=== PATIENT | male | born 1955 | race Caucasian/White ===

== ENCOUNTER 2016-05-19 10:52 | Inpatient (IN) | payer OTHER, MEDICARE ==
[~2016-05-19] VITALS: Ht 160 cm; Wt 104.1 kg
[~2016-05-19 10:52] MED LIST: ASPIRIN EC81 M1 PO; CITALOPRAM HBR20 MG PO; CLONAZEPAM0.5 MG PO; CLONAZEPAM1 M2 PO; CLONIDINE0.1 MG PO; GABAPENTIN300 M2 PO; GABAPENTIN600 M1 PO; IBUPROFEN600 M1 PO; LISINOPRIL10 MG PO; METHADONE10 MG PO; METHADOSE10 MG/1 ML PO; NEURONTIN600 M1 PO; NEXIUM 40MG40 MG PO; NICORELIEF2 MG PO; NICOTINE PATCH1 EAC2 TOP; OMEPRAZOLE20 M2 PO; OMEPRAZOLE40 M1 PO; PERCOCET 5-3251 EACH PO; PRAZOSIN HCL2 M1 PO; PRAZOSIN HCL5 M1 PO; RISPERDAL1 M1 PO; RISPERDAL2 M1 PO; RISPERIDONE1 M1 PO; RISPERIDONE2 MG PO
--- NOTE | 2016-05-19 10:58 | NUR ---
PT STATES THAT HE WAS DISCHARGED FROM [facility] 3 WEEKS AGO AND FOR THE PAST 3 DAYS HAS BEEN HAVING INCREASED DEPRESSION AND POSITIVE SI THOUGHTS WITH PLAN TO WALK IN FRONT OF A TRAIN. TAKES ALL MEDS PRESCRIBED
--- NOTE | 2016-05-19 11:37 | NUR ---
URINE SPEC. OBTAINED AND SENT
--- NOTE | 2016-05-19 11:39 | NUR ---
PT TO RM 14, WANDEND BY SECURITY AND CHANGED INTO PAPER SCRUBS. PT COMMITS TO SAFETY WHILE IN THE ED. SITTER AT DOORWAY
[2016-05-19 12:05] LABS: ABSOLUTE BASOPHIL COUNT 0 /CUMM (0.0-0.2); ABSOLUTE EOSINOPHIL COUNT 0.2 /CUMM (0.0-0.7); ABSOLUTE GRANULOCYTE CT 2.9 /CUMM (1.4-6.5); ABSOLUTE LYMPH COUNT 1.9 /CUMM (1.2-3.4); ABSOLUTE MONOCYTE COUNT 0.5 /CUMM (0.10-0.60); BASOPHIL % 0.4 % (0.0-2.0); EOSINOPHIL % 3.3 % (0-5); GRANULOCYTE % 52.8 % (42.2-75.2); HEMATOCRIT 42.2 % (42-52); MEAN CORPUSCULAR HGB 32.1 PG (27.0-31.0); MEAN CORPUSCULAR HGB CONC 35.3 G/DL (33.0-37.0); MEAN CORPUSCULAR VOLUME 90.8 FL (80.0-94.0); MEAN PLATELET VOLUME 8.7 FL (7.4-10.4); PLATELET COUNT 205 /CUMM (130-400); RED BLOOD CELL CT 4.65 /CUMM (4.70-6.10); WHITE BLOOD CELL COUNT 5.5 /CUMM (4.8-10.8)
--- NOTE | 2016-05-19 13:08 | ED PSYCHIATRIC COMPLAINT ---
See Addendum History of Present Illness General Chief Complaint: Psychiatric Related Complaint Stated Complaint: SI+ Source: patient Exam Limitations: no limitations Vital Signs & Intake/Output Vital Signs & Intake/Output Vital Signs Date Time Temp Pulse Resp B/P Pulse O2 O2 Flow FiO2 Ox Delivery Rate 05/19 2300 96.5 54 20 127/76 96 Room Air 05/19 1930 96.5 55 16 109/63 96 Room Air 05/19 1548 98.0 76 20 138/88 94 Room Air 05/19 1428 97 05/19 1300 98.0 90 20 130/78 96 Room Air 05/19 1057 97.2 82 16 123/81 95 Room Air ED Intake and Output 05/20 0000 05/19 1200 Intake Total Output Total Balance Patient 250 lb Weight Allergies Coded Allergies: NO KNOWN ALLERGIES (03/14/16) Reconcile Medications Aspirin (Ecotrin*) 81 MG TABLET.DR 1 TAB PO DAILY HEART/BLOOD (Reported) Gabapentin (Neurontin) 600 MG TABLET 600 MG PO Q6PRN PRN ANXIETY, PAIN Ibuprofen 600 MG TABLET 1 TAB PO TID PAIN (Reported) with food Methadone HCl (Methadose) 10 MG/ML ORAL.CONC 90 MG PO DAILY CHRONIC PAIN ( Reported) Nicotine (Nicotine Patch) 14 MG/24 HOUR PATCH.TD24 1 PAT TOP DAILY SMOKING CESSATON Nicotine (Nicorelief) 2 MG GUM 2 MG PO Q2 HRS NEEDED PRN tobacco craving Omeprazole 40 MG CAPSULE.DR 40 MG PO 1/2 HR AC ACID REFLUX Prazosin HCl 5 MG CAPSULE 5 MG PO AT BEDTIME NIGHTMARES Risperidone (Risperdal) 2 MG TABLET 2 MG PO BID CLEAR THOUGHTS TAKE ONE TABLET IN THE MORNING AND TWO TABLETS IN THE EVENING. Triage Note: PT STATES THAT HE WAS DISCHARGED FROM [facility] 3 WEEKS AGO AND FOR THE PAST 3 DAYS HAS BEEN HAVING INCREASED DEPRESSION AND POSITIVE SI THOUGHTS WITH PLAN TO WALK IN FRONT OF A TRAIN. TAKES ALL MEDS PRESCRIBED Triage Nurses Notes Reviewed? yes HPI: Patient presents for evaluation of suicidal ideation. Patient is somewhat reluctant to provide details of history. He states that he has been feeling suicidal over the past few days and thinks about slitting his wrists. He denies attempting this however. He denies alcohol or drug use. (SANGEETHA CUENCA,HANNA Bustillos) Past History Travel History Traveled to [facility] past 21 day No Medical History Any Pertinent Medical History? 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 No (SANGEETHA CUENCA,HANNA Bustillos) Review of Systems Review of Systems Constitutional: Reports: no symptoms. EENTM: Reports: no symptoms. Respiratory: Reports: no symptoms. Cardiovascular: Reports: no symptoms. GI: Reports: no symptoms. Genitourinary: Reports: no symptoms. Musculoskeletal: Reports: no symptoms. Skin: Reports: no symptoms. Neurological/Psychological: Reports: see HPI. Hematologic/Endocrine: Reports: no symptoms. Immunologic/Allergic: Reports: no symptoms. All Other Systems: Reviewed and Negative (SANGEETHA CUENCA,HANNA Bustillos) Physical Exam Physical Exam General Appearance: SEE BELOW Neurological/Psychiatric: SEE BELOW Comments: Gen.: Well-nourished, well-developed, no acute respiratory distress. Head: Normocephalic, atraumatic. Eyes: Normal inspection bilaterally Ears: Normal inspection bilaterally Nose: Normal inspection Throat/mouth : Moist mucosa Neck: Supple, full range of motion, no goiter Heart: Regular rate and rhythm, no murmurs rubs or gallops Lungs: Clear to auscultation bilaterally with normal air entry Chest: Nontender Back: Normal range of motion Abdomen: Soft, nontender, nondistended, normal bowel sounds Extremities: Normal range of motion grossly, equal radial pulses, no cyanosis clubbing or edema Neurologic: Cranial nerves grossly intact, speech is clear Skin: warm and dry Psychiatric: Calm, cooperative, no apparent delusions or hallucinations SAD PERSONS Done? DEFERRED TO CRISIS (HANNA VIVAS MD) Progress Differential Diagnosis: DEPRESSION, ANXIETY, DRUG INTOXICATION/OVERDOSE Plan of Care: Orders Procedure Date/time Status Continuous Observation Monitor 05/19 1521 Active ED CRISIS PSYCH CONSULT 05/19 1336 Active URINE DRUG SCREEN FOR ER ONLY 05/19 1132 Complete ETHANOL 05/19 1132 Complete COMPREHENSIVE METABOLIC PANEL 05/19 1132 Complete CBC WITHOUT DIFFERENTIAL 05/19 1132 Complete Laboratory Tests 05/19/16 1149: Anion Gap 14, Estimated GFR > 60, BUN/Creatinine Ratio 19.0, Glucose 77, Calcium 10.0, Total Bilirubin 0.9, AST 26, ALT 26, Alkaline Phosphatase 89, Total Protein 7.3, Albumin 4.2, Globulin 3.1, Albumin/Globulin Ratio 1.4, CBC w Diff NO MAN DIFF REQ, RBC 4.65 L, MCV 90.8, MCH 32.1 H, RDW 13.0, MPV 8.7, Gran % 52.8, Lymphocytes % 34.0, Monocytes % 9.5 H, Eosinophils % 3.3, Basophils % 0.4 , Absolute Granulocytes 2.9, Absolute Lymphocytes 1.9, Absolute Monocytes 0.5, Absolute Eosinophils 0.2, Absolute Basophils 0, PUBS MCHC 35.3, Serum Alcohol < 10.0 05/19/16 1137: Urine Opiates Screen < 100.00, Methadone Screen > 735 H, Barbiturate Screen < 60, Ur Phencyclidine Scrn 8.50, Amphetamines Screen < 100, U Benzodiazepines Scrn > 800 H, Urine Cocaine Screen < 50, Urine Cannabis Screen > 80.00 H Comments: 05/19/2016 7:34:47 PM patient signed out to Dr. Rutherford. (HANNA VIVAS MD) Hand-Off Endorsed To: HANNA VIVAS MD Endorsed Time: 0700 Pending: other (bed search) (YOLANDA CUENCA,EUGENE) Departure Departure Disposition: STILL A PATIENT Condition: Stable Referrals: PATIENT HAS NO PRIMARY CARE DR (PCP) Departure Forms: Customer Survey General Discharge Information (HANNA VIVAS MD) Departure Clinical Impression Primary Impression: Methadone dependence Secondary Impressions: Benzodiazepine dependence, Cannabis abuse, Mood disorder (YOLANDA CUENCA,EUGENE)
--- NOTE | 2016-05-19 13:43 | NUR ---
PT CURRENTLY SLEEPING. RR EVEN AND UNLABORED. SITTER REMAINS AT DOORWAY
--- NOTE | 2016-05-19 14:07 | NUR ---
Crisis consult ordered, however per Dr. Rodriguez the patient requires further medical evaluation at this time. Crisis will not evaluate until Dr. Rodriguez medically clears the patient.
--- NOTE | 2016-05-19 14:45 | ED PSY CRISIS COLLATERAL NOTE ---
Collateral Note Collateral Note Family/Inform/Vibha Contacts: Pt's sister La called crisis . She expresses that she is very worried for pt's safety due to his SI. "Please don't discharge him he will in the streets." She identified that she is aware that during pt's previous admit to [facility] he was referred to [facility], but she is unsure what the outcome of the referral was. She informs that Pt's friend Peri was involved in the process as she was holding pt's money to pay for his stay there. She provided Ct's number . She would like to be updated on pt's final dispo.
--- NOTE | 2016-05-19 14:48 | ED PSY CRISIS COLLATERAL NOTE ---
Collateral Note Collateral Note Family/Inform/Vibha Contacts: Call placed to Peter to follow-up on the status of the referral that was made during pt's previous admit to [facility]. This clinician spoke with Abby Gilbert who stated that she will talk to her director who handles the intake process and call crisis back.
--- NOTE | 2016-05-19 15:09 | ED PSY CRISIS COLLATERAL NOTE ---
Collateral Note Collateral Note Family/Inform/Vibha Contacts: This clinician spoke to pt's close friend Ct who explained that she has been very worried about pt. Once he was discharged from [facility] he was staying at her home. However, she recently had surgery and could not care for him because he falls often. She took him to stay at a hotel. She explains that pt needs to stay in a place like [facility] to help care for him. She explains that pt was almost in [facility], but was told that he must get medicaid and food stamps first. Peri says she took him to apply for the food stamps and medicaid, but is not sure if it was ever approved. She informed that she was told by [facility] that another option for pt may be a place called [facility] on [address] in [place]. she would like to know pt's final dispo and says he is welcome to call her.
--- NOTE | 2016-05-19 15:10 | NUR ---
CLARIFICATION- DR VIVAS DOESN'T WANT ADDITIONAL LABS JUST CONCERNED PT UNABLE TO STAY AWAKE LONG ENOUGH FOR CRISIS TO ASSESS, CRISIS AWARE
--- NOTE | 2016-05-19 15:34 | ED PSYCH CRISIS CONSULTATION ---
See Addendum Crisis Consult Basic Assessment Date of Consult: 05/19/16 Insurance Authorization: Insurance #1: Insurance name: MEDICARE A Phone number: Policy number: [id number] Group number: Authorization number: ED Provider: Patient's ED Provider: HANNA VIVAS MD Primary Care Physician: Patient's PCP: PATIENT HAS NO PRIMARY CARE DR PCP's Phone Number: Chief Complaint: Psychiatric Related Complaint Patient's Quote: "I gave up. I just want to ." Present Illness: Pt is a 60 yo male well known to [facility]. Pt has several admits to [facility] and was recently discharged at the end of last month with a referral to [facility]. Pt informs that [facility] refused to take him when he tried to go and he does not know why. Pt is currently homeless and has chronic leg pain. He has chronic leg pain. Pt reports he has minimal supports other than his sister La and his Friend Ct. Pt currently in Methadone tx and out pt psych tx at [facility]. Pt expresses feelings of hopelessness, helplessness, and worthlessness. Pt reports poor sleep and appetite. He presents with a depressive affect and is unkempt and disheveled. Pt reports that he has been trying to kill himself all week with multiple overdoses of "Handfuls of pills of what ever I can get." Pt denies overdosing today, but says he has been thinking about walking in front of a train. Pt also reports that he is hearing voices telling him to kill himself. Pt admits that he has been smoking marijuana 1x daily for the past few weeks since he was last discharged. He has also been taking about 20 mg of xanax daily that he gets off the streets. Case reviewed with Dr. Tobar of Psychiatry and pt will need inpt psych tx. There are currently no beds on [facility] so a bed search will be done. Patient's Address: [address] [place], [place] [id number] Other Phone Number: Who Do You Live With? Friend Family/Informants Interviewed: Sister La and friend Ct. See collateral notes Allergies - Coded Allergies: NO KNOWN ALLERGIES (03/14/16) Current Medications - Scheduled Medications Aspirin (Ecotrin*) 81 MG TABLET.DR Guy TAB PO DAILY HEART/BLOOD (Reported) Entered as Reported by MARJORIE TANG on 04/15/16 1714 Ibuprofen 600 MG TABLET 1 TAB PO TID PAIN #90 (Reported) Entered as Reported by MARJORIE TANG on 03/14/16 1714 Methadone HCl (Methadose) 10 MG/ML ORAL.CONC 90 MG PO DAILY CHRONIC PAIN ( Reported) Entered as Reported by MARJORIE TANG on 04/15/16 1713 Nicotine (Nicotine Patch) 14 MG/24 HOUR PATCH.TD24 1 PAT TOP DAILY SMOKING CESSATON #28 PAT Prescribed by NIDA SANDOVAL APRN on 05/06/16 Omeprazole 40 MG CAPSULE.DR 40 MG PO 1/2 HR AC ACID REFLUX #14 CAP Prescribed by NIDA SANDOVAL APRN on 05/06/16 Prazosin HCl 5 MG CAPSULE 5 MG PO AT BEDTIME NIGHTMARES #14 CAP Prescribed by NIDA SANDOVAL APRN on 05/06/16 Risperidone (Risperdal) 2 MG TABLET 2 MG PO BID CLEAR THOUGHTS #42 TAB Prescribed by NIDA SANDOVAL APRN on 05/06/16 Scheduled PRN Medications Gabapentin (Neurontin) 600 MG TABLET 600 MG PO Q6PRN PRN ANXIETY, PAIN #56 TAB Prescribed by NIDA SANDOVAL APRN on 05/06/16 Nicotine (Nicorelief) 2 MG GUM 2 MG PO Q2 HRS NEEDED PRN tobacco craving # 30 GUM Prescribed by NIDA SANDOVAL APRN on 05/06/16 Laboratory Results: Laboratory Tests 05/19/16 1149: Anion Gap 14, Estimated GFR > 60, BUN/Creatinine Ratio 19.0, Glucose 77, Calcium 10.0, Total Bilirubin 0.9, AST 26, ALT 26, Alkaline Phosphatase 89, Total Protein 7.3, Albumin 4.2, Globulin 3.1, Albumin/Globulin Ratio 1.4, CBC w Diff NO MAN DIFF REQ, RBC 4.65 L, MCV 90.8, MCH 32.1 H, RDW 13.0, MPV 8.7, Gran % 52.8, Lymphocytes % 34.0, Monocytes % 9.5 H, Eosinophils % 3.3, Basophils % 0.4 , Absolute Granulocytes 2.9, Absolute Lymphocytes 1.9, Absolute Monocytes 0.5, Absolute Eosinophils 0.2, Absolute Basophils 0, PUBS MCHC 35.3, Serum Alcohol < 10.0 05/19/16 1137: Urine Opiates Screen < 100.00, Methadone Screen > 735 H, Barbiturate Screen < 60, Ur Phencyclidine Scrn 8.50, Amphetamines Screen < 100, U Benzodiazepines Scrn > 800 H, Urine Cocaine Screen < 50, Urine Cannabis Screen > 80.00 H Past History Past Medical History Neurological: NONE, migraine, 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 Pt attends treatment 3x per week from the [facility] in [place]. Physical Limitations (Interventions): Knee pain. ambulates with cane Psychiatric Treatment History Psych Treatment Psychiatric Treatment Yes Inpatient Treatment Yes Outpatient Treatment Yes Location of Treatment [place] [facility] Reason for Treatment Depression Dates of Treatment multiple Response to Treatment variable Diagnosis by History: Schizophrenia, Depression with psychotic features ,Anxiety, Bipolar, schizoaffective Substance Use/Abuse History Drug Use/Abuse Substances Used/Abused Yes Substance Used/Abused Other (list in comments) (see present illness) Substance Abuse Treatment Substance Abuse Treatment Past Substance Abuse TX Yes Inpatient Treatment Yes Outpatient Treatment Yes Location of Treatment [facility] [facility] Reason for Treatment Opiate and anxio use d/o Dates of Treatment multiple Response to Treatment variable Current Mental Status Mental Status Orientation: Person, Place, Situation Affect: Blunted, Depressed, Flat, Hopeless, Lonely, Sad Speech: Mumbled, Soft Neuro-vegetative: Anhedonia, Appetite Decreased, Concentration Poor, Energy Decreased, Helpless, Loss of Interest, Sleep Disturbance Appearance Appearance- Dress/Hygiene: unkempt disheveled Behaviors Thought Process: WNL Thought Content: Auditory Hallucinations Memory: WNL Insight: Fair SI/HI Risk Assessment Past Suicidal Ideation/Attempts Yes Current Suicidal Ideation/Att Yes Past Homicidal Ideation/Att: Yes Current Homicidal Ideation/Attempts No Degree of Intent: Made Preparations, Plan, States Intent Danger To: Self Gravely Disabled: Poor Judgment Risk Factors: access to lethal means, chronic/serious med cond., high anxiety/ distress, history of suicide atmpts, SA/MH hospitalized, substance abuse, lives alone, male, limited support Lethality Ratin PTSD Checklist PTSD Done? 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 Sed/Hyp/Anxio(Benzodiazepine) use d/o F13.20; cannabis use d/o F12.20; opiate use d/o F11.20, on methadone tx; s/p bilateral knee surgery;Hep C; GERD; No left kidney. Current GAF: 23 Comments: Homelessness, minimal supports Departure Disposition Psych Medical Clearance Date: 05/19/16 Medically Cleared at: 0300 Time Started: 0300 Time Ended: 329 Psychiatrist Consulted: Ralf Tobar MD Date Disposition Established: 05/19/16 Time Disposition Established: 329 Plan for Disposition - Modality: Inpatient Psychiatry Facility: Bed Search Rationale for Disposition: safety and stabilization of sx Referrals PATIENT HAS NO PRIMARY CARE DR (PCP)
--- NOTE | 2016-05-19 15:45 | NUR ---
REPORT RECEIVED ON PT AND RN CARE ASSUMED RE-ASSESSMENT PERFORMED, CLINICAL STATUS UNCHANGED. ALL V.S.S. PT SLEEPING INTERMITTENTLY
--- NOTE | 2016-05-19 16:00 | NUR ---
Pt evaluated by Crisis and requires inpt psych tx. There are no beds on [facility]. Bed search being done.
--- NOTE | 2016-05-19 17:05 | NUR ---
Clinical faxed to [facility], [place], [place], [place], [facility], and [facility]
--- NOTE | 2016-05-19 18:14 | NUR ---
PT CALM COOPERATIVE IN ROOM # 14, SLEEPING INTERMITTENTLY. CLINICAL STATUS UNCHANGED
--- NOTE | 2016-05-19 20:15 | NUR ---
PT SLEEPING INTERITTENTLY, CONTINUOUS OBSERVATION MAINTAINED. ALL V.S.S. CLINICAL STATUS UNCHANGED.
--- NOTE | 2016-05-19 22:37 | NUR ---
RE-ASSESSMENT PERFORMED, CONTINUOUS OBSERVATION MONITOR PRESENT. PT SLEEPNG INTERMITTENTLY, CALM AND COOPERATVE. CLINICAL STATUS UNCHANGED
--- NOTE | 2016-05-20 00:10 | NUR ---
SLEEPING SHORT PERIODS. SITTER AT DOOR.
--- NOTE | 2016-05-20 03:42 | NUR ---
A[place] WESLEY MOTRIN 6OOMG PO GIVEN.
--- NOTE | 2016-05-20 07:12 | NUR ---
ASSUMED CARE OF PT WHO IS A&O. PT REQUESTING METHADONE. CALLED [facility] IN [place] AND SPOKE TO WAYNE FARFAN RN WHO CONFIRMED 90 MG METHADONE DOSE. STATES LAST DOSE THERE WAS 05/19/16. DR VIVAS AWARE. PT HAS POOR HYGIENE AND THIS FUEL HANDLER REQUESTED THAT HE SHOWER. [facility] ST[facility] [phone]
--- NOTE | 2016-05-20 09:19 | NUR ---
PT CURRENTLY SPEAKING ON TELEPHONE. SITTER REMAINS AT BEDSIDE. WILL CTM
--- NOTE | 2016-05-20 11:06 | NUR ---
PT CURRENTLY EATING LUNCH. PT HAS NO COMPLAINTS. SITTER AT DOORWAY
--- NOTE | 2016-05-20 13:39 | NUR ---
PT LAYING ON BED WATCHING TV, PT HAS NO COMPLAINTS AT THIS TIME. SITTER AT DOORWAY. WILL CTM
--- NOTE | 2016-05-20 14:26 | NUR ---
PT MEDICATED DOCUMENTED IN EMAR. PT IS CALM AND COOPERATIVE, SITTER AT DOORWAY
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
--- NOTE | 2016-05-20 15:34 | NUR ---
PT REFUSED VITAL IS ALART AND WENT BACK TO SLEEP
--- NOTE | 2016-05-20 15:44 | NUR ---
CPS is ready for nurse to nurse report from the ED nurse.
--- NOTE | 2016-05-20 15:47 | NUR ---
PT RESTING QUIETLY IN ROOM, ROOM DARKENED, SITTER AT DOORWAY FOR SAFETY. MEAL TRAY AT BEDSIDE FOR PT WHEN HE AWAKENS. EVEN, REGULAR RESP NOTE.D
--- NOTE | 2016-05-20 16:20 | NUR ---
REPORT CALLED TO ROGER REID, PT REPORTING HE HAS ALL OF HIS BELONGING BAG TO TRANSPORT WITH SECURITY DOWNSTAIRS.
[2016-05-20 16:50] VITALS: BP 142/93
[2016-05-20 17:49] VITALS: BP 140/85
--- NOTE | 2016-05-20 18:34 | NUR ---
PT ADMITTED TO [facility] FOR DEPRESSION WITH SI AND BENZO DETOX. PT RECENTLY HOSPITALIZED ON CPS AND DCD 05/06/16. PT REPORTED DEPRESSION "7" AND ANXIETY "5" ON SCALE OF 1-10. HE DENIED SI/THOUGHTS OF SELF HARM DURING INTERVIEW. HE AGREED TO TELL STAFF IF THOUGHTS RETURN. HE ADMITTED TO INTERMITTENT COMMAND TYPE AH WHICH "TOLD ME TO JUMP IN FRONT OF A TRAIN" AND TODAY "TO RUN OUT OF THE ER." HE DENIED PARANOID THOUGHTS AND ALL OTHER HALLUCINATIONS. PT C/O CHRONIC R KNEE PAIN OF "7." NO OTHER SOMATIC C/O. PT AFFECT CONSTRICTED. BEHAVIOR PLEASANT AND COOPERATIVE. PT HAS NOT SCORED ON CIWA.
[2016-05-20 20:02] VITALS: BP 132/77
[2016-05-20 20:05] VITALS: BP 132/77
--- NOTE | 2016-05-20 21:46 | CPS MD/APRN INITIAL ASSE PSYCH ---
Psychiatric Admission Sewer Connector's Note Reviewed: Yes Patient Seen and Examined: Yes Identifying Information: 60 yo SWM admitted today, referred by ER. The patient presented to the ER on 05/19/16. Chief Complaint: SI, hooked on benzos. Reaction to Hospitalization: Feels good about admission. "I need help." History of Present Illness Onset of Illness: Reports father 6 months ago and patient reports he isn't dealing with it. Circumstances Leading to Admission: Medication non-compliance x ~2 weeks. SI. Benzo addiction. of father ~6 months ago. Hasn't been accepted to [facility]. Reportedly has been taking handfuls of pills, whatever he could get. Problem(s) Justifying Need for Admission: SI, benzo addiction. Other HPI: States he is hooked on benzos. "Can't stop taking them. I'm shaking like a leaf." Sleep: terrible. Appetite: "it's worse" (than his sleep). Energy: variable. Past Psychiatric History Past Diagnosis(es)- if any: Depression with psychotic features. Benzo use d/o. Cannabis use d/o. Opiate use d/o (on methadone). TBI. Past Precipitating Factors- if any: CAH to strangle sister then kill himself. - Include inpatient and outpatient treatment Treatment History: [facility] IOP. Inpatient: x2. History of Suicide Attempts or Gestures Denies. Substance Abuse History: Tob: 1-2 cigs/day Benzos: #20 klonopin 1 mg/day MJ: "once in a while." Allergies: Coded Allergies: NO KNOWN ALLERGIES (03/14/16) Home Med List: Patient reports he has been off meds since discharge, ~2 weeks ago, because he "just stopped taking them." ASA 81 mg daily Ibuprofen 600 mg tid Omeprazole 40 mg daily Prazosin 5 mg qhs Risperdal 2 mg bid Neurontin 600 mg q6p anxiety Methadone 90 mg daily. - Include any medical condition(s) that may - impact the patient's recovery/remission Past Medical History: Overweight. 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 Substance Use: None. Suicides: None. Social History Living Situation: Homeless x ~1 year. Living at [facility] in [place]. Significant Relationships (family/friends): Mother and sister. NA/AA. Education: HS graduate. Vocation/Occupation: Unemployed, on disability. Legal: Hx arrest(s) for MJ possession. Healthly Behaviors Screening Tobacco Screening Tobacco Use from ED Docu: Current Not Daily - If tobacco counseling indicated - the following topics are required. - #1 Recognizing dangerous situations. - #2 Coping Skills. - #3 Basic information about quitting. Status of Tobacco Cessation Counseling: #1, #2 AND #3 Completed Cessation Med Status: Nicotine Patch Ordered Alcohol Screening - ETOH screen POS if BAL >=80 or Audit-C>= M4/F3 Audit-C Score from Diag Assess: 0 Blood Alcohol Level: Laboratory Tests 05/19 1149 Toxicology Serum Alcohol (<10 MG/DL) < 10.0 Alcohol Use Screening Results: Neg per Audit C &/or BAL - If ETOH counseling indicated - the following topics are required. - #1 Express concern about the patient's - drinking at unhealthy levels, include informing - of national norms for moderate drinking: - men <= 14 drinks/week, max 4 drinks/occasion - women <= 7 drinks/week, max 3 drinks/occasion - #2 Providing feedback, including linking alcohol to - negative physical effects (liver injury, hypertension) - negative emotional effects (relationship problems and - depression) - negative occupational consequences (reduced work - performance) - #3 Advising the patient to abstain from alcohol or - to drink below national norms for moderate drinking - (as listed above). Status of ETOH Use Counseling: N/A B/C NO ETOH Use Metabolic Screening - Screen if on a Neuroleptic Medication - Metabolic screening should include: - Blood Pressure, BMI, Glucose or Hgb A1c, & a - Lipid profile from within the past 365 days. Metabolic Screening () Not Applicable, patient not on a neuroleptic. OR () Patient on a neuroleptic(s) . Enter below results for Glucose or Hemoglobin A1C, and lipid panel if obtained during the last 365 days. BMI: 40.000 Blood Pressure: 132/77 Laboratory Results (If applicable): Exam and Plan Mental Status Examination Ambulation Status: Not observed. Appearance: Overweight WM dressed in paper scrubs, sitting on bed in ER. Attitude towards examiner: Polite and cooperative. Psychomotor activity: WNL. No psychomotor agitation/retardation. Behavior: WNL. Quality of speech: Normal in volume, rate and tone. Affect: Calm and depressed. Mood: "My head is pounding. I just can't think straight. I'm shaking like a leaf." Sad 10. Anxiety11/14. Feels hopeless, helpless, worthless and guilty. Suicidal Ideation: +SI, sees self running in front of a train. Homicidal Ideation: Denies. Hallucinations: Reports AH that tell him to kill himself. Voice is inside and outside his head, 1 voice. Denies VH. Paranoid/Delusional Material: Denies PI and magical crespo. Difficulties with thought organization: None. Insight: Limited. Judgment: Limited. Orientation: Oriented to person and place. Gives date incorrectly as 04/17/2015. Cognition: Grossly WNL. Correctly names the president. Memory Function: Grossly WNL. Estimate of intellectual functioning: Average. Assets/Strengths Patient Identified Assets/Strengths: Was pretty good at sports. Used to love to play golf. Now his leg pain interferes. Impression/Plan Impression and Plan: 60 yo SWM with depression (past psychotic features) and substance abuse, presents with SI to run in front of a train. Was off medications for ~2 weeks. Reportedly has been taking handfuls of pills. - Include all active medical diagnosis that require tx DSM 5 Diagnosis(es): Major depression, rec, severe with psychotic fx's. Benzo use d/o. Cannabis use d/o. Opioid use d/o, on methadone maintenance. Chronic leg pain. Hx TBI. Hep C. GERD. Congenital single kidney. - Initial Tx Plan for Active Psych & Medical Conditions Treatment Plan: Monitor on the unit for safety, benzo withdrawal and mood disorder. CIWA with Ativan protocol. Continue methadone once verified. Resume prazosin, Risperdal and prn neurontin. Additional information is needed from collaterals. - Factors that would help patient function - in a less restrictive setting. Factors: No longer suicidal. No longer having CAH to kill self.
--- NOTE | 2016-05-20 22:14 | NUR ---
PT IS VISIBLE ON UNIT, SITTING IN LOUNGE AND WATCHING TV WITH PEERS. AT TIMES PT CAN BE SEEN FALLING ASLEEP IN CHAIR. PT IS COOPERATIVE AND COMPLIANT WITH STAFF. REFUSED WRAP UP MEETING. NO COMPLAINTS OR SI REPORTED. PT HAS A STABLE MOOD AND FULL RANGE AFFECT.
[2016-05-21] VITALS (11 sets, daily range): BP systolic 109–152; BP diastolic 45–94
--- NOTE | 2016-05-21 08:30 | PN- Gen Med ---
Assessment/Plan Assessment: 60-year-old male with past medical history significant for substance abuse, HTN, GERD, hep C was recently admitted in Inpatient Psychiatry for depression and suicidal ideation. Patient comes back for auditory hallucinations and suicidal ideation. Denies any homicidal ideation He has chronic right knee pain S/P knee surgery. Followed up with surgeon repeat surgery was recommended, patient refused it. On by mouth ibuprofen for pain control. Patient is unclear about his medications for hypertension, previous documentation mentions lisinopril but patient doesn't admit taking anything at this point. Patient's GERD symptoms improved with the famotidine started last admission. Otherwise 14 point complete ROS negative Problem List: 1. Depression 2. Auditory hallucinations 3. Elevated blood pressure 4. Suicidal ideation 5. Methadone dependence Plan: #1 depression and suicidal ideation with auditory hallucination: Management according to psychiatrist. #2 opiate dependence: currently on 90 mg of methadone, continue the same after rechecking with the methadone clinic. #3 continue doxazosin, famotidine #4 continue ibuprofen for pain management. #5 early ambulation for DVT prophylaxis. DVT/Prophylaxis: early ambulation low risk Subjective Follow-up For: Medical evaluation for Inpatient Psychiatry admission Complaints: right knee pain, which is chronic Review of Systems Constitutional: Reports: no symptoms. EENTM: Reports: no symptoms. Cardiovascular: Reports: no symptoms. Respiratory: Reports: no symptoms. Gastrointestinal: Reports: no symptoms. Genitourinary: Reports: no symptoms. Musculoskeletal: Reports: joint pain. Skin: Reports: no symptoms. Neurological/Psychological: Reports: depressed. Hematologic/Endocrine: Reports: no symptoms. Objective Last 24 Hrs of Vital Signs/I&O Vital Signs Date Time Temp Pulse Resp B/P Pulse O2 O2 Flow FiO2 Ox Delivery Rate 05/21 0740 96.4 94 144/90 05/21 0736 96.4 94 144/90 05/20 2108 96.5 66 16 132/77 05/20 2004 96.5 66 132/77 05/20 2001 96.5 66 132/77 05/20 1749 75 140/85 05/20 1650 98.8 63 142/93 05/20 1615 98.3 84 16 134/74 100 Room Air 05/20 1216 97.2 62 17 138/86 93 Room Air 05/20 0936 97.6 56 18 149/89 92 Room Air Intake & Output 05/21 0000 05/21 0800 05/21 1600 Intake Total Output Total Balance Patient 104.128 kg Weight Physical Exam General Appearance: Alert, Oriented X3, Cooperative, No Acute Distress Skin: No Rashes, No Breakdown, No Significant Lesion HEENT: Atraumatic, PERRLA, EOMI, Mucous Membr. moist/pink Neck: Supple, No JVD, No thryomegaly, +2 Carotid Pulse wo Bruit, No LAD Lymphatic: Cervical nl Cardiovascular: Regular Rate, Normal S1, Normal S2, No Murmurs Lungs: Clear to Auscultation, Normal Air Movement Abdomen: Normal Bowel Sounds, Soft, No Tenderness, No Hepatospenomegaly, No Masses Neurological: Normal Gait, Normal Speech, Strength at 5/5 X4 Ext, Normal Tone, Sensation Intact, Cranial Nerves 3-12 NL Extremities: No Clubbing, No Cyanosis, No Edema, Normal Pulses Vascular: Normal Pulses, Pulses Symmetrical Last 24 Hrs of Labs/Mics: Laboratory Tests 05/19 05/19 1149 1137 Chemistry Sodium (137 - 145 mmol/L) 142 Potassium (3.5 - 5.1 mmol/L) 4.5 Chloride (98 - 107 mmol/L) 101 Carbon Dioxide (22 - 30 mmol/L) 28 Anion Gap (5 - 16) 14 BUN (9 - 20 mg/dL) 19 Creatinine (0.7 - 1.2 mg/dL) 1.0 Estimated GFR (>60 ml/min) > 60 BUN/Creatinine Ratio (7 - 25 %) 19.0 Glucose (65 - 99 mg/dL) 77 Calcium (8.4 - 10.2 mg/dL) 10.0 Total Bilirubin (0.2 - 1.3 mg/dL) 0.9 AST (17 - 59 U/L) 26 ALT (21 - 72 U/L) 26 Alkaline Phosphatase (< 127 U/L) 89 Total Protein (6.3 - 8.2 g/dL) 7.3 Albumin (3.5 - 5.0 g/dL) 4.2 Globulin (1.9 - 4.2 gm/dL) 3.1 Albumin/Globulin Ratio (1.1 - 2.2 %) 1.4 TSH (0.270 - 4.200 uIU/mL) 2.400 Hematology CBC w Diff NO MAN DIFF REQ WBC (4.8 - 10.8 /CUMM) 5.5 RBC (4.70 - 6.10 /CUMM) 4.65 L Hgb (14.0 - 18.0 G/DL) 14.9 Hct (42 - 52 %) 42.2 MCV (80.0 - 94.0 FL) 90.8 MCH (27.0 - 31.0 PG) 32.1 H RDW (11.5 - 14.5 %) 13.0 Plt Count (130 - 400 /CUMM) 205 MPV (7.4 - 10.4 FL) 8.7 Gran % (42.2 - 75.2 %) 52.8 Lymphocytes % (20.5 - 51.1 %) 34.0 Monocytes % (1.7 - 9.3 %) 9.5 H Eosinophils % (0 - 5 %) 3.3 Basophils % (0.0 - 2.0 %) 0.4 Absolute Granulocytes (1.4 - 6.5 /CUMM) 2.9 Absolute Lymphocytes (1.2 - 3.4 /CUMM) 1.9 Absolute Monocytes (0.10 - 0.60 /CUMM) 0.5 Absolute Eosinophils (0.0 - 0.7 /CUMM) 0.2 Absolute Basophils (0.0 - 0.2 /CUMM) 0 PUBS MCHC (33.0 - 37.0 G/DL) 35.3 Toxicology Urine Opiates Screen (>2000 NG/ML) < 100.00 Methadone Screen (>300 NG/ML) > 735 H Barbiturate Screen (>200 NG/ML) < 60 Ur Phencyclidine Scrn (>25 NG/ML) 8.50 Amphetamines Screen (>1000 NG/ML) < 100 U Benzodiazepines Scrn (>200 NG/ML) > 800 H Urine Cocaine Screen (>300 NG/ML) < 50 Urine Cannabis Screen (>50 NG/ML) > 80.00 H Serum Alcohol (<10 MG/DL) < 10.0
--- NOTE | 2016-05-21 13:09 | NUR ---
PT IS SEDATED AND UNABLE TO PARTICIPATE APPROPRIATELY IN GROUP. HE IS OBSERVED NODDING OUT AND HE HAD DIFFICULTY FOLLOWING A SIMPLE ACTIVITY.HE DENIES SUICIDAL THOUGHTS AND HIS AFFECT IS FLAT AND MOOD DEPRESSED AND ANXIOUS
--- NOTE | 2016-05-21 14:15 | CP SOUTH PROGRESS NOTE PSYCH ---
Psych (Inpt) Progress Note Progress Note Include the following elements, when applicable: Involvement in the active treatment of the patient with behavioral observations of the patient and the patient's response to the treatment. Review of the ongoing treatment process in the context of the treatment plan. Indication of how multi-disciplinary staff members are carrying out the treatment plan. Plans for future interventions and recommendations for revision of the treatment plan. Liaison with other physicians/providers. Progress Note: Stated that he doesnt feel good, has a headache, stomach ache, stuffy nose. Stated that he was using more opiates when he was discharged and a lot of bz. Stated that this is typical for withdrawal sx for him. Asked for claritin for stuffiness. C/o AH, unable to state what they tell him. Not suicidal. Sedated overall. Mental status appears similar to previous admissions. MSE: middle aged man, poor grooming, malodorous. Poor eye contact. Somnolent, sedated. Psychomotor slowing present. No movement d/o. Fair eye contact. Speech soft but otherwise wnl. Mood depressed and affect blunted. Thought process concrete. c/o AH but not internally preoccupied and does not appear to be responding to internal stimuli. Not visibly distressed. Denied thoughts of suicide. Insight impaired, judgment poor as evidenced by relapse and med non adherence. A: 60 y/o man w/ hx opiate use, bz use d/o, depressive sx w/AH, stated that he was suicidal, hopeless, that he tried to overdose on a number of pills. Presents similarly to other admissions, withdrawn, depressed, anhedonic, overly sedated. Has significant drug use problem, non adherence to outpatient tx, homelessness and significant medical problems which are chronic risk factors for him. Element of secondary gain to seek admission and respite from homelessness likely. Not acutely disorganized or responding to internal stimuli. Plan: Continue current plan of care. Monitor withdrawal sx. Start claritin. Educated him about respite services; about drug abstinence, about recurrent admissions and circumstances (relapse, outpatient not adherence) surrounding them; importance of following up w/ care on d/c to maintain a stable, drug free life and to develop stable outpatient relationships and housing.
--- NOTE | 2016-05-21 22:01 | NUR ---
PT HAS BEEN ISOLATED AND WITHDRAWN TO ROOM FOR MOST OF SHIFT. OOB FOR DINNER AND VITALS. PT GAIT UNSTEADY AND AMBULATES WITH WALKER. HIS BREATHING BECOMES EASILY LABORED AFTER WALKING THE HALLS. PT IS MALODOROUS. PT IS COMPLAINT AND COOPERATIVE. PT MOOD IS STABLE WITH A FLAT AFFECT.
[2016-05-22] VITALS (9 sets, daily range): BP systolic 119–152; BP diastolic 68–98
--- NOTE | 2016-05-22 06:56 | NUR ---
PATIENT SLEPT 1/2 OR LESS OF NIGHT, RESTLESS AND CONFUSED AT TIMES; PULSE ELEVATED AT 2200 AND 0000; NO FURTHER CIWA SCORING DURING THE NIGHT.
--- NOTE | 2016-05-22 10:28 | NUR ---
pt is confused and unsteady. his conversation makes little sense. he is slightly agitated demanding staff allow him to leave..trying doors and refusing to use his walker. when the doctor asked to see him he was unable to understand it was the doctor and just kept repeating that he needed to leave. pt is given ativan 2mg and haldol 5mg. he was resistive to taking the meds and kept the pills in his mouth until assisted by staff to drink the water. hod called to evaluate pt for dt's.pt monitored on one to one status at this time for safety
--- NOTE | 2016-05-22 10:42 | CP SOUTH PROGRESS NOTE PSYCH ---
Psych (Inpt) Progress Note Progress Note Include the following elements, when applicable: Involvement in the active treatment of the patient with behavioral observations of the patient and the patient's response to the treatment. Review of the ongoing treatment process in the context of the treatment plan. Indication of how multi-disciplinary staff members are carrying out the treatment plan. Plans for future interventions and recommendations for revision of the treatment plan. Liaison with other physicians/providers. Progress Note: Yesterday evening and this morning patient has been more disorganized, hallucinating, trying to exit the hospital. Confused and needs frequent redirection. Has had some elevated pulse to 108; scoring on CIWA. Likely withdrawing from bz. MSE: middle aged man, poor grooming, malodorous. Uses walker. Little eye contact. Disorganized, confused and hallucinating. More psychomotor agitation and more combative today. No tics/tremor noted. Speech wnl. Mood irritated and affect constricted. Thought process disorganized today. Hallucinating at times. Thought content + not oriented to circumstances/situation; wants to leave. No evidence of thoughts to harm himself/others. Insight impaired, judgment poor as evidenced by relapse and med non adherence. A: 60 y/o man w/ hx opiate use, bz use d/o, depressive sx w/AH, stated that he was suicidal, hopeless, that he tried to overdose on a number of pills. Presented initially similarly to previous admissions, withdrawn, overly sedated; however this morning and yesterday evening becoming more disorganized, incoherent. Bz withdrawal most likely. Plan: give 5mg haldol w/ lorazepam 2mg for withdrawal sx and psychotic agitation associated w/ them. Monitor vitals as per CIWA. Spoke w/ rural sociologist who evaluated him to manage DTs; will re-eval later in the afternoon (rec librium) and consider need to transfer to medicine for management of withdrawal. 1:1 sitter for disorganization ordered.
[2016-05-22] MEDS ORDERED: CLARITIN10 M1 PO (12:28)
--- NOTE | 2016-05-22 12:29 | Patient Discharge Instructions ---
Psych Discharge Inst General Discharge Information You were seen/treated for: hallucinations Watch for these problems: worsening withdrawal sx
--- NOTE | 2016-05-22 12:47 | CP SOUTH PROGRESS NOTE PSYCH ---
Psych (Inpt) Progress Note Progress Note Include the following elements, when applicable: Involvement in the active treatment of the patient with behavioral observations of the patient and the patient's response to the treatment. Review of the ongoing treatment process in the context of the treatment plan. Indication of how multi-disciplinary staff members are carrying out the treatment plan. Plans for future interventions and recommendations for revision of the treatment plan. Liaison with other physicians/providers. Progress Note: patient has continued to be hallucinating, disorganized and delirious. Attemping to walk out; has not been oriented to place or time. BP elevated to 140s/100; pulse up to 136. Discussed w/ medicine to transfer to floors for stabilization and monitoring of withdrawal sx.
[2016-05-22] MEDS ORDERED: RISPERDAL2 M1 PO (13:09)
--- NOTE | 2016-05-22 14:24 | NUR ---
AT 1420, tranfer report given to Inés LAURA, from [address] [place] [address], pt is to be accommodated in [facility]. Here in the unit patient continues with disorganized thinking, reaching out for vague object and picking his pant for invisible object. 1:1 sitter maintains for safety.
--- NOTE | 2016-05-22 14:43 | History & Physical ---
General Information and HPI MD Statement: I have seen and personally examined GONSALO ALCARAZ and documented this H&P. The patient is a 60 year old M who presented with a patient stated chief complaint of BZ withdrawal Source of Information: patient, old records Exam Limitations: clinical condition, confusion History of Present Illness: 60 year old gentleman current smoker with h/o polysubstance abuse on chronic methadone therapy, depression currently admitted to Inpatient Psychiatry for depression and suicidal ideation. Per nursing staff patient started hallucinating and delirium this morning. On interview he endorsed palpitations. Denied chest pain, nausea, vomitting, abdominal pain. Allergies/Medications Allergies: Coded Allergies: NO KNOWN ALLERGIES (03/14/16) Home Med list Aspirin (Ecotrin*) 81 MG TABLET.DR 1 TAB PO DAILY HEART/BLOOD (Reported) Gabapentin (Neurontin) 600 MG TABLET 600 MG PO Q6PRN PRN ANXIETY, PAIN Ibuprofen 600 MG TABLET 1 TAB PO TID PAIN (Reported) with food Loratadine (Claritin) 10 MG TABLET 1 TAB PO DAILY congestion Methadone HCl (Methadose) 10 MG/ML ORAL.CONC 90 MG PO DAILY CHRONIC PAIN ( Reported) Nicotine (Nicotine Patch) 14 MG/24 HOUR PATCH.TD24 1 PAT TOP DAILY SMOKING CESSATON Nicotine (Nicorelief) 2 MG GUM 2 MG PO Q2 HRS NEEDED PRN tobacco craving Omeprazole 40 MG CAPSULE.DR 40 MG PO 1/2 HR AC ACID REFLUX Prazosin HCl 5 MG CAPSULE 5 MG PO AT BEDTIME NIGHTMARES Risperidone (Risperdal) 2 MG TABLET 2 MG PO BID CLEAR THOUGHTS TAKE ONE TABLET IN THE MORNING AND one tablet in the evening Compliance With Home Meds: POOR Past History Travel History Traveled to [place] past 21 day No Medical History Neurological: migraine, 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 recently Endocrine: NONE Blood Disorders: NONE Cancer(s): NONE AMBULANCE PARAMEDIC/Reproductive: NONE History of MRSA: No History of VRE: No History of CDIFF: No Isolation History: Standard Influenza Vaccine: 01/06/16 Surgical History Surgical History: knee replacement (RT HIP- ?EARLY 2016-), knee surgery Past Family/Social History Family History Relations & Conditions if any Relation not specified for: *No pertinent family history Psychosocial History Where do you live? Home Who Do You Live With? sibling Primary Language: Sri Lankan ETOH Use: denies use Illicit Drug Use: denies illicit drug use Functional Ability Ambulation: cane (WALKER HERE, CANE AT HOME) Employment History Employment Disability Profession/Employer Disability-Has not worked for 10 years Review of Systems Review of Systems Constitutional: Denies: chills, diaphoresis, fever, malaise, weakness, unexplained weight loss. Cardiovascular: Denies: chest pain, edema, orthopena, palpitations, peripheral edema, syncope. Respiratory: Denies: cough, hemoptysis, orthopnea, short of breath, sputum production, stridor, wheezing. GI: Denies: abdominal pain, bloating, constipation, diarrhea, distention, bowel incontinence, melena, nausea, bloody stool, changes in stool, vomiting, steatorrhea. Genitourinary: Denies: discharge, dysuria, frequency, hematuria, hesitation, nocturia, pain, urgency. Exam & Diagnostic Data Last 24 Hrs of Vital Signs/I&O Vital Signs Date Time Temp Pulse Resp B/P Pulse O2 O2 Flow FiO2 Ox Delivery Rate 05/22 1206 100 140/98 05/22 1149 100 140/98 05/22 1006 108 135/75 05/22 0756 96.6 64 130/81 05/22 0755 96.2 98 149/88 05/22 0538 88 142/86 05/22 0345 77 16 119/68 05/22 0129 98.1 87 18 148/93 05/22 0014 97.5 110 18 152/98 05/21 2211 108 14 146/84 05/21 2131 98.3 87 16 152/94 05/21 2000 98.3 87 152/94 05/21 1951 98.3 87 152/94 05/21 1818 91 150/90 05/21 1601 96.6 81 132/84 05/21 1559 96.9 81 132/84 Physical Exam General Appearance agitated and picking at his clothes, obese Skin No Rashes, No Breakdown HEENT Atraumatic Cardiovascular Normal S1, Normal S2 Lungs Clear to Auscultation, Normal Air Movement Abdomen Normal Bowel Sounds, Soft, No Tenderness Assessment/Plan Assessment: 60 year old gentleman with h/o polysubstance abuse on chronic methadone therapy, HTN, GERD, right total knee replacement TBI as child, history hepatitis C, depression recent admission to 04/18/2016 for suicidal ideation Core Measures/Miscellaneous Severe Sepsis Severe Sepsis Present: No Septic Shock Septic Shock Present: No
--- NOTE | 2016-05-22 15:55 | ED PSYCHIATRIST/APRN CONSULT ---
Psychiatrist/CENTRAL SERVICE TECHNICIAN ED Consult Assessment and Plan: 60 y/o man w/ hx opiate use, bz use d/o, depressive sx w/AH, stated that he was suicidal, hopeless, that he tried to overdose on a number of pills. Uses bz on the street, unknown how much. Known to the unit and staff, generally sedated and withdrawn; however last evening and this morning became more combative, disorganized, trying to exit; incoherent. Has had multiple past admissions w/ similar circumstances, was on a bz taper already; however may have used a higher than normal amount of bz when discharged on this occasion or may be another reason for his delirious state. Picking at things that are not there, believes he was in [place], trying to elope w/o his walker; incoherent. Pulse and vitals have been monitored on the inpatient psychiatric unit, BP 140s/100s, pulse ranging from 110-136. MSE: middle aged man, poor grooming, malodorous. Eyes half closed. More sedated than he was earlier but still hallucinating actively. Mildly tremulous, was sweating earlier but not currently. Mood irritable, angry with staff. Affect constricted. Thought process incoherent, content + delusions, hallucinations ( visual primarily). No evidence suicidal thoughts.Insight absent, judgment poor as evidenced by relapse and med non adherence. Rec: - 1:1 for disorganization, elopement risk - continue psychiatric medications: risperdal 2mg bid, methadone 90mg daily; gabapentin - spoke w/ medical team, they will be ordering librium 50mg qid - CIWA scale for ativan. - psychiatry will follow, and make rec on taper once have more data on how he has been scoring on CIWA.
--- NOTE | 2016-05-24 15:52 | DISCHARGE SUMMARY REPORT-PSYCH ---
Visit Information Visit Dates/Diagnosis' Admission Date: 05/20/16 Discharge Date: 05/22/16 Reason for Admission: Medication non-compliance x ~2 weeks. SI. Benzo addiction. of father ~6 months ago. Hasn't been accepted to [facility]. Reportedly had been taking handfuls of pills, whatever he could get. Psy Discharge Primary Diag: Major depression, recur, severe w/psychotic fx's Psy Discharge Secondary Diag: bz use disorder cannabis use disorder opioid use d /o on methdne Chronic leg pain Hx TBI Hep C GERD Congenital single kidney Hospital Course Significant Lab Findings: Chemistries 05/19/16 were unremarkable, including normal TSH. Urine drug screen 05/24/16 was positive for benzodiazepine >800, methadone >735, cannabis >80. CBC 05/19/16 was significant for RBC low at 4.65, MCH high at 32.1, monos high at 9.5 with normal WBC. EKG 05/20/16 showed sinus rhythm at a rate of 61, significant ECG contour changes , old inferior OR, normal EKG. Course Complications: The patient went into DTs and required transfer to the medical service. Consultations: The patient was seen for admission H&P by Dr. Becerril. The patient was subsequently evaluated for DTs by the medical service and the patient was discharged from [facility] to the medical service. Allergies: Coded Allergies: NO KNOWN ALLERGIES (03/14/16) Hospital Course/TX Response: The patient was monitored on the unit for safety, benzo withdrawal and mood disorder. He was placed on CIWA with Ativan protocol. Methadone was continued. Prazosin, Risperdal and prn neurontin were resumed. Despite CIWA and Ativan protocol, the patient went into DTs and was discharged to the medical service. Discharge HBIPS - Tobacco Use Treatment Offered Post DC Medications Offered: Script Given-See Med List Post DC Tobacco Treatment Plan: [place] Tobacco Tx Pgm (Will return to [facility] first.) Program Appt Date: 05/26/16 (Est. date return to [facility]) Program Appt Time: 1200 - EtOH/Drug Use D/O Treatment Offered Post DC Medications Offered: Script Given-See Med List (Continued detox on med service) Post DC EtOH/SubAbuse TX Plan: Other SubAbuse/Dual Pgm (Return to [facility].) Program Appt Date: 05/26/16 (Estimated ret date to [facility]) Program Appt Time: 1200 Metabolic Screening - Screen if on a Neuroleptic Medication - Metabolic screening should include: - Blood Pressure, BMI, Glucose or Hgb A1c, & a - Lipid profile from within the past 365 days. Metabolic Screening () Not Applicable, patient not on a neuroleptic. OR () Patient on a neuroleptic(s) . Enter below results for Glucose or Hemoglobin A1C, and lipid panel if obtained during the last 365 days. BMI: 40.000 Blood Pressure: 140/98 Laboratory Results (If applicable): Lab Cholesterol 170 MG/DL 02/18/16 0833 Cholesterol/HDL Ratio 3 % 02/18/16 0833 Glucose 77 mg/dL 05/19/16 1149 HDL Cholesterol 61 mg/dL H 02/18/16 0833 LDL Cholesterol, Calc 99 mg/dL 02/18/16 0833 Triglycerides 53 mg/dL 02/18/16 0833 Discharge Instructions General Discharge Information Discharge Medications: Discharge Medications- (Dose, route, freq, indication): Minipres 5 mg po qhs for nighmares. Risperdal 2 mg po b.i.d to clear thoughts. Prilosec 40 mg po daily for GERD. Methadone 90 mg po daily for opioid substitution. Claritin 10 mg po daily for allergies. Ecotrin 81 mg po daily for heart health. Multivitamin 1 po daily as vitamin supplement. Nicotine patch 8 mg topically daily for smoking cessation. Ativan 1 mg po [id number] at 0000 and 1200 for benzodiazepine withdrawal. Ativan 1.5 mg po q12 hours at 0600 and 1800 for benzodiazepine withdrawal. Further benzodiazepine detox per the medical service. Multiple Neuroleptics: ([x]) Not Applicable OR Document below three failed attempts at monotherapy, or a plan to taper to monotherapy, or augmentation of Clozapine. () Patient's Diet: Regular. Patient's Activity: Per medical service. DC Disposition: Per medical service. Recommendations: Sitter while on medical service. Psychiatry consult while on medical service. Referred To: [facility] for treatment of active DTs. Copies To: .
== END 2016-05-22 16:00 | disposition short-term general hospital (02) | DRG 885 ==
LOC: ERH 10:52 → CP SOUTH 05-20 14:04 → ERHI 05-20 14:04 → CP SOUTH 05-20 16:23
PROVIDERS: Emergency Medicine; ADMIT Psychiatry & Neurology Psychiatry
DX: F32.3 Major depressive disorder, single episode, severe with psychotic features (principal); F13.90 Sedative, hypnotic, or anxiolytic use, unspecified, uncomplicated
CPT/HCPCS: 80307; 93005; 93010; G0463; G0480; J1630

== ENCOUNTER 2016-05-22 15:55 | Inpatient (IN) | payer OTHER, MEDICARE ==
[2016-05-22] VITALS (8 sets, daily range): BP systolic 130–160; BP diastolic 70–110
[~2016-05-22] VITALS: Ht 165.1 cm; Wt 104.3 kg
[~2016-05-22 15:55] MED LIST changes: +CLARITIN10 M1 PO
--- NOTE | 2016-05-22 17:02 | NUR ---
PT ARRIVED TO FLOOR AT [facility]. 1600. ALERT, CONFUSED, AND LETHARGIC. IV PLACED, 22G TO DEBORA. VSS STABLE, HR 88, DENIES CHEST PAIN, SOB. SITTER AT BEDSIDE. CIWA SCORE OF 8. NO ORDERS/ CODE STATUS IN COMPUTER YET. PER DINING SERVICE WORKER, DR ALEXANDER AWARE AND TO PLACE ORDERS SOON. PROTOCOL IS TO ASSUME FULL CODE UNTIL ORDERS ARE PLACED. PT C/O MILD HEADACHE, BUT OTHERWISE NO VIOCED DISCOMFORT. BED LOW, LOCKED, AND CALL VIVAS WITHIN REACH. BED ALARM ENGAGED. MONITOR FOR S/S OF WITHDRAWAL AND MAINTAIN SAFETY PRECATIONS.
--- NOTE | 2016-05-22 17:03 | History & Physical ---
See Addendum BERENICE MI 05/22/16 1703: General Information and HPI MD Statement: I have seen and personally examined GONSALO ALCARAZ and documented this H&P. The patient is a 60 year old M who presented with a patient stated chief complaint of BZ withdrawal Source of Information: patient, old records Exam Limitations: clinical condition, confusion, poor historian History of Present Illness: 60 year old gentleman current smoker with h/o polysubstance abuse on chronic methadone therapy, depression currently admitted to Inpatient Psychiatry for depression and suicidal ideation. Per nursing staff patient started hallucinating and delirium this morning. On interview he endorsed palpitations. Denied chest pain, nausea, vomitting, abdominal pain. Allergies/Medications Allergies: Coded Allergies: NO KNOWN ALLERGIES (03/14/16) Home Med list Aspirin (Ecotrin*) 81 MG TABLET.DR 1 TAB PO DAILY HEART/BLOOD (Reported) Gabapentin (Neurontin) 600 MG TABLET 600 MG PO Q6PRN PRN ANXIETY, PAIN Ibuprofen 600 MG TABLET 1 TAB PO TID PAIN (Reported) with food Loratadine (Claritin) 10 MG TABLET 1 TAB PO DAILY congestion Methadone HCl (Methadose) 10 MG/ML ORAL.CONC 90 MG PO DAILY CHRONIC PAIN ( Reported) Nicotine (Nicotine Patch) 14 MG/24 HOUR PATCH.TD24 1 PAT TOP DAILY SMOKING CESSATON Nicotine (Nicorelief) 2 MG GUM 2 MG PO Q2 HRS NEEDED PRN tobacco craving Omeprazole 40 MG CAPSULE.DR 40 MG PO 1/2 HR AC ACID REFLUX Prazosin HCl 5 MG CAPSULE 5 MG PO AT BEDTIME NIGHTMARES Risperidone (Risperdal) 2 MG TABLET 2 MG PO BID CLEAR THOUGHTS TAKE ONE TABLET IN THE MORNING AND one tablet in the evening Compliance With Home Meds: POOR Past History Medical History Neurological: migraine, 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 Home Who Do You Live With? sibling Primary Language: Bengali Functional Ability Ambulation: cane (WALKER HERE, CANE AT HOME) Review of Systems Review of Systems Constitutional: Denies: chills, diaphoresis, fever, malaise, weakness, unexplained weight loss. Cardiovascular: Reports: palpitations. Denies: chest pain, edema, orthopena, peripheral edema, syncope. Respiratory: Denies: cough, hemoptysis, orthopnea, short of breath, sputum production, stridor, wheezing. Exam & Diagnostic Data Last 24 Hrs of Vital Signs/I&O Vital Signs Date Time Temp Pulse Resp B/P Pulse O2 O2 Flow FiO2 Ox Delivery Rate 05/22 1600 98.4 88 18 130/70 Physical Exam General Appearance Mild Distress, picking at clothes Skin No Rashes, No Breakdown HEENT Atraumatic Cardiovascular Regular Rate, Normal S1, Normal S2 Lungs Clear to Auscultation, Normal Air Movement Abdomen Normal Bowel Sounds, Soft, No Tenderness Assessment/Plan Assessment: 60 year old gentleman with h/o polysubstance abuse on chronic methadone therapy, HTN, GERD, right total knee replacement TBI as child, history hepatitis C, depression recent admission to 04/18/2016 for suicidal ideation As Ranked By This Provider Problem List: 1. Benzodiazepine withdrawal with delirium Assessment/Plan Watch for tremors, anxiety, perceptual disturbances, dysphoria, psychosis, and seizures will start librium 50mg PO q6 IV ativan per [facility] psych on board 2. Depression Assessment/Plan continue Risperidone and Gabapentin 3. Essential hypertension Assessment/Plan continue aspirin and Prazosin 4. DVT prophylaxis Assessment/Plan sc lovenox 5. Full code status Core Measures/Miscellaneous Acute Coronary Syndrome ACS Diagnosis: No Cerebrovascular Accident CVA/TIA Diagnosis: No Congestive Heart Failure CHF Diagnosis: No Venous Thromboembolism VTE Risk Factors: Age > 40 VTE Prophylaxis Ordered Inpt: Pharm- Lovenox No Mech VTE prophylaxis d/t: No contraindications No VTE Pharm Prophylaxis d/t: No contraindications VTE Diagnosis: No VTE Type: NONE VTE Confirmed by (Test): NONE Severe Sepsis Severe Sepsis Present: No Septic Shock Septic Shock Present: No Miscellaneous Documentation Attending Case Discussed With: SANTA BRADFORD MD Primary Care Physician: UNKNOWN Patient sees these Specialists none Level of Patient Care: General Medicine SHARON CHRISTIANSEN MD 05/22/16 2018: Resident Review Statement Resident Statement: examined this patient, discussed with communications intern, agreed with communications intern, discussed with family, reviewed EMR data (avail) Other Findings: 60-year-old woman with past medical history of chronic pain more. He is on methadone, suicidal ideation, depression, benzos abuse was transferred from Inpatient Psychiatry for concern of benzo withdrawal and delirium. On interviewing patient was answering most questions, but was constantly picking up something from his clothes and putting it down, while nothing was there. Today he denies suicidal ideation. Denies chest pain, palpitation, nausea, vomiting. Apparently he reported that he was admitted to Inpatient Psychiatry because he wanted his life to be better. Reviewing psychiatry notes and is noticeable that he was admitted with hopelessness and suicidal and he tried to overdose on number of pills. Use benzos on the street, unknown how much. On examination alert awake, oriented Cardiovascular: S1, S2 regular Respiratory: Bilateral breath sounds equal Abdomen: Soft, nontender Extremities: No pedal edema Assessment and plan 1. Chronic benzo withdrawal currently delirious and actively withdrawal: We will admit the patient to general medical floor. We will start him on long- acting benzodiazepines along with short-acting when necessary doses per [facility] protocol. Continue to monitor for withdrawals. Check labs for today 2. Suicidal ideation/depression: Continue with one list 1 sitter. We'll continue psych medications including risperidone and gabapentin 3. Opiate dependence currently on methadone: Receives 90 mg daily methadone which we will continue 4. Smoker: We'll continue on an patch DVT prophylaxis with subcutaneous Lovenox Full CODE STATUS SOBEIDA ROYALDiane 05/26/16 1319: Attending MD Review Statement Attending Statement Attending MD Statement: examined this patient, discuss w/resident/PA/MANIFOLD BUILDER, agreed w/resident/PA/MANIFOLD BUILDER, reviewed EMR data (avail) Attending Assessment/Plan: Please see my separate attending note from day of admission for more details.
--- NOTE | 2016-05-22 17:32 | Admission Certification ---
Admission Certification Certification Statement - As attending physician, I certify that at the time of - admission, based on clinical presentation, severity of - symptoms, need for further diagnostic testing and - therapeutic interventions, and risk of adverse outcomes - without in-hospital treatment, in my clinical assessment, - this patient requires an acute hospital stay for a minimum - of two nights or longer. I have also considered psychsocial - factors such as support system, advanced age, financial - issues, cognitive issues, and failed out-patient treatments, - past re-admission history, safety of patient, and lack of - compliance as applicable. Specific rationale supporting this admission is: Acute benzodiazipine withdrawl.
--- NOTE | 2016-05-22 17:36 | PN- Att Addend ---
Attending MD Review Statement Attending Statement Attending MD Statement: examined this patient, discuss w/resident/PA/DIRECTOR DESIGN, agreed w/resident/PA/DIRECTOR DESIGN, reviewed EMR data (avail), discussed w/nursing Attending Assessment/Plan: Patient seen and examined at bedside. Patient admitted to psychiatry initially and internal medicine was called today to see the patient for acute withdrawal from benzodiazepines. Patient has been on tapering dose of lorazepam since admission. Patient was given an additional dose of Librium 25 Mg this morning along with 5 mg of Haldol and his routine dose of lorazepam. Despite this patient continued to have high blood pressure and tachycardia along with hallucinations. Patient on exam was found to be alert but not oriented to time place or person. Patient was transferred from psychiatry to inpatient medicine. We will start the patient on IV fluids for hydration and will get CBCs and BMP. Will continue on benzodiazepine taper with lorazepam on higher dose than what pt was getting in inpatient psychiatry and if needed will add Librium in addition to prevent active withdrawals.
--- NOTE | 2016-05-22 21:54 | CP SOUTH PROGRESS NOTE PSYCH ---
Psych (Inpt) Progress Note Progress Note Include the following elements, when applicable: Involvement in the active treatment of the patient with behavioral observations of the patient and the patient's response to the treatment. Review of the ongoing treatment process in the context of the treatment plan. Indication of how multi-disciplinary staff members are carrying out the treatment plan. Plans for future interventions and recommendations for revision of the treatment plan. Liaison with other physicians/providers. Progress Note: Mr. Krueger continued to hallucinate, was picking at things, disorganized and not oriented to place, situation or date. His pulse dropped to 90s-100s but blood pressure remained elevated. He received another dose of lorazepam and no improvement in his mental status (in addition to extra doses of librium and ativan as well). Discussed w/ medicine to admit for stabilization of bz withdrawal delirium. Will likely return to psychiatry once stabilized.
[2016-05-23] VITALS (12 sets, daily range): BP systolic 110–136; BP diastolic 70–96
--- NOTE | 2016-05-23 00:21 | NUR ---
LATE ENTRY FROM 05/22/16: PT INCREASINGLY AGAITATED. CALLED AND NEW ORDER FOR GONSALO VEST OBTAINED. CIWA SCORING CONTINUED WITH IV ATIVAN PER EMAR. PT STILL AGITATED, CONT TO ATTEMPT UNSAFE AMB AND ATTEMPT TO STRIKE STAFF. PT ACTIVELY HALLUCINTAING AND CALLING OUT. DR NAVA CALLED TO BS FOR EVAL. NEW ORDERS FOR IM HALDOL AND AUGIE SOFT WRIST RESTRAINTS ORDERED. PT ABLE TO UNTIE RESTRAINTS, CONT TO BE VERY AGITATED. 7MG IV ATIVAN PROVIDED. DR. NAVA AWARE AND AGAIN TO BS FOR EVAL. CONT TO MONITOR AND MAINTAIN SAFETY PRECAUTIONS.
[2016-05-23 08:37] LABS: ABSOLUTE BASOPHIL COUNT 0 /CUMM (0.0-0.2); ABSOLUTE EOSINOPHIL COUNT 0.1 /CUMM (0.0-0.7); ABSOLUTE GRANULOCYTE CT 3.2 /CUMM (1.4-6.5); ABSOLUTE LYMPH COUNT 2.1 /CUMM (1.2-3.4); ABSOLUTE MONOCYTE COUNT 0.6 /CUMM (0.10-0.60); BASOPHIL % 0.4 % (0.0-2.0); EOSINOPHIL % 2.3 % (0-5); GRANULOCYTE % 52.5 % (42.2-75.2); HEMATOCRIT 41.3 % (42-52); MEAN CORPUSCULAR HGB 30.4 PG (27.0-31.0); MEAN CORPUSCULAR HGB CONC 33.2 G/DL (33.0-37.0); MEAN CORPUSCULAR VOLUME 91.7 FL (80.0-94.0); MEAN PLATELET VOLUME 9.4 FL (7.4-10.4); PLATELET COUNT 182 /CUMM (130-400); RED BLOOD CELL CT 4.51 /CUMM (4.70-6.10); WHITE BLOOD CELL COUNT 6.1 /CUMM (4.8-10.8)
--- NOTE | 2016-05-23 09:05 | PN- Housestaff ---
BERENICE MI 05/23/16 0858: Subjective Follow-up For: Benzo withdrawal Suicidal ideation Subjective: Seen and examined patient. Patient not arousable at the moment. Overnight there was multiple episodes of agitation patient was given IV Ativan and placed in upper and lower extremity restraints with [place]. One-to-one sitter at bedside Review of Systems Constitutional: Reports: see HPI. Objective Last 24 Hrs of Vital Signs/I&O Vital Signs Date Time Temp Pulse Resp B/P Pulse O2 O2 Flow FiO2 Ox Delivery Rate 05/23 0728 97.2 70 16 130/80 95 Room Air 05/23 0600 97.2 70 16 130/80 05/23 0228 97.9 80 16 110/80 93 Room Air 05/23 0200 97.9 80 16 110/80 05/23 0030 98.1 82 16 134/82 93 Room Air 05/23 0000 98.1 82 16 134/84 05/22 2320 98.2 101 20 160/110 05/22 2226 98.2 101 20 160/110 93 Room Air 05/22 2220 98.2 110 20 160/110 05/22 2208 138/90 05/22 2100 98.2 85 20 136/96 05/22 2039 98.2 85 20 136/96 93 Room Air 05/22 2000 98.2 85 20 136/96 05/22 1800 98.4 88 18 130/70 05/22 1600 98.4 88 18 130/70 05/22 1600 18 92 Room Air Intake & Output 05/23 1600 05/23 0800 05/23 0000 Intake Total 120 Output Total Balance 120 Intake, Oral 120 Patient 230 lb Weight Physical Exam General Appearance: No Acute Distress, drowsy Cardiovascular: Normal S1, Normal S2 Lungs: Clear to Auscultation, Normal Air Movement Abdomen: Soft, No Tenderness Current Medications: Current Medications Sig/Blank Start time Last Medication Dose Route Stop Time Status Admin Aspirin Buffered 81 MG DAILY 05/23 1000 AC PO Chlordiazepoxide HCl 50 MG Q6 05/22 1804 AC 05/23 PO 0630 Enoxaparin Sodium 40 MG DAILY 05/23 1000 AC SC Gabapentin 600 MG Q8 05/22 2200 AC 05/23 PO 0630 Haloperidol 5 MG ONCE ONE 05/22 2199 DC 05/22 IM 05/22 Lorazepam 0 Q1P PRN 05/22 1814 AC 05/23 IV 0000 Methadone HCl 90 MG DAILY 05/23 1000 AC PO Nicotine 21 MG DAILY 05/23 1000 AC TOP Omeprazole 40 MG DAILY AC 05/23 0700 AC 05/23 PO 0630 Patient Medication 1 UNIT ONE NR 05/22 191 [facility] ED 05/22 1930 Patient Medication 1 UNIT ONE NR 05/22 1814 [facility] 05/22 1830 Patient Medication 1 UNIT ONE NR 05/22 181 [facility] 05/22 1830 Prazosin HCl 5 MG AT BEDTIME 05/22 2199 AC 05/22 PO 2208 Risperidone 2 MG BID 05/22 2199 AC 05/22 PO 2208 Sodium Chloride 1,000 ML Q13H 05/23 0615 AC 05/23 IV 05/23 1614 0630 Last 24 Hrs of Lab/Obie Results Last 24 Hrs of Labs/Mics: Laboratory Tests 05/23/16 0626: Urine Color Pending, Urine Clarity Pending, Urine pH Pending, Ur Specific [place] Pending, Urine Protein Pending, Urine Ketones Pending, Urine Nitrite Pending, Urine Bilirubin Pending, Urine Urobilinogen Pending, Ur Leukocyte Esterase Pending, Ur Microscopic Pending, Urine Hemoglobin Pending, Urine Glucose Pending 05/23/16 0614: Anion Gap 9, Estimated GFR > 60, BUN/Creatinine Ratio 20.0, Phosphorus 5.5 H, Magnesium 1.9, CBC w Diff NO MAN DIFF REQ, RBC 4.51 L, MCV 91.7, MCH 30.4, RDW 13.0, MPV 9.4, Gran % 52.5, Lymphocytes % 34.7, Monocytes % 10.1 H, Eosinophils % 2.3, Basophils % 0.4, Absolute Granulocytes 3.2, Absolute Lymphocytes 2.1, Absolute Monocytes 0.6, Absolute Eosinophils 0.1, Absolute Basophils 0, PUBS MCHC 33.2 05/23/16 0600: Phosphorus Cancelled, Magnesium Cancelled 05/22/16 2334: CBC w Diff Cancelled, WBC Cancelled, RBC Cancelled, Hgb Cancelled, Hct Cancelled , MCV Cancelled, MCH Cancelled, RDW Cancelled, Plt Count Cancelled, MPV Cancelled, PUBS MCHC Cancelled 05/22/16 1919: Sodium Cancelled, Potassium Cancelled, Chloride Cancelled, Carbon Dioxide Cancelled, Anion Gap Cancelled, BUN Cancelled, Creatinine Cancelled, BUN/ Creatinine Ratio Cancelled Assessment/Plan Assessment: 60 year old gentleman with h/o polysubstance abuse on chronic methadone therapy, HTN, GERD, right total knee replacement TBI as child, history hepatitis C, depression recent admission to 04/18/2016 for suicidal ideation admitted to general medicine floor for benzo withdrawal with delirium and hallucination. Problem List: 1. Benzodiazepine withdrawal with delirium Assessment/Plan Vitals stable Patient had hallucinations and episodes of unsafe ambulation overnight. He was given 10 mg of IV Ativan Continue librium 50mg PO q6 IV ativan per DANNIELLE, avoid oversedation psych on board Opiate abuse Continue methadone 90 mg daily Depression Assessment/Plan continue Risperidone and Gabapentin Essential hypertension Assessment/Plan continue aspirin and Prazosin DVT prophylaxis Assessment/Plan sc lovenox Full code status Problem List: 1. Depression 2. Polysubstance abuse 3. Methadone dependence Pain Ratin Pain Location: Not applicable Pain Goal: Pain 4 or less Pain Plan: Current regimen Tomorrow's Labs & Rationales: none required SANTA BRADFORD MD 05/23/16 1214: Attending MD Review Statement Attending Statement Attending MD Statement: examined this patient, discuss w/resident/PA/CIRCUIT DESIGNER, agreed w/resident/PA/CIRCUIT DESIGNER, reviewed EMR data (avail) Attending Assessment/Plan: 60M transferred from [facility] for acute benzodiazepine withdrawal with hemodynamic instability and visual hallucinations. Received Librium and 10mg Ativan overnight, currently calm and sleeping. Will continue Librium taper and Ativan PRN, appreciate psychiatry recommendations, DVT PPx, continue home medications, back to [facility] when medically stable. JEROD MONTIEL 05/24/16 1322: Attending MD Review Statement Attending Statement Attending Assessment/Plan: I was not involved in this patients care on 05/23/16. Pt was seen by Dr Bradford and his note is above my note. Dr Jerod Montiel
--- NOTE | 2016-05-23 12:32 | Cons- Psychiatry ---
Psychiatric Consult Date of Consult: 05/23/16 Reason for Consult: Transfer from [facility], where he was being treated for suicidality. History of Present Illness: 60 M re-presented to ED on 05/19/16 with increased SI thoughts with plan of walking in front of a train; D/C from [facility] 3 days previously. He was transferred to [facility] on 05/22/16 with signs of acute benzo withdrawal, including hallucinations and confusion. He may have been taking as many as alprazolam 20 mg daily. Allergies: Coded Allergies: NO KNOWN ALLERGIES (03/14/16) Current Medications: Current Medications Sig/Blank Start time Last Medication Dose Route Stop Time Status Admin Aspirin Buffered 81 MG DAILY 05/23 1000 AC PO Chlordiazepoxide HCl 50 MG Q6 05/22 1804 AC 05/23 PO 0630 Enoxaparin Sodium 40 MG DAILY 05/23 1000 AC 05/23 SC 1140 Gabapentin 600 MG Q8 05/22 2200 AC 05/23 PO 0630 Haloperidol 5 MG ONCE ONE 05/22 2199 DC 05/22 IM 05/22 220 2208 Lorazepam 0 Q1P PRN 05/22 1815 AC 05/23 IV 0000 Methadone HCl 90 MG DAILY 05/23 1000 AC PO Nicotine 21 MG DAILY 05/23 1000 AC 05/23 TOP 1140 Omeprazole 40 MG DAILY AC 05/23 0700 AC 05/23 PO 0630 Patient Medication 1 UNIT ONE NR 05/22 1915 [facility] 05/22 1930 Patient Medication 1 UNIT ONE NR 05/22 1815 [facility] ED 05/22 1830 Patient Medication 1 UNIT ONE NR 05/22 1815 [facility] ED 05/22 1830 Prazosin HCl 5 MG AT BEDTIME 05/22 2200 AC 05/22 PO 2208 Risperidone 2 MG BID 05/22 2200 AC 05/22 PO 2208 Sodium Chloride 1,000 ML Q13H 05/23 0615 AC 05/23 IV 05/23 1614 0630 Past History Past Medical History Neurological: migraine, 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 Pt attends treatment 3x per week from the [facility] in [place]. Physical Limitations (Interventions): Knee pain. ambulates with cane Psychiatric Treatment History Diagnosis: Schizophrenia, Depression with psychotic features, Anxiety, Bipolar, schizoaffective Risk Factors: access to lethal means, chronic/serious med cond., high anxiety/ distress, history of suicide atmpts, SA/MH hospitalized, substance abuse, lives alone, male, limited support Substance Use/Abuse History Drug Use/Abuse Substances Used/Abused Yes Substance Used/Abused Benzodiazepines Substance Abuse Treatment Substance Abuse Treatment Past Substance Abuse [place] No (UNKNOWN) Assessment/Plan Mental Status Mental Status Exam: Patient unable to awaken long enough for an interview today, 05/23/16, at 1030 or 1215. He is becoming more responsive at 1215, and expect to talk with him later today, or tomorrow. Lab Results: Laboratory Tests 05/23 05/23 0620 0614 Chemistry Sodium (137 - 145 mmol/L) 142 Potassium (3.5 - 5.1 mmol/L) 4.5 Chloride (98 - 107 mmol/L) 105 Carbon Dioxide (22 - 30 mmol/L) 28 Anion Gap (5 - 16) 9 BUN (9 - 20 mg/dL) 16 Creatinine (0.7 - 1.2 mg/dL) 0.8 Estimated GFR (>60 ml/min) > 60 BUN/Creatinine Ratio (7 - 25 %) 20.0 Phosphorus (2.5 - 4.5 mg/dL) 5.5 H Magnesium (1.6 - 2.3 mg/dL) 1.9 Hematology CBC w Diff NO MAN DIFF REQ WBC (4.8 - 10.8 /CUMM) 6.1 RBC (4.70 - 6.10 /CUMM) 4.51 L Hgb (14.0 - 18.0 G/DL) 13.7 L Hct (42 - 52 %) 41.3 L MCV (80.0 - 94.0 FL) 91.7 MCH (27.0 - 31.0 PG) 30.4 RDW (11.5 - 14.5 %) 13.0 Plt Count (130 - 400 /CUMM) 182 MPV (7.4 - 10.4 FL) 9.4 Gran % (42.2 - 75.2 %) 52.5 Lymphocytes % (20.5 - 51.1 %) 34.7 Monocytes % (1.7 - 9.3 %) 10.1 H Eosinophils % (0 - 5 %) 2.3 Basophils % (0.0 - 2.0 %) 0.4 Absolute Granulocytes (1.4 - 6.5 /CUMM) 3.2 Absolute Lymphocytes (1.2 - 3.4 /CUMM) 2.1 Absolute Monocytes (0.10 - 0.60 /CUMM) 0.6 Absolute Eosinophils (0.0 - 0.7 /CUMM) 0.1 Absolute Basophils (0.0 - 0.2 /CUMM) 0 PUBS MCHC (33.0 - 37.0 G/DL) 33.2 Urines Urine Color (YEL,AMB,STR) SHIRIN Urine Clarity (CLEAR) CLEAR Urine pH (5.0 - 8.0) 6.0 Ur Specific [place] (1.001 - 1.035) 1.025 Urine Protein (NEG,<30 MG/DL) NEG Urine Ketones (NEG) NEG Urine Nitrite (NEG) NEG Urine Bilirubin (NEG) NEG Urine Urobilinogen (0.1 - 1.0 EU/dl) 0.2 Ur Leukocyte Esterase (NEG) NEG Ur Microscopic EXAM NOT REQUIRED Urine Hemoglobin (NEG) NEG Urine Glucose (N MG/DL) NEG Diffential Diagnosis: MDD with psychotic features Benzo use disorder Impression: The patient is sleepy, not easily arousable and needs to awaken further for us to evaluate him. We expect that he will return to acute inpatient psychiatry when he is medically clear. Urine toxocology on this admission positive for methadone (prescribed), benzo > 800, cannabis > 80, ETOH <10. Provisional Treatment Plan: 1. Continue benzo detox protocol with CIWA scoring and scheduled dosing of benzodiazepine. The patient is currently on Librium, which can continue, as his LFT were WNL on 05/19/16. a. I will change the scheduled Librium to 50 mg PO every 8 hours, and we will review with the team tomorrow. Hold for oversedation or respiratory depression, but do not hold for sleep. b. I have added an order for "as needed" dosing of Librium. 2. Continue risperidone 2 mg PO 2X/day. a. Monitor EKG, and hold this medication if arrhythmia or if QTC greater than 475 ms. b. Monitor electrolytes, and replete as needed, especially potassium and magnesium to the upper portion of the normal range. 3. 1:1 sitter. The patient is not to leave the hospital AMA, or otherwise, until cleared by psychiatry. We expect that he will return to [facility] when medically clear. We will have other recommendations as we continue to follow. Annemarie Cross APRN, Pager [phone]
--- NOTE | 2016-05-23 14:00 | NUR ---
PT TOO DROWSY FOR PO MEDS TODAY, AWARE, CONTINUE TO MONITOR
--- NOTE | 2016-05-23 14:30 | NUR ---
PT HASN'T VOIDED ALL DAY, PT REFUSE ST CATH, BLADDER SCANNER CURRENTLY NOT WORKING, NOTIFIED, CONTINUE TO MONITOR
--- NOTE | 2016-05-23 17:09 | NUR ---
PT IS ALERT, CALM AND COOPERATIVE. SITTER WITH PATIENT. PT VOIDED 240ML OF CONCENTRATED, FOUL SMELLING URINE. DR.KAVITHA CHRISTIANSEN WAS UPDATED
[2016-05-24] VITALS (11 sets, daily range): BP systolic 130–134; BP diastolic 70–96
--- NOTE | 2016-05-24 07:29 | PN- Housestaff ---
LENORE CASTILLO MD 05/24/16 0729: Subjective Follow-up For: Benzodiazepine withdrawal Suicidal ideation Subjective: Patient seen and examined. He is seen lying flat in bed resting comfortably. He appears to be in no acute distress. He is not participating with questioning , but when asked if he has any pain or complaints he says "no". Review of systems is unobtainable. Patient is still requiring a one-to-one sitter for periods of agitation. He has been without restraints for 24 hours. Review of Systems Constitutional: Reports: see HPI. Objective Last 24 Hrs of Vital Signs/I&O Vital Signs Date Time Temp Pulse Resp B/P Pulse O2 O2 Flow FiO2 Ox Delivery Rate 05/24 1433 98.2 90 20 130/72 100 05/24 0800 98.3 110 16 134/92 05/24 0712 98.3 110 18 134/92 92 Room Air 05/24 0400 97.9 80 16 130/96 05/24 0206 97.9 80 16 130/96 91 Room Air 05/24 0200 97.9 80 16 130/96 05/24 0000 98.2 80 20 130/70 05/23 2227 98.2 80 20 130/70 98 05/23 2131 80 130/90 05/23 2026 98.4 78 20 136/96 93 Room Air 05/23 2000 98.4 78 20 136/96 05/23 1840 97.2 72 20 126/84 93 Room Air Intake & Output 05/24 1600 05/24 0800 05/24 0000 Intake Total 500 300 710 Output Total 240 Balance 500 300 470 Intake, Oral 500 300 710 Output, Urine 240 Physical Exam General Appearance: No Acute Distress Other Physical Findings: General -well-developed, older male in no acute distress HEENT - NCAT Cardio - S1, S2 w/o murmurs/gallops/rubs Resp - CTA bilaterally w/o wheezing/rhochi/crackles GI - soft, nontender, nondistended, bowel sounds present Neuro -somnolent/lethargic, limited neurological exam Extremities - no edema, pulses intact Current Medications: Current Medications Sig/Blank Start time Last Medication Dose Route Stop Time Status Admin Acetaminophen 650 MG ONCE ONE 05/23 184 DC 05/23 PO 05/23 184 184 Aspirin Buffered 81 MG DAILY 05/23 1000 AC 05/24 PO 0751 Chlordiazepoxide HCl 50 MG Q12 05/24 2200 AC PO Chlordiazepoxide HCl 50 MG Q8 05/23 1400 DC 05/24 PO 1414 Chlordiazepoxide HCl 25 MG TID PRN 05/23 1245 AC PO Enoxaparin Sodium 40 MG DAILY 05/23 1000 AC 05/24 SC 0750 Gabapentin 600 MG Q8 05/22 2200 AC 05/24 PO 1414 Lorazepam 0 Q1P PRN 05/22 1815 AC 05/23 IV 0000 Methadone HCl 90 MG DAILY 05/23 1000 AC 05/24 PO 0750 Nicotine 21 MG DAILY 05/23 1000 AC 05/24 TOP 0749 Omeprazole 40 MG DAILY AC 05/23 0700 AC 05/24 PO 0610 Prazosin HCl 5 MG AT BEDTIME 05/22 220 AC 05/23 PO 2131 Risperidone 2 MG BID 05/22 2200 AC 05/24 PO 0750 Sodium Chloride 1,000 ML Q13H 05/23 0615 DC 05/23 IV 05/23 1614 0630 Last 24 Hrs of Lab/Obie Results Last 24 Hrs of Labs/Mics: Laboratory Tests 05/23/16 2018: CBC w Diff Cancelled, WBC Cancelled, RBC Cancelled, Hgb Cancelled, Hct Cancelled , MCV Cancelled, MCH Cancelled, RDW Cancelled, Plt Count Cancelled, MPV Cancelled, PUBS MCHC Cancelled Assessment/Plan Assessment: Patient continues to require a one-to-one sitter for periods of agitation. He has not required any when necessary medications for acute agitation or further restraints. He is continued on a Librium taper as per psychiatry consulted. His CIWA scores have been consistently low and he has required minimal amounts of Ativan in the past 24 hours. Benzodiazepine withdrawa with delirium and hallucination: History of polysubstance abuse, chronic methadone therapy. -CIWA and Ativan when necessary -Librium taper -Psychiatry consult Opiate Abuse/Dependence - continue Methadone 90mg PO Daily Depression - continue Risperidone, Gabapentin Hypertension - stable, continue prazosin, aspirin Current every day smoker-nicotine 21 mg patch daily GERD-stable, continue omeprazole 40 mg by mouth daily Diet - Regular Diet DVT PPx -Lovenox Code Status -full code Problem List: 1. Benzodiazepine withdrawal with delirium Pain Ratin Pain Location: None Pain Goal: Remain pain free Pain Plan: As noted in plan Tomorrow's Labs & Rationales: None SANTA BRADFORD MD 05/24/16 1102: Attending MD Review Statement Attending Statement Attending MD Statement: examined this patient, discuss w/resident/PA/APPLIANCE ADJUSTER, agreed w/resident/PA/APPLIANCE ADJUSTER, reviewed EMR data (avail) Attending Assessment/Plan: 60M transferred from [facility] for acute benzodiazepine withdrawal with hemodynamic instability and visual hallucinations. Currently calm and sleeping. Agitation is improved. Still requires bedside sitter. Will continue Librium taper and Ativan PRN, appreciate psychiatry recommendations, DVT PPx, continue home medications, back to [facility] when medically stable.
--- NOTE | 2016-05-24 14:38 | PN- Psychiatry ---
Assessment/Plan Impression: Identifying Info: 60-year-old single male originally admitted to Inpatient Psychiatry on 05/20/16 for suicidal ideation with plan to walk in front of a train subsequently admitted to medicine for benzo withdrawal delirium. SUBJECTIVE "I'm alright." Patient denies subjective symptoms of alcohol withdrawal at this time with the exception of visual disturbance of "lines and shapes." OBJECTIVE Mental Status Exam Presentation/Appearance: Calm has difficulty dissipating in evaluation due to sedation. Hospital garb somewhat unkempt. Orientation: Oriented to self, place, and year Sensorium: Lethargic, sedated Eye contact: Appropriate Affect: Somewhat blunted Mood: "I'm alright." Depression: Denies Anxiety: Denies Thought Content: - Endorses VH of lines and shapes but does not appear internally stimulated at time of interview - Denies SI/HI, AH, PI. States and also believes they will not kill themselves. - Denies Hopeless/Helpless Thoughts Thought Process: Speech: Soft Judgment: Poor Insight: Poor Cognition: Memory: ? Deficits related to sedation Attention/Concentration: Decreased Brief ROS Gait: Patient not observed ambulating but assumed unsteady given current level of sedation Sleep: Adequate Appetite: Decreased ASSESSMENT 60-year-old single male medical with unit for benzodiazepine withdrawal currently well-controlled with Librium. Differential diagnosis Major depressive disorder with psychotic features Benzodiazepine use disorder Suggestion: 1. Continue one-to-one sitter, patient may not leave hospital AMA until cleared by psychiatry. The plan remains to return to [facility] once medically clear. 2. Continue [facility] detox protocol. Administer PRN medication as needed. a. We will advance librium taper to 50mg q12h starting at 2200 tonight, Hold for oversedation or respiratory depression, but do not hold for sleep. 3. Please continue risperidone and gabapentin as currently ordered. Continue to monitor EKG and electrolytes. Thank you for including psychiatry in this case we'll continue to follow Kevin Shook APRN, pager [phone] Subjective Subjective: .
--- NOTE | 2016-05-24 14:40 | Discharge Summary ---
See Addendum Visit Information Visit Dates Admission Date: 05/22/16 Discharge Date: 05/26/16 Hospital Course Course Attending Physician: SANCHEZ CUENCA,SANTA Primary Care Physician: UNKNOWN Hospital Course: Hospital course 60-year-old woman with past medical history of chronic pain more. He is on methadone, suicidal ideation, depression, benzos abuse was transferred from Inpatient Psychiatry for concern of benzo withdrawal and delirium. 1. Benzodiazepine use disorder: Patient was transferred to general medical floor. And was started on long-acting scheduled benzodiazepines and short acting when necessary doses based on [facility] protocol. Psychiatry consult was obtained for further assistance of dosing. According to the recommendation he was also added on long-acting benzos when necessary doses. His dose was tapered gradually as per psychiatry recommendation. He received 2 doses of when necessary Haldol while he was here for agitation, but otherwise patient did well while in medical floor. 2. Major depressive disorder with psychotic features: Patient initially was admitted to Inpatient Psychiatry with suicidal ideation and was on 1 W. 1 sitter which was continued while patient was transferred to the general medical floor. While he was here he denied suicidal ideation. He was continued on his antipsychotic medications including risperidone. 3. Opiate abuse/dependence on methadone 90 mg which was continued in the hospital. 4. Hypertension: Was stable on prazosin 5. Smoker: Was continued on it in patch Diet - Regular Diet DVT PPx -Lovenox Code Status -full code Patient transferred back to [facility] for continuing his management Allergies: Coded Allergies: NO KNOWN ALLERGIES (03/14/16) Pertinent Lab Results: Laboratory Tests 05/25 Chemistry Sodium (137 - 145 mmol/L) 141 Potassium (3.5 - 5.1 mmol/L) 4.2 Chloride (98 - 107 mmol/L) 100 Carbon Dioxide (22 - 30 mmol/L) 28 Anion Gap (5 - 16) 12 BUN (9 - 20 mg/dL) 19 Creatinine (0.7 - 1.2 mg/dL) 1.0 Estimated GFR (>60 ml/min) > 60 BUN/Creatinine Ratio (7 - 25 %) 19.0 Hematology CBC w Diff Cancelled WBC Cancelled RBC Cancelled Hgb Cancelled Hct Cancelled MCV Cancelled MCH Cancelled RDW Cancelled Plt Count Cancelled MPV Cancelled PUBS MCHC Cancelled Urines Urine Color (YEL,AMB,STR) Cancelled SHIRIN Urine Clarity (CLEAR) Cancelled CLEAR Urine pH (5.0 - 8.0) Cancelled 6.0 Ur Specific [place] (1.001 - 1.035) Cancelled 1.025 Urine Protein (NEG,<30 MG/DL) Cancelled NEG Urine Ketones (NEG) Cancelled NEG Urine Nitrite (NEG) Cancelled NEG Urine Bilirubin (NEG) Cancelled NEG Urine Urobilinogen (0.1 - 1.0 EU/dl) Cancelled 0.2 Ur Leukocyte Esterase (NEG) Cancelled NEG Ur Microscopic Cancelled EXAM NOT REQUIRED Urine Hemoglobin (NEG) Cancelled NEG Urine Glucose (N MG/DL) Cancelled NEG 05/23 05/23 05/22 0614 0600 2334 Chemistry Sodium (137 - 145 mmol/L) 142 Potassium (3.5 - 5.1 mmol/L) 4.5 Chloride (98 - 107 mmol/L) 105 Carbon Dioxide (22 - 30 mmol/L) 28 Anion Gap (5 - 16) 9 BUN (9 - 20 mg/dL) 16 Creatinine (0.7 - 1.2 mg/dL) 0.8 Estimated GFR (>60 ml/min) > 60 BUN/Creatinine Ratio (7 - 25 %) 20.0 Phosphorus (2.5 - 4.5 mg/dL) 5.5 H Cancelled Magnesium (1.6 - 2.3 mg/dL) 1.9 Cancelled Hematology CBC w Diff NO MAN DIFF REQ Cancelled WBC (4.8 - 10.8 /CUMM) 6.1 Cancelled RBC (4.70 - 6.10 /CUMM) 4.51 L Cancelled Hgb (14.0 - 18.0 G/DL) 13.7 L Cancelled Hct (42 - 52 %) 41.3 L Cancelled MCV (80.0 - 94.0 FL) 91.7 Cancelled MCH (27.0 - 31.0 PG) 30.4 Cancelled RDW (11.5 - 14.5 %) 13.0 Cancelled Plt Count (130 - 400 /CUMM) 182 Cancelled MPV (7.4 - 10.4 FL) 9.4 Cancelled Gran % (42.2 - 75.2 %) 52.5 Lymphocytes % (20.5 - 51.1 %) 34.7 Monocytes % (1.7 - 9.3 %) 10.1 H Eosinophils % (0 - 5 %) 2.3 Basophils % (0.0 - 2.0 %) 0.4 Absolute Granulocytes (1.4 - 6.5 /CUMM) 3.2 Absolute Lymphocytes (1.2 - 3.4 /CUMM) 2.1 Absolute Monocytes (0.10 - 0.60 /CUMM) 0.6 Absolute Eosinophils (0.0 - 0.7 /CUMM) 0.1 Absolute Basophils (0.0 - 0.2 /CUMM) 0 PUBS MCHC (33.0 - 37.0 G/DL) 33.2 Cancelled 05/22 1918 Chemistry Sodium Cancelled Potassium Cancelled Chloride Cancelled Carbon Dioxide Cancelled Anion Gap Cancelled BUN Cancelled Creatinine Cancelled BUN/Creatinine Ratio Cancelled Disposition Summary Disposition Principal Diagnosis: 1. Benzodiazepine use disorder 2. Suicidal ideation 3. Major depressive disorder with psychotic features Additional Diagnosis: 1. Smoker Discharge Disposition: other general hospital Discharge Instructions General Discharge Information Code Status: Full Code Patient's Diet: Regular diet Patient's Activity: As tolerated with PT Follow-Up Instructions/Appts: 1. Follow up with Psychiatry as per recommendation 2. Follow up with PCP in a week upon discharge. Patient does not have a PCP. we will give referral to follow up with Dr. Castro in residents clinic Medications at Discharge Discharge Medications: Continue taking these medications: Ibuprofen (Ibuprofen) 600 MG TABLET 1 Tablet ORAL THREE TIMES DAILY Qty = 90 Instructions: with food Comments: Last Taken:05/20/16 Time:1803 Methadone HCl (Methadose) 10 MG/ML ORAL.CONC 90 Milligram ORAL DAILY Comments: Last Taken:05/22/16 Time:0836 Aspirin (Ecotrin*) 81 MG TABLET.DR 1 Tablet ORAL DAILY Comments: Last Taken:05/22/16 Time:0836 Nicotine (Nicotine Patch) 14 MG/24 HOUR PATCH.TD24 1 Patch On the skin DAILY Qty = 28 Comments: Last Taken:05/22/16/ Time:0836 Nicotine (Nicorelief) 2 MG GUM 2 Milligram ORAL EVERY 2 HOURS NEEDED as needed for tobacco craving Qty = 30 Comments: Last Taken:NOT GIVEN IN HOSPITAL Time: Prazosin HCl (Prazosin HCl) 5 MG CAPSULE 5 Milligram ORAL AT BEDTIME Qty = 14 Comments: Last Taken:05/21/16 Time:213 Omeprazole (Omeprazole) 40 MG CAPSULE.DR 40 Milligram ORAL 1/2 HOUR BEFORE MEALS Qty = 14 Comments: Last Taken:05/22/16 Time:0556 Gabapentin (Neurontin) 600 MG TABLET 600 Milligram ORAL EVERY 6 HOURS NEEDED as needed for ANXIETY, PAIN Qty = 56 Comments: Last Taken:NOT GIVEN IN THE HOSPITAL NEW ORDER Time: Loratadine (Claritin) 10 MG TABLET 1 Tablet ORAL DAILY Qty = 30 Risperidone (Risperdal) 2 MG TABLET 2 Milligram ORAL TWICE DAILY Qty = 42 Instructions: TAKE ONE TABLET IN THE MORNING AND one tablet in the evening Comments: Last Taken:05/22/16 Time:0836 Start taking the following new medications: Chlordiazepoxide HCl (Chlordiazepoxide HCl) 25 MG CAPSULE 25 Milligram ORAL THREE TIMES DAILY as needed for CIWA 8-11 OR PULSE 100-110 Days = 2 No Refills Chlordiazepoxide HCl (Chlordiazepoxide HCl) 25 MG CAPSULE 50 Milligram ORAL EVERY 12 HOURS Days = 2 No Refills Instructions: Hold for oversedation or respiratory depression Copies To: DEMARCO CUENCA,ESCOBAR
[2016-05-25] VITALS (7 sets, daily range): BP systolic 116–132; BP diastolic 60–82
--- NOTE | 2016-05-25 01:17 | NUR ---
PATIENT IS DROWSY BUT AROUSABLE. VITAL SIGNS STABLE. ON ROOM AIR. MEDICATION GIVEN FOR PAIN. PATIENT SLEEPING AT THIS TIME. SITTER AT BEDSIDE. WILL CONTINUE TO MONITOR
--- NOTE | 2016-05-25 04:44 | Event Note ---
Event Note Event Note: Situation Saturation of 89% on room air Brief Patient is here for benzodiazepine withdrawl and still drowsy. Today while taking vitals he was found to have decreased saturations on room air and they got better on 2L of oxygen. Assessment and plan Possibly aspiration in the setting of altered mentation. will do a CXR to rule out any aspiration/right sided infiltrate Placed on 2L oxygen to maintain saturations 92-94% Antibiotics upto the primary team
--- NOTE | 2016-05-25 04:54 | NUR ---
PATIENT WAS SLEEPING WHILE VITAL WERE BEING TAKEN PER [facility] PROTOCOL. VITAL SIGNS WERE WITHIN NORMAL LIMITS EXCEPT O2 SAT A SAT RANGING BTW 85-89 RA. OXYGEN AT 2L ADMINISTERED, O2 SAT INCREASED TO 91 THEN 94. MD NOTIFIED AND ORDERED TO RE-CHECK HIS O2 AND INCREASE TO 3L IF HIS OXYGEN IS BELOW 94. WILL CONTINUE TO MONITOR.
--- NOTE | 2016-05-25 06:37 | NUR ---
AT 6AM, PATIENT'S O2 SAT WAS RE-CHECKED: 95% AT 2L VIA NC. PATIENT WAS ALERT AND AROUSABLE AND HE ASKED "CAN I HAVE A CUP OF COFFEE".
--- NOTE | 2016-05-25 07:07 | NUR ---
PATIENT HAS NOT VOIDED ALL NIGHT. HE ALSO HAD ABOUT 100ML OF WATER WITH HIS 6AM MED. NOTIFIED. WILL CONTINUE TO MONITOR.
[2016-05-25] MEDS ORDERED: CHLORDIAZEPOXID25 M3 PO ×2 (07:35)
--- NOTE | 2016-05-25 07:36 | Patient Discharge Instructions ---
Acute Coronary Syndrome Inclusion Criteria At DC or during hospital stay patient has or had the following: ACS DIAGNOSIS No Discharge Core Measures Meds if any: Prescribed or Continued at Discharge Meds if any: NOT Prescribed or Continued at Discharge Congestive Heart Failure Inclusion Criteria At DC or during hospital stay patient has or had the following: CHF DIAGNOSIS No Discharge Core Measures Meds if any: Prescribed or Continued at Discharge Meds if any: NOT Prescribed or Continued at Discharge Cerebrovascular accident Inclusion Criteria At DC or during hospital stay patient has or had the following: CVA/TIA Diagnosis No Discharge Core Measures Meds if any: Prescribed or Continued at Discharge Meds if any: NOT Prescribed or Continued at Discharge Venous thromboembolism Inclusion Criteria VTE Diagnosis No VTE Type NONE VTE Confirmed by (Test) NONE Discharge Core Measures - Per Current guidelines, there needs to be overlap - treatment for the first 5 days of Warfarin therapy. - If discharged on Warfarin prior to 5 days of - overlap therapy, the patient will need to be - assessed for post discharge needs including - *Post discharge parental anticoagulation - *Warfarin and/or parental anticoagulation education - *Follow up date to check INR post discharge At least 5 days overlap therapy as Inpatient No Meds if any: Prescribed or Continued at Discharge Note: Overlap Therapy is Warfarin and Anticoagulant Meds if any: NOT Prescribed or Continued at Discharge
--- NOTE | 2016-05-25 09:52 | PN- Housestaff ---
ANNA CUENCA,LENORE 05/25/16 0952: Subjective Follow-up For: Benzodiazepine withdrawal Suicidal ideation Subjective: Patient seen and examined. He is seen lying flat in bed resting comfortably. He appears to be in no acute distress. One-to-one sitter in the room. When asked if he has any complaints or pain he says no. He is somnolent appearing and refusing to answer any questions other than with yes and no answers. He is however complaining of a painful, swollen right knee and attributes it to multiple knee surgeries she's had in the past but does admit that it looks worse than usual. Additionally he denies any headache, fever, chills, chest pain, shortness of breath, nausea, vomiting, diarrhea. Per night patient was reportedly hypoxic to the high 80s. He was placed on nasal cannula with 2.0 L oxygen. Review of Systems Constitutional: Reports: see HPI. Objective Last 24 Hrs of Vital Signs/I&O Vital Signs Date Time Temp Pulse Resp B/P Pulse O2 O2 Flow FiO2 Ox Delivery Rate 05/25 1429 97.8 83 20 130/68 93 05/25 0800 97.5 97 20 130/60 05/25 0800 93 Nasal 2.0L Cannula 05/25 0516 97.5 97 20 130/60 93 Nasal 2.0L Cannula 05/25 0400 98.0 68 18 132/82 05/25 0000 98.0 66 18 132/80 05/25 0000 95 Nasal 2.0L Cannula 05/24 2319 88 16 125/83 05/24 2206 97.7 68 20 132/82 93 05/24 2000 98.3 78 15 130/80 05/24 1800 98.2 90 20 130/72 05/24 1600 98.2 90 20 130/72 05/24 1600 98.3 78 15 130/80 95 Room Air 05/24 1433 98.2 90 20 130/72 100 Intake & Output 05/25 1600 05/25 0800 05/25 0000 Intake Total 550 100 200 Output Total 100 Balance 550 100 100 Intake, Oral 550 100 200 Output, Urine 100 Patient 104.326 kg Weight Physical Exam General Appearance: No Acute Distress Other Physical Findings: General -well-developed, obese middle-aged male in no acute distress HEENT - NCAT, PERRL, EOMI, anicteric sclera Cardio - S1, S2 w/o murmurs/gallops/rubs Resp -minimal wheezing heard and bibasilar lung lee GI - soft, nontender, nondistended, bowel sounds present Neuro - Awake and alert, CN II - XII grossly intact Extremities -swollen/warm/tender right knee, 1+ bilateral edema, 2+ distal pulses Current Medications: Current Medications Sig/Blank Start time Last Medication Dose Route Stop Time Status Admin Acetaminophen 650 MG ONCE ONE 05/24 1745 DC 05/24 PO 05/24 1746 1831 Aspirin Buffered 81 MG DAILY 05/23 1000 AC 05/25 PO 0920 Chlordiazepoxide HCl 50 MG Q12 05/24 2200 AC 05/25 PO 1116 Chlordiazepoxide HCl 50 MG Q8 05/23 1400 DC 05/24 PO 1414 Chlordiazepoxide HCl 25 MG TID PRN 05/23 1245 AC PO Docusate Sodium 100 MG DAILY 05/25 1000 AC 05/25 PO 0919 Enoxaparin Sodium 40 MG DAILY 05/23 1000 AC 05/25 SC 0923 Gabapentin 600 MG Q8 05/22 2200 AC 05/25 PO 1357 Lorazepam 0 Q1P PRN 05/22 1815 AC 05/23 IV 0000 Methadone HCl 90 MG DAILY 05/23 1000 AC 05/25 PO 0918 Nicotine 14 MG DAILY 05/26 1000 AC TOP Nicotine 21 MG DAILY 05/23 1000 DC 05/25 TOP 0921 Omeprazole 40 MG DAILY AC 05/23 0700 AC 05/25 PO 0605 Polyethylene Glycol 17 GM DAILY PRN 05/25 0800 AC 05/25 PO 0921 Prazosin HCl 5 MG AT BEDTIME 05/22 2200 AC 05/24 PO 2319 Risperidone 2 MG BID 05/22 2200 AC 05/25 PO 0920 Senna 187 MG AT BEDTIME 05/25 2200 AC PO Last 24 Hrs of Lab/Obie Results Last 24 Hrs of Labs/Mics: Laboratory Tests 05/25/16 0705: Anion Gap 12, Estimated GFR > 60, BUN/Creatinine Ratio 19.0 Assessment/Plan Assessment: Patient continues to require a one-to-one sitter. CIWA overnight were 0-5 requiring no additional Ativan for agitation. He is maintained on a Librium taper. Chest x-ray obtained this morning due to patient's sudden onset hypoxia demonstrates an opacity at the left base suggestive of atelectasis as consolidation. EKG obtained this morning demonstrated sinus tachycardia with Q waves in the inferior leads. X-ray of the knee demonstrated a joint effusion larger than in previous studies. Bilateral Doppler of the lower extremity ruled out presence of DVT. He is to be continued on his Librium taper and discharged to Inpatient Psychiatry once medically stable. Benzodiazepine withdrawa with delirium and hallucination: History of polysubstance abuse, chronic methadone therapy. -CIWA and Ativan when necessary -Librium taper -Psychiatry consult Opiate Abuse/Dependence - continue Methadone 90mg PO Daily Depression - continue Risperidone, Gabapentin Hypertension - stable, continue prazosin, aspirin Current every day smoker-nicotine 21 mg patch daily GERD-stable, continue omeprazole 40 mg by mouth daily Diet - Regular Diet DVT PPx -Lovenox Code Status -full code Problem List: 1. Benzodiazepine withdrawal with delirium Pain Ratin Pain Location: Right knee Pain Goal: Pain 4 or less Pain Plan: As noted in plan Tomorrow's Labs & Rationales: CBC - hypoxia w/ possible consolidation Mg [place] MD 05/25/16 1618: Attending MD Review Statement Attending Statement Attending MD Statement: examined this patient, discuss w/resident/PA/SLUBBER TENDER, agreed w/resident/PA/SLUBBER TENDER, reviewed EMR data (avail) Attending Assessment/Plan: 60M transferred from [facility] for acute benzodiazepine withdrawal with hemodynamic instability and visual hallucinations. Currently calm and sleeping. Agitation is improved. Still requires bedside sitter. Today complained of right knee swelling, has a history of knee replacement in that knee. On examination there is no tenderness, warmth or erythema, and effusion is mild. No evidence of septic joint. Will continue Librium taper and Ativan PRN, appreciate psychiatry recommendations, DVT PPx, continue home medications, back to [facility] when medically stable. Please place anticipated discharge order and send CMR to pharmacy for review. Notify psychiatry that patient will be ready for discharge to [facility] tomorrow.
--- NOTE | 2016-05-25 10:57 | RADIOLOGY REPORT ---
EXAMINATION: XR CHEST CLINICAL INFORMATION: Aspiration pneumonia. COMPARISON: None. TECHNIQUE: AP and lateral views of the chest were obtained. FINDINGS: The lungs are hyperexpanded bilaterally, with bronchovascular crowding. There is opacity at the left base which may be consistent with atelectasis although consolidation cannot be excluded. The heart is at the upper limits of normal in size. The aortic arch is unfolded. There are no pleural effusions. There are no acute osseous findings. IMPRESSION: 1. The lung lee are hypoexpanded bilaterally. 2. There is opacity at the left base which may be consistent with atelectasis or consolidation.
--- NOTE | 2016-05-25 11:05 | ULTRASOUND REPORT ---
EXAMINATION: US TRIPLEX LOWER EXTREMITY, BILATERAL CLINICAL INFORMATION: Tenderness and swelling, hypoxic. COMPARISON: None. TECHNIQUE: Color-flow triplex imaging with spectral analysis and compression Doppler were performed on the bilateral lower extremities. FINDINGS: Respiratory variation, normal compression and augmented flow are noted throughout the bilateral lower extremities. The visualized common femoral vein, superficial femoral vein, profunda femoral vein, popliteal vein and mid calf peroneal and posterior tibial venous segments show no evidence of deep venous thrombosis. There is no Goldsmith's cyst. IMPRESSION: Normal triplex scan without evidence of deep venous thrombosis involving the bilateral lower extremities.
--- NOTE | 2016-05-25 12:09 | RADIOLOGY REPORT ---
EXAMINATION: XR KNEE, RIGHT CLINICAL INFORMATION: Right knee swollen and warm. COMPARISON: Knee x-ray 02/22/2013. TECHNIQUE: AP and lateral views of the right knee were obtained. FINDINGS: The study redemonstrates the sequelae of the right total knee arthroplasty. There is increased lucency between the anterior femoral component and the distal femoral shaft compared to the prior study. However, the hardware appears intact. There is soft tissue fullness in the suprapatellar region, consistent with a joint effusion which appears larger compared to the prior study. On the current exam there are now multiple calcifications around the knee joint, increased in size and number compared to the prior study. There are no acute fractures. IMPRESSION: 1. The study demonstrates the sequelae of the right total knee arthroplasty. 2. There is increased lucency between the distal tibial shaft and in the femoral prosthetic component which may be consistent with loosening. This could be further evaluated with a bone gallium subtraction study to assess for an inflammatory/infective component. 3. The calcifications noted around the knee joint are most consistent with dystrophic changes.
[2016-05-26 06:50] VITALS: BP 130/90
--- NOTE | 2016-05-26 07:09 | PN- Housestaff ---
ANNA CUENCA,LENORE 05/26/16 0708: Subjective Follow-up For: Benzodiazepine withdrawal Suicidal Ideation Subjective: Patient seen and examined. He is seen sitting upright in bed resting comfortably. He appears to be in no acute distress. He is poorly groomed but has normal affect. Sitter present at bedside and reports to issues overnight. He states that he feels well and has no complaints. He also admits that the pain and swelling in his right need is much improved and feels better. Additionally he denies any headache, fever, chills, chest pain, shortness of breath, nausea, vomiting, diarrhea. No overnight events reported. Review of Systems Constitutional: Reports: see HPI. Objective Last 24 Hrs of Vital Signs/I&O Vital Signs Date Time Temp Pulse Resp B/P Pulse O2 O2 Flow FiO2 Ox Delivery Rate 05/26 0650 97.6 82 20 130/90 92 Room Air 05/26 0000 94 Room Air 05/25 2336 72 116/70 05/25 2229 97.5 82 20 116/70 94 Nasal Cannula 05/25 2200 98.0 72 18 116/70 05/25 1600 Nasal 2.0L Cannula 05/25 1429 97.8 83 20 130/68 93 Intake & Output 05/26 1600 05/26 0800 05/26 0000 Intake Total 100 400 Output Total 450 900 Balance -350 -500 Intake, Oral 100 400 Output, Urine 450 900 Physical Exam General Appearance: Alert, Oriented X3, Cooperative, No Acute Distress Other Physical Findings: General - Well developed, obese poorly groomed man in no acute distress HEENT - NCAT, PERRL, EOMI, anicteric sclera, on room air CVS - S1, S2 w/o m/g/r Resp - Minimal wheezing heard in bibasilar lung lee GI - Soft, NT/ND, bowel sounds present Neuro - Awake and alert, CN II - XII, normal affect Ext - distal pulses 2+, 1+ BL LE edema, mimimally swollen NT right knee Current Medications: Current Medications Sig/Blank Start time Last Medication Dose Route Stop Time Status Admin Acetaminophen 650 MG ONCE ONE 05/25 2014 DC 05/25 PO 05/25 Aspirin Buffered 81 MG DAILY 05/23 1000 AC 05/25 PO 09 Chlordiazepoxide HCl 50 MG Q12 05/24 2200 AC 05/25 PO 2336 Chlordiazepoxide HCl 25 MG TID PRN 05/23 1245 AC PO Docusate Sodium 100 MG DAILY 05/25 1000 AC 05/25 PO 0919 Enoxaparin Sodium 40 MG DAILY 05/23 1000 AC 05/25 SC 0923 Gabapentin 600 MG Q8 05/22 2200 AC 05/26 PO 0604 Lorazepam 0 Q1P PRN 05/22 1815 AC 05/23 IV 0000 Methadone HCl 90 MG DAILY 05/23 1000 AC 05/25 PO 0918 Nicotine 14 MG DAILY 05/26 1000 AC TOP Nicotine 21 MG DAILY 05/23 1000 DC 05/25 TOP 0921 Omeprazole 40 MG DAILY AC 05/23 0700 AC 05/26 PO 0604 Polyethylene Glycol 17 GM DAILY PRN 05/25 0800 AC 05/25 PO 0921 Prazosin HCl 5 MG AT BEDTIME 05/22 2200 AC 05/25 PO 2336 Risperidone 2 MG BID 05/22 2200 AC 05/25 PO 2336 Senna 187 MG AT BEDTIME 05/25 2200 AC 05/25 PO 2337 Last 24 Hrs of Lab/Obie Results Last 24 Hrs of Labs/Mics: Laboratory Tests 05/26/16 0640: Magnesium Pending, CBC w Diff Pending, WBC Pending, RBC Pending, Hgb Pending, Hct Pending, MCV Pending, MCH Pending, RDW Pending, Plt Count Pending, MPV Pending, PUBS MCHC Pending Assessment/Plan Assessment: Patient is saturating adequately (93%) on room air and reports that he feels comfortable without any supplemental oxygen. CIWA overnight were 0-2 requiring not PRN doses of librium. He is to be discharged to [facility] on his librium taper when cleared from physical therapy. Benzodiazepine withdrawa with delirium and hallucination: History of polysubstance abuse, chronic methadone therapy. -CIWA and Ativan when necessary -Librium taper -Psychiatry consult Opiate Abuse/Dependence - continue Methadone 90mg PO Daily Depression - continue Risperidone, Gabapentin Hypertension - stable, continue prazosin, aspirin Current every day smoker-nicotine 21 mg patch daily GERD-stable, continue omeprazole 40 mg by mouth daily Diet - Regular Diet DVT PPx -Lovenox Code Status -full code Problem List: 1. Benzodiazepine abuse Pain Ratin Pain Location: Right knee Pain Goal: Pain 4 or less Pain Plan: noted in plan Tomorrow's Labs & Rationales: None SANCHEZ CUENCASANTA 05/26/16 1155: Attending MD Review Statement Attending Statement Attending MD Statement: examined this patient, discuss w/resident/PA/COOK JELLY, agreed w/resident/PA/COOK JELLY, reviewed EMR data (avail) Attending Assessment/Plan: 60M transferred from [facility] for acute benzodiazepine withdrawal with hemodynamic instability and visual hallucinations. Currently calm and sleeping. Agitation is improved. Still requires bedside sitter. Today complained of right knee swelling, has a history of knee replacement in that knee. On examination there is no tenderness, warmth or erythema, and effusion is mild. No evidence of septic joint. Patient is stable for discharge to [facility] if able to ambulate well. Will seek PT recommendations. Continue Librium taper. Follow psychiatry recommendations.
[2016-05-26 08:57] LABS: ABSOLUTE BASOPHIL COUNT 0 /CUMM (0.0-0.2); ABSOLUTE EOSINOPHIL COUNT 0.2 /CUMM (0.0-0.7); ABSOLUTE LYMPH COUNT 1.8 /CUMM (1.2-3.4); ABSOLUTE MONOCYTE COUNT 0.6 /CUMM (0.10-0.60); BASOPHIL % 0.4 % (0.0-2.0); EOSINOPHIL % 3.8 % (0-5); GRANULOCYTE % 53.4 % (42.2-75.2); HEMATOCRIT 40.6 % (42-52); MEAN CORPUSCULAR HGB 30.8 PG (27.0-31.0); MEAN CORPUSCULAR HGB CONC 33.7 G/DL (33.0-37.0); MEAN CORPUSCULAR VOLUME 91.3 FL (80.0-94.0); MEAN PLATELET VOLUME 9.3 FL (7.4-10.4); PLATELET COUNT 167 /CUMM (130-400); RBC DISTRIBUTION WIDTH 13.1 % (11.5-14.5); RED BLOOD CELL CT 4.44 /CUMM (4.70-6.10); WHITE BLOOD CELL COUNT 5.7 /CUMM (4.8-10.8)
[2016-05-26 15:28] VITALS: BP 110/70
[2016-05-26 22:35] VITALS: BP 110/70
[2016-05-27] VITALS: BP 110/70
[2016-05-27 06:36] VITALS: BP 120/80
--- NOTE | 2016-05-27 07:15 | PN- Housestaff ---
ANNA CUENCA,LENORE 05/27/16 0715: Subjective Follow-up For: Benzodiazepine withdrawal Suicidal Ideation Subjective: Patient seen and examined. He is seen lying flat in bed resting comfortably. He appears to be in no acute distress. He continues to say that he feels fine and has no complaints. He also admits that his right knee pain/swelling and continued be without issue. Additionally he denies any headache, fever, chills, chest pain, shortness of breath, nausea, vomiting, diarrhea. No overnighte events reported. Review of Systems Constitutional: Reports: see HPI. Objective Last 24 Hrs of Vital Signs/I&O Vital Signs Date Time Temp Pulse Resp B/P Pulse O2 O2 Flow FiO2 Ox Delivery Rate 05/27 0800 98.5 80 20 120/80 05/27 0636 98.5 80 20 120/80 90 Room Air 05/27 0000 98.1 76 20 110/70 05/26 2235 98.1 76 20 110/70 93 Room Air 05/26 2103 88 120/80 05/26 1528 98.1 83 20 110/70 91 Intake & Output 05/27 1600 05/27 0800 05/27 0000 Intake Total 500 480 Output Total Balance 500 480 Intake, Oral 500 480 Physical Exam General Appearance: Alert, Cooperative, No Acute Distress Other Physical Findings: General - well developed, middle aged man in no acute distress HEENT - NCAT, EOMI, PERRL, anicteric sclera, on room air CVS - S1, S2 w/o m/g/r Resp - CTA bilaterally GI - soft, obese, nontender, nondistended, bowel sounds + Neuro - Awake and alert, oriented to person/place, CN II - XII grossly intact Ext - distal pulses 2+, no LE edema, mimimally swollen right knee Current Medications: Current Medications Sig/Blank Start time Last Medication Dose Route Stop Time Status Admin Acetaminophen 650 MG ONCE ONE 05/27 06 DC 05/27 PO 05/27 600 06 Acetaminophen 650 MG ONCE ONE 05/26 2014 DC 05/26 PO 05/26 Aspirin Buffered 81 MG DAILY 05/23 1000 AC 05/27 PO 0803 Chlordiazepoxide HCl 50 MG DAILY 05/27 1000 AC 05/27 PO 1007 Chlordiazepoxide HCl 25 MG TID PRN 05/23 1245 AC PO Docusate Sodium 100 MG DAILY 05/25 1000 AC 05/27 PO 0803 Enoxaparin Sodium 40 MG DAILY 05/23 1000 AC 05/27 SC 0805 Gabapentin 600 MG Q8 05/22 2200 AC 05/27 PO 0543 Methadone HCl 90 MG DAILY 05/23 1000 AC 05/27 PO 0803 Nicotine 14 MG DAILY 05/26 1000 AC 05/27 TOP 0805 Omeprazole 40 MG DAILY AC 05/23 0700 AC 05/27 PO 0543 Patient Medication 1 ED .STK-MED ONE 05/27 1339 CA Teaching ED 05/27 1340 Patient Medication 1 ED .STK-MED ONE 05/26 1405 CA Teaching ED 05/26 1406 Polyethylene Glycol 17 GM DAILY PRN 05/25 0800 AC 05/26 PO 0908 Prazosin HCl 5 MG AT BEDTIME 05/22 2200 AC 05/26 PO 2103 Risperidone 2 MG BID 05/22 2199 AC 05/27 PO 0803 Senna 187 MG AT BEDTIME 05/250 AC 05/26 PO 2103 Assessment/Plan Assessment: Patient continues to saturate well on room air without any signs of respiratory distress. His knee/pain and swelling are all but resolved. CIWA scores overnight were 0-3 requiring no additional PRN librium. He is continued on his librium taper as per psychiatry. Physical therapy has seen the patient and determined that the patient would benefit from further therapy, but is not required to be on the medicine floor. Patient is to be discharged to [facility] today for further management. Benzodiazepine withdrawa with delirium and hallucination: History of polysubstance abuse, chronic methadone therapy. -CIWA and Ativan when necessary -Librium taper -Psychiatry consult Opiate Abuse/Dependence - continue Methadone 90mg PO Daily Depression - continue Risperidone, Gabapentin Hypertension - stable, continue prazosin, aspirin Current every day smoker-nicotine 21 mg patch daily GERD-stable, continue omeprazole 40 mg by mouth daily Diet - Regular Diet DVT PPx -Lovenox Code Status -full code Problem List: 1. Suicidal ideation 2. Benzodiazepine abuse Pain Ratin Pain Location: None Pain Goal: Pain 4 or less Pain Plan: As noted in plan Tomorrow's Labs & Rationales: None SANTA BRADFORD MD 05/27/16 1153: Attending MD Review Statement Attending Statement Attending MD Statement: examined this patient, discuss w/resident/PA/BUCKLE ATTACHING MACHINE OPERATOR, agreed w/resident/PA/BUCKLE ATTACHING MACHINE OPERATOR, reviewed EMR data (avail) Attending Assessment/Plan: 60M transferred from [facility] for acute benzodiazepine withdrawal with hemodynamic instability and visual hallucinations. Currently calm and sleeping. Agitation is improved. Still requires bedside sitter. Today complained of right knee swelling, has a history of knee replacement in that knee. On examination there is no tenderness, warmth or erythema, and effusion is mild. No evidence of septic joint. Patient is stable for discharge to [facility] if able to ambulate well. Will seek PT recommendations. Continue Librium taper. Follow psychiatry recommendations.
[2016-05-27 08:00] VITALS: BP 120/80
--- NOTE | 2016-05-27 13:32 | PN- Psychiatry ---
Assessment/Plan Impression: The patient is currently denying suicidal ideation, but reports that this occurs episodically, with command auditory hallucinations during his admission in April,. He would benefit from acute inpatient psychiatry. 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 Cannabis use disorder Suggestion: 1. Patient is to be re-admitted to acute inpatient psychiatry. Subjective Subjective: A+O. Denies current SI/HI, "Not today." Denies AVH, and presents not best delusions. Mood is normal, denying depression or anxiety. He denies special crespo and feels safe here. He reports 8 hours of sleep, feeling refreshed upon awakening today, but the patient is noted to be somnelent during the interview. Objective Last 24 Hrs of Vital Signs/I&O Vital Signs Date Time Temp Pulse Resp B/P Pulse O2 O2 Flow FiO2 Ox Delivery Rate 05/27 1423 98.1 78 18 120/88 91 05/27 0800 98.5 80 20 120/80 05/27 0636 98.5 80 20 120/80 90 Room Air 05/27 0000 98.1 76 20 110/70 05/26 2235 98.1 76 20 110/70 93 Room Air 05/26 2103 88 120/80 Intake & Output 05/27 1600 05/27 0800 05/27 0000 Intake Total 600 500 480 Output Total Balance 600 500 480 Intake, Oral 600 500 480 Current Medications: Current Medications Sig/Blank Start time Last Medication Dose Route Stop Time Status Admin Acetaminophen 650 MG ONCE ONE 05/27 0600 DC 05/27 PO 05/27 0601 0603 Acetaminophen 650 MG ONCE ONE 05/26 2014 DC 05/26 PO 05/26 Aspirin Buffered 81 MG DAILY 05/23 1000 DCD 05/27 PO 0803 Bisacodyl 10 MG ONCE ONE 05/27 1400 DC 05/27 AR 05/27 1401 1425 Chlordiazepoxide HCl 50 MG DAILY 05/27 1000 DCD 05/27 PO 1007 Chlordiazepoxide HCl 25 MG TID PRN 05/23 1245 DCD PO Docusate Sodium 100 MG DAILY 05/25 1000 DCD 05/27 PO 0803 Enoxaparin Sodium 40 MG DAILY 05/23 1000 DCD 05/27 SC 0805 Gabapentin 600 MG Q8 01/15 2200 DCD 05/27 PO 1342 Methadone HCl 90 MG DAILY 05/23 1000 DCD 05/27 PO 0803 Nicotine 14 MG DAILY 05/26 1000 DCD 05/27 TOP 0805 Omeprazole 40 MG DAILY AC 05/23 0700 DCD 05/27 PO 0543 Patient Medication 1 ED .STK-MED ONE 05/27 1339 TN Teaching ED 05/27 1340 Polyethylene Glycol 17 GM DAILY PRN 05/25 0800 DCD 05/26 PO 0908 Prazosin HCl 5 MG AT BEDTIME 05/22 2199 DCD 05/26 PO 2103 Risperidone 2 MG BID 05/22 2199 DCD 05/27 PO 0803 Senna 187 MG AT BEDTIME 05/250 DCD 05/26 PO 210
[2016-05-27 14:23] VITALS: BP 120/88
--- NOTE | 2016-05-27 17:24 | NUR ---
REPORT CALLED TO ROGER IN [facility].
== END 2016-05-27 18:55 | DRG 897 ==
LOC: ENPENDDIS 15:55 → DELPENDDIS 15:55 → 2NA 15:55
PROVIDERS: Internal Medicine Interventional Cardiology; Radiology Diagnostic Radiology; ADMIT Internal Medicine
DX: F19.231 Other psychoactive substance dependence with withdrawal delirium (principal); F32.3 Major depressive disorder, single episode, severe with psychotic features; R45.851 Suicidal ideations; G89.29 Other chronic pain; F17.200 Nicotine dependence, unspecified, uncomplicated
CPT/HCPCS: 2NAP; 36415; 73560-RT; 81003; 82436; 93005; 93010; 93970; 97112-GO; 97116-GO; 97162-GP; 97530-GO; 99232; J1650

== ENCOUNTER 2016-05-27 11:10 | Inpatient (IN) | payer OTHER, MEDICARE ==
[~2016-05-27] VITALS: Ht 160 cm; Wt 106.6 kg
[~2016-05-27 11:10] MED LIST changes: +CHLORDIAZEPOXID25 M3 PO
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
[2016-05-27 19:57] VITALS: BP 145/82
[2016-05-28] VITALS (7 sets, daily range): BP systolic 114–142; BP diastolic 75–98
--- NOTE | 2016-05-28 00:26 | NUR ---
PT READMITTED TO [facility] AFTER BEING TREATED FOR DTs TO RESUME DETOX/LIBRIUM TAPER AND TREAT DEPRESSION WITH SI AND HI, ANXIETY, AND AUDITORY HALLUCINATIONS. PT NOT FULLY COOPERATIVE. HE REFUSED TO PARTICIPATE IN PARTS OF ADMISSION PROCESS. VSS. C/O BILATERAL KNEE PAIN "7." NO SCORE ON CIWA. PT PRESENTED DEPRESSED AND IRRITABLE. HE ADMITTED TO INTERMITTENT COMMAND TYPE AH TO HARM SELF AND OTHERS. HOWEVER, AT TIME OF INTERVIEW, PT STATED THAT HE HAD NO PLAN AND WOULD NOT HURT HIMSELF OR ANYONE ELSE. HE AGREED TO TELL STAFF IF THOUGHTS OR VOICES BECOME OVERWHELMING OR IF HE BEGINS TO CONSIDER A PLAN. PT SPENT MOST OF SHIFT IN BED SLEEPING.
--- NOTE | 2016-05-28 13:20 | NUR ---
PT HAS BEEN IN HIS BEDROOM FOR MOST OF THE DAY. PT SHARED THAT HE WAS NOT FEELING WELL. PT DID NOT ATTEND BOTH PLANNING MEETING AND FOCUS GROUP, BUT HAS BEEN COOPERATIVE ABOUT DOING VITALS, AND HAS BEEN EATING. WHEN ASKED IF PT HAS THOUGHTS OF SELF HARM OR SUICIDAL THINKING, PT DENIES.
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
--- NOTE | 2016-05-28 17:33 | PN- Att Addend ---
Attending Addendum Attending Brief Note Patient seen and examined. This 60-year-old male with past medical history of chronic pain on methadone, depression, benzodiazepine abuse, suicidal ideations and was treated on general medicine floor for benzodiazepine withdrawal and once stabilized was transferred to inpatient psychiatry. Has been complaining of some pain in tibial sweeney. Vitals: Blood pressure 114/75, heart rate 96, temperature 97.2. Physical exam: Obese male, Alert, awake, oriented 3 Heart-S1, S2 heard normal, no murmur Chest-clear Abdomen-soft, nondistended, nontender, bowel sound present Extremities-no edema, no tenderness on palpation. Plan 1. Continue with current psych medications and methadone 2. Can offer Tylenol if complains of pain in his sweeney 3. Encourage ambulation.
--- NOTE | 2016-05-28 23:26 | NUR ---
PATIENT IS ALERT AND ORIENTED X3; NO SIGNS OF ALTERED SENSORIUM THIS SHIFT; VITAL SIGNS WNL; PATIENT DOING WELL ON UNIT, CALM, COOPERATIVE WITH TREATMENT PLAN, STILL SHOWING SIGNS OF DEPRESSION, BUT DENIES S/I AT THIS TIME.
[2016-05-29] VITALS (8 sets, daily range): BP systolic 137–154; BP diastolic 87–95
--- NOTE | 2016-05-29 05:43 | NUR ---
PATIENT AWAKE IN BED X1, OTHERWISE SLEPT ALL NIGHT.
--- NOTE | 2016-05-29 10:26 | CP SOUTH PROGRESS NOTE PSYCH ---
Psych (Inpt) Progress Note Progress Note Include the following elements, when applicable: Involvement in the active treatment of the patient with behavioral observations of the patient and the patient's response to the treatment. Review of the ongoing treatment process in the context of the treatment plan. Indication of how multi-disciplinary staff members are carrying out the treatment plan. Plans for future interventions and recommendations for revision of the treatment plan. Liaison with other physicians/providers. Progress Note: Chart reviewed, progress discussed with nursing staff. Interviewed patient this morning. He reports that the pain in his knees is severely distressing to him. Says that the pain is causing him to have persistent suicidal ideation. However he has no plan or intent to harm himself. He just feels hopeless that the pain will never get better. Does say that physical therapy when he was up on the medical unit was helpful for him and he would like to continue this if possible. MSE: Disheveled, poorly groomed overweight man dressed in sweatshirt and pajama bottoms. Remains supine on bed. No eye contact. Speech was halted, quiet, hesitant. Mood was "depressed ". Affect was constricted, non-labile, nonreactive. Thought process was impoverished. Content focused on pain. Positive chronic and vague suicidal ideation without plan or intent. Denies HI. Continues to endorse vague auditory hallucinations. Cognition was grossly intact. Insight and judgment were limited. Vitals reviewed and were within normal limits. No new laboratory results today. A/P: Mood remains poor with associated vague auditory hallucinations and chronic suicidal ideation. He seems to no longer be demonstrating signs or symptoms of benzodiazepine withdrawal. Will continue Librium taper for today and tomorrow. Otherwise continue current medications as per primary team. Attempt to arrange physical therapy during the week if possible.
--- NOTE | 2016-05-29 14:14 | NUR ---
SLUMBERING IN BED MOST OF DAY. GOT UP FOR MEDS AND MEELS. MOOD IS STABLE, FLAT AFFECT. DENIED THOUGHTS OF SELF HARM WHEN ASKED.
--- NOTE | 2016-05-29 20:06 | NUR ---
OUT IN COMMUNITY BUT JUST SITTING IN CHAIR VERY SLEEPY. COOPERATIVE WITH CARE TAKING MEDS ORDERED NO ISSUES. USES WALKER FOR ASSISTANCE.
[2016-05-30] VITALS (9 sets, daily range): BP systolic 129–143; BP diastolic 74–98
--- NOTE | 2016-05-30 14:06 | NUR ---
PT HAS BEEN IN HIS ROOM MOST OF THE DAY SLEEPING. HIS GAIT IS UNSTEADY AND HE WAS UNABLE TO PARTICIPATE IN GROUPS. HE TOOK HIS MEDS BUT LIBRIUM WAS HELD DUE TO SEDATION. PT DENIED ANY SUICIDAL THOUGHTS
--- NOTE | 2016-05-30 14:14 | CP SOUTH PROGRESS NOTE PSYCH ---
Psych (Inpt) Progress Note Progress Note This note opened in error. plan. Liaison with other physicians/providers. Progress Note: I discussed this patient's progress to date, current mental status, treatment process in the context of the treatment plan, and discharge planning with staff/ team in the daily morning inpatient team meeting. I also met with the patient myself in individual session. A total of 15 minutes was spent with the patient with more than 50% spent in counseling and/or coordination of care. SUBJECTIVE: OBJECTIVE: Current Medications Sig/Blank Start time Last Medication Dose Route Stop Time Status Admin Acetaminophen 650 MG Q6-PRN PRN 05/27 1999 AC 05/28 PO 2129 Aspirin Buffered 81 MG DAILY 05/28 1000 AC 05/30 PO 0756 Chlordiazepoxide HCl 10 MG DAILY 05/30 1000 DC PO 05/30 1001 Chlordiazepoxide HCl 25 MG Q1 NEEDED PRN 05/27 1999 AC PO Chlordiazepoxide HCl 50 MG Q1 NEEDED PRN 05/27 1999 AC PO Docusate Sodium 100 MG DAILY 05/28 1000 AC 05/30 PO 0756 Gabapentin 600 MG Q8 05/27 2199 AC 05/30 PO 1330 Methadone HCl 90 MG DAILY 05/28 1000 AC 05/30 PO 0756 Nicotine 14 MG DAILY 05/28 1000 AC 05/30 TOP 0756 Omeprazole 40 MG DAILY AC 05/28 0700 AC 05/30 PO 0721 Polyethylene Glycol 17 GM AT BEDTIME PRN 05/27 1999 AC PO Prazosin HCl 5 MG AT BEDTIME 05/27 2199 AC 05/29 PO 2135 Risperidone 2 MG BID 05/27 2199 AC 05/30 PO 0756 Senna 187 MG AT BEDTIME 05/27 2199 AC 05/29 PO 2135 Vital Signs Date Time Temp Pulse Resp B/P Pulse O2 O2 Flow FiO2 Ox Delivery Rate 05/30 1246 87 135/98 05/30 1244 74 133/74 89 05/30 0850 97.3 93 143/93 05/30 0743 97.3 93 143/93 05/29 2134 97.6 78 137/87 05/29 2001 97.6 78 137/87 05/29 1958 97.6 78 137/87 05/29 1616 89 143/88 05/29 1615 89 143/88 ASSESSMENT: Depression:[default value]/10; Anxiety:[default value]/10 (with 10 the worst.) [default value] suicidal ideation, homicidal ideation, auditory hallucinations, visual hallucinations, paranoid ideation. Speech is well articulated, goal-directed, average in rate, volume and tone. The patient understands the risks/benefits/side effects of the medication and is agreeable to continue taking them. PLAN: Continue with current management as patient is improving. Continue to provide support and encouragement.
--- NOTE | 2016-05-30 16:41 | CP SOUTH PROGRESS NOTE PSYCH ---
Psych (Inpt) Progress Note Progress Note Progress Note: I discussed this patient's progress to date, current mental status, treatment process in the context of the treatment plan, and discharge planning with staff/ team in the daily morning inpatient team meeting. I also met with the patient myself in individual session. A total of 15 minutes was spent with the patient with more than 50% spent in counseling and/or coordination of care. SUBJECTIVE: "A long-term is the best place for me." OBJECTIVE: Current Medications Sig/Blank Start time Last Medication Dose Route Stop Time Status Admin Acetaminophen 650 MG Q6-PRN PRN 05/27 1999 AC 05/28 PO 2129 Aspirin Buffered 81 MG DAILY 05/28 1000 AC 05/30 PO 0756 Chlordiazepoxide HCl 10 MG DAILY 05/30 1000 DC PO 05/30 1001 Chlordiazepoxide HCl 25 MG Q1 NEEDED PRN 05/27 1999 AC PO Chlordiazepoxide HCl 50 MG Q1 NEEDED PRN 05/27 1999 AC PO Docusate Sodium 100 MG DAILY 05/28 1000 AC 05/30 PO 0756 Gabapentin 600 MG Q8 05/27 2199 AC 05/30 PO 1330 Methadone HCl 90 MG DAILY 05/28 1000 AC 05/30 PO 0756 Nicotine 14 MG DAILY 05/28 1000 AC 05/30 TOP 0756 Omeprazole 40 MG DAILY AC 05/28 0700 AC 05/30 PO 0721 Polyethylene Glycol 17 GM AT BEDTIME PRN 05/27 1999 AC PO Prazosin HCl 5 MG AT BEDTIME 05/27 2199 AC 05/29 PO 2135 Risperidone 2 MG BID 05/27 2199 AC 05/30 PO 0756 Senna 187 MG AT BEDTIME 05/27 2199 AC 05/29 PO 2135 Vital Signs Date Time Temp Pulse Resp B/P Pulse O2 O2 Flow FiO2 Ox Delivery Rate 05/30 1615 81 133/86 05/30 1246 87 135/98 05/30 1244 74 133/74 89 05/30 0850 97.3 93 143/93 05/30 0743 97.3 93 143/93 05/29 2134 97.6 78 137/87 05/29 2001 97.6 78 137/87 05/29 1958 97.6 78 137/87 ASSESSMENT: Patient has spent most of the day in bed sleeping. He woke up for vital signs and for lunch. He came to my office for a visit, but appeared very sedated, although alert and oriented 3. Patient believes that he needs placement in a long-term. He has chronic pain in legs bilaterally and in his back, making it difficult to walk and attend to his ADL's. He ambulates with assist of walker, slowly. He denies depression or anxiety stating "I'm just tired." He presents however in a depressed and sad mood. States that he had not been taking his medications for at least 2 weeks prior to arrival in the hospital, and had been taking 5 or 6 mg of Xanax daily, which he purchased on the street. Patient remains on Librium taper for benzodiazepine withdrawal. CIWA scores have been negative. Denies suicidal ideation, homicidal ideation, auditory hallucinations, visual hallucinations, paranoid ideation. Speech is well articulated, goal-directed, average in rate, volume and tone. The patient understands the risks/benefits/side effects of the medication and is agreeable to continue taking them. PLAN: Continue with current management. Continue to provide support and encouragement.
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
--- NOTE | 2016-05-30 17:39 | SOCIAL WORKER PROG NOTE PSYCH ---
Social Work Progress Note Progress Note Junior is a single, , disabled 60-year-old male currently homeless ( has been residing with various people in [place]), since last admission to [facility] May 2016, this is his second admission to [facility] in one month (2016), and 4th overall admission to [facility] since 2015. He has multiple psychiatric inpatient admissions and chronic substance abuse history. Junior has been inpatient at [facility] 3x in 2016. Junior presented to the ED with SI, and relapsed on Benzos, he reported having a plan to walk in front of a train. He has been non-compliant with his medications about 2 weeks prior to admission (per admission note by Daniele Cross APRN). He receives Methadone maintenance from [facility],and reports he goes to [facility] daily for medications and attends a group each time he goes to [facility] His counselor at [facility] is "Gamaliel." Junior stated today, he is feeling suicidal, feels safe on unit, denies plan or intent to harm himself. He reports no HI, stated he hears voices and sees things. He did state he hears voices to kill himself. When asked what he hears and sees, Junior stated "I see voices." He was very sedated today during the intake, needed questions repeated, and often did not answer directly certain questions, responded with a question, or became irritated. He stated he used 5mg of Xanex daily, and smoking Cannibis (1) joint 3x per week. Junior was so sedated at times when he was trying to put his water bottle down next to him on the ground, he would lean over and "nod out" in that position. He would awaken when prompted to sit up. Junior expressed how he wants to go to residential rehab - [facility]. He will discuss further with Jena Raman LCSW.
--- NOTE | 2016-05-30 22:30 | NUR ---
PT HAS BEEN CALM, COOPERATIVE WITH STAFF AND PEERS, AND COMPLIANT WITH UNIT RULES. PT IS EXTREMELY LETHARGIC, STAYING IN ROOM FOR LONG LENGTHS AND SLEEPING. WHILE IN [facility], PT FALLS ASLEEP WELL. PT SPO2 AT 1600 VITALS WAS 93. PT MOOD IS STABLE, AFFECT IS FLAT AND CONSTRICTED, COMMUNICATION IS SLOW BUT NORMAL, AND APPETITE IS NORMAL. PT DENIES SI AT THIS TIME.
[2016-05-31] VITALS (8 sets, daily range): BP systolic 119–145; BP diastolic 72–99
--- NOTE | 2016-05-31 06:10 | NUR ---
PATIENT WAS UP TO BATHROOM TWICE, OTHERWISE APPEARED TO SLEEP MOST OF NIGHT; O2 SAT MEASURED AND FOUND WITHIN NORMAL LIMITS.
--- NOTE | 2016-05-31 08:11 | CP SOUTH PROGRESS NOTE PSYCH ---
Psych (Inpt) Progress Note Progress Note Progress Note: I discussed this patient's progress to date, current mental status, treatment process in the context of the treatment plan, and discharge planning with staff/ team in the daily morning inpatient team meeting. I also met with the patient myself in individual session. A total of 15 minutes was spent with the patient with more than 50% spent in counseling and/or coordination of care. SUBJECTIVE: "I'll be all right." OBJECTIVE: Current Medications Sig/Blank Start time Last Medication Dose Route Stop Time Status Admin Acetaminophen 650 MG Q6-PRN PRN 05/27 1999 AC 05/28 PO 2129 Aspirin Buffered 81 MG DAILY 05/28 1000 AC 05/31 PO 0801 Chlordiazepoxide HCl 10 MG DAILY 05/30 1000 DC PO 05/30 1001 Chlordiazepoxide HCl 25 MG Q1 NEEDED PRN 05/27 1999 AC PO Chlordiazepoxide HCl 50 MG Q1 NEEDED PRN 05/27 1999 AC PO Docusate Sodium 100 MG DAILY 05/28 1000 AC 05/31 PO 0801 Gabapentin 600 MG Q8 05/27 2199 AC 05/31 PO 0624 Methadone HCl 90 MG DAILY 05/28 1000 AC 05/31 PO 0803 Nicotine 14 MG DAILY 05/28 1000 AC 05/31 TOP 0802 Omeprazole 40 MG DAILY AC 05/28 0700 AC 05/31 PO 0624 Polyethylene Glycol 17 GM AT BEDTIME PRN 05/27 1999 AC PO Prazosin HCl 5 MG AT BEDTIME 05/27 2199 AC 05/30 PO 2152 Risperidone 2 MG BID 05/27 2199 AC 05/31 PO 0802 Senna 187 MG AT BEDTIME 05/27 2199 AC 05/30 PO 2153 Vital Signs Date Time Temp Pulse Resp B/P Pulse O2 O2 Flow FiO2 Ox Delivery Rate 05/30 2151 85 139/90 05/30 2147 85 16 139/90 05/30 1955 97.9 89 14 129/85 05/30 1950 97.9 89 129/85 05/30 1633 81 133/86 93 05/30 1615 81 133/86 05/30 1246 87 135/98 05/30 1244 74 133/74 89 05/30 0850 97.3 93 143/93 ASSESSMENT: This morning patient is calm and cooperative, alert and oriented to person, place, time and situation. Appears very tired, perhaps partially sedated, but much improved since yesterday. States that he slept well last night, woke up this morning at 6 AM. Ambulates slowly, with steady gait, with the assist of a walker. Complains of bilateral leg pain, states that he is not having back pain today. Patient would like to be referred to a residential. Reports tolerating his medications well, without complaint. He has completed Librium taper for benzodiazepine withdrawal. Depression:0/10; Anxiety:0/10 (with 10 the worst.) Denies suicidal ideation, homicidal ideation, auditory hallucinations, visual hallucinations, paranoid ideation. States that he slept well last night, without nightmares. Speech is well articulated, goal-directed, average in rate, volume and tone. The patient understands the risks/benefits/side effects of the medication and is agreeable to continue taking them. PLAN: Social work is working on a plan to have patient admitted to a residential. Continue with current management as patient is improving. Continue to provide support and encouragement.
--- NOTE | 2016-05-31 11:33 | SOCIAL WORKER TX PLAN PSYCH ---
Treatment Plan - Please Document: - Evidence that there is ongoing collaboration between - the patient and the interdisciplinary team, - including the patient's active participation and - responsibility for engaging in the treatment regimen, - and that the treatment plan is individualized and - relevant to the patient's conditions. - Treatment plan should reflect documentation indicating - that all active therapeutic efforts are included. Strengths/Capabilities: Seeks help, wants to feel better, engaging, supportive sister. Pt gets Methadone daily from [facility] [place] in [place]. His counselor is Gamaliel. Pt. stated he attends 1 group a day at [facility] [place]. Physical Limitations (Interventions): Knee pain. ambulates with walker on CPS (uses cane in community) Patient Identified Trmt Goals: "I need help, I need to stop doing this" Discharge Plan: Patient is agreeable to pursuing a fpc facility Problem/Goals #1 Problem #1: suicidal ideation Goal (Short Term): Patient will contract for safety on the unit Goal (Loft Worker): Patient will have diminished thoughts of SI and be able to verbalize hopeful statements about the future. Interventions: Patient will be offered medication management with SAMPLE FINISHER, groups on symptom management, coping skills, goals group, focus group, art therapy, accupuncture, relaxation group. Beekeeper will assess mood and thoughts daily. Help refram negative thinking. Beekeeper will help coordinate aftercare. Modalities: groups/ individual Problem/Goals #2 Problem #2: benzo abuse Goal (Short Term): patient will identify triggers to relapse Goal (Longterm): Patient will review the pros and cons of continued use and how it effects life circumstances. Interventions: patient will be offered AA on unit, groups on relapse prevention, coping skills, therapeutic activities to distract from urges to use. seafood process worker will discuss the pros and cons of continued use. Beekeeper will coordinate aftercare. 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
--- NOTE | 2016-05-31 11:33 | SOCIAL WORKER PROG NOTE PSYCH ---
Social Work Progress Note Progress Note Attempted to speak with Junior late this morning. He sat down on the chair in the common area and fell asleep. Nicanor Dowell APRN and I attempted to talk with him as he looked extremely fatigued. He was slurring his words and disoriented. He was talking to me about blood thinners which didn't make any sense. Nursing called to have HOD look at him.
--- NOTE | 2016-05-31 14:29 | NUR ---
Patient was found to be slowing down in reaction and active, unable to feed himself during breakfast evidently with slurred speech and unsteady gaite. HOD was called who evaluated the patient with order of Lab(Arteral Blood Gas) and X-ray of the abdomen. Pt is orinted to person only but could relates to Dr of some of his medical problem. At the time of this evaluation pt denies thought of self-harm and to others.Mood and affect are depressed/constricted.
--- NOTE | 2016-05-31 14:33 | PN- Att Addend ---
Attending Addendum Attending Brief Note I was called in to see this patient because he was somewhat lethargic. According to the nurse was taking care of the patient, patient was wide awake and alert this morning but currently he is lethargic but arousable. Patient denies any pain but when I touched his abdomen, he said that it was hurting. Patient denies any shortness of breath, any coughing. He denies any urinary complaints. I noted that patient is on large dose of Neurontin, risperidone as well as methadone. Vital Signs Date Time Temp Pulse Resp B/P Pulse O2 O2 Flow FiO2 Ox Delivery Rate 05/31 1332 86 119/75 05/31 0822 96.3 95 125/72 05/31 0816 96.3 95 125/72 05/30 2152 85 139/90 05/30 2147 85 16 139/90 05/30 1955 97.9 89 14 129/85 05/30 1950 97.9 89 129/85 05/30 1633 81 133/86 93 05/30 1615 81 133/86 on exam; lethargic but arousable. cv; s1,s2, rrr resp; clear. abd; soft, + umblical hernia which is tender on palpation, bs+ Laboratory Tests 05/31 1410 Blood Gas pH (7.35 - 7.45 PH) 7.39 pCO2 (35 - 45 TORR) 47 H pO2 (80 - 100 TORR) 57 L HCO3 (21 - 28 MEQ/L) 28 ABG O2 Sat (Measured) (>96.0 %) 91.0 L P-50 (Temp Corrected) YES Carboxyhemoglobin (1.5 - 5.0 %) 1.0 L O2 Concentration % RA Temperature (97.0 - 100.0 FARH) 96.1 L O2 Delivery Method RA Miscellaneous Phlebotomy Draw Site RIGHT RADIAL A/P; 60-year-old male with history off of methadone dependence, benzodiazepine use him a depression who is admitted to Inpatient Psychiatry with all these issues. I was called in to see this patient secondary to patient being lethargic. I obtained his blood gas which shows that his pH is compensated but he does have low PO2 as well as slightly high. I think he is on high-dose of Neurontin as well as risperidone that might be tapered down on the unit. I discussed this with the psychiatrist NINA. I've also ordered abdominal x-ray for his hernia as well as urinalysis. We will follow-up on those results.
--- NOTE | 2016-05-31 14:39 | RADIOLOGY REPORT ---
EXAMINATION: XR ABDOMEN MULTIPLE VIEWS CLINICAL INDICATION: Abdominal pain. Umbilical hernia. COMPARISON: None. TECHNIQUE: Supine and erect films of the abdomen were obtained. FINDINGS: There is a normal nonobstructive bowel gas pattern. There is no free air. Mesh fasteners from previous inguinal hernia repair are seen on the left. IMPRESSION: Unremarkable examination. No obstruction. No free air.
--- NOTE | 2016-05-31 21:40 | NUR ---
PT IS EXTREMELY LETHARGIC, SLEEPING IN ROOM OR IN MILIEU. PT IS HAVING DIFFICULTIES WALKING EVEN SHORT DISTANCES, THIS SEEMS TO REQUIRE FROM HIM A GREAT DEAL OF EFFORT. 1600 VITALS SPO2 - 93, 2000 VITALS SPO2 - 93. PT MOOD IS STABLE, AFFECT IS CONSTRICTED/FLAT, COMMUNICATION IS NORMAL, AND APPETITE IS NORMAL. PT DENIES SI AT THIS TIME.
[2016-06-01] VITALS (8 sets, daily range): BP systolic 123–153; BP diastolic 86–94
--- NOTE | 2016-06-01 04:43 | NUR ---
SLEPT WELL REPOSITIONED FOR COMFORT.
--- NOTE | 2016-06-01 08:55 | SOCIAL WORKER PROG NOTE PSYCH ---
Social Work Progress Note Progress Note Junior looked much more alert this morning. I told him that I would like to discuss halfway options as a discharge plan from here. He initially stated that he wanted to go to [facility]. I challenged him on this and said this has been his 4th or 5th admission and he is not making it in the community and can barely walk, what makes him think that going to [facility] is going to be helpful? It sounds like he is scared about some of the med changes happening here. I told him that he needs to be able to function and that the last 2 days he has been out of it and I couldn't even have a conversation with him. He shared that his sister La is at the [facility]. I asked about their relationship, because the last time he was here they were not talking. He said things are better now. I told him that I was not in agreement to send him to [facility] and that it was not a good situation for him to be with his sister. He agreed. He then stated I was right and would agree that he needs a nursing facility. He signed releases for [facility]. Called [facility] to see where we are in the process. I was informed that they are requiring additional clinical notes from the psych unit to see if he is stable for discharge. The application is on hold until those are received. I have 10 business days from 05/27 to send them the additional information. Junior's sister La called looking to get information on how he is doing and wanting to share that she would like to be part of his treatment. I told her that it was up to Junior to decide what he would like to share with her. She wanted to know whether or not he had Hep C. I told her that Lukas can give her that information if he wanted to. Talked to Lukas about the call with his Sister, he said he would just update her as needed.
--- NOTE | 2016-06-01 12:07 | NUR ---
Pt did not attend planning meeting however did attend afternoon group, + appetite and sleep, no complaints reported, mood is overall stable with flat affect, pleasant and cooperative, ambulates slow and steady woth walker and room is next to nurses station as well.
--- NOTE | 2016-06-01 15:31 | CP SOUTH PROGRESS NOTE PSYCH ---
Psych (Inpt) Progress Note Progress Note Progress Note: I discussed this patient's progress to date, current mental status, treatment process in the context of the treatment plan, and discharge planning with staff/ team in the daily morning inpatient team meeting. I also met with the patient myself in individual session. A total of 15 minutes was spent with the patient with more than 50% spent in counseling and/or coordination of care. SUBJECTIVE: "A penitentiary is the best bet for me." OBJECTIVE: Current Medications Sig/Blank Start time Last Medication Dose Route Stop Time Status Admin Acetaminophen 650 MG Q6-PRN PRN 05/27 1999 AC 05/31 PO 1340 Aspirin Buffered 81 MG DAILY 05/28 1000 AC 06/01 PO 0913 Docusate Sodium 100 MG DAILY 05/28 1000 AC 06/01 PO 0913 Gabapentin 400 MG Q8 05/310 AC 06/01 PO 1510 Gabapentin 600 MG Q8 05/27 2200 DC 05/31 PO 1339 Methadone HCl 90 MG DAILY 05/28 1000 AC 06/01 PO 0914 Nicotine 14 MG DAILY 05/28 1000 AC 06/01 TOP 0913 Omeprazole 40 MG DAILY AC 05/28 0700 AC 06/01 PO 0617 Polyethylene Glycol 17 GM AT BEDTIME PRN 05/27 1999 AC PO Prazosin HCl 5 MG AT BEDTIME 05/27 2199 AC 05/31 PO 2125 Risperidone 1 MG 0806/01 08 AC 06/01 PO 0913 Risperidone 2 MG 05/31 2200 AC 05/31 PO 2124 Risperidone 2 MG BID 05/27 220 DC 05/31 PO 0802 Senna 187 MG AT BEDTIME 05/27 2199 AC 05/31 PO 2125 Laboratory Tests 06/01 0608 Urines Urine Color (YEL,AMB,STR) YEL Urine Clarity (CLEAR) CLEAR Urine pH (5.0 - 8.0) 7.0 Ur Specific [place] (1.001 - 1.035) 1.010 Urine Protein (NEG,<30 MG/DL) NEG Urine Ketones (NEG) NEG Urine Nitrite (NEG) NEG Urine Bilirubin (NEG) NEG Urine Urobilinogen (0.1 - 1.0 EU/dl) 1.0 Ur Leukocyte Esterase (NEG) NEG Ur Microscopic EXAM NOT REQUIRED Urine Hemoglobin (NEG) NEG Urine Glucose (N MG/DL) NEG Vital Signs Date Time Temp Pulse Resp B/P Pulse O2 O2 Flow FiO2 Ox Delivery Rate 06/01 1224 85 129/94 06/01 1221 85 129/94 92 06/01 0809 96.6 98 95 153/86 06/01 0804 96.6 98 153/86 95 05/31 2124 96.8 96 16 145/99 05/31 2021 96.8 96 145/99 05/31 2009 96.8 96 145/99 93 05/31 1624 81 140/95 05/31 1616 81 140/95 ASSESSMENT: This morning patient is awake and alert, if somewhat sluggish. Yesterday afternoon he appeared lethargic, and was evaluated by Dr. Quintanilla. Please refer to her note for additional information. ABG showed slightly abnormal values, abdominal x-ray unremarkable, urinalysis results above. Respiratory was in to evaluate last night. Patient complains of continuing pain in legs bilaterally, ambulates slowly with assist of walker. Tolerating well lower doses of risperdal and neurontin at this time. Depression:0/10; Anxiety:0/10 (with 10 the worst.) Denies suicidal ideation, homicidal ideation, auditory hallucinations, visual hallucinations, paranoid ideation. Speech is well articulated, goal-directed, average in rate, volume and tone. Calm, cooperative. Alert and oriented 3. The patient understands the risks/benefits/side effects of the medication and is agreeable to continue taking them. PLAN: Gabapentin and risperidone doses lowered. Social work is looking for an appropriate penitentiary for the patient. This is the patient's fourth inpatient admission in the past four months. Continue with other current management as patient is improving. Continue to provide support and encouragement.
--- NOTE | 2016-06-01 21:54 | NUR ---
PT IS EXTREMELY LETHARGIC, SLEEPING MOST TIMES, WHETHER IS MILIEU OR IN ROOM. PT FINDS ANY PHYSICAL EXCERTION TO BE EXHAUSTING, SO REMAINS IN ONE POSITION FOR LONG PERIODS OF TIME. PT GAIT IS SLIGHTLY ABNORMAL AND IS USING A WALKER. 1600 VITALS - SPO2 WAS 93, 1999 VITALS - SPO2 WAS 95. PT MOOD IS STABLE, AFFECT IS FLAT/CONSTRICTED, COMMUNICATION IS NORMAL, BUT SLOW, AND APPETITE IS NORMAL. PT DENIES SI AT THIS TIME.
[2016-06-02] VITALS (8 sets, daily range): BP systolic 106–144; BP diastolic 48–98
--- NOTE | 2016-06-02 10:40 | SOCIAL WORKER PROG NOTE PSYCH ---
BEVERLY GALO 06/02/16 1036: Social Work Progress Note Progress Note Called [facility] to start the referral process for a intermediate facility. I spoke with an An who encouraged me to send clinical information and to write on the the fax cover sheet that the [facility] is in process, but not completed. [facility] would be the closest facility to here. Clinical was faxed to [phone]. SUZETTE HERNANDEZ LCSW 06/02/16 1605: Social Work Progress Note Progress Note Please include, when applicable: * Interviews with the patient * Interviews with family members * Assessments linked to the treatment plan * Additions to or changes in the treatment plan along with reasons for same * Contacts with family and significant others in treatment, including family meeting(s) * Family attitudes * Community resource contacts and liaison with other clinicians/agencies
--- NOTE | 2016-06-02 12:33 | NUR ---
PATIENT PRESENTS WITH LETHARGY; T- 100.2-100.8, PATIENT ORIENTED YET SLEEPY. COLOR PALE, PATIENT WEAK DURING AMBULATION. Sol SNADOVAL APRN NOTIFIED; LABS ORDERED, PULSE OX 88-90 ON ROOM AIR WHILE LYING DOWN. CXR ORDERED, LABS BEING DRAWN.
[2016-06-02 12:59] LABS: ABSOLUTE BASOPHIL COUNT 0 /CUMM (0.0-0.2); ABSOLUTE EOSINOPHIL COUNT 0.1 /CUMM (0.0-0.7); ABSOLUTE LYMPH COUNT 0.8 /CUMM (1.2-3.4); ABSOLUTE MONOCYTE COUNT 0.4 /CUMM (0.10-0.60); BASOPHIL % 0.3 % (0.0-2.0); EOSINOPHIL % 0.6 % (0-5); HEMATOCRIT 37.6 % (42-52); MEAN CORPUSCULAR HGB 30.4 PG (27.0-31.0); MEAN CORPUSCULAR HGB CONC 33.7 G/DL (33.0-37.0); MEAN CORPUSCULAR VOLUME 90.2 FL (80.0-94.0); PLATELET COUNT 226 /CUMM (130-400); RBC DISTRIBUTION WIDTH 12.5 % (11.5-14.5); RED BLOOD CELL CT 4.17 /CUMM (4.70-6.10); WHITE BLOOD CELL COUNT 9.4 /CUMM (4.8-10.8)
[2016-06-02 13:27] LABS: GRANULOCYTE % 85.8 % (42.2-75.2)
--- NOTE | 2016-06-02 13:47 | Event Note ---
Event Note Event Note: I was called in about patient's hypoxia between 88-90% on room air as well as consistent lethargy. I reviewed his lab work. His UA is completely normal from yesterday. His labs also look normal. Patient has a low-grade temp. I ordered a chest x-ray for him. I've also recommended that his medication doses should be adjusted because I do believe that he's in a high dose of medications including his Neurontin as well as Risperdal. Please confirm the dose of his methadone. His ammonia level is normal. He is working with physical therapy currently and if his gait is not normal then I will order CT head to rule out any intracranial process but I'll follow-up on the chest x-ray as well. We have obtained his ABG 2 days ago which showed normal pH with slightly high PCO2 but not to the point that would given this lethargy.
--- NOTE | 2016-06-02 14:15 | NUR ---
PT WAS UNABLE TO TOLERTE GROUPS EXEPT FOR MORNING MEETING. HE REPORTDS POOR AMBULATION AND GENERALIZED DISCOMFORT. HE WAS ASSISTED TO BED AND MD NOTIFIED OF TEMP OF 100.7. PT HAD LABS DRAWN AND SENT. HE WILL HAVE A CXR AND HE HAD A PT EVAL. PT WILL WORK WITH PT TO INCREASE STRNGTH AND AMBULATION. HE IS COMPLIANT WITH HIS MED REGIME AND DENIES ANY SUICIDAL THOUGHTS AT THIS TIME
--- NOTE | 2016-06-02 15:27 | CT SCAN REPORT ---
EXAMINATION: CT HEAD WITHOUT CONTRAST CLINICAL INFORMATION: Lethargic with abnormal gait. Assess for CVA. COMPARISON: None. TECHNIQUE: Contiguous axial imaging was performed from the skull base to vertex without intravenous administration of contrast. DLP: 600.71 mGy-cm. FINDINGS: There is no evidence of acute intracranial hemorrhage or territorial infarction. No abnormal mass effect or midline shift is seen. Du to white matter differentiation is well preserved. No extra-axial fluid collections are identified. The bodies of the lateral ventricles are slightly asymmetric in size, smaller on the left. There is mild prominence of the ventricles with commensurate sulcal prominence consistent with mild volume loss. There are areas of low attenuation in the periventricular and subcortical white matter, consistent with microvascular changes. There are small lacunar infarcts in the basal ganglia. The osseous structures and soft tissues are normal. The mastoid air cells are well-aerated. There is mild mucoperiosteal thickening in the visualized ethmoid sinuses. IMPRESSION: 1. There are no acute intracranial bleeds or territorial infarcts.
--- NOTE | 2016-06-02 16:13 | RADIOLOGY REPORT ---
EXAMINATION: XR CHEST CLINICAL INFORMATION: Fever. Hypoxia. Presumptive diagnosis of pneumonia. COMPARISON: Chest x-ray dated 05/25/2016. TECHNIQUE: AP semierect and lateral views of the chest were obtained. FINDINGS: The cardiomediastinal silhouette is within normal limits in size. Lungs bilaterally are symmetrically hypoinflated with slight thickening of the central airways seen. No focal consolidation, effusion or pneumothorax is seen. Bony structures are unremarkable. IMPRESSION: 1. Hypoinflated lungs. 2. Slight thickening of central airways, possibly due to under distention of the lungs versus reactive airways disease or bronchitis. Clinical correlation requested. 3. No pneumonia.
--- NOTE | 2016-06-02 16:19 | SOCIAL WORKER PROG NOTE PSYCH ---
Social Work Progress Note Progress Note Called [facility] to start the referral process for a nursing home facility. I spoke with an An who encouraged me to send clinical information and to write on the the fax cover sheet that [facility] is in process, but not completed. [facility] in [facility] would be the closest facility to here. Clinical was faxed to [phone]. Junior could not get up out of bed late morning. Nicanor Dowell APRN and medical student Jimmie attempted to help him stand, but he couldn't. He needed assistance with being propped back in bed. A PT consult was ordered. I told Junior that I was referring [facility] to [facility] called [facility] in [facility]. He seemed to know the place and told me that his Grandfather was there before he . He then shared that he was hearing his Grandfather's voice and that he was hearing his voice since he in 2008. Junior got weepy as he talked about his Grandfather and their relationship. He has fond memories of them golfing together. This was his Mother's Father. Junior. Junior seemed slightly confused and sluggish in speech, so I am not sure if this information is accurate. Nursing discovered that he also had an elevated temp of 100.7. Junior asked me to reach out to his Aunt Henny who is in contact with his Mom. He wants them to know he isn't doing well and that he is going to a jail. He told me that I will need to call La to get her number. I reached out to his sister La and explained the purpose of the call and gave an update on Lukas's condition. She did give me her aunt's phone number and stated it was the only one she had. [phone]. She asked if I could let her know how the call goes. Milly Rose called from [facility]. She is reviewing Junior's clinical information. She said that [facility] is the only facility that accepts methadone. She will be checking on bed availability. She stated it would be helpful for her to have the PT consult. Called Junior's Aunt Henny. She stated immediately that she was not the one to talk to about him and she wants nothing to do with him. I shared that he isn't doing well and that he will most likely be placed in a nursing facility. I asked if she spoke with his Mom? She said she does and she will not be passing this information on to her, stating that she is 80 years old and doesn't need to hear this.
--- NOTE | 2016-06-02 16:26 | RADIOLOGY REPORT ---
EXAMINATION: CR RIGHT AND LEFT KNEES CLINICAL INFORMATION: Pain and fever. Presumptive diagnosis of arthritis. COMPARISON: Right knee films dated 05/25/2016 and 02/22/2013. TECHNIQUE: 3 views of the right knee. 3 views of the left knee. FINDINGS: Right knee: There is diffuse osteopenia. The patient is status post total right knee arthroplasty. As noted on the previous exam increased lucency between the [place] bone and the femoral component is seen along the anterior margin, unchanged in the interim. There is also some increased lucency along the medial and lateral margins of the distal femoral prosthesis, more pronounced on the medial aspect compared to the lateral aspect. Findings are suspicious for loosening of the femoral prosthetic component. The tibial and patellar components remain well-seated within the [place] bone. Alignment is near-anatomic. There is prominent soft tissue swelling in the prepatellar region. Multiple small calcific densities are seen in the patellofemoral and tibiofemoral joint, unchanged. No [place] bone fracture is seen. Left knee: There is diffuse osteopenia. The femoral, tibial and patellar prosthetic components are intact. There is minimal loosening along the medial margin of the femoral component with slight asymmetric lucency with sclerotic margins seen in this region. No significant knee joint effusion is seen. No [place] bone fracture is noted. IMPRESSION: 1. No interval change in appearance of the right knee with findings suspicious for loosening of the distal femoral prosthetic component. Inflammatory/infective component cannot be excluded and close clinical correlation is requested. 2. Mild loosening along the medial aspect of the femoral component in the left knee is seen.
--- NOTE | 2016-06-02 16:36 | CP SOUTH PROGRESS NOTE PSYCH ---
Psych (Inpt) Progress Note Progress Note Progress Note: I discussed this patient's progress to date, current mental status, treatment process in the context of the treatment plan, and discharge planning with staff/ team in the daily morning inpatient team meeting. I also met with the patient myself in individual session. A total of 25 minutes was spent with the patient with more than 50% spent in counseling and/or coordination of care. SUBJECTIVE: "I was worried about what was going on after discharge." OBJECTIVE: Current Medications Sig/Blank Start time Last Medication Dose Route Stop Time Status Admin Acetaminophen 650 MG Q6-PRN PRN 05/27 1999 AC 06/02 PO 1217 Aspirin Buffered 81 MG DAILY 05/28 1000 AC 06/02 PO 0934 Docusate Sodium 100 MG DAILY 05/28 1000 AC 06/02 PO 0934 Gabapentin 300 MG 0800,1300,06/02 1300 AC 06/02 PO 1357 Gabapentin 400 MG Q8 05/310 DC 06/02 PO 0643 Methadone HCl 90 MG DAILY 05/28 1000 AC 06/02 PO 0933 Nicotine 14 MG DAILY 05/28 1000 AC 06/01 TOP 0913 Omeprazole 40 MG DAILY AC 05/28 0700 AC 06/02 PO 0642 Oseltamivir Phosphate 75 MG BID 06/02 2199 AC PO 06/06 215 Polyethylene Glycol 17 GM AT BEDTIME PRN 05/27 1999 AC PO Prazosin HCl 5 MG AT BEDTIME 05/27 2199 AC 06/01 PO 2233 Risperidone 1 MG 0806/01 0800 AC 06/02 PO 0933 Risperidone 2 MG 05/31 AC 06/01 PO 2232 Senna 187 MG AT BEDTIME 05/27 2199 AC 06/01 PO 2232 Laboratory Tests 06/02 06/02 06/02 1445 1240 1240 Chemistry Sodium (137 - 145 mmol/L) 141 Potassium (3.5 - 5.1 mmol/L) 4.3 Chloride (98 - 107 mmol/L) 102 Carbon Dioxide (22 - 30 mmol/L) 30 Anion Gap (5 - 16) 9 BUN (9 - 20 mg/dL) 13 Creatinine (0.7 - 1.2 mg/dL) 0.9 Estimated GFR (>60 ml/min) > 60 BUN/Creatinine Ratio (7 - 25 %) 14.4 Total Bilirubin (0.2 - 1.3 mg/dL) 0.6 Direct Bilirubin (< 0.4 mg/dL) 0.4 AST (17 - 59 U/L) 22 ALT (21 - 72 U/L) 38 Alkaline Phosphatase (< 127 U/L) 87 Ammonia (9 - 30 umol/L) 9 Total Protein (6.3 - 8.2 g/dL) 6.3 Albumin (3.5 - 5.0 g/dL) 3.5 Hematology CBC w Diff NO MAN DIFF REQ WBC (4.8 - 10.8 /CUMM) 9.4 RBC (4.70 - 6.10 /CUMM) 4.17 L Hgb (14.0 - 18.0 G/DL) 12.7 L Hct (42 - 52 %) 37.6 L MCV (80.0 - 94.0 FL) 90.2 MCH (27.0 - 31.0 PG) 30.4 RDW (11.5 - 14.5 %) 12.5 Plt Count (130 - 400 /CUMM) 226 MPV (7.4 - 10.4 FL) 8.0 Gran % (42.2 - 75.2 %) 85.8 H Lymphocytes % (20.5 - 51.1 %) 8.8 L Monocytes % (1.7 - 9.3 %) 4.5 Eosinophils % (0 - 5 %) 0.6 Basophils % (0.0 - 2.0 %) 0.3 Absolute Granulocytes (1.4 - 6.5 /CUMM) 8.0 H Absolute Lymphocytes (1.2 - 3.4 /CUMM) 0.8 L Absolute Monocytes (0.10 - 0.60 /CUMM) 0.4 Absolute Eosinophils (0.0 - 0.7 /CUMM) 0.1 Absolute Basophils (0.0 - 0.2 /CUMM) 0 PUBS MCHC (33.0 - 37.0 G/DL) 33.7 Serology Virus Culture Pending Vital Signs Date Time Temp Pulse Resp B/P Pulse O2 O2 Flow FiO2 Ox Delivery Rate 06/02 161 98.5 72 120/82 06/02 1612 88 123/74 93 06/02 1238 101.8 100 106/76 06/02 1233 101.8 100 106/76 88 06/02 0825 99.2 112 144/48 06/02 0806 99.2 112 144/98 92 06/01 2233 61 128/61 06/01 2027 96.5 82 123/89 06/01 2023 96.5 82 123 95 ASSESSMENT: Although the patient was up and out of bed early this morning, he soon became tired, appeared somewhat confused, and had increased difficulty in ambulation. I met the patient today along with geriatric social worker Jena. We met in his room, as he was unable to rise independently to a standing position from his bed. During our conversation he was alert and oriented 3, however at times answered questions in an incomplete and somewhat confused manner. At one point the patient became tearful, crying, stating that he missed his maternal grandfather. Labs and tests were ordered to rule out metabolic or infectious problems, nursing spoke with Dr. Joyner, Physical Therapy was in to evaluate. With the assistance of PT, patient was able get out of bed and to ambulate. PT will continue to follow. Depression:0/10; Anxiety:0/10 (with 10 the worst.) Denies suicidal ideation, homicidal ideation, auditory hallucinations, visual hallucinations, paranoid ideation. Speech is at times well articulated and at times somewhat slurred, mostly goal- directed. The patient understands the risks/benefits/side effects of the medication and is agreeable to continue taking them. PLAN: Follow ordered tests including blood cultures. PT to follow. Patient prefers and agrees to placement in a fpc Gabapentin dose decreased. Continue with other current management. Continue to provide support and encouragement.
--- NOTE | 2016-06-02 18:59 | NUR ---
arrived to check pts o2 sat due to order for o2. PT O2 SAT 92% ON ROOM AIR. PT DENIES ANY SOB OR COUGH. B.S WITH SCATTERED RHONCI NOTED. CXR DONE TODAY SHOWS HYPOINFLATED LUNGS, NO ACUTE PROCESS. PT WITH NO CPOD OR PULM HX, TAKES NO PULM MEDS AT HOME PER MED REC. NO O2 INITIATED AT THIS TIME PTS O2 SATS ARE 92%. RN AWARE.
--- NOTE | 2016-06-02 21:45 | NUR ---
Patient needed assist of device + 1 to ambulate to room. Reports increased pain and shuffling gait persists. Patient is malodorous and encouraged to shower in the morning.
--- NOTE | 2016-06-02 23:24 | NUR ---
EVENING NOTE-OVERALL VITAL SIGNS ARE STABLE, NO COMPLAINTS OFFERED, PT IS CALM, COOPERATIVE, COMPLIANT AND AMBULATING SLOW AND STEADY WITH WALKER AND ROOM REMAINS NEAR NURSES STATION FOR SAFETY/FALL RISK + APPETITE, PT ISOLATES AND RESTS IN ROOM OFTEN HOWEVER IS UP AND OUT OF BED WHEN PROMPTED.
[2016-06-03] VITALS (8 sets, daily range): BP systolic 110–149; BP diastolic 73–96
--- NOTE | 2016-06-03 04:29 | NUR ---
SLEPT WELL, NO COMPLAINTS OR ISSUES.
--- NOTE | 2016-06-03 10:45 | SOCIAL WORKER PROG NOTE PSYCH ---
Social Work Progress Note Progress Note [facility] faxed over a release for Junior to sign so that they can coordinate with [facility] for his Methadone. Junior signed it and it was faxed back by Jenna Oliver [facility]. Faxed additional clinical information to Lois at . Nursing informed me that Junior signed a 3 day paper to terminate voluntary status. Spoke with Junior who immediately said that he planned to revoke the paper that he signed and that he did it because he got angry. Stated he "threw a tantrum" because he was asked to shower. He agrees to stay and work on the plan here. He feels much better today than yesterday. Talked about the conversation that I had with his Aunt. He was disappointed, but thinks that his Aunt will end up telling his Mom. He doesn't take any responsibility for his relationships with family and continues to blame his sister. Talked to An Mota [phone] from [facility]. She is concerned about Junior only having Medicare at this point. She thinks that Medicare may only cover a couple of weeks and then he will have no payer source to continue. She stated that he would need an Medicaid application for [employer]. She said that we should do it here and submit it, so it's at least in process and that would look better for him to be approved. She is also concerned about the Methadone peice and transportation. Apparently folks are transported to [facility] weekly with a staff member for their methadone. She said usually people take logisticare, but because he doesn't have Medicaid that would be a problem. She feels that there are alot is alot of small in the case right now. She will hold onto his referral and see what we want to do.
--- NOTE | 2016-06-03 10:46 | CP SOUTH PROGRESS NOTE PSYCH ---
Psych (Inpt) Progress Note Progress Note This note opened in error. plan. Liaison with other physicians/providers. Progress Note: I discussed this patient's progress to date, current mental status, treatment process in the context of the treatment plan, and discharge planning with staff/ team in the daily morning inpatient team meeting. I also met with the patient myself in individual session. A total of 15 minutes was spent with the patient with more than 50% spent in counseling and/or coordination of care. SUBJECTIVE: OBJECTIVE: Current Medications Sig/Blank Start time Last Medication Dose Route Stop Time Status Admin Acetaminophen 650 MG .STK-MED ONE 06/02 2340 DC PO 06/02 2341 Acetaminophen 650 MG .STK-MED ONE 06/02 1203 DC PO 06/02 1204 Acetaminophen 650 MG Q6-PRN PRN 05/27 1999 AC 06/02 PO 2345 Aspirin Buffered 81 MG DAILY 05/28 1000 AC 06/03 PO 0740 Docusate Sodium 100 MG DAILY 05/28 1000 AC 06/03 PO 0740 Gabapentin 200 MG 0800,1300,06/03 1300 AC PO Gabapentin 300 MG 0800,1300,06/02 1300 DC 06/03 PO 0740 Gabapentin 400 MG Q8 05/31 220 DC 06/02 PO 0643 Methadone HCl 85 MG 06/04 0800 CAN PO Methadone HCl 90 MG 06/04 0800 AC PO Methadone HCl 90 MG DAILY 05/28 1000 DC 06/03 PO 0739 Nicotine 14 MG DAILY 05/28 1000 AC 06/01 TOP 0913 Omeprazole 40 MG DAILY AC 05/28 0700 AC 06/03 PO 0704 Oseltamivir Phosphate 75 MG BID 06/02 2199 AC 06/03 PO 06/06 2159 0740 Polyethylene Glycol 17 GM AT BEDTIME PRN 05/27 1999 AC PO Prazosin HCl 5 MG AT BEDTIME 05/27 2199 AC 06/02 PO 2138 Risperidone 1 MG 06/01 0800 AC 06/03 PO 0740 Risperidone 2 MG 05/31 AC 06/02 PO 2138 Senna 187 MG AT BEDTIME 05/27 2199 AC 06/02 PO 2138 Laboratory Tests 06/02 06/02 06/02 1445 1240 1240 Chemistry Sodium (137 - 145 mmol/L) 141 Potassium (3.5 - 5.1 mmol/L) 4.3 Chloride (98 - 107 mmol/L) 102 Carbon Dioxide (22 - 30 mmol/L) 30 Anion Gap (5 - 16) 9 BUN (9 - 20 mg/dL) 13 Creatinine (0.7 - 1.2 mg/dL) 0.9 Estimated GFR (>60 ml/min) > 60 BUN/Creatinine Ratio (7 - 25 %) 14.4 Total Bilirubin (0.2 - 1.3 mg/dL) 0.6 Direct Bilirubin (< 0.4 mg/dL) 0.4 AST (17 - 59 U/L) 22 ALT (21 - 72 U/L) 38 Alkaline Phosphatase (< 127 U/L) 87 Ammonia (9 - 30 umol/L) 9 Total Protein (6.3 - 8.2 g/dL) 6.3 Albumin (3.5 - 5.0 g/dL) 3.5 Hematology CBC w Diff NO MAN DIFF REQ WBC (4.8 - 10.8 /CUMM) 9.4 RBC (4.70 - 6.10 /CUMM) 4.17 L Hgb (14.0 - 18.0 G/DL) 12.7 L Hct (42 - 52 %) 37.6 L MCV (80.0 - 94.0 FL) 90.2 MCH (27.0 - 31.0 PG) 30.4 RDW (11.5 - 14.5 %) 12.5 Plt Count (130 - 400 /CUMM) 226 MPV (7.4 - 10.4 FL) 8.0 Gran % (42.2 - 75.2 %) 85.8 H Lymphocytes % (20.5 - 51.1 %) 8.8 L Monocytes % (1.7 - 9.3 %) 4.5 Eosinophils % (0 - 5 %) 0.6 Basophils % (0.0 - 2.0 %) 0.3 Absolute Granulocytes (1.4 - 6.5 /CUMM) 8.0 H Absolute Lymphocytes (1.2 - 3.4 /CUMM) 0.8 L Absolute Monocytes (0.10 - 0.60 /CUMM) 0.4 Absolute Eosinophils (0.0 - 0.7 /CUMM) 0.1 Absolute Basophils (0.0 - 0.2 /CUMM) 0 PUBS MCHC (33.0 - 37.0 G/DL) 33.7 Serology Virus Culture Pending Vital Signs Date Time Temp Pulse Resp B/P Pulse O2 O2 Flow FiO2 Ox Delivery Rate 06/03 0754 97.0 74 148/91 06/03 0734 97.0 74 148/91 95 06/02 2138 69 109/63 06/02 2001 98.0 69 109/63 06/02 1958 98.0 69 109/63 06/02 1613 98.5 72 120/82 06/02 1612 88 123/74 93 06/02 1238 101.8 100 106/76 06/02 1233 101.8 100 106/ 88 ASSESSMENT: Depression:[default value]/10; Anxiety:[default value]/10 (with 10 the worst.) [default value] suicidal ideation, homicidal ideation, auditory hallucinations, visual hallucinations, paranoid ideation. Speech is well articulated, goal-directed, average in rate, volume and tone. The patient understands the risks/benefits/side effects of the medication and is agreeable to continue taking them. PLAN: Continue with current management as patient is improving. Continue to provide support and encouragement.
--- NOTE | 2016-06-03 14:01 | NUR ---
Patient presents as more alert. Pulse ox 94-95%. Afebrile. Ambulation improving, PT in to work with patient. Patient less isolative, attending groups. Patient denies SI/AH at present. Patient ambivalent about going to an SNF for rehab after discharge. Patient put in a 3day paper and then rescinded the paper.
--- NOTE | 2016-06-03 16:23 | CP SOUTH PROGRESS NOTE PSYCH ---
Psych (Inpt) Progress Note Progress Note I discussed this patient's progress to date, current mental status, treatment process in the context of the treatment plan, and discharge planning with staff/ team in the daily morning inpatient team meeting. I also met with the patient myself in individual session. A total of 25 minutes was spent with the patient with more than 50% spent in counseling and/or coordination of care. OBJECTIVE: Current Medications Sig/Blank Start time Last Medication Dose Route Stop Time Status Admin Acetaminophen 650 MG .STK-MED ONE 06/02 2340 DC PO 06/02 2341 Acetaminophen 650 MG Q6-PRN PRN 05/27 1999 AC 06/03 PO 1329 Aspirin Buffered 81 MG DAILY 05/28 1000 AC 06/03 PO 0740 Azithromycin 250 MG DAILY 06/04 1000 AC PO 06/07 1100 Azithromycin 500 MG ONCE ONE 06/03 1345 DC 06/03 PO 06/03 1346 1431 Docusate Sodium 100 MG DAILY 05/28 1000 AC 06/03 PO 0740 Gabapentin 200 MG 0800,1300,06/03 1300 AC 06/03 PO 1328 Gabapentin 300 MG 0800,1300,0 06/02 1300 DC 06/03 PO 0740 Methadone HCl 85 MG 0806/04 0800 CAN PO Methadone HCl 90 MG 06/04 0800 AC PO Methadone HCl 90 MG DAILY 05/28 1000 DC 06/03 PO 0739 Nicotine 14 MG DAILY 05/28 1000 AC 06/01 TOP 0913 Omeprazole 40 MG DAILY AC 05/28 0700 AC 06/03 PO 0704 Oseltamivir Phosphate 75 MG BID 06/02 2199 AC 06/03 PO 06/06 2159 0740 Polyethylene Glycol 17 GM AT BEDTIME PRN 05/27 1999 AC PO Prazosin HCl 5 MG AT BEDTIME 05/27 2199 AC 06/02 PO 2138 Risperidone 1 MG 06/01 0800 AC 06/03 PO 0740 Risperidone 2 MG 05/31 AC 06/02 PO 2138 Senna 187 MG AT BEDTIME 05/27 2199 AC 06/02 PO 2138 Vital Signs Date Time Temp Pulse Resp B/P Pulse O2 O2 Flow FiO2 Ox Delivery Rate 06/03 1537 96.5 67 125/73 95 06/03 1229 97.7 77 94 149/96 06/03 1218 97.7 77 149/96 94 06/03 0754 97.0 74 148/91 06/03 0734 97.0 74 148/91 95 06/028 69 109/63 06/02 2001 98.0 69 10963 06/02 1958 98.0 69 ASSESSMENT: This morning patient was awake, alert and oriented 3. Ambulating independently with a steady gait, with assist of walker. He appeared in a good mood, I found him in the dining room, drinking his morning coffee. States he did not feel sedated, and felt well this morning. Physical therapy was in to see patient. Please refer to their note for additional information. Depression:0/10; Anxiety:0/10 (with 10 the worst.) Denies suicidal ideation, homicidal ideation, auditory hallucinations, visual hallucinations, paranoid ideation. Patient states and also believes that he will not kill himself. Speech is well articulated, goal-directed, average in rate, volume and tone. Alert and oriented 3. Calm, cooperative. The patient understands the risks/benefits/side effects of the medication and is agreeable to continue taking them. PLAN: Gabapentin dose reduced due to daytime sedation. Balbina-chair for hypoxia. SPO2 decreases when patient is lying flat in bed. At this time we are continuing the patient's methadone dose for bilateral lower extremity pain control. We're also continuing current dose of risperidone, in the past the patient has had symptoms of auditory hallucinations and suicidal ideation when on a lower dose of risperidone. Z-Justin ordered by , possible bronchitis noted on CXR. Anticipate referral to jail/rehabilitation facility. Continue with other current management as patient is improving. Continue to provide support and encouragement.
--- NOTE | 2016-06-03 21:49 | NUR ---
Pt is out in the lounge on his sara chair, mood is stable needy at times compliant and cooperative with the staff. Pt vital signs are stable 02 is 93% room air. No behavioral issues noted during the day. Will continue to monitor the pt overnight.
--- NOTE | 2016-06-04 04:42 | NUR ---
AWAKE TO THE BATHROOM ONCE THEN BACK TO SLEEP.
[2016-06-04 07:57] VITALS: BP 141/84
[2016-06-04 08:00] VITALS: BP 141/84
--- NOTE | 2016-06-04 12:10 | NUR ---
PT IS ALERT AND ORIENTED AT THIS TIME. HE IS AMBULATING WITH A WALKER AND ALTHOUGH HIS GAIT IS UNSTEADY IT HAS IMPROVED. HE DENIES ANY SUICIDAL THOUGHTS..HE IS ABLE TO MAKE HIS NEEDS KNOWN AND HE IS COMPLIANT WITH HIS MEDS. PT IS AFEBRILE AND O2 SAT IS 95%
[2016-06-04 12:21] VITALS: BP 130/91
[2016-06-04 12:49] VITALS: BP 130/91
--- NOTE | 2016-06-04 15:26 | CP SOUTH PROGRESS NOTE PSYCH ---
Psych (Inpt) Progress Note Progress Note Include the following elements, when applicable: Involvement in the active treatment of the patient with behavioral observations of the patient and the patient's response to the treatment. Review of the ongoing treatment process in the context of the treatment plan. Indication of how multi-disciplinary staff members are carrying out the treatment plan. Plans for future interventions and recommendations for revision of the treatment plan. Liaison with other physicians/providers. Progress Note: Sleeping most of the day; later in the afternoon sitting in sara chair, comfortable. Stated that the chair is a heaven send and that he used to have a similar one from his family member. Stated that he feels reassured he will have some supervision in a intermediate on discharge, that he plans to stay out of trouble when he leaves. Mood improved overall. MSE: older man, poor grooming, sitting in sara chair. Psychomotor slowing at baseline. Mood is euthymic, affect is constricted (baseline). Fair eye contact. Well related. Thought process concrete but goal directed. No overt thought content abnormalities evident. No suicidal thoughts. No AH/VH. Insight impaired, judgment adequate. Risk associated w/ significant pain, drug use hx, medical problems, depressive hx. Manage w/ education, med titration, mileu therapy, groups. A: 60 y/o man w/ hx multiple medical problems, psychiatric hx including AH, depressive sx, re-admitted after episode of bz withdrawal; improving clinically. Plan: continue current plan of care; encourage not sleeping in the day time as much.
[2016-06-04 20:22] VITALS: BP 150/90
[2016-06-04 20:29] VITALS: BP 150/90
--- NOTE | 2016-06-04 22:44 | NUR ---
PT IS LETHARGIC, SPENDING MOST TIME IN ROOM, SLEEPING. PT REFUSED TO COME OUT FOR 1600 VITALS BUT SPO2 WAS STILL MONITORED. PT SPO2 AT 1600 - 95, AT 2000 - 95. PT MOOD IS STABLE, AFFECT IS CONSTRICTED/FLAT, COMMUNICATION IS SLOW, AND APPETITE IS NORMAL. PT DENIES SI AT THIS TIME.
[2016-06-05] VITALS (7 sets, daily range): BP systolic 129–146; BP diastolic 75–95
--- NOTE | 2016-06-05 05:34 | NUR ---
PATIENT WAS UP TO BATHROOM TWICE EARLY IN SHIFT, BUT SEEMED TO SLEEP AROUND 3/4 OF THE NIGHT.
--- NOTE | 2016-06-05 11:53 | CP SOUTH PROGRESS NOTE PSYCH ---
Psych (Inpt) Progress Note Progress Note Include the following elements, when applicable: Involvement in the active treatment of the patient with behavioral observations of the patient and the patient's response to the treatment. Review of the ongoing treatment process in the context of the treatment plan. Indication of how multi-disciplinary staff members are carrying out the treatment plan. Plans for future interventions and recommendations for revision of the treatment plan. Liaison with other physicians/providers. Progress Note: Sleeping in his sara chair for most of the day encouraged him to get up and ambulate, exercise before lunch time. He stated that he will try. Sister not able to visit today b/c of bus service, he stated that she would come during the week. He stated that he feels better overall, that the voices dont bother him, that they are not command in nature and he does not feel depressed. MSE: older man, poor grooming, sitting in sara chair. Psychomotor retardation overall. Mood is neutral, affect constricted to blunted at baseline. His eye contact is poor. He is pleasant and polite. His thought process is goal directed ; impoverished thought content. No thoughts to harm himself or anyone else, and denies any recent hallucinations. Not internally preoccupied. Insight impaired, judgment adequate. Risk associated w/ significant pain, drug use hx, medical problems, depressive hx. Manage w/ education, med titration, mileu therapy, groups. A: 60 y/o man w/ hx multiple medical problems, psychiatric hx including AH, depressive sx, re-admitted after episode of bz withdrawal; improving clinically. Plan: continue current plan of care; encourage ambulation during the day time.
--- NOTE | 2016-06-05 12:51 | NUR ---
Pt has been marina drowsy and sleepy for larger part of the day, A&O X 3 when prompted. nood and affect are very depressed/ constricted, Appears to be having a lot of difficulty with ambulation using his walker. Vital sign is stable saturating approriately on room Air. Pt denies thougth of self-harm and to someone else.
--- NOTE | 2016-06-05 21:25 | NUR ---
PT IS VISIBLE IN UNIT ON OCCASSION. WHEN IN COMMUNITY PT IS SOCIAL AND COOPERATIVE. ATTEMPTED TO SHAVE BUT STATED HIS LEGS WERE IN TOO MUCH PAIN AND STOPPED. MOST TIME PT IS IN BED OR RECLINER. NO COMPLAINTS OR SI REPORTED. PT HAS A STABLE MOOD AND FULL RANGE AFFECT.
--- NOTE | 2016-06-06 04:21 | NUR ---
COOPERATIVE WITH CARE JESSICA GOT ORDER FOR BENADRYL PT. HAD BEEN UNABLE TO SLEE.
[2016-06-06 07:46] VITALS: BP 146/97
[2016-06-06 08:09] VITALS: BP 146/97
[2016-06-06 13:00] VITALS: BP 136/78
--- NOTE | 2016-06-06 13:49 | NUR ---
alert and oriented early in shift. very lethargic after taking morning meds. mood is stable, denied thoughts of self harm when asked. spent large amount of morning sleeping in chair.
[2016-06-06 15:40] VITALS: BP 136/76
--- NOTE | 2016-06-06 16:04 | CP SOUTH PROGRESS NOTE PSYCH ---
Psych (Inpt) Progress Note Progress Note Progress Note: I discussed this patient's progress to date, current mental status, treatment process in the context of the treatment plan, and discharge planning with staff/ team in the daily morning inpatient team meeting. I also met with the patient myself in individual session. A total of 15 minutes was spent with the patient with more than 50% spent in counseling and/or coordination of care. SUBJECTIVE: "I'm feeling great. I'd like to leave by Monday." OBJECTIVE: Current Medications Sig/Blank Start time Last Medication Dose Route Stop Time Status Admin Acetaminophen 650 MG .STK-MED ONE 06/06 0655 DC PO 06/06 0656 Acetaminophen 650 MG .STK-MED ONE 06/05 2152 DC PO 06/05 215 Acetaminophen 650 MG .STK-MED ONE 06/05 1559 DC PO 06/05 1600 Acetaminophen 650 MG Q6-PRN PRN 05/27 1999 AC 06/06 PO 0700 Aspirin Buffered 81 MG DAILY 05/28 1000 AC 06/06 PO 0805 Azithromycin 250 MG DAILY 06/04 1000 AC 06/06 PO 06/07 1100 0805 Diphenhydramine HCl 25 MG AT BEDTIME NEED.. 06/06 0100 AC PO Docusate Sodium 100 MG DAILY 05/28 1000 AC 06/06 PO 0805 Gabapentin 200 MG 0800,1300,06/03 1300 AC 06/06 PO 1321 Methadone HCl 90 MG 06/04 0800 AC 06/06 PO 0804 Omeprazole 40 MG DAILY AC 05/28 0700 AC 06/06 PO 0700 Oseltamivir Phosphate 75 MG BID 06/02 2199 AC 06/06 PO 06/06 2159 0805 Polyethylene Glycol 17 GM AT BEDTIME PRN 05/27 1999 AC PO Prazosin HCl 5 MG AT BEDTIME 05/27 2199 AC 06/05 PO 2157 Risperidone 1 MG 06/01 0800 AC 06/06 PO 0804 Risperidone 2 MG 05/31 AC 06/05 PO 215 Senna 187 MG AT BEDTIME 05/27 2199 AC 06/05 PO 215 Vital Signs Date Time Temp Pulse Resp B/P Pulse O2 O2 Flow FiO2 Ox Delivery Rate 06/06 1540 60 136/76 93 06/06 1300 64 136/78 06/06 0809 97.0 73 146/97 06/06 0746 97.0 73 146/97 95 06/05 2156 97.4 59 97 138/81 06/05 2015 97.4 59 138/81 06/05 2011 97.4 59 138/81 94 06/05 1641 67 132/80 ASSESSMENT: Patient presents this afternoon A&Ox3, calm and cooperative. Offers no compliants. Patient met today with Lois, is hoping for a long-term/ rehabilitation placement. Tolerating medications well. He is becoming somewhat impatient, hoping to leave the hospital soon. States that he's been much more comfortable, and has been getting a better night's sleep, since he was provided with a Balbina-chair. Ambulates with very slow, but steady gait, with assist of a walker. Depression:0/10; Anxiety:0/10 (with 10 the worst.) Denies suicidal ideation, homicidal ideation, auditory hallucinations, visual hallucinations, paranoid ideation. Patient states and also believes that he will not kill himself. Speech is well articulated, goal-directed, average in rate, volume and tone. The patient understands the risks/benefits/side effects of the medication and is agreeable to continue taking them. PLAN: Continue with current management as patient is improving. Continue to provide support and encouragement.
--- NOTE | 2016-06-06 17:26 | SOCIAL WORKER PROG NOTE PSYCH ---
Social Work Progress Note Progress Note Junior's sister Eileen Chacontist called this morning irrate that I had reached out to their Aunt Henny. Informed Junior that the family was upset with the phone call. Junior and I talked about some of the barriers to [place]. Asked him to sign a release for [facility]. He did. A staff member from [facility] came to interview Junior today for fpc placement. She was given some additional medical documentation. She will have a report written in a couple of days. Junior's sister La called and informed me that Lukas seemed to be getting antsy about the process to a SNF. She wanted assurance that we were still working on the process, as that's where she feels he needs to be.
[2016-06-06 19:44] VITALS: BP 167/94
--- NOTE | 2016-06-06 23:33 | NUR ---
PT IS LETHARGIC, SPENDING MOST OF THE TIME SLEEPING IN ROOM OR IN MILIEU. PT IS CALM, COOPERATIVE WITH STAFF AND PEERS, COMPLIANT WITH UNIT RULES WHEN IN MILIEU. PT MOOD IS STABLE, AFFECT IS EUTHYMIC TO FULL RANGE, COMMUNICATION IS NORMAL, AND APPETITE IS NORMAL. PT DENIES SI AT THIS TIME.
--- NOTE | 2016-06-07 06:51 | NUR ---
PATIENT WAS AWAKE TO BATHROOM SEVERAL TIMES DURING THE NIGHT; PRN TYLENOL GIVEN AT 2330 AND 0600.
[2016-06-07 07:34] VITALS: BP 126/74
[2016-06-07 12:18] VITALS: BP 130/79
--- NOTE | 2016-06-07 14:21 | SOCIAL WORKER PROG NOTE PSYCH ---
Social Work Progress Note Progress Note Called and left a message with Elizabeth Hairston health service coordinator at [facility]. Spoke with Junior, who was laying on his bed. Appeared a little groggy and sluggish with words as we spoke. He's concerned about not getting into a shelter. Told him that I'm working on it and that's still the plan at this point. Complaints of pain today. No depression or SI today. No HI. Agreed to a taper in Methadone from 90-85. Talked about how his body is getting older and he can't tolerate as much medication as he once did.
--- NOTE | 2016-06-07 14:49 | NUR ---
PT IS COMPLIANT AND COOPERATIVE. PT SLEEPING FOR MOST OF THE SHIFT EITHER IN LOUNGE OR ROOM. PT MOOD IS STABLE WITH A CONSTRCITED AFFECT. PT ATTENDS SOME GROUPS BUT FALLS ASLEEP EASILY. PT DENES SI THOUGHTS.
[2016-06-07 16:03] VITALS: BP 129/73
--- NOTE | 2016-06-07 17:48 | CP SOUTH PROGRESS NOTE PSYCH ---
Psych (Inpt) Progress Note Progress Note Progress Note: I discussed this patient's progress to date, current mental status, treatment process in the context of the treatment plan, and discharge planning with staff/ team in the daily morning inpatient team meeting. I also met with the patient myself in individual session. A total of 15 minutes was spent with the patient with more than 50% spent in counseling and/or coordination of care. SUBJECTIVE: "I didn't feel groggy today." OBJECTIVE: Current Medications Sig/Blank Start time Last Medication Dose Route Stop Time Status Admin Acetaminophen 650 MG .STK-MED ONE 06/07 0547 DC PO 06/07 0548 Acetaminophen 650 MG .STK-MED ONE 06/06 2319 DC PO 06/06 2320 Acetaminophen 650 MG Q6-PRN PRN 05/27 1999 AC 06/07 PO 1601 Aspirin Buffered 81 MG DAILY 05/28 1000 AC 06/07 PO 0740 Azithromycin 250 MG DAILY 06/04 1000 DC 06/07 PO 06/07 1100 0740 Diphenhydramine HCl 25 MG AT BEDTIME NEED.. 06/06 0100 AC 06/07 PO 0036 Docusate Sodium 100 MG DAILY 05/28 1000 AC 06/06 PO 0805 Gabapentin 200 MG 0800,1300,06/03 1300 AC 06/07 PO 0739 Methadone HCl 85 MG 06/08 08 AC PO Methadone HCl 90 MG 06/04 0800 DC 06/07 PO 0741 Omeprazole 40 MG DAILY AC 05/28 0700 AC 06/07 PO 0549 Oseltamivir Phosphate 75 MG BID 06/02 2199 DC 06/06 PO 06/06 2159 0805 Polyethylene Glycol 17 GM AT BEDTIME PRN 05/27 1999 AC PO Prazosin HCl 5 MG AT BEDTIME 05/27 220 AC 06/06 PO 2154 Risperidone 1 MG 06/01 0800 AC 06/07 PO 0739 Risperidone 2 MG 05/31 AC 06/06 PO 2154 Senna 187 MG AT BEDTIME 05/27 2199 AC 06/06 PO 2154 Vital Signs Date Time Temp Pulse Resp B/P Pulse O2 O2 Flow FiO2 Ox Delivery Rate 06/07 1603 72 129/73 06/07 1218 77 130/79 06/07 0734 97.0 71 126/74 97 06/06 2154 96.3 61 97 167/94 06/06 1943 96.3 61 167/94 ASSESSMENT: Patient reports doing well, offers no complaints today. States he is anxious for discharge, is hoping to find residential placement in rehab/assisted. It has been noted that patient often appears lethargic, sleepy, during the day. He has agreed to reduce methadone by 5mg to 85mg in the morning. He ambulates with assist of walker, with a slow gait. He has been more comfortable during the day, and at bedtime, in the Balbina-Chair. Depression: 0/10; Anxiety: 0/10 (with 10 the worst.) Denies suicidal ideation, homicidal ideation, auditory hallucinations, visual hallucinations, paranoid ideation. Speech is well articulated, goal-directed, average in rate, volume and tone. The patient understands the risks/benefits/side effects of the medication and is agreeable to continue taking them. PLAN: Social work continues to look for rehab/assisted placement. Awaiting [facility]. Continue with current management as patient is improving. Continue to provide support and encouragement.
[2016-06-07 19:54] VITALS: BP 144/54
--- NOTE | 2016-06-07 22:14 | NUR ---
PT IS STABLE WITH FLAT AFFECT. PT IS STILL LETHARGIC TODAY, ALTHOUGH MORE RESPONSIVE THAN OTHERS. VISIBLE WITHIN THE MILIEU YET WITH MINIMAL INTERACTION WITH PEERS/STAFF. PT DID NOT ATTEND WRAP UP. TOOK A SHOWER THIS EVENING SHIFT. VS ARE STABLE AND DENIES ANY SI/HI TO THIS MHW.
--- NOTE | 2016-06-08 04:59 | NUR ---
SLEPT WELL AWAKE RO BATHROOM THEN BACK TO SLEEP IN CAIO CHAIR.
[2016-06-08 07:56] VITALS: BP 136/85
--- NOTE | 2016-06-08 11:36 | NUR ---
PT IS PRESENT ON THE UNIT, MORE ALERT AND LESS SEDATED/LETHARGIC, AMBULATES SLOW AND STEADY WITH WALKER FOR STABILITY, ATTENDS SOME GROUPS, VITAL SIGNS ARE STABLE, MOOD IS OVERALL STABLE YET IRRITABLE AT TIMES, FLAT AFFECT. INTERACTS WITH PEERS AND STAFF APPROPRIATELY, NO ISSUES OR COMPLAINTS.
--- NOTE | 2016-06-08 13:14 | SOCIAL WORKER PROG NOTE PSYCH ---
Social Work Progress Note Progress Note Called Elizabeth Marika at [facility] again and left a message. Called a couple of other nursing facilities to see who will accept patients on Methadone. [facility] in [place] accepts people on Methadone. Spoke with sales program coordinator Dominic and Nurse Alexia who helps coordinate care for the Methadone patients. Alexia encouraged me to fax over clinical for review and we could discuss the case further. Junior signed a release for me to do so. Fax there is: [phone]. Alexia's direct number is [phone]. Alexia called and said she reviewed the case with their dock operator Services and they are slighty nervous about the suicidal ideations. I told them he hasn't attempted in any of his admissions here and he told me today that he didn't think he would ever do that. He says these things to get admitted to the hospital. She said she would like to follow the case and see where he is mentally early next week. She offered to meet him here at the hospital to do an interview Monday or Monday.
[2016-06-08 13:22] VITALS: BP 148/96
--- NOTE | 2016-06-08 16:00 | CP SOUTH PROGRESS NOTE PSYCH ---
Psych (Inpt) Progress Note Progress Note This note was opened in error. Liaison with other physicians/providers. Progress Note: Current Medications Sig/Blank Start time Last Medication Dose Route Stop Time Status Admin Acetaminophen 650 MG .STK-MED ONE 06/07 2130 DC PO 06/07 2131 Acetaminophen 650 MG Q6-PRN PRN 05/27 1999 AC 06/07 PO 2137 Aspirin Buffered 81 MG DAILY 05/28 1000 AC 06/08 PO 0749 Diphenhydramine HCl 25 MG AT BEDTIME NEED.. 06/06 0100 DC 06/07 PO 2137 Docusate Sodium 100 MG DAILY 05/28 1000 AC 06/06 PO 0805 Gabapentin 200 MG 0800,1300,06/03 1300 AC 06/08 PO 1258 Methadone HCl 85 MG 06/08 0800 AC 06/08 PO 0854 Omeprazole 40 MG DAILY AC 05/28 0700 AC 06/08 PO 0604 Polyethylene Glycol 17 GM AT BEDTIME PRN 05/27 1999 AC PO Prazosin HCl 5 MG AT BEDTIME 05/27 2199 AC 06/07 PO 2138 Risperidone 1 MG 06/01 0800 AC 06/08 PO 0750 Risperidone 2 MG 05/31 AC 06/07 PO 2138 Senna 187 MG AT BEDTIME 05/27 2199 AC 06/07 PO 2138 Vital Signs Date Time Temp Pulse Resp B/P Pulse O2 O2 Flow FiO2 Ox Delivery Rate 06/08 1322 57 148/96 06/08 0756 97.3 62 136/85 06/07 2137 98.0 69 97 144/54 06/07 1954 98.0 69 144/54 06/07 1603 72 129/73
[2016-06-08 16:04] VITALS: BP 147/96
[2016-06-08 19:44] VITALS: BP 151/92
--- NOTE | 2016-06-08 21:06 | CP SOUTH PROGRESS NOTE PSYCH ---
Psych (Inpt) Progress Note Progress Note Progress I discussed this patient's progress to date, current mental status, treatment process in the context of the treatment plan, and discharge planning with staff/ team in the daily morning inpatient team meeting. I also met with the patient myself in individual session. A total of 15 minutes was spent with the patient with more than 50% spent in counseling and/or coordination of care. SUBJECTIVE: I'm less tired during the day today. OBJECTIVE: Current Medications Sig/Blank Start time Last Medication Dose Route Stop Time Status Admin Acetaminophen 650 MG .STK-MED ONE 06/07 2130 DC PO 06/07 2131 Acetaminophen 650 MG Q6-PRN PRN 05/27 1999 AC 06/08 PO 2028 Aspirin Buffered 81 MG DAILY 05/28 1000 AC 06/08 PO 0749 Diphenhydramine HCl 25 MG AT BEDTIME NEED.. 06/06 0100 DC 06/07 PO 2137 Docusate Sodium 100 MG DAILY 05/28 1000 AC 06/06 PO 0805 Gabapentin 200 MG 0800,1300,06/03 1300 AC 06/08 PO 1258 Methadone HCl 5 MG .STK-MED ONE 06/08 0849 DC PO 06/08 0850 Methadone HCl 85 MG 06/08 0800 AC 06/08 PO 0854 Omeprazole 40 MG DAILY AC 05/28 0700 AC 06/08 PO 0604 Polyethylene Glycol 17 GM AT BEDTIME PRN 05/27 1999 AC PO Prazosin HCl 5 MG AT BEDTIME 05/27 2199 AC 06/07 PO 2138 Risperidone 1 MG 06/01 0800 AC 06/08 PO 0750 Risperidone 2 MG 05/31 220 AC 06/07 PO 2138 Senna 187 MG AT BEDTIME 05/27 2199 AC 06/07 PO 2138 Vital Signs Date Time Temp Pulse Resp B/P Pulse O2 O2 Flow FiO2 Ox Delivery Rate 06/08 1944 97.2 68 151/92 06/08 1604 71 147/96 06/08 1322 57 148/96 06/08 0756 97.3 62 136/85 06/07 2137 98.0 69 97 144/54 ASSESSMENT: Patient reports feeling less tired during the day today, after methadone was decreased this morning to 85mg. Patient is not complaining of any additional pain as a result of this lower dose of methadone. States he thinks he was taking too much methadone. Resting in Bal[place]ina-Chair. He is becoming eager to leave the hospital, and find a bed in a assisted/rehab.Tolerating medications well, without complaint. Depression: 3/10; Anxiety: 0 /10 (with 10 the worst.) Denies suicidal ideation, homicidal ideation, auditory hallucinations, visual hallucinations, paranoid ideation. Sleeping well. Good appetitie. Speech is well articulated, goal-directed, average in rate, volume and tone. Calm, cooperative, A&Ox3. The patient understands the risks/benefits/side effects of the medication and is agreeable to continue taking them. PLAN: Slow progress. Social work continues to look for rehab/assisted. Continue with current management as patient is improving. Continue to provide support and encouragement.
--- NOTE | 2016-06-08 21:51 | NUR ---
PT IS LETHARGIC, SPENDING THE MAJORITY OF THE TIME ISOLATIVE AND WITHDRAWN IN ROOM. PT MOOD IS STABLE, AFFECT IS EUTHYMIC TO FULL RANGE, COMMUNCIATION IS SLOW TO RESPOND BUT NORMAL OTHERWISE, AND APPETITE IS NORMAL. PT DENIES SI AT THIS TIME.
--- NOTE | 2016-06-09 05:46 | NUR ---
SLEPT WELL AFTER TRYING TO STAY AWAKE IN PROTEST OF HIS BENADRYL BEING D/C'D
[2016-06-09 07:38] VITALS: BP 142/84
--- NOTE | 2016-06-09 08:27 | SOCIAL WORKER PROG NOTE PSYCH ---
Social Work Progress Note Progress Note Junior's sister Eileen Rubin contacted the Patient Advocate here at the hospital and stated that she does not want any contact from this hospital in regards to her Brother. This also applies to contacting his Aunt Henny. Junior seems to be doing ok today, but complaining of pain. More alert today. Asked for the social security number and the [facility], because that's where his social security mail was going. I asked where he was going to change the address to? He said his Mother's address. I asked if he thought that was a good idea? He said that she was fine with it. I asked when he spoke with his Mom? He said he has been speaking with her everyday. I asked this again to clarify, because this is the first I had heard of this. He said you can call her if you want. I said that the last time I contacted his family they didn't want me calling. I stated that if he wanted to have her call me, that was fine. He asked for an update on intermediate progress. I told him nothing new today, other than Alexia from [facility] may see him tomorrow or Monday. Sister La called looking for an update.
[2016-06-09 12:23] VITALS: BP 138/85
--- NOTE | 2016-06-09 13:59 | NUR ---
PT IS COMPLIANT AND COOPERATIVE. MOOD IS STABLE WITH A CONSTRICTED AFFECT. PT DENIES SI AT THIS TIME, NO COMPLAINTS OFFERED. PT MOSTLY SLEEPING IN GERICHAIR DURING DAY- PRESENT ON UNIT FOR MEALS AND VITALS. PT IS ATTENDING SOME GROUPS. VITALS ARE STABLE, APPETITE IS GOOD.
[2016-06-09 16:09] VITALS: BP 146/95
--- NOTE | 2016-06-09 16:21 | CP SOUTH PROGRESS NOTE PSYCH ---
Psych (Inpt) Progress Note Progress Note Progress Note: I discussed this patient's progress to date, current mental status, treatment process in the context of the treatment plan, and discharge planning with staff/ team in the daily morning inpatient team meeting. I also met with the patient myself in individual session. A total of 15 minutes was spent with the patient with more than 50% spent in counseling and/or coordination of care. OBJECTIVE: Current Medications Sig/Blank Start time Last Medication Dose Route Stop Time Status Admin Acetaminophen 650 MG .STK-MED ONE 06/08 2021 DC PO 06/08 2022 Acetaminophen 650 MG Q6-PRN PRN 05/27 1999 AC 06/08 PO 2027 Aspirin Buffered 81 MG DAILY 05/28 1000 AC 06/09 PO 0740 Docusate Sodium 100 MG DAILY 05/28 1000 AC 06/09 PO 0740 Gabapentin 200 MG 0800,1300,2200 06/03 1300 AC 06/09 PO 145 Loratadine 10 MG DAILY 06/09 1615 UNVr PO Methadone HCl 80 MG .STK-MED ONE 06/09 0633 DC PO 06/09 0734 Methadone HCl 5 MG .STK-MED ONE 06/09 0731 DC PO 06/09 0732 Methadone HCl 85 MG 06/08 08 AC 06/09 PO 0739 Omeprazole 40 MG DAILY AC 05/28 07 AC 06/09 PO 0740 Polyethylene Glycol 17 GM AT BEDTIME PRN 05/27 1999 AC PO Prazosin HCl 5 MG AT BEDTIME 05/27 2199 AC 06/08 PO 2209 Risperidone 1 MG 06/01 08 AC 06/09 PO 0740 Risperidone 2 MG 05/31 220 AC 06/08 PO 2210 Senna 187 MG AT BEDTIME 05/27 2199 AC 06/08 PO 2209 Sodium Chloride 2 SPRAY Q2 HRS NEEDED PRN 06/09 1615 UNVr GRECIA Vital Signs Date Time Temp Pulse Resp B/P Pulse O2 O2 Flow FiO2 Ox Delivery Rate 06/09 1609 75 146/95 06/09 1223 64 138/85 06/09 0738 96.1 64 142/84 06/08 2209 68 151/92 06/08 1944 97.2 68 151/92 ASSESSMENT: This morning patient was awake and alert, sitting in the dining room drinking his morning coffee. Offers no complaints. Is hoping to be able to leave here soon, to a [facility]/rehabilitation facility. States he feels more awake during the day after methadone decreased from 90 mg to 85 mg daily. Still noted to be napping during the day. Depression: 0/10; Anxiety: 0/10 (with 10 the worst.) Denies suicidal ideation, homicidal ideation, auditory hallucinations, visual hallucinations, paranoid ideation. Speech is well articulated, goal-directed, average in rate, volume and tone. Calm and cooperative. Logical. Alert and oriented 3. The patient understands the risks/benefits/side effects of the medication and is agreeable to continue taking them. PLAN: Saline nasal spray and Claritin for stuffy nose and symptoms of seasonal allergy. Continue with current management as patient is improving. Continue to provide support and encouragement.
[2016-06-09 20:08] VITALS: BP 138/90
--- NOTE | 2016-06-09 21:25 | NUR ---
PT HAS BEEN ISOLATIVE AND WITHDRAWN, REMAINING IN BED FOR MAJORITY OF EVENING. WHEN VISIBLE ON UNIT, PT IS COOPERATIVE AND COMPLIANT. WILL SOCIAL WITH PEERS. ATTENDED WRAP UP MEETING HALF WAY THROUGH. NO COMPLAINTS OR SI REPORTED. PT HAS A STABLE MOOD AND FULL RANGE AFFECT.
--- NOTE | 2016-06-10 03:32 | NUR ---
PT. SLEPT WELL THIS SHIFT.
[2016-06-10 07:34] VITALS: BP 131/83
--- NOTE | 2016-06-10 11:59 | SOCIAL WORKER PROG NOTE PSYCH ---
Social Work Progress Note Progress Note Talked to Junior this morning briefly, who continued to say that he does not want any contact with his sister La. He said he had been talking to his Mom. I questioned this and asked how long he had been talking to her? I was under the impression that they haven't spoken in years. He said he has been speaking with her daily and that she is concerned for him. I found this to be interesting information, as he has not mentioned this before. I told him that he would need to sign a release for me to speak with his Mother and that she could contact me. I would not call her. He didn't seem to want to pursue it further. Called Alexia at [facility]. She will be out to see Junior on Monday morning. I told her that he was approved by [facility] for 30 days short term. She would like documentation to be faxed and updated clinical notes. This was sent over to her. Junior is trying to walk more around the unit. He was told to get up and walk every hour.
--- NOTE | 2016-06-10 12:02 | NUR ---
PT STATED HIS PLAN FOR TODAY WAS TO ATTEND GROUPS. HE DOES GO TO GROUPS BUT IS OBSERVED SLEEPING THROUGHOUT. HE DENIED SUICIDAL THOUGHTS. HE IS COMPLIANT WITH HIS MED REGIME
[2016-06-10 12:12] VITALS: BP 133/90
--- NOTE | 2016-06-10 13:25 | CP SOUTH PROGRESS NOTE PSYCH ---
Psych (Inpt) Progress Note Progress Note Progress Note: I discussed this patient's progress to date, current mental status, treatment process in the context of the treatment plan, and discharge planning with staff/ team in the daily morning inpatient team meeting. I also met with the patient myself in individual session. A total of 25 minutes was spent with the patient with more than 50% spent in counseling and/or coordination of care. SUBJECTIVE: "I'm sleeping better at night now of the Claritin and nasal spray." OBJECTIVE: Current Medications Sig/Blank Start time Last Medication Dose Route Stop Time Status Admin Acetaminophen 650 MG .STK-MED ONE 06/09 1652 DC PO 06/09 1653 Acetaminophen 650 MG Q6-PRN PRN 05/27 1999 AC 06/10 PO 0730 Aspirin Buffered 81 MG DAILY 05/28 1000 AC 06/10 PO 0741 Docusate Sodium 100 MG DAILY 05/28 1000 AC 06/10 PO 0746 Gabapentin 200 MG 0800,1300,0 06/03 1300 AC 06/10 PO 1241 Loratadine 10 MG DAILY 06/09 1615 AC 06/10 PO 0742 Methadone HCl 80 MG 06/11 0800 UNVr PO Methadone HCl 85 MG 06/08 0800 DC 06/10 PO 0742 Omeprazole 40 MG DAILY AC 05/28 0700 AC 06/10 PO 0730 Polyethylene Glycol 17 GM AT BEDTIME PRN 05/27 1999 AC PO Prazosin HCl 5 MG AT BEDTIME 05/27 2200 AC 06/09 PO 2127 Risperidone 1 MG 06/01 0800 AC 06/10 PO 0743 Risperidone 2 MG 05/31 220 AC 06/09 PO 2128 Senna 187 MG AT BEDTIME 05/27 2199 AC 06/09 PO 2128 Sodium Chloride 2 SPRAY Q2 HRS NEEDED PRN 06/09 1615 AC 06/10 GRECIA 1120 Vital Signs Date Time Temp Pulse Resp B/P Pulse O2 O2 Flow FiO2 Ox Delivery Rate 06/10 1212 69 133/90 06/10 0734 97.1 65 131/83 06/09 2126 98.7 70 9 138/90 06/09 2007 98.7 70 138/90 06/09 1609 75 146/95 ASSESSMENT: Patient reports he is doing well, is hoping for a bed in residential rehabilitation. As per social work, patient will be having an interview, and hopefully rehab placement next week. Patient continues to appear groggy and sedated during the day, although better than previously. He agrees to decrease methadone to 80 mg in the morning, which he takes for bilateral leg pain. States that his goal is to continue decreasing methadone. We discussed the fact the patient spends much of the day in a chair. We discussed some of the risks of a sedentary lifestyle including blood clots. Patient was encouraged to get up at least once an hour to walk around, despite his bilateral lower extremity pain. Patient verbalized understanding, and agreed to increase his daily activity, at least getting up and walking around the unit on an hourly schedule. Depression:0/10; Anxiety:0/10 (with 10 the worst.) Denies suicidal ideation, homicidal ideation, auditory hallucinations, visual hallucinations, paranoid ideation. Speech is well articulated, goal-directed, average in rate, volume and tone. Alert and oriented 3. Logical. The patient understands the risks/benefits/side effects of the medication and is agreeable to continue taking them. PLAN: Continue to encourage ambulation, monitor for daytime sedation. Consider continuing to decrease methadone dose. Continue with current management as patient is improving. Continue to provide support and encouragement.
[2016-06-10 15:51] VITALS: BP 148/93
[2016-06-10 19:45] VITALS: BP 139/96
--- NOTE | 2016-06-10 20:53 | NUR ---
PT BENZODIAZEPINE SCREEN 694. PT DENIES TAKING ANY MEDICATIONS/DRUGS NOT PRESCRIBED. DR YI MADE AWARE. REPEAT UTOX WILL BE ORDERED FOR TOMORROW.
--- NOTE | 2016-06-10 21:44 | NUR ---
PT IS LETHARGIC, SLEEPING OFTEN WHETHER IN MILIEU OR PT ROOM. PT IS CALM, COOPERATIVE WITH STAFF AND PEERS, AND COMPLIANT WITH UNIT RULES. PT IS ISOLATIVE AND WITHDRAWN DUE TO SLEEPING OUT OF MILIEU OFTEN. MOOD IS STABLE, AFFECT IS FULL RNAGE, COMMUNCIATION IS NORMAL, AND APPETITE IS NORMAL. PT DENIES SI AT THIS TIME.
--- NOTE | 2016-06-11 04:16 | NUR ---
SLEPT WELL, SLEPT IN CAIO CHAIR AND UP TO BATHROOM X3. NO CMPLAINTS OFFERED.
[2016-06-11 07:34] VITALS: BP 147/91
[2016-06-11 12:12] VITALS: BP 130/96
--- NOTE | 2016-06-11 13:09 | NUR ---
Pt is calm, present on the unit, attending groups report + sleep and will "take it easy today", pleasant and social at times, did sleep in intervals during focus group, + appetite , mood stable with flat affect however does show appropriate expressions and animations situationally.
--- NOTE | 2016-06-11 13:41 | CP SOUTH PROGRESS NOTE PSYCH ---
Psych (Inpt) Progress Note Progress Note Include the following elements, when applicable: Involvement in the active treatment of the patient with behavioral observations of the patient and the patient's response to the treatment. Review of the ongoing treatment process in the context of the treatment plan. Indication of how multi-disciplinary staff members are carrying out the treatment plan. Plans for future interventions and recommendations for revision of the treatment plan. Liaison with other physicians/providers. Progress Note: More alert than he was last week, has had taper of methadone. His utox was + bz at 694 yesterday and today at 398. He denied receiving any outside bz from any peers or visitors. He has not had bz in at least a week, so unclear why it is still +, though long acting bz may still be in his system? Down trending for now. Stated that he wants ibuprofen instead of tylenol explained to him that he has been receiving same dose of meds apart from methadone, that perhaps the taper of methadone is giving some break through pain; that there would be concern for renal metabolism of ibuprofen, but can re-eval w/ graduate rn during the week if he continues to c/o no pain relief. MSE: older man, poor grooming, sitting comfortablly. Psychomotor retardation present but improving overall. Mood is neutral, affect constricted to blunted at baseline. His eye contact is poor. He is pleasant and polite. His thought process is goal directed; impoverished thought content. No thoughts to harm himself or anyone else, and denies any recent hallucinations. Not internally preoccupied. Insight impaired, judgment adequate. Risk associated w/ significant pain, drug use hx, medical problems, depressive hx. Manage w/ education, med titration, mileu therapy, groups. A: 60 y/o man w/ hx multiple medical problems, psychiatric hx including AH, depressive sx, re-admitted after episode of bz withdrawal; improving clinically. Plan: continue current plan of care; encourage ambulation during the day time and exercising upper body if he c/o pain in legs, to maintain physical activity. Can re-eval his pain meds if he continues to c/o little relief w/ tylenol.
[2016-06-11 15:39] VITALS: BP 137/73
[2016-06-11 19:15] VITALS: BP 138/80
--- NOTE | 2016-06-11 19:41 | NUR ---
PT IS STABLE WITH FLAT AFFECT. VISIBLE WITHIN THE COMMUNITY TODAY AND WALKING AROUND AFTER BEING ENCOURAGED BY STAFF. PT SHOWERED AND DID LAUNDRY TODAY. CAN BE IRRITABLE AT TIMES BUT IS EASILY REDIRECTED. VS ARE STABLE AND DENIES ANY SI/HI TO THIS MHW.
--- NOTE | 2016-06-12 04:39 | NUR ---
SLEPT WELL AWAKE TO THE BATHROOM FEW TIMES DURING THE NIGHT.
[2016-06-12 07:47] VITALS: BP 152/92
[2016-06-12 12:22] VITALS: BP 129/87
--- NOTE | 2016-06-12 13:22 | CP SOUTH PROGRESS NOTE PSYCH ---
Psych (Inpt) Progress Note Progress Note Include the following elements, when applicable: Involvement in the active treatment of the patient with behavioral observations of the patient and the patient's response to the treatment. Review of the ongoing treatment process in the context of the treatment plan. Indication of how multi-disciplinary staff members are carrying out the treatment plan. Plans for future interventions and recommendations for revision of the treatment plan. Liaison with other physicians/providers. Progress Note: Stated that he is doing well, that he is more awake during the day time. Wants to get rid of methadone - we discussed that he would benefit from a slow taper due to the amount of time he has been on the med; he was tapered from 85mg -80mg in the last several days; will continue slow taper to 75mg but maintain a slow rate of taper. He has been more responsive overall. Encouraged him to ambulate and exercise his arms at least during the day if he has too much leg pain. MSE: older man, poor grooming, more alert (though still blunted and with psychomotor retardation, improving). Continues to have poor eye contact. Mood is neutral, affect blunted at baseline. His thought process is concrete and thought content impoverished overall. No evidence of delusional thinking, no thoughts to harm himself or anyone else, and denies any recent hallucinations. Not internally preoccupied. Insight impaired, judgment adequate. Risk associated w/ significant pain, drug use hx, medical problems, depressive hx. Manage w/ education, med titration, mileu therapy, groups. A: 60 y/o man w/ hx multiple medical problems, psychiatric hx including AH, depressive sx, re-admitted after episode of bz withdrawal; improving clinically. Plan: continue current plan of care; encourage ambulation and exercise. Will taper methadone to 75mg daily starting tmr. Wants ibuprofen rather than tylenol concern for renal metabolism can discuss w/ crown perforator operator during the week; discussed also that he may be having more pain b/c he is more alert and awake. Unclear why his bz was + this week; do not suspect he has been hiding any meds.
--- NOTE | 2016-06-12 13:35 | NUR ---
PT IS OUT IN COMMUNITY FALLING ASLEEP AT TIMES IN CHAIR. PT NEEDS REDIRECTION BACK TO ROOM TO SLEEP. PT MOOD IS STABLE WTIH A FLAT AFFECT. PT DID ATTEND PLANNING THIS MORNING BUT NOT FOCUS. PT IS COOPERATIVE WITH STAFF. PT DENIES SI THOUGHTS
[2016-06-12 15:47] VITALS: BP 138/79
[2016-06-12 19:41] VITALS: BP 142/86
--- NOTE | 2016-06-12 21:32 | NUR ---
PT IS LETHARGIC, SLEEPING OFTEN WHETHER IN MILIEU OR IN ROOM. PT IS CALM, COOPERATIVE WITH STAFF AND PEERS, AND COMPLIANT WITH UNIT RULES. PT MOOD IS STABLE, AFFECT IS FULL RANGE, COMMUNICATION IS NORMAL, AND APPETITE IS NORMAL. PT DENIES SI AT THIS TIME.
--- NOTE | 2016-06-13 06:59 | NUR ---
PATIENT UP TO BATHROOM X2, OTHERWISE SLEPT.
[2016-06-13 08:16] VITALS: BP 132/91
[2016-06-13 12:26] VITALS: BP 130/82
--- NOTE | 2016-06-13 13:59 | NUR ---
PT STATED HIS GOAL TODAY WAS TO WORK WITH THE WILDLIFE CONSERVATION OFFICER TO FIND A FDC FOR REHAB.HE APPEARS SEDATED AT TIMES.HE IS ABLE TO MAKE HIS NEEDS KNOWN AND IS COMPLIANT WITH HIS MED REGIME. PT DENIES SUICIDAL THOUGHTS AT THIS TIME
--- NOTE | 2016-06-13 14:16 | CP SOUTH PROGRESS NOTE PSYCH ---
Psych (Inpt) Progress Note Progress Note Include the following elements, when applicable: Involvement in the active treatment of the patient with behavioral observations of the patient and the patient's response to the treatment. Review of the ongoing treatment process in the context of the treatment plan. Indication of how multi-disciplinary staff members are carrying out the treatment plan. Plans for future interventions and recommendations for revision of the treatment plan. Liaison with other physicians/providers. Progress Note: Medication list reviewed. Case and treatment plan discussed in team meeting. Staff reports that the patient is appearing alright. Sleeps for much of the day , taking long naps. Wants to leave and doesn't know what is taking so long. We are trying to place the patient at [facility]. Patient seen at 11:38 a.m. He was sound asleep in sara chair but was easily awakened. Eyes were closed for the interview. Somnolent/sedated. Reports doing alright. Has no complaints. I inquired about pain. Rates it 7/10, worse at left knee than right. Mood is "good; it's upbeat." Sad 2/10. Anxiety /10. Feels hopeless. Feels helpless, "definitely yes." Denies feeling worthless or guilty. Denies SI, "no, they're gone." Denies HI. Reports AH, "I hear my future." Reports VH, "that it don't look good unless I get out of here." Denies PI now, but at times feels that people are out to harm him. Denies magical crespo. Sleep: not good. Appetite and energy: good. Tolerating medications well, without complaint. States he is so sleepy because there is nothing to do. Wants to decrease methadone dose to 70 mg daily. IMPRESSION: Slow progress. Continue present treatment plan. We will reduce methadone to 70 mg daily effective tomorrow morning. Anticipate discharge once patient is placed at [facility].
[2016-06-13 15:48] VITALS: BP 126/76
--- NOTE | 2016-06-13 16:35 | SOCIAL WORKER PROG NOTE PSYCH ---
Social Work Progress Note Progress Note Junior was supposed to have a visit today from Alexia at [facility]. She did not show up. I called Alexia at 4pm to inquire about her visit. I was told that her DNS was not in agreement with accepting Lukas, due to the suicidal ideations. Alexia gave me a couple of other long-term facilities that she is familiar with that take Methadone. [facility] in [place] and [facility] in [place]. Informed Lukas of the news. He was disappointed, but signed releases for the other 2 facilities. Nervous about being kicked out of the unit, without going to a facility. Complaining that he can't walk and can't return to the street. Hasn't had contact with his sister La this past weekend. Asked for the social security phone number and my fax number so he can have them fax documentation about what needs to be done to get his money back.
[2016-06-13 19:35] VITALS: BP 145/97
--- NOTE | 2016-06-13 21:57 | Event Note ---
Event Note Event Note: I was asked by RN to evaluate patient as he had developed bilateral lower extremity edema (R>L). Patient has not been active and is most of the times sitting on his chair (?dependent edema). He denies chest pain or palpitations. He does have chronic baseline dyspnea, no acute change. His vitals are stable, no hypoxia or tachycardia. On exam: Right lower extremity has 2+ pitting edema and left lower extremity has 1+ pitting edema, difficult to palpate pulses due to edema. He had a recent LE doppler (May 25, 2016). We will obtain LE dopplers in AM. For now, I have asked him to keep his legs elevated when in chair or bed. If dopplers negative, will provide compression stockings. Patient does not have any cardiac history, no CHF, not on lasix. If he develops worsening dyspnea or tachycardic, will consider CTA chest to rule out PE and Echo to assess for EF/ valvular function.
--- NOTE | 2016-06-13 22:45 | NUR ---
Pt is in his sara chair during change of shift. Pt is irritable and entitled during the domenico shift. Vital signs are stable appetite is good. Will continue to monitor the pt overnight.
--- NOTE | 2016-06-14 04:51 | NUR ---
SLEPT WELL IN CAIO CHAIR WITH LEGS ELEVATED.
[2016-06-14 07:36] VITALS: BP 136/86
--- NOTE | 2016-06-14 10:13 | ULTRASOUND REPORT ---
EXAMINATION: US TRIPLEX LOWER EXTREMITY, BILATERAL CLINICAL INFORMATION: Bilateral lower extremity edema and swelling. COMPARISON: Venous ultrasound examination dated 05/25/2016. TECHNIQUE: Color-flow triplex imaging with spectral analysis and compression Doppler were performed on the bilateral lower extremities. FINDINGS: Respiratory variation, normal compression and augmented flow are noted throughout the bilateral lower extremities. The visualized common femoral vein, greater saphenous vein, femoral vein, profunda femoral vein, popliteal vein and visualized mid calf venous segments show no evidence of deep venous thrombosis. There is no Goldsmith's cyst. IMPRESSION: Normal triplex scan without evidence of deep venous thrombosis involving the bilateral lower extremities.
[2016-06-14 12:17] VITALS: BP 140/77
--- NOTE | 2016-06-14 14:39 | NUR ---
PT IS COMPLIANT AND COOPERATIVE. MOOD IS STABLE WITH A CONSTRICTED AFFECT. PT DENIES SI AT THIS TIME, C/O CHRONIC LEG PAIN. PT IS AMBULATING WELL WITH ASSISTANCE FROM WALKER. PT IS OUT OF ROOM MORE AND PRESENT ON UNIT DURING THE DAY. PT IS SLEEPING IN GERICHAIR IN ROOM AT TIMES AND NOTED TO BE NODDING OUT IN COMMUNITY OCCASIONALLY- PT IS EASILY AROUSABLE. PT IS INTERACTING WITH PEERS AND STAFF. PT IS ATTENDING GROUPS. VITALS ARE STABLE, APPETITE IS GOOD.
--- NOTE | 2016-06-14 15:26 | CP SOUTH PROGRESS NOTE PSYCH ---
Psych (Inpt) Progress Note Progress Note Include the following elements, when applicable: Involvement in the active treatment of the patient with behavioral observations of the patient and the patient's response to the treatment. Review of the ongoing treatment process in the context of the treatment plan. Indication of how multi-disciplinary staff members are carrying out the treatment plan. Plans for future interventions and recommendations for revision of the treatment plan. Liaison with other physicians/providers. Progress Note: Case and treatment plan discussed in team meeting. Staff reports that the patient is sedated. Has bilateral pedal edema and went for ultrasound. Rejected by [facility]. Housing remains problematic. Patient seen at 1:15 pm. He was sitting in the lounge. Affect is calm and blunted to flat. States he can't move; "my (right) leg is killing me. It's all swollen. Man it hurts (11/14)." Mood is fine. Rates sad mood 10 and anxiety /10. Denies feeling hopeless or helpless. Feels worthless but not guilty. Denies SI and HI. Reports AH, "sort of hearing things, (say to) kill myself." Reports VH, "images of me dying." Denies PI. Describes sleep and appetite as poor and energy as none. Tolerating medications well. Not feeling ready to decrease methadone dose below 70 mg/day yet. IMPRESSION: Slow progress. Continue present treatment plan. Continues to require inpatient level of care. Placement remains problematic. Will check ultrasound result.
[2016-06-14 15:53] VITALS: BP 143/87
--- NOTE | 2016-06-14 16:58 | SOCIAL WORKER PROG NOTE PSYCH ---
Social Work Progress Note Progress Note Called [facility] in [place] to discuss a possible referral for Junior. Spoke with Tonia in admissions. She seemed hesitant about the referral due to not having T19 as a secondary. She also stated that his name sounded familiar and she needed to discuss it with her clinical team. Overall, she did not seem enthusiastic about him being referred. I then called Cesar at [facility] in [place]. He informed me that they do provide services to people with Methadone, but he didn't feel it would work out to transfer Junior's Methadone Provider to [place]. He also doesn't have an agency vehicle to transport to a clinic and Junior doesn't have availability to get [employer] right now. He provided me with another [facility] facility in [place] that he thought may be helpful- ([facility]). I called and spoke with Myah in admissions. She said that their patients get connected to [facility] for Methadone and that if he was accepted there, it shouldn't be a problem for them to take him. I talked to Junior and updated him on all of the above. He signed releases for [facility] and [facility]. He had social security paperwork that was faxed last evening to the office. There is 18 pages to be filled out. I encouraged Lukas to start it and see what he could complete on his own. He went for some medical tests this morning, due to his right leg being more swollen. He feels scared about what is happening to him medically. He is hoping to get into a facility, but scared that he won't. Called the nurse practictioner at [facility] and left a voicemail.
[2016-06-14 20:22] VITALS: BP 148/81
--- NOTE | 2016-06-14 22:43 | NUR ---
PT -SI. PT SOCIAL WITH [employer], IN [facility] TALKING AND WATCHING TV. TO BED AT 2230 IN CAIO CHAIR. USING WALKER FOR AMBULATION.
--- NOTE | 2016-06-15 04:50 | NUR ---
PT SLEPT THRU THE NIGHT WITH FEET RAISED ON CAIO CHAIR.
[2016-06-15 07:27] VITALS: BP 143/83
--- NOTE | 2016-06-15 11:27 | NUR ---
PT IS STABLE WITH CONSTRICTED AFFECT. PT IS SLIGHTLY MORE VISIBLE WITHIN THE COMMUNITY AND INTERACTS WITH PEERS/STAFF. PT ALSO IS ATTENDING GROUPS. PT STILL COMPLAINING OF HIS LEG BEING SWOLLEN BUT REPORTED GETTING A GOOD NIGHTS SLEEP WHERE HE ELEVATED HIS LEG AND IT APPEARED TO HELP WITH THE SWELLING THIS MORNING. HIS GOAL IS TO STAY POSITIVE TODAY. VS ARE STABLE AND PT DENIES ANY SI/HI TO THIS MHW.
[2016-06-15 12:01] VITALS: BP 133/78
[2016-06-15 15:38] VITALS: BP 142/77
--- NOTE | 2016-06-15 15:38 | SOCIAL WORKER PROG NOTE PSYCH ---
Social Work Progress Note Progress Note Spoke with Jackie Cabral at [facility], who stated that Junior would need to be admitted to their program and evaluated by their doctor the morning of . She said if he could go to [facility] on 06/21 that would be ideal and then they could bring him early that morning. She asked for some medical info to be faxed over (EKG, labs, physical) fax: [phone]. She will review everything and call me back if there is a problem. She will also fax a release for Junior to sign for them to speak with [facility]. Called Myah at [facility] [phone] to discuss admission for Junior for possibly Monday next week. Informed her that Jackie at [facility] said they can admit Junior on 06/22. She seemed fine with the plan. Told her that I would fax over Junior 's clinical and that we could talk more after they review it. Faxed packet to [phone]. Talked to Junior and informed him of the above information. Showed him some picture of [facility] from their website. He seemed pleased. Junior talked about the pain he is feeling and how he is hoping to get his Methadone earlier in the morning. Will discuss it with the doctor. He is feeling a little nervous about his possible move to [place]. Stated he'll take a day or an hour at time. Trying not to get ahead of himself. He completed packet of paperwork for Social Security. I gave him the [place] office number. He will be following up with them. I told him Monday we should plan to call his counselor at [facility] and speak with him about his plans.
--- NOTE | 2016-06-15 16:58 | CP SOUTH PROGRESS NOTE PSYCH ---
Psych (Inpt) Progress Note Progress Note Include the following elements, when applicable: Involvement in the active treatment of the patient with behavioral observations of the patient and the patient's response to the treatment. Review of the ongoing treatment process in the context of the treatment plan. Indication of how multi-disciplinary staff members are carrying out the treatment plan. Plans for future interventions and recommendations for revision of the treatment plan. Liaison with other physicians/providers. Progress Note: Case and treatment plan discussed in team meeting. Staff reports that the patient is sedated, but this has improved. Patient seen at 3:18 pm in [facility]. Appears awake and alert. Reports he will be leaving on 06/21/16 for [employer] and he is happy about it. Wants methadone dosed at 6 am, as he awakes at 3:30 or 4 am, itchy and sweating. Mood is good. Sad 05/17. Anxiety 05/17. Denies feeling hopeless, helpless, worthless or guilty. Denies SI, "not today." Denies HI, AH, VH and PI. Appetite is "somewhat good, not really back to par." Energy: "starting to slat pickler." IMPRESSION: Slow progress. Continue present treatment plan. Methadone dose time to be altered. Plan is for discharge on 06/21.
[2016-06-15 20:02] VITALS: BP 149/90
--- NOTE | 2016-06-15 21:30 | NUR ---
PT IS LETHARGIC, SLEEPING OFTEN, WHETHER IN MILIEU OR IN PT ROOM. PT SPENDS MOST OF TIME IN ROOM, OUT OF MILIEU. WHEN IN MILIEU IS CALM, COMPLIANT WITH UNIT UNIT RULES, AND COOPERATIVE WITH STAFF AND PEERS. PT MOOD IS STABLE, AFFECT IS FULL RANGE, COMMUNICATION IS NORMAL, AND APPETITE IS NORMAL. PT DENIES SI AT THIS TIME.
[2016-06-16 07:30] VITALS: BP 111/67
[2016-06-16 12:35] VITALS: BP 144/92
--- NOTE | 2016-06-16 14:11 | SOCIAL WORKER PROG NOTE PSYCH ---
Social Work Progress Note Progress Note Pt reports he is on his way to group, he states he feels good, although he did "get some bad news" regarding SSI apparently he is filling out the appropriate paperwork and it is being dealt with. He also mentions he is leaving monday to a jail and is happy about it, "it took awhile, but Im happy Jena could work it out". Pt affect was not drowsy, he was smiling and made jokes. Pt reports he has no concerns at this time.
--- NOTE | 2016-06-16 15:17 | CP SOUTH PROGRESS NOTE PSYCH ---
Psych (Inpt) Progress Note Progress Note Include the following elements, when applicable: Involvement in the active treatment of the patient with behavioral observations of the patient and the patient's response to the treatment. Review of the ongoing treatment process in the context of the treatment plan. Indication of how multi-disciplinary staff members are carrying out the treatment plan. Plans for future interventions and recommendations for revision of the treatment plan. Liaison with other physicians/providers. Progress Note: Case and treatment plan discussed in team meeting. Staff reports that the patient was in bed most of the evening. Patient seen at 2:51 pm. He was sitting at a dining room table, working on [employer] paperwork. States "I'm alright." Appears awake and alert. Mood is good. Affect is upbeat, brighter. Has no complaints. Pleased with 6 am methadone dose time. Sad 0/10. Anxiety 0/10. Denies feeling hopeless, helpless, worthless or guilty. Denies SI, HI, AH, VH and PI. Reports sleep and appetite are getting better. Energy: "somewhat slow, but getting better too." Tolerating medications well, without complaint. Looking forward to discharge on Monday to [facility]. IMPRESSION: Slow progress. Continue present treatment plan.
[2016-06-16 15:50] VITALS: BP 130/74
[2016-06-16 19:27] VITALS: BP 155/86
--- NOTE | 2016-06-16 21:49 | NUR ---
PT IS LETHARGIC, SLEEPING IN MILIEU AND IN PT ROOM. PT IS CALM, COOPERATIVE WITH STAFF AND PEERS, AND COMPLIANT WITH UNIT RULES WHEN PT DOES ENTER MILIEU. MOOD IS STABLE, AFFECT IS FULL RANGE, COMMUNICATION IS NORMAL, AND APPETITE IS NORMAL. PT DENIES SI AT THIS TIME.
--- NOTE | 2016-06-17 05:32 | NUR ---
AWAKE AT 0300 UNABLE TO SLEEP. THEN BACK TO ROOM RESTING 0545.
[2016-06-17 06:57] VITALS: BP 139/85
[2016-06-17 12:04] VITALS: BP 135/67
--- NOTE | 2016-06-17 13:43 | SOCIAL WORKER PROG NOTE PSYCH ---
See Addendum Social Work Progress Note Progress Note Called to speak with Jackie from [facility] to see if she could fax me the release to be signed for APT. She was already gone and I was informed that she would not be back until early Monday. I asked if anyone else could help with giving me a release for Junior to sign and I was told no, that only she could do that. Called [facility] and spoke with Myah in admissions. Asked if she received the packet I sent on Junior? She said she did and was expecting him on Monday for admission. I told her that I was hoping there would be no problems with him getting his Methadone Monday, because [facility] hadn't sent the release yet and Jackie won't be back until Monday. She is hoping I can speak to Jackie early Monday and everything will work out. They will accept Junior anytime on Monday. Junior and I called his counselor Tam at [facility]. Junior informed him that he will be going to [facility] in [place]. I told Tam that we would be transferring the methadone to [facility] and asked if he could send a release for Junior to sign and I would send it back to him. He said he could do that. I provided our fax number for him to send it over. Junior's sister La left me a message asking for me to call her. Junior told me he spoke with her over the weekend and that she was drunk. I told him that I didn't really want to get involved in what is going on between him and his sister. He said he understood and didn't want me getting involved. I don't have a release to speak with her at this time. Reviewed information about discharge for next week. Junior is experiencing more pain today and stated that he needs the methadone to go back up to 80mg. He is now at 70mg and feels it's too low.
--- NOTE | 2016-06-17 13:57 | CP SOUTH PROGRESS NOTE PSYCH ---
Psych (Inpt) Progress Note Progress Note Include the following elements, when applicable: Involvement in the active treatment of the patient with behavioral observations of the patient and the patient's response to the treatment. Review of the ongoing treatment process in the context of the treatment plan. Indication of how multi-disciplinary staff members are carrying out the treatment plan. Plans for future interventions and recommendations for revision of the treatment plan. Liaison with other physicians/providers. Progress Note: Case and treatment plan discussed in team meeting. Staff reports that the patient gets lethargic in the evening. Patient seen at 11:58 AM. He was asleep in [place]-chair in his room but was easily awakened. Has no complaints. Reports everything is fine. Affect is calm and blunted. Reports mood is good, upbeat. Rates sad mood and anxiety both 0/10. Denies feeling hopeless, helpless, worthless or guilty. Denies suicidal and homicidal ideation. Denies auditory and visual hallucinations and paranoid ideation. Reports sleep, appetite and energy are all getting better. Tolerating medications well, without complaint. IMPRESSION: Slow progress. Continue present treatment plan. Anticipate discharge on Monday to [facility].
[2016-06-17 16:01] VITALS: BP 132/80
[2016-06-17 19:45] VITALS: BP 145/89
--- NOTE | 2016-06-17 20:21 | NUR ---
PT IS STABLE WITH CONSTRICTED AFFECT. PT IS MORE VISIBLE WITHIN THE COMMUNITY AND INTERACTS WITH PEER/STAFF FREQUENTLY. PT IS CURRENTLY IN THE LOUNGE AND WATCHING TV WHILE INTERACTING WITH STAFF. LESS IRRITABLE THAN PREVIOUS SHIFTS. AMBULATING MORE AND MORE ENCOURAGED TO DO SO BY STAFF. VS ARE STABLE AND PT DENIES ANY SI/HI TO THIS MHW.
--- NOTE | 2016-06-18 05:34 | NUR ---
PT SLEPT IN CAIO CHAIR. PT UP EARLY FOR METHADONE, THEN RETURNED TO BED. -SI.
[2016-06-18 08:15] VITALS: BP 139/86
--- NOTE | 2016-06-18 11:53 | CP SOUTH PROGRESS NOTE PSYCH ---
Psych (Inpt) Progress Note Progress Note Include the following elements, when applicable: Involvement in the active treatment of the patient with behavioral observations of the patient and the patient's response to the treatment. Review of the ongoing treatment process in the context of the treatment plan. Indication of how multi-disciplinary staff members are carrying out the treatment plan. Plans for future interventions and recommendations for revision of the treatment plan. Liaison with other physicians/providers. Progress Note: Pt in sara-chair at room. He notes that feeling well today. Notes reduced LE edema and discomfort. He is looking forward to discharge to SNF, which he stated was scheduled for Monday. Denies SI or HI. Notes good sleep and apetite. Denies psychotic sx. Current Medications Sig/Blank Start time Last Medication Dose Route Stop Time Status Admin Acetaminophen 650 MG .STK-MED ONE 06/17 1600 DC PO 06/17 1601 Acetaminophen 650 MG Q6-PRN PRN 05/27 1999 AC 06/17 PO 1605 Aspirin Buffered 81 MG DAILY 05/28 1000 AC 06/18 PO 0835 Docusate Sodium 100 MG DAILY 05/28 1000 AC 06/18 PO 0835 Gabapentin 200 MG 0800,1300,06/03 1300 AC 06/18 PO 0835 Loratadine 10 MG DAILY 06/09 1615 AC 06/18 PO 0835 Methadone HCl 70 MG DAILY@06/16 0600 AC 06/18 PO 0519 Omeprazole 40 MG DAILY AC 05/28 0700 AC 06/18 PO 0518 Polyethylene Glycol 17 GM AT BEDTIME PRN 05/27 1999 AC PO Prazosin HCl 5 MG AT BEDTIME 05/27 2199 AC 06/17 PO 2105 Risperidone 1 MG 06/01 08 AC 06/18 PO 0835 Risperidone 2 MG 05/31 220 AC 06/17 PO 2105 Senna 187 MG AT BEDTIME 05/27 2199 AC 06/17 PO 2105 Sodium Chloride 2 SPRAY Q2 HRS NEEDED PRN 06/09 1615 AC 06/17 GRECIA 1606 Vital Signs Date Time Temp Pulse Resp B/P Pulse O2 O2 Flow FiO2 Ox Delivery Rate 06/18 814 95.9 52 139/86 06/17 2104 97.6 63 18 145/89 06/17 1945 97.6 63 145/89 06/17 1601 64 132/80 02/10 1204 58 135/67 MSE Appears as stated age. Cooperative behavior, good, appropriate eye contact. Nl speech rate and prosody. No psychomotor retardation or agitation. Mood fine Affect euthymic, full range, appropriate, non-liable. Linear and goal directed thought process. Denies SI or HI. Does not appear to be responding to internal stimuli. Denies AVHs, paranoia, or delusions. I/J: limited A/P: Pt with MDD and OUD on MM now with improved mood. Awaiting LT placement at SNF. - Continue current medication regimen
--- NOTE | 2016-06-18 12:01 | NUR ---
PT ISOLATED IN HIS ROOM ALL MORNING. HE WAS OOB FOR VS AND MEDS AND MEALS ONLY. HE DID NOT ATTEND GROUPS. PT DENIES SUICIDAL THOUGHTS AT THIS TIME
[2016-06-18 12:34] VITALS: BP 140/84
[2016-06-18 16:21] VITALS: BP 126/83
[2016-06-18 19:39] VITALS: BP 125/73
--- NOTE | 2016-06-18 21:27 | NUR ---
PT IS ISOLATIVE AND WITHDRAWN, REMAINING IN ROOM FOR MAJORITY OF EVENING. REFUSED WRAP UP MEETING. SOCIAL AND PLEASANT WHEN IN COMMUNITY. NO COMPLAINTS OR SI REPORTED. PT HAS A STABLE MOOD AND FULL RANGE AFFECT.
--- NOTE | 2016-06-19 05:10 | NUR ---
AWAKE FEW SHARRI DURING THE SHIFT.
[2016-06-19 07:56] VITALS: BP 136/74
--- NOTE | 2016-06-19 08:59 | CP SOUTH PROGRESS NOTE PSYCH ---
Psych (Inpt) Progress Note Progress Note Include the following elements, when applicable: Involvement in the active treatment of the patient with behavioral observations of the patient and the patient's response to the treatment. Review of the ongoing treatment process in the context of the treatment plan. Indication of how multi-disciplinary staff members are carrying out the treatment plan. Plans for future interventions and recommendations for revision of the treatment plan. Liaison with other physicians/providers. Progress Note: Pt notes doing well. Notes good mood, sleep, PO intake. At the time of interview , just finished walking briefly and resting. Waiting until after breakfast to sit with legs elevated. Notes pain continues but unchanged from baseline. Denies SI or HI. Current Medications Sig/Blank Start time Last Medication Dose Route Stop Time Status Admin Acetaminophen 650 MG .STK-MED ONE 06/18 2114 DC PO 06/18 2115 Acetaminophen 650 MG .STK-MED ONE 06/18 1554 DC PO 06/18 155 Acetaminophen 650 MG Q6-PRN PRN 05/27 1999 AC 06/18 PO 2119 Aspirin Buffered 81 MG DAILY 05/28 1000 AC 06/19 PO 0808 Docusate Sodium 100 MG DAILY 05/28 1000 AC 06/19 PO 0808 Gabapentin 200 MG 0800,1300,06/03 1300 AC 06/19 PO 0808 Loratadine 10 MG DAILY 06/09 161 AC 06/19 PO 0808 Methadone HCl 70 MG DAILY@06/16 0600 AC 06/19 PO 0453 Omeprazole 40 MG DAILY AC 05/28 0700 AC 06/19 PO 0453 Polyethylene Glycol 17 GM AT BEDTIME PRN 05/27 1999 AC PO Prazosin HCl 5 MG AT BEDTIME 05/27 2199 AC 06/18 PO 212 Risperidone 1 MG 06/01 0800 AC 06/19 PO 0808 Risperidone 2 MG 05/31 AC 06/18 PO 2121 Senna 187 MG AT BEDTIME 05/27 2199 AC 06/18 PO 2121 Sodium Chloride 2 SPRAY Q2 HRS NEEDED PRN 06/09 161 AC 06/18 GRECIA 212 Vital Signs Date Time Temp Pulse Resp B/P Pulse O2 O2 Flow FiO2 Ox Delivery Rate 06/19 0756 96.1 51 136/74 06/18 2121 57 125/73 06/18 1939 96.5 57 125/73 06/18 1621 63 126/83 06/18 1234 56 140/84 MSE Appears as stated age. Cooperative behavior, good, appropriate eye contact. Nl speech rate and prosody. No psychomotor retardation or agitation. Mood fine Affect euthymic, full range, appropriate, non-liable. Linear and goal directed thought process. Denies SI or HI. Does not appear to be responding to internal stimuli. Denies AVHs, paranoia, or delusions. I/J: limited A/P: Pt with MDD and OUD on MM now with improved mood. Awaiting LT placement at SNF. - Continue current medication regimen
[2016-06-19 12:27] VITALS: BP 134/78
--- NOTE | 2016-06-19 15:00 | NUR ---
Pt is A&O X 3, verbalizes not doing well today after poor night sleep and difficulty with ambulation, Have reached out for PRN medication for pain one time.Vital sign is stable, mood is stable with euthymic affect, verbalizes anxiety over his dicharge come Monday to SNF but ready to go. pt denies thought of self-harm and to someone else.
--- NOTE | 2016-06-19 15:05 | NUR ---
PT IS COMPLIANT AND COOPERATIVE. MOOD IS STABLE WITH A CONSTRICTED AFFECT. PT DENIES SI AT THIS TIME, NO COMPLAINTS OFFERED. PT IS MOSTLY ISOLATIVE IN ROOM- SLEEPING IN GERICHAIR MUCH OF DAY. PT IS AMBULATING WELL WITH ASSISTANCE FROM WALKER. PT PREENT ON UNIT FOR MEALS AND VITALS. VITALS ARE STABLE, APPETITE IS GOOD. PT REFUSED GROUPS TODAY.
[2016-06-19 16:21] VITALS: BP 133/71
[2016-06-19 19:46] VITALS: BP 140/83
--- NOTE | 2016-06-19 20:15 | NUR ---
PT IS LETHARGIC, SLEEPING LONG PERIODS OF THE EVENING, MOSTLY IN ROOM, OUT OF MILIEU. WHEN PT IS IN MILIEU, DEMONSTRATES COMPLIANCE WITH UNIT RULES AND COOPERATION WITH STAFF AND PEERS, WELL MAINTAINING A CALM DEMEANOR. PT MOOD IS STABLE, AFFECT FULL RANGE, COMMUNICATION IS NORMAL, APPETITE IS NORMAL. DENIES SI AT THIS TIME.
--- NOTE | 2016-06-20 06:44 | NUR ---
PATIENT AWAKE TO BATHROOM A COUPLE OF TIMES, SLEPT 1/2 TO 3/4 OF NIGHT.
[2016-06-20 07:45] VITALS: BP 136/82
[2016-06-20 12:23] VITALS: BP 114/73
--- NOTE | 2016-06-20 14:52 | NUR ---
PT IS COMPLIANT AND COOPERATIVE. PT IS OUT IN COMMUNITY INTERACTING WITH STAFF AND PEERS. PT IS ACTIVE IN MOST GROUPS. PT IS TIRED TODAY, SLEEPING OFTEN BETWEEN GROUPS. PT DENIES SI THOUGHTS. PT MOOD IS STABLE WITH A FULL RANGE AFFECT
[2016-06-20 15:50] VITALS: BP 133/80
--- NOTE | 2016-06-20 15:55 | CP SOUTH PROGRESS NOTE PSYCH ---
Psych (Inpt) Progress Note Progress Note Progress Note: I discussed this patient's progress to date, current mental status, treatment process in the context of the treatment plan, and discharge planning with staff/ team in the daily morning inpatient team meeting. I also met with the patient myself in individual session. A total of 15 minutes was spent with the patient with more than 50% spent in counseling and/or coordination of care. SUBJECTIVE: "I went down too much on the methadone. I started having weird dreams. I didn't sleep last night. I've been sweating." OBJECTIVE: Current Medications Sig/Blank Start time Last Medication Dose Route Stop Time Status Admin Acetaminophen 650 MG .STK-MED ONE 06/19 221 DC PO 06/19 221 Acetaminophen 650 MG Q6-PRN PRN 05/27 1999 AC 06/19 PO 2220 Aspirin Buffered 81 MG DAILY 05/28 1000 AC 06/20 PO 0805 Docusate Sodium 100 MG DAILY 05/28 1000 AC 06/20 PO 0805 Gabapentin 200 MG 0800,1300,06/03 1300 AC 06/20 PO 1436 Loratadine 10 MG DAILY 06/09 1615 AC 06/20 PO 0805 Methadone HCl 70 MG DAILY@0600 06/16 0600 AC 06/20 PO 0533 Omeprazole 40 MG DAILY AC 05/28 0700 AC 06/20 PO 0533 Polyethylene Glycol 17 GM AT BEDTIME PRN 05/27 1999 AC PO Prazosin HCl 5 MG AT BEDTIME 05/27 2200 AC 06/19 PO 2220 Risperidone 1 MG 06/01 0800 AC 06/20 PO 0805 Risperidone 2 MG 05/31 2200 AC 06/19 PO 2220 Senna 187 MG AT BEDTIME 05/27 220 AC 06/19 PO 2220 Sodium Chloride 2 SPRAY Q2 HRS NEEDED PRN 06/09 1615 AC 06/19 GRECIA 1817 Vital Signs Date Time Temp Pulse Resp B/P Pulse O2 O2 Flow FiO2 Ox Delivery Rate 06/20 1223 53 114/73 06/20 0745 97.0 58 136/82 06/19 2220 56 140/83 06/19 1946 97.3 56 140/83 06/19 1621 57 133/71 ASSESSMENT: Patient states that he is doing well, is looking forward to being discharged, and to entering a senior living tomorrow. States "I'm very happy." His only complaint is that his methadone has been decreased from 90 mg daily to 70 mg daily. States he did well when he was taking 80 mg daily, and request that this dose be reinstated. Depression: 0/10; Anxiety: 0/10 (with 10 the worst.) Denies suicidal ideation, homicidal ideation, auditory hallucinations, visual hallucinations, paranoid ideation. States he did not sleep last night, do to methadone withdrawal . His appetite has been fine. Speech is well articulated, goal-directed, average in rate, volume and tone. Calm and cooperative. Reports continuing pain on lower extremities bilaterally. Continues to ambulate with steady gait with assist of a walker. The patient understands the risks/benefits/side effects of the medication and is agreeable to continue taking them. PLAN: Increase methadone to 75 mg in the morning. Continue with current management as patient is improving. Continue to provide support and encouragement.
--- NOTE | 2016-06-20 17:03 | SOCIAL WORKER PROG NOTE PSYCH ---
Social Work Progress Note Progress Note Called and scheduled [facility] transport for Junior tomorrow at 2pm, to bring him to [facility] in [place]. Spoke with Junior who is getting anxious/ nervous/ excited about his discharge tomorrow. He is hoping he can stay there [facility]. I told him that there is a social professionals who will supposedly help him with the process and he should talk with that person about it. He talked about having conversations with his sister La over the weekend. States she isn't doing well and needs help. Feels that she is always after his money. Having difficulty tolerating the reduction in Methadone to 70mg and is hoping to go back up to 80. He is anticipating trouble walking when he leaves and is hoping the [facility] will provide a wheel chair. I told him that he will be transported by a stretcher on an ambulance tomorrow afternoon.
[2016-06-20 19:51] VITALS: BP 136/79
--- NOTE | 2016-06-20 21:17 | NUR ---
PT IS ACTIVE IN THE COMMUNITY INTERACTING WITH PEERS AND STAFF. PT DID NOT ATTEND WRAP-UP MEETING AND IS TIRED TONIGHT. PT IS IN A STABLE MOOD WITH A FULL RANGE OF AFFECT. PT DENIES SI THOUGHTS AT THIS TIME AND OFFERS NO COMPLAINTS.
--- NOTE | 2016-06-21 05:39 | NUR ---
PT APPEARED TO SLEEP WELL WITH LEGS RAISED ON CAIO CHAIR
[2016-06-21 07:57] VITALS: BP 152/90
--- NOTE | 2016-06-21 08:13 | NUR ---
PT IS DISCHARGED TODAY TO [facility]. HE IS LOOKING FORWARD TO LEAVING THE HOSPITAL. HE REPORTS AND DEMONSTRATES IMPROVEMENT IN HIS MOOD AND ABILITY TO FUNCTION. HE DENIES ANY THOUGHTS OF SUICIDE OR SELF HARM. PT IS GIVEN EDUCATION ON MANAGING HIS DEPRESSION AND ON SUICIDE PREVENTION
--- NOTE | 2016-06-21 08:27 | DISCHARGE SUMMARY REPORT-PSYCH ---
Visit Information Visit Dates/Diagnosis' Admission Date: 05/27/16 Discharge Date: 06/30/16 Reason for Admission: Junior was admitted to Inpatient Psychiatry on 05/20/2016 for worsening depression with psychosis in the context of heavy benzodiazepine abuse and homelessness. He ultimately developed symptoms consistent with delirium tremens during benzodiazepine withdrawal despite CIWA and BZD protocol on CPS and required further care on a medical floor. He was treated for benzodiazepine withdrawal there, and cleared for return to Inpatient Psychiatry on the evening of 05/27/2016. Psy Discharge Primary Diag: Major Depressive d/o, recurrent, severe with psychotic features. Psy Discharge Secondary Diag: Benzo use d/o; Cannabis use d/o; PTSD; TBI (skull fx at age 10); HTN; GERD; umbilical hernia; HEP C; no left kidney; osteoarthritis; Right knee surgery x 2; Left knee surgery x 1; Bilateral lower extremity problems with pain and difficulty walking. Hospital Course Significant Lab Findings: Lab TSH 2.400 uIU/mL 05/19/16 1149 Methadone Screen 734 NG/ML H 06/11/16 0645 U Benzodiazepines Scrn 398 NG/ML H 06/11/16 0645 Course Complications: During the patient's stay here, he was evaluated for lower extremity pain and edema. Please refer to Dr. Cordoba's and Dr. Bustamante's note for additional information. He was evaluated for intermittent daytime sedation and hypoxia. Please refer to Dr. Joyner's notes for additional information. Consultations: Patient was seen by hospitalist Dr. Lackey. Please refer to her note for additional information. Allergies: Coded Allergies: NO KNOWN ALLERGIES (03/14/16) Hospital Course/TX Response: Patient was monitored on the unit for safety, depression, and suicidal ideation. He participated in multimodal treatment on the unit. He was continued on risperidone for auditory hallucinations, prazosin for nightmares, gabapentin for anxiety. He was continued on methadone maintenance, as per outpatient treatment at the [facility]. He declined to have family or friends attend a family meeting. Today, the day of discharge, he stated, "I want to leave today. I'll just go to the overflow skilled nursing. These short are closing in on me, I've been here too long. Just let me go. I'll be fine " Patient requesting to leave today. He reports tolerating his medications, to good effect. Offers no psychiatric complaints. I met the patient today along with older adult social work specialist Jena. We reviewed the work that has been done by social work to review his spend-down, and to get him into a long-term placement. Today the patient states that he is ready to leave. Jena and I both explained to the patient that he is getting close to finding a long-term placement. He states however, that he will refuse to go to any [facility] that is not in [place]. He states that he has recently received money from Social Security, and that he will be able to take care of himself. States that he will resume care at the [facility] in [place]. He continues to walk slowly, with steady gait, with assist of a walker. He states that he will take a taxi to get where he needs to go. Patient's request was discussed in team meeting this morning, it was the consensus agreement of our team that the patient had achieved maximum hospital benefit, and he was here now waiting to secure a long-term placement bed. It now appears the patient will refuse that bed. The patient states that he is safe and ready for discharge. Depression:0/10; Anxiety:0/10 (with 10 the worst.) Denies suicidal ideation, homicidal ideation, auditory hallucinations, visual hallucinations, paranoid ideation. Patient states and also believes that he will not kill himself. States that he sleeps well at night, his appetite is good. Speech is well articulated, goal-directed, average in rate, volume and tone. Alert and oriented 3. Logical. The patient understands the risks/benefits/side effects of the medication and is agreeable to continue taking them. Patient reports tolerating his medications well, without complaint. States he feels safe and ready for discharge. Discharge HBIPS - Tobacco Use Treatment Offered Post DC Medications Offered: Script Given-See Med List Post DC Tobacco Treatment Plan: [facility] Program Appt Date: 07/13/16 Program Appt Time: 1600 - EtOH/Drug Use D/O Treatment Offered Post DC Medications Offered: Ref Med EtOH/Drug Use D/O Post DC EtOH/SubAbuse TX Plan: Other SubAbuse/Dual Pgm ([facility]) Program Appt Date: 07/01/16 Program Appt Time: 0800 Metabolic Screening - Screen if on a Neuroleptic Medication - Metabolic screening should include: - Blood Pressure, BMI, Glucose or Hgb A1c, & a - Lipid profile from within the past 365 days. Metabolic Screening () Not Applicable, patient not on a neuroleptic. OR ([x]) Patient on a neuroleptic(s) . Enter below results for Glucose or Hemoglobin A1C, and lipid panel if obtained during the last 365 days. BMI: 41.600 Blood Pressure: 152/90 Laboratory Results (If applicable): Lab Cholesterol 170 MG/DL 02/18/16 08 Cholesterol/HDL Ratio 3 % 02/18/16 08 Glucose 77 mg/dL 05/19/16 1149 HDL Cholesterol 61 mg/dL H 02/18/16 08 LDL Cholesterol, Calc 99 mg/dL 02/18/16 08 Triglycerides 53 mg/dL 02/18/16832 Discharge Instructions General Discharge Information Discharge Medications: Discharge Medications- (Dose, route, freq, indication): HOME MEDICATION LIST START taking these NEW Home Medications: Gabapentin Dose: ORAL, THREE TIMES DAILY Qty: 84 Called in to (Gabapentin) 100 MG 200 Milligram for ANXIETY Refills: 0 Pharm 1 CAPSULE TAKE TWO CAPSULES, THREE TIMES DAILY NEEDED FOR ANXIETY. Last Taken: 06/30/16 Time: 0800 Risperidone Dose: ORAL, DAILY @8 AM for Qty: 14 Called in to (Risperdal) 1 MG 1 Milligram CLEAR THOUGHTS Refills: 0 Pharm 1 TABLET Last Taken: 06/30/16 Time: 0800 Risperidone Dose: ORAL, 2200 for CLEAR Qty: 14 Called in to (Risperdal) 2 MG 2 Milligram THOUGHTS Refills: 0 Pharm 1 TABLET Last Taken: 06/29/16 Time: 2200 Sodium Chloride Dose: In the nose, EVERY 2 Qty: 1 Called in to ([place]) 0.65 % 2 [place] HOURS NEEDED as Refills: 0 Pharm 1 SPRAY needed for Stuffy nose. NOT GIVEN DURING [facility] ADMISSION. Loratadine Dose: ORAL, DAILY for Qty: 30 Called in to (Loratadine) 10 MG 10 Milligram CONGESTION Refills: 0 Pharm 1 TABLET Last Taken: 06/30/16 Time: 0800 Prazosin HCl Dose: ORAL, AT BEDTIME for Qty: 14 Called in to (Prazosin HCl) 5 MG 5 Milligram NIGHTMARES Refills: 0 Pharm 1 CAPSULE Last Taken: 06/29/16 Time: 2200 Omeprazole Dose: ORAL, DAILY BEFORE Qty: 14 Called in to (Omeprazole) 20 MG 40 Milligram BREAKFAST for ACID REFLUX Refills: 0 Pharm 1 CAPSULE. Last Taken: 06/30/16 Time: 0600 CONTINUE taking these Home Medications: Methadone HCl Dose: ORAL, DAILY for CHRONIC (Methadose) 10 MG/ML 80 Milligram PAIN ORAL.CONC Last Taken: 06/30/16 Time: 0800 Nicotine (Nicotine Dose: On the skin, DAILY for Renewed Patch) 14 MG/24 HOUR 1 Patch SMOKING CESSATON Called in to PATCH.TD24 NOT GIVEN DURING CP Pharm 1 [facility] ADMISSION. Aspirin (Ecotrin*) 81 MG Dose: ORAL, DAILY for Renewed TABLET. 1 Tablet HEART/BLOOD Called in to Last Taken: 06/30/16 Pharm 1 Time: 0800 STOP taking these DISCONTINUED Home Medications: Ibuprofen (Ibuprofen) 600 MG Dose: ORAL, THREE TIMES DAILY for PAIN TABLET 1 Tablet with food Reason Stopped: Changed to different med Gabapentin (Neurontin) 600 MG Dose: ORAL, EVERY 6 HOURS NEEDED as TABLET 600 Milligram needed for ANXIETY, PAIN Reason Stopped: Changed Dose Risperidone (Risperdal) 2 MG Dose: ORAL, TWICE DAILY for CLEAR TABLET 2 Milligram THOUGHTS TAKE ONE TABLET IN THE MORNING AND one tablet in the evening Reason Stopped: Changed Dose Chlordiazepoxide HCl Dose: ORAL, THREE TIMES DAILY as (Chlordiazepoxide HCl) 25 MG 25 Milligram needed for CIWA 8-11 OR PULSE CAPSULE 100-110 Reason Stopped: Med no longer needed Chlordiazepoxide HCl Dose: ORAL, EVERY 12 HOURS for benzo (Chlordiazepoxide HCl) 25 MG 50 Milligram withdrawal CAPSULE Hold for oversedation or respiratory depression Reason Stopped: Med no longer needed 1: [facility] [id number], [address] [place], [place] [phone] Your Preferred Pharmacy [facility] [id number] [address] [place], [place] [phone] Multiple Neuroleptics: (x) Not Applicable OR Document below three failed attempts at monotherapy, or a plan to taper to monotherapy, or augmentation of Clozapine. () Patient's Diet: Regular Patient's Activity: No restrictions. 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 He states that he has income, and will take care of himself. He will continue methadone maintenance and medical treatment at the [facility] in [place]. Recommendations: Maintain sobriety. Follow up at [facility]. Take medications as directed. Referred To: Post Discharge Referrals Provider Referral Service Date: 07/01/16 Referred To: [[facility]] Notes: Patient gets methadone maintenance, psychiatric, and medical service at the [facility] [address]. [place], [place]. [phone] Copies To: *
--- NOTE | 2016-06-21 10:53 | CP SOUTH PROGRESS NOTE PSYCH ---
Psych (Inpt) Progress Note Progress Note Progress Note: I discussed this patient's progress to date, current mental status, treatment process in the context of the treatment plan, and discharge planning with staff/ team in the daily morning inpatient team meeting. I also met with the patient myself in individual session. A total of 30 minutes was spent with the patient with more than 50% spent in counseling and/or coordination of care. SUBJECTIVE: "I feel ready to go." OBJECTIVE: Current Medications Sig/Blank Start time Last Medication Dose Route Stop Time Status Admin Acetaminophen 650 MG .STK-MED ONE 06/20 223 DC PO 06/20 223 Acetaminophen 650 MG .STK-MED ONE 06/20 1625 DC PO 06/20 162 Acetaminophen 650 MG Q6-PRN PRN 05/27 1999 AC 06/20 PO 2239 Aspirin Buffered 81 MG DAILY 05/28 1000 AC 06/21 PO 0823 Docusate Sodium 100 MG DAILY 05/28 1000 AC 06/21 PO 0823 Gabapentin 200 MG 0800,1300,06/03 1300 AC 06/21 PO 0823 Loratadine 10 MG DAILY 06/09 1615 AC 06/21 PO 0823 Methadone HCl 75 MG 06/21 0800 CAN PO Methadone HCl 80 MG 06/21 0800 AC 06/21 PO 0822 Methadone HCl 70 MG DAILY@06/16 0600 DC 06/20 PO 0533 Omeprazole 40 MG DAILY AC 05/28 0700 AC 06/21 PO 0622 Polyethylene Glycol 17 GM AT BEDTIME PRN 05/27 1999 AC PO Prazosin HCl 5 MG AT BEDTIME 05/27 2199 AC 06/20 PO 2159 Risperidone 1 MG 06/01 0800 AC 06/21 PO 0823 Risperidone 2 MG 05/31 220 AC 06/20 PO 2159 Senna 187 MG AT BEDTIME 05/27 2199 AC 06/19 PO 2220 Sodium Chloride 2 SPRAY Q2 HRS NEEDED PRN 06/09 161 AC 06/19 GRECIA 1817 Vital Signs Date Time Temp Pulse Resp B/P Pulse O2 O2 Flow FiO2 Ox Delivery Rate 06/21 075 96.1 60 152/90 97 06/20 2158 136/79 06/20 1951 98.2 58 136/79 06/20 1550 59 133/80 06/20 1223 53 114/73 ASSESSMENT: Patient states that he feels safe and ready for discharge to acute rehabilitation facility. States he is actually very happy that he was able to get the rehab bed. States that he has not been sleeping well at night, has been diaphoretic, and has had increased pain since methadone was decreased to 70 mg daily. Patient requesting that his dose of methadone he returned to 80 mg daily (which is lower than his dose on admission of 90mg daily). Depression:0/10; Anxiety:0/10 (with 10 the worst.) Denies suicidal ideation, homicidal ideation, auditory hallucinations, visual hallucinations, paranoid ideation. Patient states and also believes that he will not kill himself. States that his appetite is good. Speech is well articulated, goal-directed, average in rate, volume and tone. Alert and oriented 3. Calm and cooperative. Logical. The patient understands the risks/benefits/side effects of the medication and is agreeable to continue taking them. PLAN: Anticipate discharge today to acute rehabilitation. Continue with current management as patient is improving. Continue to provide support and encouragement.
[2016-06-21 11:55] VITALS: BP 137/89
--- NOTE | 2016-06-21 13:40 | NUR ---
PT WAS SCHEDULED FOR DISCHARGE BUT THE PLAN HAS CHANGED AT THIS TIME AND HE WILL NOT BE DISCHARGED. THE [facility] WAS UNABLE TO PROVIDE THE PT WITH TRANSPORTATION TO HIS PROGRAM. PT IS DISSAPOINTED BUT UNDERSTANDS THE DELAY
[2016-06-21 16:02] VITALS: BP 116/72
--- NOTE | 2016-06-21 16:05 | SOCIAL WORKER PROG NOTE PSYCH ---
See Addendum Social Work Progress Note Progress Note Called [facility] and left a message for Jackie this morning about being all set for Junior to receive his Methadone there tomorrow. Jackie left me a message stating he is all set and to just send the W10. Called Myah at [facility] to discuss plans for discharge today. During our discussion she brought to my attention that I should be arranging his transport to [facility] for tomorrow. I clarified this, as it was my impression from the beginning of my conversations with her that their facility would be transporting. She then stated that the initial transportation needed to be arranged by me and then they would handle it. Come to find out further in discussion is what she means is that they will set up his transportation with [facility]. After several back and forth discussions about how this could work for Junior without Medicaid, they denied the acceptance due to not being able to transport him weekly to the methadone clinic. Unfortunately there was alot of miscommunication on their end, due to me informing them more than once that he was only on Medicare. He would need Medicaid for the transportation peice. Junior was informed of what happened. He is clearly disappointed and frustrated. He stated that I should just send him to [facility] 3rd floor. That's the part of the retirement that doesn't make people leave. He also suggested going to rehab. I apologized for how this all played out.
[2016-06-21 19:45] VITALS: BP 141/82
--- NOTE | 2016-06-21 21:51 | NUR ---
PT IS STABLE WITH FLAT AFFECT. PT WAS UPSET TODAY DUE TO NOT BEING DC. PT HAS BEEN VISIBLE WITHIN THE MILIEU ALL EVENING SHIFT. CURRENTLY IN THE KITCHEN WATCHING TV AND INTERACTING WITH PEERS. PT IS OTHERWISE STABLE AND COMPLIANT/COOPERATIVE. VS JUNIOR STABLE AND DENIES ANY SI/HI TO THIS MHW.
--- NOTE | 2016-06-22 04:04 | NUR ---
PT APPEARED TO SLEEP.
[2016-06-22 07:49] VITALS: BP 135/76
--- NOTE | 2016-06-22 09:09 | SOCIAL WORKER PROG NOTE PSYCH ---
Social Work Progress Note Progress Note Spoke with Junior this morning about doing a formal referral to [facility] in [place]. Attempted to call and speak with them a couple of weeks ago, but no one would return my call. Filled out referral/ application and sent a clinical packet to the fleet coordinator. Junior feels hopeless about the situation and continues to say that if we can't place him in a facility to look into the 3rd floor at the [facility] in [place]. Didn't sleep well last night due, stated he's thinking alot about discharge issues. Sumbitted the referral to [facility], but later received a message that without a diagnosis of HIV/AIDS they can not accept him to their program. Called [facility] [phone] to try and inquire about their medical respite program. Left a message for José Luis Montesinos (Director). Tried calling a couple more times, but continued to get his voicemail. Tried to talk to a telephonic case manager there, but they directed me to speak with José Luis. Called a nursing facility [facility] in [place]. Admissions informed me that they do not transport people to methadone clinics, she referred me to [facility] in [place]. This is the same program that denied Junior due to the SI. Faxed Junior's packet for Social Security today to the [place] office. I suggested that we call his counselor at [facility] tomorrow morning and see if he had any recommendation for nursing facilities that they work with and to see if he would be willing to advocate for Junior if we looked at speaking with [facility] to reconsider.
--- NOTE | 2016-06-22 11:36 | NUR ---
PT IS STABLE WITH FULL RANGE OF AFFECT. PT HAS BEEN VISIBLE AND IN THE KITCHEN THE ENTIRE MORNING, ENGAGING WITH PEERS/STAFF. PT APPEARS TO BE CONTENT DESPITE HIS DC NOT OCCURING PLANNED YESTERDAY. PT DOES DOZE OFF EVERY NOW AND THEN. CURRENTLY EATING IN THE KITCHEN. VS ARE STABLE AND DENIES ANY SI/HI TO THIS MHW.
[2016-06-22 12:32] VITALS: BP 133/76
[2016-06-22 16:28] VITALS: BP 127/78
--- NOTE | 2016-06-22 18:11 | CP SOUTH PROGRESS NOTE PSYCH ---
Psych (Inpt) Progress Note Progress Note Progress Note: I discussed this patient's progress to date, current mental status, treatment process in the context of the treatment plan, and discharge planning with staff/ team in the daily morning inpatient team meeting. I also met with the patient myself in individual session. A total of 15 minutes was spent with the patient with more than 50% spent in counseling and/or coordination of care. SUBJECTIVE: "I feel much better taking the 80 mg of methadone early in the morning." OBJECTIVE: Current Medications Sig/Blank Start time Last Medication Dose Route Stop Time Status Admin Acetaminophen 650 MG .STK-MED ONE 06/21 2143 DC PO 06/21 2144 Acetaminophen 650 MG Q6-PRN PRN 05/27 1999 AC 06/21 PO 2151 Aspirin Buffered 81 MG DAILY 05/28 1000 AC 06/22 PO 1106 Docusate Sodium 100 MG DAILY 05/28 1000 AC 06/22 PO 1106 Gabapentin 200 MG 0800,1300,0 06/03 1300 AC 06/22 PO 1457 Loratadine 10 MG DAILY 06/09 1615 AC 06/22 PO 1106 Methadone HCl 80 MG 06/22 0600 AC 06/22 PO 0627 Methadone HCl 80 MG 06/21 0800 DC 06/21 PO 0822 Omeprazole 40 MG DAILY AC 05/28 0700 AC 06/22 PO 0628 Polyethylene Glycol 17 GM AT BEDTIME PRN 05/27 1999 AC PO Prazosin HCl 5 MG AT BEDTIME 05/270 AC 06/21 PO 2238 Risperidone 1 MG 06/01 0800 AC 06/22 PO 1105 Risperidone 2 MG 05/31 2200 AC 06/21 PO 2239 Senna 187 MG AT BEDTIME 05/27 220 AC 06/19 PO 2220 Sodium Chloride 2 SPRAY Q2 HRS NEEDED PRN 06/09 1615 AC 06/19 GRECIA 1817 Vital Signs Date Time Temp Pulse Resp B/P Pulse O2 O2 Flow FiO2 Ox Delivery Rate 06/22 1628 62 127/78 06/22 1232 65 133/76 06/22 0749 96.5 57 135/76 06/21 2238 141/82 06/21 1945 60 141/82 ASSESSMENT: Although disappointed that he was not able to secure a correction bed yesterday, patient remains cooperative. This afternoon he was sitting out watching television with his peers, being sociable. Tolerating his medications well, offers no complaints. Is hopeful to find a suitable residential arrangement. Depression: 0/10; Anxiety: 0/10 (with 10 the worst.) Denies suicidal ideation, homicidal ideation, auditory hallucinations, visual hallucinations, paranoid ideation. Sleeping well at night, denies nightmares. Speech is well articulated, goal-directed, average in rate, volume and tone. Calm and cooperative. Logical. Alert and oriented 3. The patient understands the risks/benefits/side effects of the medication and is agreeable to continue taking them. PLAN: Social work continues to try to arrange an appropriate discharge plan. Continue with current management as patient is improving. Continue to provide support and encouragement.
[2016-06-22 19:42] VITALS: BP 145/88
--- NOTE | 2016-06-22 21:37 | NUR ---
PT IS VISIBLE ON UNIT, WATCHING TV IN LOUNGE AND DOZING OFF IN CHAIR. COOPERATIVE AND COMPLIANT WITH STAFF. REFUSED WRAP UP MEETING. NO COMPLAINTS OR SI REPORTED. PT HAS A STABLE MOOD AND FULL RANGE AFFECT.
--- NOTE | 2016-06-23 04:19 | NUR ---
SLEPT WELL IN CAIO CHAIR ALL NIGHT WITH LEGS ELEVATED.
[2016-06-23 07:50] VITALS: BP 131/80
--- NOTE | 2016-06-23 09:12 | SOCIAL WORKER PROG NOTE PSYCH ---
Social Work Progress Note Progress Note Called Alexia at [facility] this morning and left a message asking if they would be willing to reconsider accepting Junior, as he has been psychiatrically stable. Junior and I tried calling his counselor Tam at [facility]. Left him a voicemail. Hoping he can be helpful in speaking to [facility] in needed or advise to other nursing facilities that may be helpful in the [place] area. Counselor at [facility] faxed a release for Junior to sign for us to talk.
[2016-06-23 12:24] VITALS: BP 124/69
--- NOTE | 2016-06-23 13:16 | CP SOUTH PROGRESS NOTE PSYCH ---
Psych (Inpt) Progress Note Progress Note Progress Note: I discussed this patient's progress to date, current mental status, treatment process in the context of the treatment plan, and discharge planning with staff/ team in the daily morning inpatient team meeting. I also met with the patient myself in individual session. A total of 15 minutes was spent with the patient with more than 50% spent in counseling and/or coordination of care. SUBJECTIVE: "No problems. I'm just a little depressed about my situation. It's not so bad." OBJECTIVE: Current Medications Sig/Blank Start time Last Medication Dose Route Stop Time Status Admin Acetaminophen 650 MG .STK-MED ONE 06/22 2137 DC PO 06/22 2138 Acetaminophen 650 MG Q6-PRN PRN 05/27 1999 AC 06/23 PO 0809 Aspirin Buffered 81 MG DAILY 05/28 1000 AC 06/23 PO 0808 Docusate Sodium 100 MG DAILY 05/28 1000 AC 06/23 PO 0808 Gabapentin 200 MG 0800,1300,0 06/03 1300 AC 06/23 PO 1242 Loratadine 10 MG DAILY 06/09 1615 AC 06/23 PO 0808 Methadone HCl 80 MG 06/22 0600 AC 06/23 PO 0612 Omeprazole 40 MG DAILY AC 05/28 0700 AC 06/23 PO 0611 Polyethylene Glycol 17 GM AT BEDTIME PRN 05/27 1999 AC PO Prazosin HCl 5 MG AT BEDTIME 05/27 2200 AC 06/22 PO 2142 Risperidone 1 MG 06/01 0800 AC 06/23 PO 0808 Risperidone 2 MG 05/31 2200 AC 06/22 PO 2143 Senna 187 MG AT BEDTIME 05/27 220 AC 06/22 PO 2142 Sodium Chloride 2 SPRAY Q2 HRS NEEDED PRN 06/09 1615 AC 06/19 GRECIA 1817 Vital Signs Date Time Temp Pulse Resp B/P Pulse O2 O2 Flow FiO2 Ox Delivery Rate 06/23 1224 66 124/69 94 06/23 0750 97.5 59 131/80 94 06/22 2142 62 145/88 06/22 1942 96.4 62 145/88 06/22 1628 62 127/78 ASSESSMENT: Patient remains at his baseline. Ambulates slowly with steady gait, with assist of walker. Reports that walking is difficult and painful, as is his baseline. He has been attending some groups, I found him early this afternoon sitting in the community room, being sociable. Depression:0/10; Anxiety:0/10 (with 10 the worst.) Denies suicidal ideation, homicidal ideation, auditory hallucinations, visual hallucinations, paranoid ideation. Speech is well articulated, goal-directed, average in rate, volume and tone. Reports that he slept well last night. His appetite is good. The patient understands the risks/benefits/side effects of the medication and is agreeable to continue taking them. PLAN: Social work continues to work on an appropriate discharge plan. Continue with current management as patient is improving. Continue to provide support and encouragement.
--- NOTE | 2016-06-23 13:50 | NUR ---
PT IS COMPLIANT AND COOPERATIVE. MOOD IS STABLE WITH A FULL RANGE OF AFFECT. PT DENIES SI AT THIS TIME, C/O CHRONIC LEG PAIN. PT AMBULATING WELL WITH ASSISTANCE FROM WALKER. PT TENDS TO BE WITHDRAWN IN ROOM- SLEEPING IN CAIO CHAIR. PT PRESENT ON UNIT FOR MEALS AND VITALS. PT INTERACTING WITH PEERS AND STAFF. PT IS ATTENDING SOME GROUPS. VITALS ARE STABLE, APPETITE IS GOOD.
[2016-06-23 16:17] VITALS: BP 119/71
[2016-06-23 20:12] VITALS: BP 149/85
--- NOTE | 2016-06-23 21:02 | NUR ---
PT IS CALM, COOPERATIVE WITH STAFF AND PEERS, AND COMPLIANT WITH UNIT RULES. PT REMAINS OUT OF MILIEU OFTEN, SLEEPING IN PT ROOM. WHEN IN MILIEU PT WILL ALSO FALL ASLEEP. MOOD IS STABLE, AFFECT IS FULL RANGE, COMMUNICATION IS NORMAL, AND APPETITE IS NORMAL. PT DENIES SI AT THIS TIME.
--- NOTE | 2016-06-24 04:42 | NUR ---
SLEPT WELL IN CAIO IN ROOM.
[2016-06-24 08:01] VITALS: BP 136/75
--- NOTE | 2016-06-24 09:01 | SOCIAL WORKER PROG NOTE PSYCH ---
Social Work Progress Note Progress Note Faxed release to [employer] to speak with Junior's counselor Tam. Connected with Tam, who informed me that most of the people he is aware of that are served in Nursing Homes by them receive transportation through their insurance. He is not aware of anyone being transferred by the facility. 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 Called [facility] and spoke with Teo Nelson to see if he would be able to be helpful in finding a place that would be helpful with Junior's situation. Teo stated he usually doesn't get people in nursing homes, but he has lots of collegues that he could reach out to for suggestions. Stated he will make some calls and get back to me. Gave Junior the Medicaid intermediate manager Care application to start filling out. Junior and I completed the application and I will look into faxing it or mailing it on Monday. Junior and I also discussed investigating his spend down and seeing if we can help him get off of it.
[2016-06-24 12:04] VITALS: BP 136/82
--- NOTE | 2016-06-24 13:18 | CP SOUTH PROGRESS NOTE PSYCH ---
Psych (Inpt) Progress Note Progress Note Progress Note: I discussed this patient's progress to date, current mental status, treatment process in the context of the treatment plan, and discharge planning with staff/ team in the daily morning inpatient team meeting. I also met with the patient myself in individual session. A total of 15 minutes was spent with the patient with more than 50% spent in counseling and/or coordination of care. SUBJECTIVE: "I've been working with Jena, signing papers, looking for a place." OBJECTIVE: Current Medications Sig/Blank Start time Last Medication Dose Route Stop Time Status Admin Acetaminophen 650 MG .STK-MED ONE 06/23 2122 DC PO 06/23 2123 Acetaminophen 650 MG Q6-PRN PRN 05/27 1999 AC 06/24 PO 1016 Aspirin Buffered 81 MG DAILY 05/28 1000 AC 06/24 PO 0747 Docusate Sodium 100 MG DAILY 05/28 1000 AC 06/24 PO 0748 Gabapentin 200 MG 0800,1300,0 06/03 1300 AC 06/24 PO 1303 Loratadine 10 MG DAILY 06/09 1615 AC 06/24 PO 0748 Methadone HCl 80 MG 06/22 0600 AC 06/24 PO 0500 Omeprazole 40 MG DAILY AC 05/28 0700 AC 06/24 PO 0624 Polyethylene Glycol 17 GM AT BEDTIME PRN 05/27 1999 AC PO Prazosin HCl 5 MG AT BEDTIME 05/27 2199 AC 06/23 PO 2126 Risperidone 1 MG 06/01 0800 AC 06/24 PO 0748 Risperidone 2 MG 05/31 2200 AC 06/23 PO 2127 Senna 187 MG AT BEDTIME 05/27 220 AC 06/23 PO 2127 Sodium Chloride 2 SPRAY Q2 HRS NEEDED PRN 06/09 1615 AC 06/19 GRECIA 1817 Vital Signs Date Time Temp Pulse Resp B/P Pulse O2 O2 Flow FiO2 Ox Delivery Rate 06/24 1204 54 136/82 06/24 08 98.6 65 136/75 06/23 2125 76 149/85 06/23 2011 97.1 58 14985 06/23 1616 53 119/71 ASSESSMENT: Patient reports doing well, offering no complaints. Does state however that he is frustrated at his situation, specifically that of not being able to find a long-term residential/[place] [facility] [place] solution. Reports tolerating his medications well. Ambulating with slow, steady gait with assist of a walker. States that acupuncture has been helpful, even with his left knee pain. Depression:0/10; Anxiety:0/10 (with 10 the worst.) Denies suicidal ideation, homicidal ideation, auditory hallucinations, visual hallucinations, paranoid ideation. Speech is well articulated, goal-directed, average in rate, volume and tone. Alert and oriented 3. Logical. Calm and cooperative. The patient understands the risks/benefits/side effects of the medication and is agreeable to continue taking them. PLAN: Social work continues to work on discharge planning. Continue with current management as patient is improving. Continue to provide support and encouragement.
--- NOTE | 2016-06-24 14:41 | NUR ---
PT IS STABLE WITH BRIGHT, FULL RANGE OF AFFECT. PT IS SEEN LAUGHING AND MAKING JOKES WITH PEERS/STAFF. PT AMBULATES WITH WALKER AND IS ENCOURAGED TO AMBULATE FREQUENTLY. VISIBLE WITHIN THE MILIEU AND INTERACTING WITH PEERS/STAFF. ATTENDING ALL GROUPS. PT REPORTS WANTING TO "STAY POSITIVE" HIS DAILY GOAL. VS ARE STABLE AND DENIES ANY SI/HI TO THIS MHW.
[2016-06-24 16:09] VITALS: BP 138/76
[2016-06-24 19:46] VITALS: BP 146/80
--- NOTE | 2016-06-24 21:24 | NUR ---
Pt is in bed during change of shift, mood is stable still uses a walker for stafety gait is stable, Vital signs are stable, no behavioral issues noted during the day. Pt appetite is good. Will conitnue to monitor the pt overnight.
--- NOTE | 2016-06-25 04:14 | NUR ---
SLEPT WELL IN CAIO CHAIR.
[2016-06-25 07:46] VITALS: BP 137/78
--- NOTE | 2016-06-25 11:22 | CP SOUTH PROGRESS NOTE PSYCH ---
Psych (Inpt) Progress Note Progress Note Include the following elements, when applicable: Involvement in the active treatment of the patient with behavioral observations of the patient and the patient's response to the treatment. Review of the ongoing treatment process in the context of the treatment plan. Indication of how multi-disciplinary staff members are carrying out the treatment plan. Plans for future interventions and recommendations for revision of the treatment plan. Liaison with other physicians/providers. Progress Note: Notes reviewed, d/w nursing staff. Interviewed patient this morning. Feeling well in general. Sleeping, eating well. Looking forward to placement and leaving [facility]. He is concnered about his bilateral leg edema. We discussed compression stockings which he is interested in trying for leg edema. Denies SI/HI/AVH. Labs and vitals reviewed. Vitals wnl. No new labs. MSE: chronically ill appearing CM fairly groomed. Cooperative with interview, limited EC. Lower extremity evaluation with bilateral trace pitting edema, perhaps R>L by small margin. Equal temperature, pulses palpated. Speech wnl. Mood "pretty good". Affect euthymic, congruent, full range, non-labile. TP impoverished. Content regarding leg edema and placement. Denies SI/HI/AVH. Cogntiion grossly intact. I/J fair. A/P: Try compression stockings for LE edema. Exam does not suggest acute VTE. O/ w remainder of plan per primary team.
[2016-06-25 11:57] VITALS: BP 133/69
--- NOTE | 2016-06-25 13:55 | NUR ---
OUT IN COMMUNITY INTERACTS MINIMALLY WITH PEERS AND STAFF. MOOD IS STABLE, EUTHYMIC AFFECT. DENIED THOUGHTS OF SELF HARM WHEN ASKED. VERY NEBULOUS WHEN ASKED ABOUT DISCHARGE PLANS. HAS NOT BEEN CONSISTANT ABOUT USING HIS WALKER.
[2016-06-25 15:47] VITALS: BP 129/79
[2016-06-25 19:26] VITALS: BP 136/78
--- NOTE | 2016-06-25 19:53 | NUR ---
PT IS STABLE WITH BRIGHT, FULL RANGE OF AFFECT. CURRENTLY SLEEPING IN PT ROOM. PT HAS BEEN OUT IN THE MILIEU FOR MOST OF EVENING SHIFT INTERACTING WITH PEERS/STAFF. PT IS LESS STUPOROUS THAN PRIOR. COMPLIANT AND COOPERATIVE. VS ARE STABLE AND DENIES AND SI/HI TO THIS MHW.
--- NOTE | 2016-06-26 06:27 | NUR ---
PT WAS A FEW TIMES TO TOILET. PT UP AT 0500 TO TAKE AM METHADONE. PT RETURNED TO SLEEP AFTER.
[2016-06-26 07:48] VITALS: BP 147/76
[2016-06-26 12:14] VITALS: BP 132/78
--- NOTE | 2016-06-26 13:15 | CP SOUTH PROGRESS NOTE PSYCH ---
Psych (Inpt) Progress Note Progress Note Include the following elements, when applicable: Involvement in the active treatment of the patient with behavioral observations of the patient and the patient's response to the treatment. Review of the ongoing treatment process in the context of the treatment plan. Indication of how multi-disciplinary staff members are carrying out the treatment plan. Plans for future interventions and recommendations for revision of the treatment plan. Liaison with other physicians/providers. Progress Note: Notes reviewed, d/w nursing staff. Interviewed patient this morning. Feeling well in general. Sleeping, eating well. Remains future oriented toward placement and leaving [facility]. Compression stockings delivered this morning. Denies SI/HI/AVH. Labs and vitals reviewed. Vitals wnl. No new labs. MSE: chronically ill appearing CM fairly groomed. Cooperative with interview, limited EC. Speech wnl. Mood "pretty good". Affect euthymic, congruent, full range, non-labile. TP impoverished. Content appropriate. Denies SI/HI/AVH. Cogntion grossly intact. I/J fair. A/P: Try compression stockings for LE edema today. Can be followed up as outpatient with primary care. Leg swelling appears chronic without s/s suggesting acute concern. O/w remainder of plan per primary team.
--- NOTE | 2016-06-26 13:18 | NUR ---
PT MOOD IS STABLE WITH A FULL RANGE AFFECT. PT IS OUT IN COMMUNITY AT TIMES INTERACTING WITH STAFF AND PEERS. PT IS ISOALTIVE IN ROOM AT TIMES SLEEPING IN CHAIR. PT GOAL THIS MORNING WAS TO ATTEND FOCUS GROUP BUT DID NOT. PT DENIES SI THOUGHTS
[2016-06-26 15:59] VITALS: BP 124/71
[2016-06-26 19:46] VITALS: BP 126/74
--- NOTE | 2016-06-26 20:43 | NUR ---
PT STABLE AND FULL RANGE OF AFFECT. PT IS BRIGHT AND VERY POSITIVE. SPENT ENTIRE EVENING SHIFT OUT IN THE COMMUNITY INTERACTING WITH PEERS/STAFF. PT WAS IN THE LOUNGE WATCHING MOVIES WITH OTHER PEERS PRIOR TO WALKING TO HIS ROOM WHERE HE IS CURRENTLY AND GOING TO SLEEP. REFUSED TO GO TO WRAP UP MEETING. VS ARE STABLE AND DENIES ANY SI/HI TO THIS MHW.
--- NOTE | 2016-06-27 05:52 | NUR ---
PATIENT UP TO BATHROOM ONCE, OTHERWISE SLEPT ALL NIGHT.
[2016-06-27 07:52] VITALS: BP 144/79
[2016-06-27 12:16] VITALS: BP 128/78
--- NOTE | 2016-06-27 14:25 | NUR ---
PT IS COMPLIANT AND COOPERATIVE. PT IS OUT IN COMMUNITY INTERACTING WITH STAFF AND PEERS. PT IS ACTIVE IN GROUPS. PT MOOD IS STABLE WITH A FULL RANGE AFFECT. PT HAS BEEN STAYING OUT OF ROOM MORE AND ATTENDING MORE GROUPS. PT DENIES SI THOUGHTS
[2016-06-27 15:59] VITALS: BP 125/64
--- NOTE | 2016-06-27 16:03 | CP SOUTH PROGRESS NOTE PSYCH ---
Psych (Inpt) Progress Note Progress Note Progress Note: I discussed this patient's progress to date, current mental status, treatment process in the context of the treatment plan, and discharge planning with staff/ team in the daily morning inpatient team meeting. I also met with the patient myself in individual session. A total of 15 minutes was spent with the patient with more than 50% spent in counseling and/or coordination of care. SUBJECTIVE: "I'm doing alright." OBJECTIVE: Current Medications Sig/Blank Start time Last Medication Dose Route Stop Time Status Admin Acetaminophen 650 MG .STK-MED ONE 06/26 2207 DC PO 06/26 2208 Acetaminophen 650 MG Q6-PRN PRN 05/27 2000 AC 06/27 PO 1313 Aspirin Buffered 81 MG DAILY 05/28 1000 AC 06/27 PO 0916 Docusate Sodium 100 MG DAILY 05/28 1000 AC 06/27 PO 0916 Gabapentin 200 MG 0800,1300,2200 06/03 1300 AC 06/27 PO 1312 Loratadine 10 MG DAILY 06/09 1615 AC 06/27 PO 0916 Methadone HCl 80 MG 06/22 0600 AC 06/27 PO 0641 Omeprazole 40 MG DAILY AC 05/28 0700 AC 06/27 PO 0640 Polyethylene Glycol 17 GM AT BEDTIME PRN 05/27 2000 AC PO Prazosin HCl 5 MG AT BEDTIME 05/27 220 AC 06/26 PO 2215 Risperidone 1 MG 06/01 0800 AC 06/27 PO 0916 Risperidone 2 MG 05/31 2200 AC 06/26 PO 2215 Senna 187 MG AT BEDTIME 05/27 2200 AC 06/26 PO 2215 Sodium Chloride 2 SPRAY Q2 HRS NEEDED PRN 06/09 1615 AC 06/26 GRECIA 2215 Trazodone HCl 25 MG AT BEDTIME PRN 06/25 1830 AC PO Vital Signs Date Time Temp Pulse Resp B/P Pulse O2 O2 Flow FiO2 Ox Delivery Rate 06/27 1216 65 128/78 06/27 0752 97.5 53 144/79 06/26 2215 126/74 06/26 1946 96.9 60 126/74 ASSESSMENT: Patient reports doing well. Continues to ambulate with a steady but very slow gait, with assist of walker. Awaiting appropriate discharge plans. Depression:0/10; Anxiety:0/10 (with 10 the worst.) Denies suicidal ideation, homicidal ideation, auditory hallucinations, visual hallucinations, paranoid ideation. Speech is well articulated, goal-directed, average in rate, volume and tone. Calm, cooperative and logical. Alert and oriented 3. The patient understands the risks/benefits/side effects of the medication and is agreeable to continue taking them. PLAN: Continue with current management as patient is improving. Continue to provide support and encouragement.
--- NOTE | 2016-06-27 16:27 | SOCIAL WORKER PROG NOTE PSYCH ---
Social Work Progress Note Progress Note Junior made a call to the [employer] to speak with the financial person there about his spend down. She encouraged us to contact [facility]. I ended up speaking with the spend down department to find out about Junior 's spend down. I was told that Lukas is on a spend down from 02/20- 07/22. She did not see an amount. She stated that she wasn't sure if it would just go back on soon or if we would need to submit any bills. She said that we could fax bills if needed to . She won't be able to tell me an appt. for a few days. Called and spoke with Zulma in billing at [employer], she is helping me look into the spend down. Unfortunately [facility] is closed for the holiday so she was not able to get any information on the amount. He does have bills from February from the hospital that he could apply.
[2016-06-27 19:48] VITALS: BP 141/77
--- NOTE | 2016-06-27 21:57 | NUR ---
PT IS ISOLATIVE AND WITHDRAWN, REMAINING IN BED FOR MAJORITY OF EVENING. WHEN IN COMMUNITY PT IS PLEASANT AND COOPERATIVE WITH STAFF. MINIMAL INTERACTION WITH PEERS. REFUSED WRAP UP MEETING. NO COMPLAINTS OR SI REPORTED. PT HAS A STABLE MOOD AND EUTHYMIC AFFECT.
[2016-06-28 07:57] VITALS: BP 124/74
--- NOTE | 2016-06-28 10:14 | SOCIAL WORKER PROG NOTE PSYCH ---
Social Work Progress Note Progress Note Called Alexia at [facility] in [place] this morning again, to see if they would reconsider admission for Junior. Alexia asked me to fax over a clinical packet and she will present it to the team. Junior shared that Social Security called him today and reported that his benefits will be reinstated. He had to give the hospital as his current address, due to not having any other address to give at this time. Zulma from [place] [employer] was able to find out Junior's spend down for Medicaid. He owes $243.62. She faxed over his hospital bill from February and asked if it could be rectified immediately. I'll check back in a day or two. Shared this information with Junior. He seems happy that we are making some progress. Mood seems positive today. Going to groups, social with peers. Mailed the DSS senior living care application today.
--- NOTE | 2016-06-28 11:24 | NUR ---
PT IS TAKING HIS MEDS AND ATTENDING SOME OF THE GROUPS. HE REPORTS FEELING FRUSTRATED AT HIS LENGTH OF STAY IN THE HOSPITAL AND IS LOOKING FORWARD TO THE NEXT STEP. WHEN ASKED HE DENIED SUICIDAL THOUGHTS AT THIS TIME
[2016-06-28 12:14] VITALS: BP 118/78
--- NOTE | 2016-06-28 12:39 | CP SOUTH PROGRESS NOTE PSYCH ---
Psych (Inpt) Progress Note Progress Note Progress Note: I discussed this patient's progress to date, current mental status, treatment process in the context of the treatment plan, and discharge planning with staff/ team in the daily morning inpatient team meeting. I also met with the patient myself in individual session. A total of 15 minutes was spent with the patient with more than 50% spent in counseling and/or coordination of care. SUBJECTIVE: "Everything is fine." OBJECTIVE: Current Medications Sig/Blank Start time Last Medication Dose Route Stop Time Status Admin Acetaminophen 650 MG .STK-MED ONE 06/27 2225 DC PO 06/27 222 Acetaminophen 650 MG .STK-MED ONE 06/27 1307 DC PO 06/27 1308 Acetaminophen 650 MG Q6-PRN PRN 05/27 1999 AC 06/27 PO 2231 Aspirin Buffered 81 MG DAILY 05/28 1000 AC 06/28 PO 0818 Docusate Sodium 100 MG DAILY 05/28 1000 AC 06/28 PO 0818 Gabapentin 200 MG 0800,1300,2200 06/03 1300 AC 06/28 PO 1215 Loratadine 10 MG DAILY 06/09 1615 AC 06/28 PO 0818 Methadone HCl 80 MG 06/22 0600 AC 06/28 PO 0517 Omeprazole 40 MG DAILY AC 05/28 0700 AC 06/28 PO 0517 Polyethylene Glycol 17 GM AT BEDTIME PRN 05/27 2000 AC PO Prazosin HCl 5 MG AT BEDTIME 05/27 2200 AC 06/27 PO 2229 Risperidone 1 MG 06/01 0800 AC 06/28 PO 0818 Risperidone 2 MG 05/31 2200 AC 06/27 PO 2229 Senna 187 MG AT BEDTIME 05/27 2200 AC 06/26 PO 2215 Sodium Chloride 2 SPRAY Q2 HRS NEEDED PRN 06/09 1615 AC 06/26 GRECIA 2215 Trazodone HCl 25 MG AT BEDTIME PRN 06/25 1830 AC PO Vital Signs Date Time Temp Pulse Resp B/P Pulse O2 O2 Flow FiO2 Ox Delivery Rate 06/28 1214 66 118/78 06/28 0757 96.5 57 124/74 06/27 2228 76 141/77 06/27 1948 97.3 59 141/77 06/27 1559 64 125/64 ASSESSMENT: Patient offers no complaints today, has been working with social work on insurance and discharge plans. As per nursing report, slept well with legs elevated. Tolerating his medications well, without complaint. Continues to ambulates slowly, with assist of a walker. Depression:0/10; Anxiety:0/10 (with 10 the worst.) Denies suicidal ideation, homicidal ideation, auditory hallucinations, visual hallucinations, paranoid ideation. Speech is well articulated, goal-directed, average in rate, volume and tone. Calm, cooperative, logical, alert and oriented 3. The patient understands the risks/benefits/side effects of the medication and is agreeable to continue taking them. PLAN: Continue with current management as patient is improving. Continue to provide support and encouragement.
--- NOTE | 2016-06-28 13:50 | NUR ---
PT OFFERED ASSISTANCE WITH HIS COMPRESSION STOCKINGS AND HE IS REFUSING AT THIS TIME STATING THEY HURT HIM AND LEAVE NEFF
[2016-06-28 15:40] VITALS: BP 122/84
[2016-06-28 19:55] VITALS: BP 140/86
--- NOTE | 2016-06-28 21:53 | NUR ---
Pt is out in the community mood is stable affect is sin full range. Compliant and cooperative with the staff. Vital signs are stable appetite is good. Will monitor the pt overnight.
[2016-06-29 08:07] VITALS: BP 148/99
--- NOTE | 2016-06-29 08:59 | SOCIAL WORKER PROG NOTE PSYCH ---
Social Work Progress Note Progress Note Called Alexia at [facility] and left a message questioning if Junior will be accepted. I received a call back from Dominic at [facility] who stated that their team will not accept Junior based on the SI and plans to walk on a train track. This was in the initial assessment and [facility] paperwork. He stated they have a train track right behind their building. Dominic stated he would be sending the referral over to the [facility]. Zulma from the business office at [place] shared that she called [facility] to follow up on the paperwork submitted for spend down and she was told they are reviewing it. She will call back again tomorrow. Junior received his [employer] Express Card from Social [employer] by [employer] today. He tried calling social security to see when he will have money deposited. They told him it should be today. Called [facility] in [place] to see about sending a referral. Spoke with Sulema in Admissions, she stated that their facility is only up to 3 weeks. I didn't realize this when I called them a couple weeks ago.
--- NOTE | 2016-06-29 11:55 | NUR ---
PT IS STABLE WITH BRIGHT, FULL RANGE OF AFFECT. PT LOUNGES IN THE KITCHEN AND LOUNGE INTERACTING WITH PEERS/STAFF. PT MAKES JOKES, LAUGHS, DOES NOT APPEAR DISTRESSED BY ANY MEANS. MORE ALERT AND ORIENTED THAN PREVIOUSLY. ATTENDING ALL GROUPS. VS ARE STABLE AND DENIES ANY SI/HI TO THIS MHW.
[2016-06-29 12:20] VITALS: BP 137/76
[2016-06-29 15:55] VITALS: BP 141/78
--- NOTE | 2016-06-29 15:58 | CP SOUTH PROGRESS NOTE PSYCH ---
Psych (Inpt) Progress Note Progress Note Progress Note: I discussed this patient's progress to date, current mental status, treatment process in the context of the treatment plan, and discharge planning with staff/ team in the daily morning inpatient team meeting. I also met with the patient myself in individual session. A total of 15 minutes was spent with the patient with more than 50% spent in counseling and/or coordination of care. SUBJECTIVE: OBJECTIVE: Current Medications Sig/Blank Start time Last Medication Dose Route Stop Time Status Admin Acetaminophen 650 MG .STK-MED ONE 06/28 1822 DC PO 06/28 182 Acetaminophen 650 MG Q6-PRN PRN 05/27 1999 AC 06/28 PO 1829 Aspirin Buffered 81 MG DAILY 05/28 1000 AC 06/29 PO 0828 Docusate Sodium 100 MG DAILY 05/28 1000 AC 06/29 PO 0828 Gabapentin 200 MG 0800,1300,0 06/03 1300 AC 06/29 PO 1253 Loratadine 10 MG DAILY 06/09 1615 AC 06/29 PO 0828 Methadone HCl 80 MG 06/30 0600 AC PO Methadone HCl 80 MG 06/22 0600 DC 06/29 PO 0524 Omeprazole 40 MG DAILY AC 05/28 0700 AC 06/29 PO 0524 Polyethylene Glycol 17 GM AT BEDTIME PRN 05/27 2000 AC PO Prazosin HCl 5 MG AT BEDTIME 05/27 2200 AC 06/28 PO 2122 Risperidone 1 MG 06/01 0800 AC 06/29 PO 0827 Risperidone 2 MG 05/31 2200 AC 06/28 PO 2121 Senna 187 MG AT BEDTIME 05/27 2200 AC 06/26 PO 2215 Sodium Chloride 2 SPRAY Q2 HRS NEEDED PRN 06/09 1615 AC 06/28 GRECIA 2326 Trazodone HCl 25 MG AT BEDTIME PRN 06/25 1830 AC PO Vital Signs Date Time Temp Pulse Resp B/P Pulse O2 O2 Flow FiO2 Ox Delivery Rate 06/29 1555 60 141/78 06/29 1220 63 137/76 06/29 0807 97.7 59 148/99 06/28 2121 96.9 59 18 140/86 06/28 1955 96.9 59 140/86 ASSESSMENT: Patient reports he is doing well. States he remains at baseline. Offers no complaints. Ambulates with steady but slow gait with assistive walker. Eager to find long-term placement. Depression:0/10; Anxiety:0/10 (with 10 the worst.) Denies suicidal ideation, homicidal ideation, auditory hallucinations, visual hallucinations, paranoid ideation. Speech is well articulated, goal-directed, average in rate, volume and tone. Alert and oriented 3. The patient understands the risks/benefits/side effects of the medication and is agreeable to continue taking them. PLAN: Continue working on discharge planning. Continue with current management as patient is improving. Continue to provide support and encouragement.
[2016-06-29 19:33] VITALS: BP 136/70
--- NOTE | 2016-06-29 21:11 | NUR ---
PT IS LETHARGIC, SLEEPING WITHER IN [place] OR ROOM FOR EXTENDED PERIODS OF TIME. PT IS CALM, COOPEATIVE WITH STAFF AND PEERS, AND COMPLIANT WITH UNIT RULES WHILE IN [place]IE[place]. MOOD IS STABLE, AFFECT IS FULL RANGE, COMMUNICATION IS NORMAL, AND APPETITE IS NORMAL. PT DENIES SI AT THIS TIME.
[2016-06-30 07:44] VITALS: BP 146/94
--- NOTE | 2016-06-30 09:13 | SOCIAL WORKER PROG NOTE PSYCH ---
Social Work Progress Note Progress Note Nicanor Dowell APRN and I met with Junior together this morning. Junior expressed his desire to leave the hospital, stating he's been here too long and "the short are closing in me". I told him that [facility] in [place] denied him again. He asked to be discharge today and that he would just go to the overflow senior care. Nicanor and I asked if this had anything to do with him getting his social security money again? He said no. I asked what would be different when he leaves? He said that he was going to really try hard not to return. He mentioned going to [facility] and seeing if they can help him get in the [facility] respite program. I asked if he was thinking of getting an apartment with his sister? He denied this. I asked him if we got his spend down resolved and I could get him [employer], would he be willing to go to [facility] in [place]? He said he is not interested in a bed in [place]. He continuously said he just wanted to leave today. I told him that was really up to him if he didn't want to pursue a nursing facility anymore and that I would discuss it further with the team. Discussed discharge in team meeting and the team agreed that he would be discharged today. Junior was pleased with this plan and indicated that he would get a cab to [place] today. Planning to go directly to [facility].
[2016-06-30] MEDS ORDERED: NICOTINE PATCH1 EAC2 TOP (10:57)
[2016-06-30] MEDS ORDERED: ASPIRIN EC81 M1 PO (10:58)
[2016-06-30] MEDS ORDERED: LORATADINE10 M1 PO (11:45)
[2016-06-30] MEDS ORDERED: PRAZOSIN HCL5 M1 PO (11:46)
[2016-06-30] MEDS ORDERED: GABAPENTIN100 M2 PO (11:47)
[2016-06-30] MEDS ORDERED: RISPERDAL1 M1 PO (11:47)
[2016-06-30] MEDS ORDERED: DEEP SEA44 ML NAS (11:48)
[2016-06-30] MEDS ORDERED: RISPERDAL2 M1 PO (11:48)
[2016-06-30] MEDS ORDERED: OMEPRAZOLE20 M2 PO (11:49)
--- NOTE | 2016-06-30 11:56 | CP SOUTH PROGRESS NOTE PSYCH ---
Psych (Inpt) Progress Note Progress Note Progress Note: I discussed this patient's progress to date, current mental status, treatment process in the context of the treatment plan, and discharge planning with staff/ team in the daily morning inpatient team meeting. I also met with the patient myself in individual session. A total of 30 minutes was spent with the patient with more than 50% spent in counseling and/or coordination of care. SUBJECTIVE: "I want to leave today. I'll just go to the overflow senior living. These short are closing in on me has been here too long. Just let me go. I'll be fine " OBJECTIVE: Current Medications Sig/Blank Start time Last Medication Dose Route Stop Time Status Admin Acetaminophen 650 MG .STK-MED ONE 06/29 2043 DC PO 06/29 2044 Acetaminophen 650 MG Q6-PRN PRN 05/27 1999 AC 06/30 PO 0905 Aspirin Buffered 81 MG DAILY 05/28 1000 AC 06/30 PO 0801 Docusate Sodium 100 MG DAILY 05/28 1000 AC 06/30 PO 0800 Gabapentin 200 MG 0800,1300,0 06/03 1300 AC 06/30 PO 0800 Loratadine 10 MG DAILY 06/09 1615 AC 06/30 PO 0800 Methadone HCl 80 MG 06/30 0600 AC 06/30 PO 0545 Omeprazole 40 MG DAILY AC 05/28 0700 AC 06/30 PO 0545 Polyethylene Glycol 17 GM AT BEDTIME PRN 05/27 2000 AC PO Prazosin HCl 5 MG AT BEDTIME 05/27 2200 AC 06/29 PO 2128 Risperidone 1 MG 06/01 0800 AC 06/30 PO 0800 Risperidone 2 MG 05/31 2200 AC 06/29 PO 2128 Senna 187 MG AT BEDTIME 05/27 2200 AC 06/26 PO 2215 Sodium Chloride 2 SPRAY Q2 HRS NEEDED PRN 06/09 1615 AC 06/29 GRECIA 2050 Trazodone HCl 25 MG AT BEDTIME PRN 06/25 1830 AC PO Vital Signs Date Time Temp Pulse Resp B/P Pulse O2 O2 Flow FiO2 Ox Delivery Rate 06/30 0744 97.4 56 146/94 06/29 2127 61 136/70 06/29 1933 97.5 61 136/70 06/29 1555 60 141/78 06/29 1220 63 137/76 ASSESSMENT: Patient requesting to leave today. He reports tolerating his medications, to good effect. Offers no psychiatric complaints. I met the patient along today with social science research assistant Jena. We reviewed the work that has been done by social work to review his spend-down, and to get him into a long-term placement. Today the patient states that he is ready to leave. Jena and I both explained to the patient that he is getting close to finding a long-term placement. He states however, that he will refuse to go to any usp that is not in [place]. He states that he has recently received money from Social Security, and that he will be able to take care of himself. States that he will resume care at the [facility] in [place]. He continues to walk slowly, with steady gait, with assist of a walker. He states that he will take a taxi to get where he needs to go. Patient's request was discussed in team meeting this morning, it was the consensus agreement of our team that the patient had achieved maximum hospital benefit some time ago, and he was here now only to try to secure a long-term placement bed. It now appears the patient will refuse that bed. The patient states that he is safe and ready for discharge. Depression:0/10; Anxiety:0/10 (with 10 the worst.) Denies suicidal ideation, homicidal ideation, auditory hallucinations, visual hallucinations, paranoid ideation. Patient states and also believes that he will not kill himself. States that he sleeps well at night, his appetite is good. Speech is well articulated, goal-directed, average in rate, volume and tone. Alert and oriented 3. Logical. The patient understands the risks/benefits/side effects of the medication and is agreeable to continue taking them. PLAN: Discharge today. Patient will follow-up at [facility]. Prescriptions sent in to pharmacy. Continue with current management as patient is improving. Continue to provide support and encouragement.
--- NOTE | 2016-06-30 12:37 | NUR ---
Pt is present on the unit, overall compliant and appropriate with staff and peers, mood stable and reports feeling better & overall improved and ready for discharge. When asked directly denies SI/HI/hallucinations and reports + understanding of medication regiment/need and motivation/awareness for discharge planning. Information packet re: SI, Depression given. Pt resource guide reviewed with pt along with pertinent number i.e., [facility], [facility], suicide hotline, etc. Pt already met with drug abuse social worker, provider and then this music writer and ready for discharge.
== END 2016-06-30 12:40 | DRG 885 ==
LOC: CP SOUTH 11:10
PROVIDERS: Nurse Practitioner Psychiatric/Mental Health; ADMIT Psychiatry & Neurology Psychiatry
DX: F33.3 Major depressive disorder, recurrent, severe with psychotic symptoms (principal); I10 Essential (primary) hypertension; F19.90 Other psychoactive substance use, unspecified, uncomplicated; F12.90 Cannabis use, unspecified, uncomplicated; F43.10 Post-traumatic stress disorder, unspecified; K21.9 Gastro-esophageal reflux disease without esophagitis; K42.9 Umbilical hernia without obstruction or gangrene; B19.20 Unspecified viral hepatitis C without hepatic coma; M19.90 Unspecified osteoarthritis, unspecified site
CPT/HCPCS: 36415; 73562-LT; 73562-RT; 74020; 80307; 81003; 82436; 87040; 87086; 87804; 87804-59; 93005; 93010; 93970; 97001-GP; 97110-GO; 97112-GO; 97116-GO; 97161-GP; J0456

== ENCOUNTER 2016-10-10 08:58 | Inpatient (IN) | payer OTHER, MEDICARE ==
[2016-10-10] VITALS (7 sets, daily range): BP systolic 98–146; BP diastolic 54–80
[~2016-10-10] VITALS: Ht 167.6 cm; Wt 105.9 kg
[~2016-10-10 08:58] MED LIST changes: +DEEP SEA44 ML NAS; +GABAPENTIN100 M2 PO; +LORATADINE10 M1 PO
--- NOTE | 2016-10-10 09:02 | NUR ---
PT STATES HE IS FEELING VERY DEPRESSED STATES HIS DEPRESSION KEEPS BUILDING. PT STATES HE DOES FEEL SUICIDAL BUT HAS NOT PLAN. DENIES HI AND STATES HE HAS BEEN ADDICTED TO [facility] LATELY. DENIES OTHER DRUG OR ETOH USE
--- NOTE | 2016-10-10 09:14 | NUR ---
PT CHANGING INTO [employer]. SECURITY PRESENT
--- NOTE | 2016-10-10 09:33 | ED GENERAL ADULT ---
History of Present Illness General Chief Complaint: Psychiatric Related Complaint Stated Complaint: DEPRESSION Source: patient Exam Limitations: no limitations Vital Signs & Intake/Output Vital Signs & Intake/Output Vital Signs Date Time Temp Pulse Resp B/P B/P Pulse O2 O2 Flow FiO2 Mean Ox Delivery Rate 10/10 1627 97.9 56 16 128/73 06/05 1623 97.5 78 18 146/80 06/05 1617 97.9 56 16 128/73 96 Room Air 06/05 1328 97.5 78 18 146/80 98 Room Air 06/ 1126 98.2 80 18 148/90 97 Room Air 06/ 0955 Room Air / 0902 97.6 73 16 158/96 96 Room Air Allergies Coded Allergies: NO KNOWN ALLERGIES (03/14/16) Reconcile Medications Aspirin (Ecotrin*) 81 MG TABLET.DR 1 TAB PO DAILY HEART/BLOOD (Reported) Gabapentin 100 MG CAPSULE 200 MG PO TID ANXIETY TAKE TWO CAPSULES, THREE TIMES DAILY NEEDED FOR ANXIETY. Methadone HCl (Methadose) 10 MG/ML ORAL.CONC 60 MG PO DAILY CHRONIC PAIN ( Reported) Omeprazole 20 MG CAPSULE.DR 40 MG PO DAILY AC ACID REFLUX Prazosin HCl 5 MG CAPSULE 5 MG PO AT BEDTIME NIGHTMARES Risperidone (Risperdal) 1 MG TABLET 1 MG PO 0800 CLEAR THOUGHTS Risperidone (Risperdal) 2 MG TABLET 2 MG PO 2200 CLEAR THOUGHTS Sodium Chloride (Deep Sea) 0.65 % SPRAY 2 SPRAY GRECIA Q2 HRS NEEDED PRN Stuffy nose. Triage Note: PT STATES HE IS FEELING VERY DEPRESSED STATES HIS DEPRESSION KEEPS BUILDING. PT STATES HE DOES FEEL SUICIDAL BUT HAS NOT PLAN. DENIES HI AND STATES HE HAS BEEN ADDICTED TO [facility] LATELY. DENIES OTHER DRUG OR ETOH USE Triage Nurses Notes Reviewed? yes HPI: 60-year-old male with a history of depression, anxiety, bipolar disorder, benzo abuse, opiate abuse, hepatitis C, hypertension presenting with suicidal ideation. Patient unwilling to elaborate on context of worsening depression, continues to state that everything in his life is going wrong. Denies any self injury or ingestions, but states that he has thought about jumping in front of a train to end his life. Denies HI. Reports he is currently using a total of 10 mg Klonopin daily that he buys on the street, last benzo use yesterday. Last EtOH use 2 days ago. Past History Travel History Traveled to [place] past 21 day No Medical History Any Pertinent Medical History? 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 recently Endocrine: NONE Blood Disorders: NONE Cancer(s): NONE MANAGER DOMESTIC/Reproductive: NONE History of MRSA: No History of VRE: No History of CDIFF: No Influenza Vaccine: 01/06/16 Surgical History Surgical History: knee replacement (RT HIP- ?EARLY 2015-), knee surgery Psychosocial History Who do you live with Friend What is your primary language Persian Tobacco Use: Current Not Daily Daily Tobacco Use Amount/Type: =< 4 Cigarettes daily ETOH Use: denies use Illicit Drug Use: benzodiazepines Family History Family History, If Any: Relation not specified for: *No pertinent family history Hx Contributory? No Review of Systems Review of Systems Constitutional: Reports: no symptoms. Respiratory: Reports: no symptoms. Cardiovascular: Reports: no symptoms. GI: Reports: no symptoms. Genitourinary: Reports: no symptoms. Musculoskeletal: Reports: no symptoms. Neurological/Psychological: Reports: no symptoms. Physical Exam Physical Exam General Appearance: well developed/nourished, no apparent distress Head: atraumatic Ears, Nose, Throat: normal ENT inspection Respiratory: normal breath sounds, no respiratory distress, lungs clear Cardiovascular: regular rate/rhythm, normal peripheral pulses Gastrointestinal: normal bowel sounds, soft, non-tender Extremities: normal inspection, normal range of motion Neurologic/Psych: no motor/sensory deficits, alert, oriented x 3, normal gait, fur blower II-XII nml as tested Skin: intact, normal color Core Measures ACS in differential dx? No CVA/TIA Diagnosis: No Severe Sepsis Present: No Septic Shock Present: No Progress Differential Diagnoses I considered the following diagnoses in my evaluation of the patient: [ Depression versus suicidal ideation] Plan of Care: Orders Procedure Date/time Status Regular Diet 10/10 L Complete Regular Diet 10/10 D Active Admit to inpatient psych 10/10 1419 Active EKG 10/10 1412 Active Lab Add-on Test 10/10 1411 Active Patient Data - inpatient psych 10/10 1403 Active Admit to inpatient psych 10/10 140 Active Continuous Observation Monitor 10/10 0950 Active TSH REFLEX 10/10 0950 Complete Intake & Output 10/10 0935 Active ED CRISIS PSYCH CONSULT 10/10 0833 Active URINALYSIS 10/10 0832 Complete COMPREHENSIVE METABOLIC PANEL 10/10 0832 Complete CBC WITHOUT DIFFERENTIAL 10/11 931 Complete URINE DRUG SCREEN FOR ER ONLY 10/10 918 Complete Vital Signs 10/10 UNK Active Nursing Misc 10/10 UNK Active CIWA 10/10 UNK Active Alternative Nursing Therapy 10/10 UNK Active Activity/Ambulation 10/10 UNK Active Current Medications Sig/Blank Start time Last Medication Dose Stop Time Status Admin Aspirin Buffered 81 MG DAILY 10/11 1000 AC (Ecotrin) Loratadine 10 MG DAILY 10/11 1000 AC (Claritin) Risperidone 1 MG DAILY 10/11 1000 AC (Risperidone) Methadone HCl 60 MG DAILY@0800 10/11 0800 AC (Dolophine) Omeprazole 40 MG DAILY AC 10/11 0700 AC (Prilosec) Prazosin HCl 2 MG AT BEDTIME 10/10 2200 AC (Minipress 2 Mg.) Risperidone 2 MG AT BEDTIME 10/10 2200 AC (Risperidone) Acetaminophen 650 MG Q6P PRN 10/10 1415 AC 10/10 (Tylenol) 1420 Al Hydroxide/Mg 30 ML Q4-6 PRN PRN 10/10 1415 AC Hydroxide (Maalox Plus) Gabapentin 300 MG Q6P PRN 10/10 1415 AC (Neurontin) Lorazepam 2 MG Q2P PRN 10/10 1415 AC (Ativan) Lorazepam 1 MG Q2P PRN 10/10 1415 AC (Ativan) Magnesium Hydroxide 30 ML AT BEDTIME PRN 10/10 1415 AC (Milk Of Magnesia) Multivitamins 1 TAB DAILY 10/10 1415 AC 10/10 (Theragran Vitamins) 1420 Nicotine 2 MG Q2P PRN 10/10 1415 AC (Nicotine) Lorazepam 0.5 MG Q6 10/10 1409 AC 10/10 (Ativan) 10/17 1408 1420 Nicotine 7 MG DAILY 10/10 1409 AC 10/10 (Nicotine Cq) 1430 Laboratory Tests 10/10/16 0950: Anion Gap 8, Estimated GFR > 60, BUN/Creatinine Ratio 15.0, Glucose 94, Calcium 8.6, Total Bilirubin 0.4, AST 18, ALT 31, Alkaline Phosphatase 80, Total Protein 5.9 L, Albumin 3.3 L, Globulin 2.6, Albumin/Globulin Ratio 1.3, TSH &T3 &Free T4 Intrp 2.130, CBC w Diff NO MAN DIFF REQ, RBC 3.83 L, MCV 91.1, MCH 30.6, RDW 13.9, MPV 9.0, Gran % 60.7, Lymphocytes % 27.2, Monocytes % 7.2, Eosinophils % 3.5, Basophils % 1.4, Absolute Granulocytes 3.1, Absolute Lymphocytes 1.4, Absolute Monocytes 0.4, Absolute Eosinophils 0.2, Absolute Basophils 0.1, PUBS MCHC 33.6 10/10/16 0932: Methadone Screen Cancelled, Barbiturate Screen Cancelled, Ur Phencyclidine Scrn Cancelled, Amphetamines Screen Cancelled, U Benzodiazepines Scrn Cancelled, Urine Cocaine Screen Cancelled, Urine Cannabis Screen Cancelled 10/10/16 0928: Urine Opiates Screen < 100.00, Methadone Screen > 735 H, Barbiturate Screen < 60, Ur Phencyclidine Scrn < 6.00, Amphetamines Screen 132, U Benzodiazepines Scrn 521 H, Urine Cocaine Screen < 50, Urine Cannabis Screen > 80.00 H, Urine Color YEL, Urine Clarity CLEAR, Urine pH 6.0, Ur Specific [place] 1.025, Urine Protein NEG, Urine Ketones NEG, Urine Nitrite NEG, Urine Bilirubin NEG, Urine Urobilinogen 0.2, Ur Leukocyte Esterase NEG, Ur Microscopic EXAM NOT REQUIRED, Urine Hemoglobin NEG, Urine Glucose NEG Urine positive for methadone, benzos, marijuana. Labs remarkable for anemia is relatively unchanged from baseline on prior labs. Patient evaluated by heading matcher and assembler and will be admitted to psychiatry. (DYLAN ARAUJO,JOSETTE) Initial ED EKG: none Departure Departure Disposition: STILL A PATIENT Condition: Stable Clinical Impression Primary Impression: Suicidal ideation Referrals: UNKNOWN (PCP/Family) Departure Forms: Customer Survey General Discharge Information Psych Admission Note Psychiatric Admission: I have seen and evaluated GONSALO ALCARAZ. I have also reviewed all the pertinent lab results and diagnostic results. KIERANGONSALO will be admitted to our inpatient Psychiatric unit for treatment and care. Critical Care Note Critical Care Note Critical Care Time: non-applicable
--- NOTE | 2016-10-10 09:55 | NUR ---
PT STATES HE COME TO HOSPITAL WITH INCREASED DEPRESSION THAT HE FEELS IS NOT WELL-MANAGED. VERBALIZES CONSTANT THOUGHTS OF PAST SEXUAL ABUSE. PT DENIES TAKING ANTI-DEPRESSANT MEDICATION OR SEEKING THERAPY FOR DEPRESSION RECENTLY. PER PT "IT DIDN'T HELP". DENIES ANY ACTIVE PLAN, BUT VERBALIZED NEED TO NOT BE AROUND ALL HIS MEDICATIONS AND GET OTHER HELP.
[2016-10-10 10:07] LABS: ABSOLUTE BASOPHIL COUNT 0.1 /CUMM (0.0-0.2); ABSOLUTE EOSINOPHIL COUNT 0.2 /CUMM (0.0-0.7); ABSOLUTE GRANULOCYTE CT 3.1 /CUMM (1.4-6.5); ABSOLUTE LYMPH COUNT 1.4 /CUMM (1.2-3.4); ABSOLUTE MONOCYTE COUNT 0.4 /CUMM (0.10-0.60); BASOPHIL % 1.4 % (0.0-2.0); EOSINOPHIL % 3.5 % (0-5); GRANULOCYTE % 60.7 % (42.2-75.2); HEMATOCRIT 34.9 % (42-52); MEAN CORPUSCULAR HGB 30.6 PG (27.0-31.0); MEAN CORPUSCULAR HGB CONC 33.6 G/DL (33.0-37.0); MEAN CORPUSCULAR VOLUME 91.1 FL (80.0-94.0); PLATELET COUNT 231 /CUMM (130-400); RBC DISTRIBUTION WIDTH 13.9 % (11.5-14.5); RED BLOOD CELL CT 3.83 /CUMM (4.70-6.10); WHITE BLOOD CELL COUNT 5.1 /CUMM (4.8-10.8)
--- NOTE | 2016-10-10 11:18 | NUR ---
ASSUMED CARE OF THIS PT FROM KEYA PERDOMO. PT ASLEEP ON STRETCHER IN HALLWAY. SITTER AT BEDSIDE. PT'S RESPIRATIONS EQUAL AND UNLABORED AT THIS TIME. PT IS AWAITING A CRISIS EVAL.
--- NOTE | 2016-10-10 12:34 | NUR ---
PT CONTINUES TO SLEEP ON STRETCHER IN HALLWAY F AT THIS TIME. PT'S RESPIRATIONS EQUAL AND UNLABORED. SITTER AT BEDSIDE. CRISIS EVAL TO BE COMPLETED.
--- NOTE | 2016-10-10 13:30 | NUR ---
PT SISTER JOHNATHON CALLED AND LEFT CONTACT INFORMATION [phone]
--- NOTE | 2016-10-10 13:53 | NUR ---
DRAPERY HEAD FORMER AT BEDSIDE
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
--- NOTE | 2016-10-10 14:21 | NUR ---
PT MEDICATED WITH ATIVAN 0.5MG, MULTIVITAMIN AND TYLENOL 650MG FOR KNEE PAIN, PIS 11/14. WILL OBTAIN NICOTINE PATCH FROM PHARMACY. PT CALM AND COOPERATIVE AND AWAITING ADMISSION TO [facility]. SITTER AT BEDSIDE.
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
--- NOTE | 2016-10-10 15:14 | NUR ---
NICOTINE PATCH 7MG APPLIED TO PT'S RIGHT UPPER ARM PER EMAR
--- NOTE | 2016-10-10 16:00 | NUR ---
PT RESTING COMFORTABLY ON STRETCHER IN HALLWAY. PT CALM AND COOPERATIVE. PT ANTICIPATING TRANSFER DOWN TO [facility]. SITTER AT BEDSIDE.
--- NOTE | 2016-10-10 17:15 | NUR ---
CALLED TRANSPORT TO FOLLOW UP ON TRANSFER REQUEST TO CPS. SPOKE WITH LAURA WHO SAID SHE DIDN'T SEE IT, BUT WOULD CALL THE TRANSPORTERS.
--- NOTE | 2016-10-10 18:24 | NUR ---
Pt arrived on the unit @ 1727 and was calm, cooperative, alert & oriented, pleasant and respectful, ambulating with a hospital walker (will confirm if he can use his personal walker with clinical director tomorrow) with a slow and steady gait. Mood stable with apathetic/flat affect yet appropriate with peers and staff. Does report recent depression due to being homeless and feeling (intermittently) SI yet reports will not harm self here on unit & feels safe and comfortable here and will let staff know if it comes/worsens. Pt is also motivated and furture oriented because he was discussing the intent and will speak with social media editor re: a rehab center for a possible discharge plan. Denies HI, reports baseline +AH that are not in nature and just demeaning and self-deprocating. Skin that is visible is clean dry and intact just very minor scratches to right elbow (prior to admission) healing normal, and denies having any other alterations ot skin that are not visible to this RN. Dr. Hernandez's [facility] service contacted for H&P today @ 5627.
--- NOTE | 2016-10-10 19:21 | NUR ---
AT 1815, SPOKE WITH JOSE ALEJANDRO OROZCO CLINICAL BOOT REPAIRER AT [facility]. PT METHADONE 60 MG DOSE VERIFIED AND WAS LAST ADM. BY [facility] AT 0705 THIS AM.
--- NOTE | 2016-10-10 20:15 | NUR ---
PT ARRIVED TO [facility] AT 1727. HE HAS BEEN ASLEEP IN ROOM SINCE HE ARRIVED, WITH NO COMMUNICATION WITH OTHERS EXCEPT FOR ADMISSION PROCESS. PT DENIED ANY THOUGHTS OF SI WHEN ASKED.
[2016-10-11] VITALS (11 sets, daily range): BP systolic 136–169; BP diastolic 61–99
--- NOTE | 2016-10-11 04:54 | NUR ---
SLEPT WELL AWKAKE TO BATHROOM.
--- NOTE | 2016-10-11 12:36 | NUR ---
PT VISIBLE MOST OF THE DAY IN THE [place]. HIS GOAL WAS TO ADJUST TO THE UNIT. PT DID NOT ATTEND MUCH GROUPS TODAY, AND HAS SOME INTERACTIONS WITH PEERS. HE GETS IRRITABLE AT TIMES BUT MOSTLY IS COOPERATIVE. HE DENIES THOUGHTS TO HURT HIMSELF WHEN ASKED.
--- NOTE | 2016-10-11 13:34 | SOCIAL WORKER TX PLAN PSYCH ---
Treatment Plan - Please Document: - Evidence that there is ongoing collaboration between - the patient and the interdisciplinary team, - including the patient's active participation and - responsibility for engaging in the treatment regimen, - and that the treatment plan is individualized and - relevant to the patient's conditions. - Treatment plan should reflect documentation indicating - that all active therapeutic efforts are included. Strengths/Capabilities: Seeks help, wants to feel better, engaging, supportive sister. Pt gets Methadone daily from [facility] in [place]. Physical Limitations (Interventions): Knee pain. ambulates with walker. DSM5/PS Stressors/Medical Prob Diagnosis' (DSM 5, Stressors, Medical): MDD sev w/ psychotic features f33.3, opiate use f11.10, Sed/hyp/Anxio use d/o f13.20 Current GAF: 25 Treatment Team - Responsibilities of members of the treatment team include: - Medication Management- MD or DATA PROCESSING CONTROL CLERK - Medication Administration and Monitoring- Nurse - Group Therapy- Occupational Therapist - 1:1 Therapy,Disch Planning,family involvement-Link Knitting Machine Operator
--- NOTE | 2016-10-11 13:34 | SOCIAL WORKER PROG NOTE PSYCH ---
Social Work Progress Note Progress Note Junior doesn't feel well today. Feeling the effects of detoxing. He has been using 10mg of Klonopin a day. He reports that he has been homeless for the past month. Living at train stations or various places in the community. He reported that he left [facility] in [place], due to them wanting most of his Social Security check. He said they were already getting paid by Medicare, so he didn't feel taking his check was fair. He left there without a plan be set up for discharge. He stated they really didn't want to help him. He has been seen daily at [facility] in [place] for Methadone. He is hoping to go to inpatient rehab from here. He mentioned a place in [place] that his sister was talking about, but he couldn't remember the name. He called his sister La in my presence to check the name. She was referring to [facility]. I told Lukas that [facility] didn't take Medicare according to my recollection, but I would double check. He was in agreement to sign releases for [facility], [facility], and [facility]. Faxed clinical to [facility] and [facility]. Called Inés at [facility] to check insurance and they do not accept Medicare.
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
--- NOTE | 2016-10-11 18:19 | NUR ---
PT IS CALM, COOPERATIVE WITH STAFF AND PEERS, AND COMPLIANT WITH UNIT RULES. OFTEN OUT OF MILIEU, ISOLATING IN PT ROOM, APPEARING LETHARGIC AND SLEEPING FOR THE MAJORITY OF THE EVENING. MOOD IS STABLE, AFFECT IS EUTHYMIC TO FULL RANGE, COMMUNICATION IS ORGANIZED AND APPEARS NORMAL IN ALL RESPECTS, AND APPETITE IS NORMAL. PT DENIES SI AT THIS TIME.
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
[2016-10-12] VITALS (10 sets, daily range): BP systolic 122–148; BP diastolic 70–98
--- NOTE | 2016-10-12 13:12 | NUR ---
PT IS STABLE WITH FLAT AFFECT, PRESENT OUT IN THE COMMUNITY AND INTERACTING WITH OTHERS. PT IS CURRENTLY RESTING IN HIS ROOM AFTER ATTENING ALL MORNING GROUPS AND EATING LUNCH. PT APPEARS TO BE A LITTLE MORE DEPRESSED THAN PREVIOUS ADMISSIONS. PT REPORTS GOAL TRYING TO STAY POSITIVE. VS ARE STABLE AND DENIES ANY SI/HI TO THIS MHW.
--- NOTE | 2016-10-12 15:08 | SOCIAL WORKER PROG NOTE PSYCH ---
Social Work Progress Note Progress Note Saw Junior in his room later this afternoon. He appeared tired. He said he had attended groups throughout the day and was now just taking a rest. He told me he called [facility] this morning early before I came in. He reported that they told him to call again tomorrow and that the wait isn't too long right now. He said it's a few days to a week. I encouraged him to follow up with calling [facility] as well, since clinical was faxed there yesterday. He insisted on calling tomorrow due to how tired he was feeling. I also talked about sending a referral to [facility], which he agreed to. Junior shared that he was having his [employer] Card sent here, since he left it at [facility]. He had to order another one. This is the card that has his social security money on it each month.
--- NOTE | 2016-10-12 16:27 | CP SOUTH PROGRESS NOTE PSYCH ---
Psych (Inpt) Progress Note Progress Note Include the following elements, when applicable: Involvement in the active treatment of the patient with behavioral observations of the patient and the patient's response to the treatment. Review of the ongoing treatment process in the context of the treatment plan. Indication of how multi-disciplinary staff members are carrying out the treatment plan. Plans for future interventions and recommendations for revision of the treatment plan. Liaison with other physicians/providers. Progress Note: Medication list reviewed. Case and treatment plan discussed in team meeting. Patient reported yesterday having command auditory hallucinations to kill himself. We are referring patient to [facility] and to [facility]. Patient reported feeling achy yesterday. Denying suicidal ideation. Patient seen at 3:06 PM. He is an overweight white male, dressed in sweatshirt and blue scrub pants, sitting on his bed, with walker nearby. Feels "not too good." Reports hearing voices that are getting worse. They tell him to kill himself. Reports tolerating medications well, without complaint. Nonetheless, he thinks his medications are starting to work. Affect is calm and depressed. Reports mood is not good. Rates sad mood 7/10 and anxiety 6/10. Feels hopeless , helpless and worthless. Denies feeling guilty. Reports suicidal ideation. Gives a safety promise for here. Denies homicidal ideation. Reports having visual hallucinations, sometimes, in his dreams, and he wakes up in a cold sweat. This sounds more like dreams, not visual hallucinations. Denies paranoid ideation and magical crespo. Reports sleep is terrible. Reports appetite is worse and that he does need eat a lot. Energy is good. I recommended to the patient and we increase Risperdal dose but he is reluctant to do so, indicating that he had been off medications for 6 months he wants to continue to try Risperdal at present dose. IMPRESSION: Slow progress. Continue present treatment plan. Continues to require inpatient level of care.
--- NOTE | 2016-10-12 17:56 | NUR ---
PT IS CALM, COOPERATIVE WITH STAFF AND PEERS, AND COMPLIANT WITH UNIT RULES. OFTEN OUT OF MILIEU, INTERACTING TO A LIMITED EXTENT WITH OTHERS WHEN IN MILIEU. OFTEN SLEEPING IN PT ROOM FOR LONG PERIODS OF TIME. MOOD IS STABLE, AFFECT APPEARS EUTHYMIC TO FULL RANGE, COMMUNICATION IS ORGANZIED AND APPEARS NORMAL IN ALL RESPECTS, AND APPETITE IS NORMAL. PT DENIES SI AT THIS TIME.
[2016-10-13] VITALS (8 sets, daily range): BP systolic 116–147; BP diastolic 76–99
--- NOTE | 2016-10-13 07:07 | NUR ---
PT UP A FEW TIMES TO TOILET. PT SLEPT.
--- NOTE | 2016-10-13 10:38 | NUR ---
PT IS CALM, COOPERATIVE WITH STAFF AND PEERS, AND COMPLIANT WITH UNIT RULES. BOTH IN AND OUT OF MILIUE, THOUGH WHILE IN MILIEU INTERACTING WELL WITH OTHERS. MOOD IS STABLE, AFFECT IS EUTHYMIC TO FULL RANGE, COMMUNICATIONIS ORGANIZED AND APPEARS NORMAL IN ALL RESPECTS, AND APPETITE IS NORMAL. PT DENIES SI AT THIS TIME.
--- NOTE | 2016-10-13 11:39 | SOCIAL WORKER PROG NOTE PSYCH ---
Social Work Progress Note Progress Note GONSALO ALCARAZ [id number] 1955 GONSALO ALCARAZ [id number] Pended Authorization # Client Authorization # Type of Request [id number] CONCURRENT Date of Admission/ Start of Services Requested From Submission Date 10/10/2016 10/13/2016 10/13/2016
--- NOTE | 2016-10-13 11:51 | SOCIAL WORKER PROG NOTE PSYCH ---
Social Work Progress Note Progress Note Called [facility] to speak with someone, because Lukas informed me he called this morning and was able to speak with someone in admissions. He reported that they would like an updated med sheet. I told him I will fax this, but would like to confirm his report that there are beds opening soon. Lukas and I waited to speak with someone for 16 mins and then I decided to hang up. Junior appears more confused today. Difficulty keeping his eyes open and attention focused. Stated his night was alright, but "can't sleep good." He feels like the medicine isn't working but couldn't elaborate. He stated he feels "out of it" today. When asked if he had suicidal thoughts? He stated that he was "thinking about what it would be like to be ." He stated he believes in an afterlife. He believes you are judged here on Earth. He doesn't feel he has done a good job on Earth, but didn't say why. Reports not "having a reason to live."
--- NOTE | 2016-10-13 19:03 | [facility] S[facility]TH PROGRESS NOTE PSYCH ---
Psych (Inpt) Progress Note Progress Note Include the following elements, when applicable: Involvement in the active treatment of the patient with behavioral observations of the patient and the patient's response to the treatment. Review of the ongoing treatment process in the context of the treatment plan. Indication of how multi-disciplinary staff members are carrying out the treatment plan. Plans for future interventions and recommendations for revision of the treatment plan. Liaison with other physicians/providers. Progress Note: PSYCHIATRIST NOTE, 10/13/2016): I discussed this patient's progress to date, current mental status, treatment and discharge planning with staff team today in the daily morning ITTM and also met with him again myself in individual session. Patient has been reported by staff as looking tired and at times having difficulty remaining awake during the day; he told me today he has not been sleeping well due to nightmares but I also noted that in addition to a regular dose of Neurontin, 300mg 4x/day, he has been requesting PRN's of Neurontin, 300mg, up to the maximum (four doses) everyday; that is a grand total of 2,400mg Neurontin daily! I have discontinued all regular Neurontin, except for the HS dose but will continue the PRN's, though I will increase the interval between dosing from a minimum of 4 hours to 6 hours. I also plan to move the AM Risperdal to HS tomorrow, 10/14/2016 and increase the HS dose of prazosin from 2mg to 3mg, starting tonight to hopefully help restful sleep which should also make patient more alert during the daytime hours. Otherwise, patient has been busy along with his social welfare research worker seeking admission to [facility] residential rehab which he is confident of and pleased with being able to enter within a few days by his own estimate. Patient notes slow improvement in his mood, resolving suicidality. I asked him why he had not gone to the on-unit A.A. meeting christal; he answered "I don't drink..." We thereafter discussed that a good meeting is a good meeting whether it is A.A. or N.A., that the principles and goals (living a clean and sober life) are the same; patient said then "I hadn't thought of it that way...I wish I had gone [to christal's meeting]."
--- NOTE | 2016-10-13 21:07 | NUR ---
PT IS ISOLATIVE AND WITHDRAWN, REMAINING IN BED FOR MAJORITY OF EVENING. WHEN VISIBLE ON UNIT, PT IS PLEASANT AND SOCIAL WITH PEERS. COOPERATIVE AND COMPLIANT WITH STAFF. REFUSED AA AND WRAP UP MEETING. NO COMPLAINTS OR SI REPORTED. PT HAS A STABLE MOOD AND FULL RANGE AFFECT.
[2016-10-14] VITALS (8 sets, daily range): BP systolic 129–146; BP diastolic 76–89
--- NOTE | 2016-10-14 09:50 | SOCIAL WORKER PROG NOTE PSYCH ---
Social Work Progress Note Progress Note Met with Junior, he stated he just got of the phone with [facility] - and did the phone screening for [facility] this morning. He stated [facility] Zach Pitts wants a letter from [employer] indicating his Methadone dosage. He signed LIBRA's for [facility] and [employer]. Junior refused referral to [facility]. Junior stated he slept Ok, his mood is OK. He had difficulty remembering his counselor at [facility] and became irritable. He was redirectable. He stated [facility] stated they may have a bed in a week. Plan to Fax clinical to [facility]. Need to call [facility] to get a letter regarding his Methadone.
--- NOTE | 2016-10-14 13:23 | NUR ---
PT HAS BEEN QUIET WITH STAFF AND PEERS BUT HAS SPENT ALOT OF TIME ON THE PHONE AND IN THE GROUP ROOM TALKING WITH HIS COUSELOR AND SORTING OUT INFORMATION WITH THE [employer], PER PTS REPORT. PT HAS EXPRESSED A HOPE TO MEET UP WITH [facility] AND HAS TOLD STAFF ABOUT WHAT HE WAS LIKE WHEN HE WAS YOUNGER AND MORE "ABLE-BODIED". PT HAS APPEARED MOTIVATED AND IN AN OVERALL POSITIVE MOOD, ACTIVE IN CHANGE. PT HAS ALSO DENIED ANY FEELINGS OF SI AT THIS TIME.
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
--- NOTE | 2016-10-14 18:14 | NUR ---
PT IS CALM, COOPERATIVE WITH STAFF AND PEERS, AND COMPLIANT WITH UNIT RULES. MOSTLY OUT OF MILIEU, SLEEPING IN PT ROOM FOR LONG PERIODS OF TIME. MOOD IS STBALE, AFFECT IS EUTHYMIC TO FULL RANGE, COMMUNICATION IS ORGANIZED AND APPEARS NORMAL IN ALL RESPECTS, AND APPETITE IS NORMAL. PT DENIES SI AT THIS TIME.
--- NOTE | 2016-10-14 19:03 | CP SOUTH PROGRESS NOTE PSYCH ---
Psych (Inpt) Progress Note Progress Note Include the following elements, when applicable: Involvement in the active treatment of the patient with behavioral observations of the patient and the patient's response to the treatment. Review of the ongoing treatment process in the context of the treatment plan. Indication of how multi-disciplinary staff members are carrying out the treatment plan. Plans for future interventions and recommendations for revision of the treatment plan. Liaison with other physicians/providers. Progress Note: PSYCHIATRIST NOTE, 10/14/2016: I discussed this patient's progress to date, current mental status, treatment and discharge planning with staff team today in the daily morning ITTM and also met with him again myself in individual session. Patient was reported to have slept very well last night and was much more alert throughout the day today; the latter was likely helped by the fact that I had reduced regular Neurontin to HS only and patient took no PRN's of Neurontin today. I increased prazosin from 3mg to 4mg HS to help with intermittent but disturbing nightmares. Ativan taper continues with last tapering dose scheduled for tomorrow, 2016, at noontime; last HS dose of Ativan will be given tonight. All Risperdal has been moved to HS and no PRN's being needed. Patient has been actively seeking out residential rehabs, the [facility] program in particular, has been told a bed will open there soon and hopes that he gets it; he continues to call [facility] everyday. Patient's mood is clearly improving and he denies suicidality/ suicidal planning; he is interacting more on the unit milieu and more positive in outlook generally despite his ongoing difficulty with ambulation which is made more so due to the fact that he is not permitted to have his own "special" cane with him here on [facility] "it works very well...I can't use this walker they give me" and indeed he appears to struggle with it though he does let that keep him from getting around where he wants to go.
[2016-10-15] VITALS (8 sets, daily range): BP systolic 105–138; BP diastolic 67–86
--- NOTE | 2016-10-15 04:51 | NUR ---
PT SLEPT. PT UP MUCH LESS ON NIGHTS.
--- NOTE | 2016-10-15 09:41 | CP SOUTH PROGRESS NOTE PSYCH ---
Psych (Inpt) Progress Note Progress Note Include the following elements, when applicable: Involvement in the active treatment of the patient with behavioral observations of the patient and the patient's response to the treatment. Review of the ongoing treatment process in the context of the treatment plan. Indication of how multi-disciplinary staff members are carrying out the treatment plan. Plans for future interventions and recommendations for revision of the treatment plan. Liaison with other physicians/providers. Progress Note: pt reports feeling a bit down and depressed but better than before. He denies any si/hi. He is hopeful he will get better Vital Signs Date Time Temp Pulse Resp B/P B/P Pulse O2 O2 Flow FiO2 Mean Ox Delivery Rate 10/15 0740 97.6 83 105/67 10/15 0739 97.6 83 105/67 10/15 0458 16 124/80 10/14 221 99.2 78 16 129/84 10/14 2008 99.2 78 129/84 10/15 2003 99.2 78 16 129/84 10/14 1619 86 146/78 10/14 1615 86 146/78 10/14 1224 88 131/76 10/14 1221 88 131/76 pt is alert adn oriented, calm. No PMA/PMR. Mood is described as down, affect is more reactive. Denies any current si/hi, no voices. IJ improving A/P Patient is imrpoving Continue with current meds Current Medications Sig/Blank Start time Last Medication Dose Route Stop Time Status Admin Acetaminophen 650 MG .STK-MED ONE 10/14 1426 DC PO 10/14 1427 Acetaminophen 650 MG Q6P PRN 10/10 1415 AC 10/14 PO 1432 Al Hydroxide/Mg 30 ML Q4-6 PRN PRN 10/10 1415 AC Hydroxide PO Aspirin Buffered 81 MG DAILY 10/11 1000 AC 10/15 PO 0744 Gabapentin 300 MG 2200 10/13 2200 AC 10/14 PO 2217 Gabapentin 300 MG Q6P PRN 10/13 1945 AC PO Loratadine 10 MG DAILY 10/11 1000 AC 10/15 PO 0744 Lorazepam 0.5 MG 1200 10/15 1200 AC PO 10/15 1201 Lorazepam 0.5 MG 0800,2200 10/14 0800 DC 10/14 PO 10/14 2201 2217 Lorazepam 2 MG Q2P PRN 10/10 1415 AC PO Lorazepam 1 MG Q2P PRN 10/10 1415 AC PO Magnesium Hydroxide 30 ML AT BEDTIME PRN 10/10 1415 AC PO Methadone HCl 60 MG DAILY@0800 10/11 0800 AC 10/15 PO 0744 Multivitamins 1 TAB DAILY 10/10 141 AC 10/15 PO 0744 Nicotine 2 MG Q2P PRN 10/10 1415 AC 10/10 PO 2152 Nicotine 7 MG DAILY 10/10 140 AC 10/15 TOP 0744 Omeprazole 40 MG DAILY AC 10/11 699 AC 10/15 PO 0713 Prazosin HCl 3 MG AT BEDTIME 10/140 DC PO Prazosin HCl 4 MG AT BEDTIME 10/14 2200 AC 10/14 PO 2216 Prazosin HCl 3 MG AT BEDTIME 10/13 220 DC 10/13 PO 2221 Risperidone 3 MG 10/14 2200 AC 10/14 PO 2217 Tuberculin PPD 0.1 ML ONCE ONE 10/14 1430 DC 10/14 ID 10/14 1431 1902 COnt to provide support and encouragement
--- NOTE | 2016-10-15 13:54 | NUR ---
PT VISIBLE SOME OF THE DAY IN THE MILIEU. PT DID NOT ATTEND PLANNING MEETING, BUT WENT TO FOCUS GROUP BUT DID NOT PARTICIPATE MUCH. PT FELL ASLEEP IN THE MIDST OF GROUP. PRIOR TO THAT PT WOULD REPEAT THE ANSWERS OF HIS PEERS IN THE GROUP. PT HAS BEEN COOPERATIVE, AND NOT SCORING ON HIS CIWA. HE DENIES THOUGHTS OF HURTING HIMSELF WHEN ASKED.
--- NOTE | 2016-10-15 21:48 | NUR ---
PT HAS BEEN IN HIS ROOM ASLEEP AND HAS NOT COMMUINICATED MUCH WITH STAFF OR PEERS. WHEN HE IS AWAKE HE APPEARS TO BE CONSTRICTED AND WITHDRAWN WITH A LETHARGIC AND FLAT AFFECT.
[2016-10-16] VITALS (8 sets, daily range): BP systolic 102–137; BP diastolic 60–88
--- NOTE | 2016-10-16 06:08 | NUR ---
PT RETIRED EARLY, SKIPPED WRAP-UP, AND SLEPT.
--- NOTE | 2016-10-16 09:31 | CP SOUTH PROGRESS NOTE PSYCH ---
Psych (Inpt) Progress Note Progress Note Include the following elements, when applicable: Involvement in the active treatment of the patient with behavioral observations of the patient and the patient's response to the treatment. Review of the ongoing treatment process in the context of the treatment plan. Indication of how multi-disciplinary staff members are carrying out the treatment plan. Plans for future interventions and recommendations for revision of the treatment plan. Liaison with other physicians/providers. Progress Note: I discussed this patient's progress to date, current mental status, treatment process in the context of the treatment plan, and discharge planning with staff/ team in the daily morning inpatient team meeting. I also met with the patient myself in individual session. Patient reports he is feeling not that good today. He was feeling better yesterday. He said he had a bad dream and he did not sleep well. Today he is hearing voices telling him to kill himself however he reports that he feels safe he has no intent of hurting himself. Vital Signs Date Time Temp Pulse Resp B/P B/P Pulse O2 O2 Flow FiO2 Mean Ox Delivery Rate 10/16 0752 97.4 73 16 130/88 10/16 0747 97.4 73 130/88 10/15 2236 96.5 81 16 127/77 10/15 2044 96.5 81 127/77 10/15 1542 79 138/86 10/15 1536 79 138/86 10/15 1221 77 124/69 10/15 1158 77 124/69 Patient is in bed, with mild psychomotor retardation. He is oriented. Fairly well related. Cooperative with the interview. Voice is soft. Mood is described as feeling not good, affect is somewhat constricted and despondent. Thought process is organized, he denies any suicidal or homicidal ideation in spite of reporting hearing voices telling him to hurt himself. He says his not paying attention to the voices and he has no intent of hurting himself. Insight and judgment fair A/P Patient reports feeling depressed today here in voices telling him to hurt himself however he denies any intention of doing it and he feels safe in the unit. Continue with current medications for now. Current Medications Sig/Blank Start time Last Medication Dose Route Stop Time Status Admin Acetaminophen 650 MG .STK-MED ONE 10/15 1251 DC PO 10/15 1252 Acetaminophen 650 MG Q6P PRN 10/10 1415 AC 10/15 PO 1250 Al Hydroxide/Mg 30 ML Q4-6 PRN PRN 10/10 1415 AC Hydroxide PO Aspirin Buffered 81 MG DAILY 10/11 1000 AC 10/16 PO 0751 Gabapentin 300 MG 22010/13 220 AC 10/15 PO 2236 Gabapentin 300 MG Q6P PRN 10/13 1945 AC PO Loratadine 10 MG DAILY 10/11 1000 AC 10/16 PO 0751 Lorazepam 0.5 MG 1200 10/15 1200 DC 10/15 PO 10/15 1201 1249 Lorazepam 2 MG Q2P PRN 10/10 1415 AC PO Lorazepam 1 MG Q2P PRN 10/10 1415 AC PO Magnesium Hydroxide 30 ML AT BEDTIME PRN 10/10 1415 AC PO Methadone HCl 60 MG DAILY@0800 10/11 0800 AC 10/16 PO 0751 Multivitamins 1 TAB DAILY 10/10 1415 AC 10/16 PO 0752 Nicotine 2 MG Q2P PRN 10/10 1415 AC 10/10 PO 2152 Nicotine 7 MG DAILY 10/10 1409 AC 10/16 TOP 0752 Omeprazole 40 MG DAILY AC 10/11 0700 AC 10/16 PO 0718 Prazosin HCl 4 MG AT BEDTIME 10/14 2199 AC 10/15 PO 223 Risperidone 3 MG 10/14 AC 10/15 PO 223 Continue to provide support and encouragement.
--- NOTE | 2016-10-16 12:17 | NUR ---
PT HAS BEEN RESTING FOR MOST OF THE DAY THUS FAR, NO ISSUES ONLY COMPLAINING OF PAIN WHEN ASKED AT VITAL SIGNS (CHRONIC), MOOD STABLE WITH FLAT AFFECT, IS APPROPRIATE WITH PEERS AND STAFF, CALM, COOPERATIVE AND OVERALL PLEASANT. AMBULATES SLOW AND STEADY WITH WALKER, DENIED THOUGHTS OF SELF HARM WHEN ASKED & DID NOT ATTEND GROUPS TODAY.
--- NOTE | 2016-10-16 20:46 | NUR ---
PT HAS BEEN ASLEEP IN THE LOUNGE. HE HAS NOT SPOKEN TO STAFF OTHER THAN ADDRESSED. THERE HAS BEEN NO ISSUES OR REPORTS OF EMOTIONAL DISTRESS.
[2016-10-17] VITALS (8 sets, daily range): BP systolic 122–131; BP diastolic 69–81
--- NOTE | 2016-10-17 05:02 | NUR ---
SLEPT WELL OVERNIGHT WITH NO COMPLAINTS.
--- NOTE | 2016-10-17 10:52 | SOCIAL WORKER PROG NOTE PSYCH ---
Social Work Progress Note Progress Note Junior told me he didn't sleep well Monday into Monday, but last night was better. He had been experiencing some voices. Nothing too distressing, stating it was like chatter. Mood is improving. Stated "I'm working on it." Told me he called [facility] this morning. I told him we should call together. He was agreeable. We were able to get through to someone in admissions within a few minutes. She stated that they were just waiting for a psych eval and a copy of a letter from [facility] indicating dosage of Methadone for the past 2 weeks. I told them I would follow up. Asked about wait time at this point? She said, it could be about a week or so. Called [facility] and spoke with Junior's counselor Tam. Requested information be sent to [facility] on Methadone dosage. Tam will follow up. I talked to Junior about doing a referral to [facility]. He was agreeable. Completed referral and faxed to both [facility].
--- NOTE | 2016-10-17 14:20 | NUR ---
PT IS COMPLIANT AND COOPERATIVE. MOOD IS STABLE WITH A CONSTRICTED AFFECT. PT DENIES SI AT THIS TIME, C/O CHRONIC PAIN. NO S/S OF DETOX NOTED OR REPORTED- NO SCORING ON CIWA. PT IS AMBULATING WELL WITH ASSISTANCE FROM WALKER. PT IS PRESENT IN THE COMMUNITY AT TIMES- HAS BEEN SLIGHTLY WITHDRAWN FROM PEERS. PT HAS ATTENDED SOME GROUPS. VITALS ARE STABLE, APPETITE IS GOOD.
--- NOTE | 2016-10-17 17:27 | CP SOUTH PROGRESS NOTE PSYCH ---
Psych (Inpt) Progress Note Progress Note Include the following elements, when applicable: Involvement in the active treatment of the patient with behavioral observations of the patient and the patient's response to the treatment. Review of the ongoing treatment process in the context of the treatment plan. Indication of how multi-disciplinary staff members are carrying out the treatment plan. Plans for future interventions and recommendations for revision of the treatment plan. Liaison with other physicians/providers. Progress Note: PSYCHIATRIST NOTE, 10/17/2016: I discussed this patient's progress to date, current mental status, treatment and discharge planning with staff team today in the daily morning ITTM and also met again with patient in individual session. Patient had experienced recrudescence of bothersome auditory hallucinations over the weekend; he told me today they had "never really gone away completely" but became more intense this past weekend and "tried to become" command in nature, though patient assured me "I just don't listen to them but they distracting..." Patient agreed to my recommendation that at this point we increase dose of Risperdal back up to 4mg, all given at HS, starting tonight. Patient had also continued to experience disturbing nightmares independent of the "voices" and also agreed to my increasing prozosin from 4mg to 5mg HS tonight. Patient is occasionally using the PRN Neurontin for anxiety and finding this helpful. Ms. Raman is referring patient to temporary retirement housing with [facility] where he will be able to stay until a bed opens up for him in [facility] (residential rehab program); patient is very positive about the above plan. His affect is brightening/broadening and mood improving; he is able to smile and joke on occasion now.
--- NOTE | 2016-10-17 18:06 | NUR ---
PT IS CALM, COOPERATIVE WITH STAFF AND PEERS,A ND COMPLIANT WITH UNIT RULES. OFTEN IN MILIEU, SLIGHTLY WITHDRAWN, STAYING TO SELF MOST OF THE TIME. APPEARS LETHARGIC AT TIMES. MOOD IS STABLE, AFFECT APPEARS EUTHYMIC TO FULL RANGE, COMMUNICATIONIS ORGANIZED AND APPEARS NORMAL IN ALL RESPECTS, AND APPETITE IS NORMAL. PT DENIES SI AT THIS TIME.
[2016-10-18] VITALS (7 sets, daily range): BP systolic 131–137; BP diastolic 77–88
--- NOTE | 2016-10-18 03:41 | NUR ---
SLEPT WELL OVERNIGHT.
--- NOTE | 2016-10-18 10:57 | SOCIAL WORKER PROG NOTE PSYCH ---
Social Work Progress Note Progress Note Awaiting a call back from [facility], he is on the waitlist for [facility] heard from them today and it should be about a week wait, this is helpful for respite to know.
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
--- NOTE | 2016-10-18 11:49 | NUR ---
PT IS COMPLIANT AND COOPERATIVE [facility] UNIT RULES. PT IS OUT IN THE COMMUNITY ITNERACTING WELL WITH STAFF AND PEERS. PT IS ATTENDING GROUPS. PT MOOD IS STABLE WITH A FULL RANGE AFFECT. PT DENIES SI THOUGHTS.
--- NOTE | 2016-10-18 15:07 | SOCIAL WORKER PROG NOTE PSYCH ---
Social Work Progress Note Progress Note Junior received his [employer] Card today. Called [facility] to complete screenings, but no one is available. Called [facility] admissions with Lukas to see if they received the document requested from [employer]. We were not successful in speaking with anyone. Lukas will call in the morning. Lukas is concerned that he will use when he leaves if he doesn't go to crisis and respite. I told him I was not able to complete the screening, but I will try again tomorrow. Hopefully I can find out what their bed availability will be. Junior mentioned wanting at some point to connect to a therapist for individual therapy. He feels it would be helpful in processing trauma from childhood. I reminded him that he really needs to get his addiction under control at this point. He agreed on that.
--- NOTE | 2016-10-18 18:41 | NUR ---
PT IS CALM, COOPERATIVE WITH STAFF AND PEERS, AND COMPLIANT WITH UNIT RULES. NOTH IN AND OUT OF MILIEU. WHILE I MILIEU, SLIGHTLY WITHDRAWN WITH LIMITED INTERACTION WITH OTJERS. MOOD IS STABLE, AFFECT APPEARS EUTHYMIC TO FULL RANGE,COMMUNICATION IS ORGANIZED AND APPEARS NORMAL IN ALL RESPECTS, AND APPETITE IS NORMAL. PT DENIES SI AT THIS TIME.
[2016-10-19] VITALS (8 sets, daily range): BP systolic 112–139; BP diastolic 70–78
--- NOTE | 2016-10-19 10:57 | NUR ---
PT IS COMPLIANT AN COOPERATIVE WITH UNIT RULES. PT IS OUT IN COMMUNITY INTERACTING WELL WITH STAFF AND PEERS. PT IS OUT IN THE COMMUNITY ITNERACTING WELL WITH STAFF AND PEERS. PT IS ACTIVE IN GROUPS. PT MOOD IS STABLE WITH A FULL RANGE AFFECT. PT DENIES SI THOUGHTS.
--- NOTE | 2016-10-19 11:50 | SOCIAL WORKER PROG NOTE PSYCH ---
Social Work Progress Note Progress Note Called [facility] and left a message to complete Junior's screening. Called the [place] [facility] as well and left a message. Junior and I met. We contacted Tam (counselor at [facility]) to see if he sent the letter [facility] requested. He said he sent it a couple days ago. Junior and I tried contacting [facility] admissions, but after 15 minutes of waiting we were not able to get through to anyone. He said he will call again in the morning. Junior is continuing to have some nightmares at night. Stated sleep is difficult due to having a roommate that he considers close to him in proximity. He talked about hearing voices more at night, rarely during the day. He acknowledges that they tell him to kill himself. He said he doesn't want to kill himself. Reports that he is learning how to deal with the voices. When we finished meeting Carline (social media editor) was helping complete his screening with the [facility]. Junior spoke with Tracey Mckeon. She apparently told him that she wanted to verify his wait time on the [facility] waiting list. She was also concerned about how he would get to [facility] daily. She reported she will call us back.
--- NOTE | 2016-10-19 14:39 | SOCIAL WORKER PROG NOTE PSYCH ---
Social Work Progress Note Progress Note Completed [place] resp[facility] screening today, they will follow up tomorrow.
--- NOTE | 2016-10-19 15:12 | CP SOUTH PROGRESS NOTE PSYCH ---
Psych (Inpt) Progress Note Progress Note Include the following elements, when applicable: Involvement in the active treatment of the patient with behavioral observations of the patient and the patient's response to the treatment. Review of the ongoing treatment process in the context of the treatment plan. Indication of how multi-disciplinary staff members are carrying out the treatment plan. Plans for future interventions and recommendations for revision of the treatment plan. Liaison with other physicians/providers. Progress Note: Medication list reviewed. Case and treatment plan discussed in team meeting. Staff reports that the patient has been quiet. Present in the milieu. Watches TV. Taking medications. We are trying to place the patient at [facility] tomorrow. Patient seen at 11:12 AM. He uses a rolling walker. Feels good but states he was up most of the night because his roommate snores. Affect is calm and euthymic. Reports mood is all right, about correction. Rates sad mood 5/10. States anxiety is about 7/10. Feels hopeless and helpless. Denies feeling worthless or guilty. Denies active and passive suicidal ideation. Denies homicidal ideation. Reports hearing voices that keep him up at night and tell him to kill himself. They are chronic and unchanged. He gives a safety promise. Denies visual hallucinations. Denies paranoid ideation. Reports appetite is all right and energy is all right too. Tolerating medications well. Agrees to increase Risperdal dose to 5 mg q.h.s. States he will be safe at [facility]. IMPRESSION: Slow progress. Continue present treatment plan. Anticipate possible discharge this week to [facility]. Monitor response to increase in Risperdal dose.
--- NOTE | 2016-10-19 18:04 | NUR ---
PT HAS BEEN OUT IN THE COMMUNITY INTERACTING WELL WITH STAFF AND PEERS. PT HAS BEEN COMPLIANT AND COOPERATIVE WITH UNIT RULES. PT MOOD IS STABLE WTIH A FULL RANGE AFFECT. PT SITS IN LOUNGE WATCHING TV OR THE FISH TANK. PT DENIES SI THOUGHTS WHEN ASKED.
--- NOTE | 2016-10-20 07:27 | NUR ---
PT MORE VISIBLE ON EVENINGS. PT GUILTED INTO ATTENDING WRAP UP. PT SLEPT.
[2016-10-20 08:03] VITALS: BP 142/76
[2016-10-20 08:19] VITALS: BP 142/76
--- NOTE | 2016-10-20 11:48 | SOCIAL WORKER PROG NOTE PSYCH ---
Social Work Progress Note Progress Note Pt denies si/hi/ah/vh. Pt was informed he will be discharged today, and going to crisis respite in [place]. They wll be picking him up at 230pm.
--- NOTE | 2016-10-20 11:50 | NUR ---
PT WILL BE DISCHARGED TODAY TO [facility] WITH FOLLOW UP AT [facility]. PT REPORTS AND DEMONSTRATES IMPROVEMENT IN MOOD AND ABILITY TO FUNCTION. HE DENIES ANY THOUGHTS OF SUICIDE OR SELF HARM. HE VERBALIZES A GOOD UNDERSTANDING OF HIS MED REGIME AND TREATMENT PLAN. PT VERBALIZES A DESIRE TO LEAD A CLEAN AND SOBER LIFESTYLE.PT IS GIVEN EDUCATION R/T MANAGING HIS DEPRESSION AND SUBSTANCE ABUSE AND ON PREVENTING SUICIDE
[2016-10-20 12:14] VITALS: BP 123/83
[2016-10-20] MEDS ORDERED: ASPIRIN EC81 M1 PO (12:48)
[2016-10-20] MEDS ORDERED: RISPERDAL1 M1 PO (12:48)
[2016-10-20] MEDS ORDERED: LORATADINE10 M1 PO (12:48)
[2016-10-20] MEDS ORDERED: GABAPENTIN300 M2 PO (12:48)
[2016-10-20] MEDS ORDERED: OMEPRAZOLE20 M2 PO (12:48)
[2016-10-20] MEDS ORDERED: NICOTINE PATCH1 EAC1 TOP (12:50)
[2016-10-20] MEDS ORDERED: ONE DAILY MULT1 EAC2 PO (12:50)
[2016-10-20 12:52] VITALS: BP 123/83
--- NOTE | 2016-10-20 15:33 | CP SOUTH PROGRESS NOTE PSYCH ---
Psych (Inpt) Progress Note Progress Note Include the following elements, when applicable: Involvement in the active treatment of the patient with behavioral observations of the patient and the patient's response to the treatment. Review of the ongoing treatment process in the context of the treatment plan. Indication of how multi-disciplinary staff members are carrying out the treatment plan. Plans for future interventions and recommendations for revision of the treatment plan. Liaison with other physicians/providers. Progress Note: Case and treatment plan discussed in team meeting. Staff reports that the patient attends focus group. Watches TV. Cooperative and compliant. Patient seen at 12:01 PM. He is dressed in a sweatshirt and scrub pants. States he is all right. Has no complaints. Affect is calm and euthymic. Rates mood 5/10 with 10 being best. Rates sad mood and anxiety both 5/10 with 10 being worst. Denies feeling hopeless, helpless, worthless or guilty. Denies active and passive suicidal ideation. Denies homicidal ideation. Reports auditory hallucinations, stating "yeah, they're sort of there" and say "I'm a loser. I'll never make it in the world." Denies command auditory hallucinations. Denies visual hallucinations. Denies paranoid ideation and magical crespo. Oriented 3. Reports he slept 4 hours last night. Reports appetite is sort of there. States he has energy. Tolerating medications well, without complaint. Feels ready and safe for discharge. Plans to go to [facility] in [place]. He is trying to contact [facility] to get on their waiting list. IMPRESSION: Condition improved. Okay for discharge today to [facility].
--- NOTE | 2016-10-20 16:31 | DISCHARGE SUMMARY REPORT-PSYCH ---
Visit Information Visit Dates/Diagnosis' Admission Date: 10/10/16 Discharge Date: 10/20/16 Reason for Admission: Suicidal ideation. Psy Discharge Primary Diag: Major depression w/ psychotic features Psy Discharge Secondary Diag: Cannabis use disorder Benzodiazepine use d/o Opioid use d/o on MMP Hx PTSD Hypertension Hepatitis C Congenital absence L kidney Osteoarthritis Premature complexes on EKG Hospital Course Significant Lab Findings: Lab Albumin 3.3 g/dL L 10/10/16 0950 Chloride 108 mmol/L H 10/10/16 0950 TSH &T3 &Free T4 Intrp 2.130 uIU/mL 10/10/16 0950 Total Protein 5.9 g/dL L 10/10/16 0950 Hct 34.9 % L 10/10/16 0950 Hgb 11.7 G/DL L 10/10/16 0950 RBC 3.83 /CUMM L 10/10/16 0950 Methadone Screen > 735 NG/ML H 10/10/16 0928 U Benzodiazepines Scrn 521 NG/ML H 10/10/16927 Urine Cannabis Screen > 80.00 NG/ML H 10/10/16 0928 PPD 10/17/16 was negative. EKG 10/10/16 showed sinus rhythm at a rate of 51, multiple premature complexes, vent & supraven, no significant change since previous tracing, abnormal ECG. QT 452, QTc 417. Course Complications: None. Consultations: Patient was seen for admission H&P by Dr. Marcos Hernandez. Please refer to his note for additional information. Allergies: Coded Allergies: NO KNOWN ALLERGIES (03/14/16) Hospital Course/TX Response: The patient was monitored on the unit for safety and mood disorder. He participated in multi-modal treatments on the unit. Risperdal was increased to 5 mg qhs. Methadone was continued. Gabapentin was increased to 300 mg b.i.d. Mood and affect have improved. SI has remitted. Progress note from date of discharge, 10/20/16: Case and treatment plan discussed in team meeting. Staff reports that the patient attends focus group. Watches TV. Cooperative and compliant. Patient seen at 12:01 PM. He is dressed in a sweatshirt and scrub pants. States he is all right. Has no complaints. Affect is calm and euthymic. Rates mood 5/10 with 10 being best. Rates sad mood and anxiety both 5/10 with 10 being worst. Denies feeling hopeless, helpless, worthless or guilty. Denies active and passive suicidal ideation. Denies homicidal ideation. Reports auditory hallucinations, stating "yeah, they're sort of there" and say "I'm a loser. I'll never make it in the world." Denies command auditory hallucinations. Denies visual hallucinations. Denies paranoid ideation and magical crespo. Oriented 3. Reports he slept 4 hours last night. Reports appetite is sort of there. States he has energy. Tolerating medications well, without complaint. Feels ready and safe for discharge. Plans to go to [facility] in [place]. He is trying to contact [facility] to get on their waiting list. IMPRESSION: Condition improved. Okay for discharge today [facility]. Discharge HBIPS - Tobacco Use Treatment Offered Post DC Medications Offered: Script Given-See Med List (Nicoderm 7 mg top daily. ) Post DC Tobacco Treatment Plan: [facility] Program Appt Date: 10/26/16 Program Appt Time: 0150 - EtOH/Drug Use D/O Treatment Offered Post DC Medications Offered: Script Given-See Med List (Remains on methadone via MMP.) Post DC EtOH/SubAbuse TX Plan: Other SubAbuse/Dual Pgm (Patient calling [facility].) Program Appt Date: 10/20/16 (No date yet. TBA by patient.) Program Appt Time: 1626 Metabolic Screening - Screen if on a Neuroleptic Medication - Metabolic screening should include: - Blood Pressure, BMI, Glucose or Hgb A1c, & a - Lipid profile from within the past 365 days. Metabolic Screening () Not Applicable, patient not on a neuroleptic. OR () Patient on a neuroleptic(s) . Enter below results for Glucose or Hemoglobin A1C, and lipid panel if obtained during the last 365 days. BMI: 37.000 Blood Pressure: 123/83 Laboratory Results (If applicable): Lab Cholesterol 170 MG/DL 02/18/16 0833 Cholesterol/HDL Ratio 3 % 02/18/16 0833 Glucose 94 mg/dL 10/10/16 0950 HDL Cholesterol 61 mg/dL H 02/18/16 0833 LDL Cholesterol, Calc 99 mg/dL 02/18/16 0833 Triglycerides 53 mg/dL 02/18/16 0833 Discharge Instructions General Discharge Information Discharge Medications: Discharge Medications- (Dose, route, freq, indication): HOME MEDICATION LIST START taking these NEW Home Medications: Loratadine Dose: ORAL, DAILY for allergies Qty: 14 Sent to (Loratadine) 10 MG 10 Milligram Last Taken: 10/20/16 Refills: 0 Pharm 1 TABLET Time: 0800 Gabapentin Dose: ORAL, 1200,2200 for Qty: 28 Sent to (Gabapentin) 300 MG 300 Milligram off-label for moods Refills: 0 Pharm 1 CAPSULE Last Taken: 10/20/16 Time: 1200 Risperidone Dose: ORAL, 2000 for Qty: 70 Sent to (Risperdal) 1 MG 5 Milligram voices/moods Refills: 0 Pharm 1 TABLET Last Taken: 10/19/16 Time: 2000 Nicotine (Nicotine Dose: On the skin, DAILY for Qty: 14 Called in to Patch) 7 MG/24 HOUR 7 Milligram nicotine cravings Refills: 0 Pharm 2 PATCH.TD24 Last Taken: 10/20/16 Time: 0800 Multivitamin (One Dose: ORAL, DAILY for vitamin Qty: 14 Called in to Daily Multivitamin) 1 Tablet supplement Refills: 0 Pharm 2 1 EACH TABLET Last Taken: 10/20/16 Time: 0800 CONTINUE taking these Home Medications: Methadone HCl Dose: ORAL, DAILY for CHRONIC (Methadose) 10 MG/ML 60 Milligram PAIN ORAL.CONC Last Taken: 10/20/16 Time: 0800 Prazosin HCl (Prazosin Dose: ORAL, AT BEDTIME for HCl) 5 MG CAPSULE 5 Milligram NIGHTMARES Last Taken: 10/19/16 Time: 2200 Aspirin (Ecotrin*) 81 MG Dose: ORAL, DAILY for Renewed Sent TABLET. 1 Tablet HEART/BLOOD to Pharm 1 Last Taken: 10/20/16 Time: 0800 Omeprazole (Omeprazole) Dose: ORAL, DAILY BEFORE Renewed Sent 20 MG CAPSULE. 40 Milligram BREAKFAST for ACID to Pharm 1 REFLUX Last Taken: 10/20/16 Time: 0800 STOP taking these DISCONTINUED Home Medications: Gabapentin (Gabapentin) 100 MG Dose: ORAL, THREE TIMES DAILY for CAPSULE 200 Milligram ANXIETY TAKE TWO CAPSULES, THREE TIMES DAILY NEEDED FOR ANXIETY. Reason Stopped: Changed Dose Risperidone (Risperdal) 1 MG Dose: ORAL, DAILY @8 AM for CLEAR TABLET 1 Milligram THOUGHTS Reason Stopped: Changed Dose Risperidone (Risperdal) 2 MG Dose: ORAL, 2200 for CLEAR THOUGHTS TABLET 2 Milligram Reason Stopped: Changed Dose Sodium Chloride (Deep Sea) Dose: In the nose, EVERY 2 HOURS 0.65 % SPRAY 2 [place] NEEDED as needed for Stuffy nose. Reason Stopped: not using [employer] [id number], [address] [place], [place] [id number] [phone] Multiple Neuroleptics: ([x]) Not Applicable OR Document below three failed attempts at monotherapy, or a plan to taper to monotherapy, or augmentation of Clozapine. () Patient's Diet: Regular. Patient's Activity: Uses a walker. DC Disposition: [facility] [place]. Patient is calling [facility] to get on their waiting list. Recommendations: 1. Patient advised to see PCP for lab abnormalities listed on Discharge Instructions Sheets and for medical diagnoses listed on Discharge Instructions Sheets. 2. Patient advised to stay away from drugs and alcohol. Referred To: KATEY Wise by patient. [facility] Cessation 10/26/16 4 pm. Copies To: .
--- NOTE | 2016-10-21 15:31 | SOCIAL WORKER PROG NOTE PSYCH ---
Social Work Progress Note Progress Note Updated W10 to reflect the change in smoking cessation group from 10/26/16 to at 4pm. refaxed W10.
== END 2016-10-20 14:20 | DRG 885 ==
LOC: ERH 08:58 → CP SOUTH 14:03 → ERHI 14:03 → ENTRNSPT 16:29 → EDTRNSPT 16:43 → CP SOUTH 17:27 → CMPTRNSPT 18:36 → ENRESERV 23:59 → CP SOUTH 10-15 13:35
PROVIDERS: Physician Assistant; ADMIT Psychiatry & Neurology Addiction Medicine
DX: F33.8 Other recurrent depressive disorders (principal); F12.90 Cannabis use, unspecified, uncomplicated; F11.90 Opioid use, unspecified, uncomplicated; F13.90 Sedative, hypnotic, or anxiolytic use, unspecified, uncomplicated
CPT/HCPCS: 80307; 81003; 93005; 93010

== ENCOUNTER 2016-11-15 12:04 | Inpatient (IN) | payer OTHER, MEDICARE ==
[~2016-11-15] VITALS: Ht 170.2 cm; Wt 108.9 kg
[~2016-11-15 12:04] MED LIST changes: +NICOTINE PATCH1 EAC1 TOP; +ONE DAILY MULT1 EAC2 PO
--- NOTE | 2016-11-15 12:10 | NUR ---
PT TO ED "I AM JUST DEPRESSED, VERY DEPRESSED, I TOOK A HANDFUL OF PILLS YESTERDAY, THOUGHT I WOULDN'T BE HERE TODAY, SO I CAME IN". PT STATING "I TOOK ABOUT 30 KLONOPIN PILLS YESTERDAY".
--- NOTE | 2016-11-15 12:47 | NUR ---
PA STUDENT AT BEDSIDE FOR EVALUATION
--- NOTE | 2016-11-15 12:52 | NUR ---
PT CURRENTLY BEING WANDED AND CHANGED. 1 VALUABLES BAG LOCKED IN ED SAFE
--- NOTE | 2016-11-15 12:57 | ED PSYCHIATRIC COMPLAINT ---
History of Present Illness General Chief Complaint: Psychiatric Related Complaint Stated Complaint: +SI Source: patient, old records Exam Limitations: no limitations Vital Signs & Intake/Output Vital Signs & Intake/Output Vital Signs Date Time Temp Pulse Resp B/P B/P Pulse O2 O2 Flow FiO2 Mean Ox Delivery Rate 11/15 1710 97.0 55 20 153/75 94 Room Air 11/15 1211 97.1 83 20 111/77 95 Room Air Room Air Allergies Coded Allergies: NO KNOWN ALLERGIES (03/14/16) Reconcile Medications Aspirin (Ecotrin*) 81 MG TABLET.DR 1 TAB PO DAILY HEART/BLOOD Gabapentin 300 MG CAPSULE 300 MG PO 1200,2200 off-label for moods Loratadine 10 MG TABLET 10 MG PO DAILY allergies Methadone HCl (Methadose) 10 MG/ML ORAL.CONC 60 MG PO DAILY CHRONIC PAIN ( Reported) Multivitamin (One Daily Multivitamin) 1 EACH TABLET 1 TAB PO DAILY vitamin supplement Nicotine (Nicotine Patch) 7 MG/24 HOUR PATCH.TD24 7 MG TOP DAILY nicotine cravings Omeprazole 20 MG CAPSULE.DR 40 MG PO DAILY AC ACID REFLUX Prazosin HCl 5 MG CAPSULE 5 MG PO AT BEDTIME NIGHTMARES Risperidone (Risperdal) 1 MG TABLET 5 MG PO 1999 voices/moods Triage Note: PT TO ED "I AM JUST DEPRESSED, VERY DEPRESSED, I TOOK A HANDFUL OF PILLS YESTERDAY, THOUGHT I WOULDN'T BE HERE TODAY, SO I CAME IN". PT STATING "I TOOK ABOUT 30 KLONOPIN PILLS YESTERDAY". Triage Nurses Notes Reviewed? yes Onset: Gradual Timing: recent history Severity: severe Severity Numbers: 10 Associated Symptoms: anxiety, suicidal ideation HPI: Patient is a 60-year-old male with history of depression presenting to the emergency Department chief complaint of worsening symptoms of aspirin week. Positive suicidal ideation. Patient reports that last night he attempted to kill himself by taking 30 Klonopin pills that he bought off the street. Patient reports he had no effect from taking all of those pills. Patient denying any pain. No nausea vomiting fevers or chills chest pain or shortness of breath. Reports he takes methadone daily and smokes 5 cigarettes daily. No drug use. Reports he knows he needs to see a therapist but has not seen one. Past History Travel History Traveled to [place] past 21 day No Medical History Any Pertinent Medical History? see below for history Neurological: delerium tremens (D.T.-like benzo. 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 hallucin.), substance abuse (cannabis, alcohol, NO cocaine), benzodiazepine (Xanax and Klonopin) use disorder; abusing benzos. recently Endocrine: NONE Blood Disorders: NONE Cancer(s): NONE LAB ANALYST/Reproductive: NONE History of MRSA: No History of VRE: No History of CDIFF: No Surgical History Surgical History: knee replacement (RT HIP- ?EARLY 2015-), knee surgery Psychosocial History Who do you live with Other (see notes) What is your primary language Frisian Tobacco Use: Current Daily Use Daily Tobacco Use Amount/Type: => 5 Cigarettes daily ETOH Use: denies use Illicit Drug Use: denies illicit drug use Family History Family History, If Any: Relation not specified for: *No pertinent family history Hx Contributory? No Review of Systems Review of Systems Constitutional: Reports: no symptoms. Comments Review of systems: See HPI, All other systems negative. Constitutional, no chills fever or weight loss HEENT: No visual changes no sore throat no congestion Cardiovascular: No chest pain ,palpitation , orthopnea or ankle swelling Skin, no jaundice no rashes Respiratory: No dyspnea cough sputum or hemoptysis GI: No nausea no vomiting : No dysuria No hematuria Muscle skeletal: no back pain, no neck pain, Neurologic: No numbness no confusion Psych: pos stress and anxiety Heme/endocrine: No bruising no bleeding no polyuria or polydipsia Immunology: No splenectomy or history of AIDS Physical Exam Physical Exam General Appearance: well developed/nourished, no apparent distress, alert, awake , comfortable Neurological/Psychiatric: oriented x 3 Comments: Well-developed well-nourished person in no acute distress HEENT: Pupils equally round and reactive to light and accommodation. Nose is atraumatic. Neck: normal inspection Back: Nontender Cardiovascular: Regular rate and rhythms no murmurs rubs or gallops, normal JVP Respiratory: No respiratory distress.breath sounds clear to auscultation bilaterally Extremity: No edema Neuro: Alert oriented x3 Skin: No appreciable rash on exposed skin, skin is warm and dry. Psych:flat affect, memory and judgment is normal. SAD PERSONS SAD PERSONS Response Value Male Sex? yes 1 Age <19 or >45 years? yes 1 Depression/Hopelessness? yes 2 Excessive Ethanol/Drug Use? yes 1 Rational Thinking Loss? yes 2 Single//? yes 1 Organized/Serious Attempt yes 2 Social Support? has no support 1 Total 11 SAD PERSONS Done? yes Progress Differential Diagnosis: drug intoxication, drug overdose, drug withdrawal, encephalitis, hypoglycemia, hypothyroidism Plan of Care: Orders Procedure Date/time Status Regular Diet 11/16 B Active THYROID STIMULATING HORMONE 11/16 599 Active Regular Diet 11/15 D Complete Patient Data - inpatient psych 11/16 1923 Active Admit to inpatient psych 11/15 192 Active EKG 11/15 192 Active Add-on Test (ER Only) 11/15 1258 Active Continuous Observation Monitor 11/15 1216 Active URINE DRUG SCREEN FOR ER ONLY 11/15 1215 Complete ACETOMINOPHEN 11/15 1215 Complete TSH REFLEX 11/15 1215 Complete SALICYLATE 11/15 1215 Complete ETHANOL 11/15 1215 Complete COMPREHENSIVE METABOLIC PANEL 11/15 1215 Complete CBC WITHOUT DIFFERENTIAL 11/15 1215 Complete ED CRISIS PSYCH CONSULT 11/15 1215 Active Vital Signs 11/15 UNK Active Nursing Misc 11/15 UNK Active CIWA 11/15 UNK Active Alternative Nursing Therapy 11/15 UNK Active Activity/Ambulation 11/15 UNK Active Current Medications Sig/Blank Start time Last Medication Dose Stop Time Status Admin Aspirin Buffered 81 MG DAILY 11/16 1000 [facility] (Ecotrin) Loratadine 10 MG DAILY 11/16 1000 [facility] (Claritin) Multivitamins 1 TAB DAILY 11/16 1000 [facility] Therapeutic (Theragran-M Vitamins Tabs) Nicotine 7 MG DAILY 11/16 1000 [facility] (Nicotine Cq) Methadone HCl 60 MG 8AM 11/16 0800 [facility]r (Dolophine) Omeprazole 40 MG DAILY AC 11/16 07 [facility]r (Prilosec) Gabapentin 300 MG 1200,2200 11/15 2199 [facility] (Neurontin) Prazosin HCl 5 MG AT BEDTIME 11/15 2199 UN[facility]r (Minipress 5 MG) Risperidone 5 MG 11/15 UNVr (Risperidone) Al Hydroxide/Mg 30 ML Q4-6 PRN PRN 11/15 1929 [facility] Hydroxide (Maalox Plus) Ibuprofen 400 MG Q6P PRN 11/15 1929 [facility] (Motrin) Lorazepam 1 MG Q2P PRN 11/15 1929 [facility]r (Ativan) Lorazepam 2 MG Q2 HRS NEEDED PRN 11/15 1929 [facility] (Ativan) Laboratory Tests 11/15/16 1439: Urine Opiates Screen < 100.00, Methadone Screen > 735 H, Barbiturate Screen < 60, Ur Phencyclidine Scrn 8.10, Amphetamines Screen < 100, U Benzodiazepines Scrn 654 H, Urine Cocaine Screen 183, Urine Cannabis Screen 76.10 H 11/15/16 1301: Anion Gap 12, Estimated GFR > 60, BUN/Creatinine Ratio 13.3, Glucose 98, Calcium 9.6, Total Bilirubin 0.7, AST 21, ALT 31, Alkaline Phosphatase 82, Total Protein 7.2, Albumin 4.4, Globulin 2.8, Albumin/Globulin Ratio 1.6, TSH &T3 &Free T4 Intrp 3.330, Salicylates < 1.0, Acetaminophen < 10.0 L, Serum Alcohol < 10.0 11/15/16 1300: CBC w Diff NO MAN DIFF REQ, RBC 4.51 L, MCV 91.1, MCH 30.7, RDW 13.3, MPV 9.2, Gran % 61.6, Lymphocytes % 27.1, Monocytes % 7.6, Eosinophils % 3.2, Basophils % 0.5, Absolute Granulocytes 4.3, Absolute Lymphocytes 1.9, Absolute Monocytes 0.5 , Absolute Eosinophils 0.2, Absolute Basophils 0, PUBS MCHC 33.7 Comments: Patient will be admitted to [facility] for depressive disorder not otherwise specified. Departure Departure Time of Disposition: 1923 Disposition: STILL A PATIENT Condition: Stable Clinical Impression Primary Impression: Depressive disorder Referrals: UNKNOWN (PCP/Family) Departure Forms: Customer Survey General Discharge Information Psych Admission Note Psychiatric Admission: I have seen and evaluated GONSALO ALCARAZ. I have also reviewed all the pertinent lab results and diagnostic results. GONSALO ALCARAZ will be admitted to our inpatient Psychiatric unit for treatment and care. Patient will be admitted to Inpatient Psychiatry for further evaluation and treatment .
--- NOTE | 2016-11-15 13:05 | NUR ---
LABS COLLECTED AND SENT BY THIS [facility]. SST, LAV.
[2016-11-15 13:11] LABS: ABSOLUTE BASOPHIL COUNT 0 /CUMM (0.0-0.2); ABSOLUTE EOSINOPHIL COUNT 0.2 /CUMM (0.0-0.7); ABSOLUTE GRANULOCYTE CT 4.3 /CUMM (1.4-6.5); ABSOLUTE LYMPH COUNT 1.9 /CUMM (1.2-3.4); ABSOLUTE MONOCYTE COUNT 0.5 /CUMM (0.10-0.60); BASOPHIL % 0.5 % (0.0-2.0); EOSINOPHIL % 3.2 % (0-5); GRANULOCYTE % 61.6 % (42.2-75.2); MEAN CORPUSCULAR HGB 30.7 PG (27.0-31.0); MEAN CORPUSCULAR HGB CONC 33.7 G/DL (33.0-37.0); MEAN CORPUSCULAR VOLUME 91.1 FL (80.0-94.0); MEAN PLATELET VOLUME 9.2 FL (7.4-10.4); PLATELET COUNT 177 /CUMM (130-400); RBC DISTRIBUTION WIDTH 13.3 % (11.5-14.5); RED BLOOD CELL CT 4.51 /CUMM (4.70-6.10); WHITE BLOOD CELL COUNT 6.9 /CUMM (4.8-10.8)
--- NOTE | 2016-11-15 14:44 | NUR ---
Urine specimen collected and sent trio to lab
--- NOTE | 2016-11-15 15:34 | ED PSY CRISIS COLLATERAL NOTE ---
See Addendum Collateral Note Collateral Note Family/Inform/Vibha Contacts: [place] [phone]: This copywriter left a voice mail for collateral information 3: 33PM.
--- NOTE | 2016-11-15 17:01 | NUR ---
PT SLEEPING AT THIS TIME, RESP EVEN AND NONLABORED, EQUAL RISE AND FALL OF THE CHEST. HAS MEAL TRAY AT BEDSIDE THAT IS EMPTY, APPEARS TO HAVE EATEN. SKIN DRY AND NORMAL COLOR. LAYING ON BACK WITH BLANKET. SITTERS AT BEDSIDE. WCTM.
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
--- NOTE | 2016-11-15 19:48 | NUR ---
PHARMACY CALLED FOR 2000 MEDICATIONS NOT STOCKED IN ED.
--- NOTE | 2016-11-15 20:11 | NUR ---
PT REQUESTING NIGHT MEDS AT THIS TIME, STATES "I WANT TO GO TO SLEEP AND I DON'T WANT TO WAKE UP AND HAVE TO TAKE MORE." VSS AND UPDATED. PT REPORTS SI, DENIES HI. RESP EVEN AND NONLABORED, EQUAL RISE AND FALL OF THE CHEST AND IN NAD AT THIS TIME. PT LAID BACK DOWN IN BED POST MEDICATION ADMINISTRATION AND APPEARS TO BE GOING BACK TO SLEEP. WCTM.
--- NOTE | 2016-11-15 21:07 | NUR ---
REPORT CALLED TO [facility]
--- NOTE | 2016-11-15 21:16 | NUR ---
PT ASLEEP. AWOKEN TO INFORM OF PLAN TO BRING TO [facility]PS[facility]. CIWA PERFORMED. PT DENIES COMPLAINTS
[2016-11-15 21:28] VITALS: BP 104/74
[2016-11-16] VITALS (10 sets, daily range): BP systolic 104–152; BP diastolic 68–94
--- NOTE | 2016-11-16 00:24 | NUR ---
ARRIVED ON UNIT FROM E.D. BEING ADMITTED FOR WORSENING DEPRESSION AND SUICIDAL IDEATION WITH NO CURRENT PLAN. PT REPORTS A S/A TWO DAYS AGO WITH KLONOPIN BUT DID NOT . REPORTS NONCOMPLIANCE FOR MENTAL HEALTH TREATMENT AND RECENTLY (WHICH HE DENIES) [facility] AND DECLINED A BED AT [facility]. STATES "IJUST DON'T WANT TO LIVE ANYMORE, IS ABUSING CANNABIS AND BENZOS. HE IS CURRENTLY HOMELESS, REPORTING POOR SLEEP AND DECREASED APPETITE ALONG WITH OTHER NEUROVEGATATIVE S/S OF DEPRESSION. PT IS ON SOCIAL SECURITY DISABILITY AND METHADONE MAINTAINENCE FROM [facility].
--- NOTE | 2016-11-16 04:43 | NUR ---
SLEPT WELL OVERNIGHT, NO COMPLAINTS OFFERED
--- NOTE | 2016-11-16 13:05 | NUR ---
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 HE DENIES ANY THOUGHTS OF SUICIDE OR SELF HARM AT THIS TIME. HE IS COMPLIANT WITH HIS MED REGIME AND USING WALKER FOR SAFE AMBULATION
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
--- NOTE | 2016-11-16 17:36 | SOCIAL WORKER PROG NOTE PSYCH ---
Social Work Progress Note Progress Note Junior shared that since his discharge her last month, he had gone to crisis and respite in [facility]. He said he decided to leave after a few days because he couldn't participate in the level of activity they were expecting of him. Stating he couldn't go up and down the stairs, do chores, groups, ect.. He then said he refused to go the [facility] because he didn't feel he could participate there either. His biggest complaint is his ability to walk. He wants to see an orthopedic. I asked if he had refused a bed at [place], as they had called stating they had a bed for him and we referred them to crisis and respite. He said he wasn't aware. I was very blunt with Junior, as we have worked together several times over the past year or so. I told him that I set up aftercare for him and then he sabotages it. Asked what I could do to help him? He repeatedly stated he needed an orthopedic. I asked if he had seen a doctor in the community that could refer him? He said no. I told him that may be the first step and that I would discuss it further at team meeting. I asked where he was staying since leaving crisis and respite? He said he was at a hotel for 2 weeks. Asked if he was out of money? He said no. He reports seeing a doctor in [place] that prescribed him the Klonopin that he took. Dr. Nunez is the person he mentioned. He said he had only saw this person one time and that was the only medication being prescribed. Reports no voices today. Looks fatigued and is feeling tired. He said he'll leave. I asked where he would go? He said he would find a friend to stay with or figure something out. I told him I will discuss things more with our team tomorrow.
--- NOTE | 2016-11-16 18:06 | History & Physical ---
General Information and HPI MD Statement: I have seen and personally examined GONSALO ALCARAZ and documented this H&P. The patient is a 60 year old M who presented with a patient stated chief complaint of "very depressed". Source of Information: patient, old records Exam Limitations: unable to give history History of Present Illness: 60-year-old white male with long psychiatric history is admission to Inpatient Psychiatry was 11/19/2016 did not follow with outpatient therapy is being feeling suicidal and the night before admission took 30 Klonopin's to kill himself feels depressed and anxious helpless, having some sleep disturbances. He is also homeless due to all these reasons is admitted for evaluation and treatment Allergies/Medications Allergies: Coded Allergies: NO KNOWN ALLERGIES (03/14/16) Home Med list Aspirin (Ecotrin*) 81 MG TABLET.DR 1 TAB PO DAILY HEART/BLOOD Gabapentin 300 MG CAPSULE 300 MG PO 1200,2200 off-label for moods Loratadine 10 MG TABLET 10 MG PO DAILY allergies Methadone HCl (Methadose) 10 MG/ML ORAL.CONC 60 MG PO DAILY CHRONIC PAIN ( Reported) Multivitamin (One Daily Multivitamin) 1 EACH TABLET 1 TAB PO DAILY vitamin supplement Nicotine (Nicotine Patch) 7 MG/24 HOUR PATCH.TD24 7 MG TOP DAILY nicotine cravings Omeprazole 20 MG CAPSULE.DR 40 MG PO DAILY AC ACID REFLUX Prazosin HCl 5 MG CAPSULE 5 MG PO AT BEDTIME NIGHTMARES Risperidone (Risperdal) 1 MG TABLET 5 MG PO 1999 voices/moods Compliance With Home Meds: UNKNOWN Past History Travel History Traveled to [place] past 21 day No Medical History Neurological: delerium tremens (D.T.-like benzo. 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 sibling Primary Language: Martiniquais ETOH Use: denies use Illicit Drug Use: denies illicit drug use Functional Ability Ambulation: cane (WALKER HERE, CANE AT HOME) Employment History Employment Disability Profession/Employer N/A Review of Systems Review of Systems Constitutional: Reports: see HPI. EENTM: Reports: see HPI. Cardiovascular: Reports: see HPI. Exam & Diagnostic Data Last 24 Hrs of Vital Signs/I&O Vital Signs Date Time Temp Pulse Resp B/P B/P Pulse O2 O2 Flow FiO2 Mean Ox Delivery Rate 11/16 1605 67 111/70 11/16 1603 67 111/70 11/16 1233 68 118/75 11/16 1230 68 118/75 11/16 0755 71 124/73 11/16 0749 98.1 71 124/73 11/16 0015 95.8 65 104/68 11/158 97.7 61 104/74 11/15 2018 97.3 54 19 122/72 97 Room Air 11/15 2010 122/74 Intake & Output 11/16 1600 11/16 0800 11/16 0000 Intake Total Output Total Balance Patient 240 lb Weight Physical Exam General Appearance Alert, Oriented X3, Cooperative, No Acute Distress Skin No Rashes HEENT PERRLA, EOMI Neck Supple, No JVD, No thryomegaly Lymphatic Axillary nl, Cervical nl Cardiovascular Regular Rate, No Murmurs Lungs Clear to Auscultation, Normal Air Movement Abdomen Soft, No Tenderness, No Hepatospenomegaly Neurological Exam Findings: Normal Speech, Strength at 5/5 X4 Ext, Normal Tone, Sensation Intact, Cranial Nerves 3-12 NL, Reflexes 2+ Cranial Nerves II through XII: Intact Extremities No Cyanosis, No Edema, Normal Pulses Vascular Normal Pulses, Pulses Symmetrical Last 24 Hrs of Labs/Obie: Laboratory Tests 11/16/16 0601: TSH 7.860 H 11/15/16 1439: Urine Opiates Screen < 100.00, Methadone Screen > 735 H, Barbiturate Screen < 60, Ur Phencyclidine Scrn 8.10, Amphetamines Screen < 100, U Benzodiazepines Scrn 654 H, Urine Cocaine Screen 183, Urine Cannabis Screen 76.10 H 11/15/16 1301: Anion Gap 12, Estimated GFR > 60, BUN/Creatinine Ratio 13.3, Glucose 98, Calcium 9.6, Total Bilirubin 0.7, AST 21, ALT 31, Alkaline Phosphatase 82, Total Protein 7.2, Albumin 4.4, Globulin 2.8, Albumin/Globulin Ratio 1.6, TSH &T3 &Free T4 Intrp 3.330, Salicylates < 1.0, Acetaminophen < 10.0 L, Serum Alcohol < 10.0 11/15/16 1300: CBC w Diff NO MAN DIFF REQ, RBC 4.51 L, MCV 91.1, MCH 30.7, RDW 13.3, MPV 9.2, Gran % 61.6, Lymphocytes % 27.1, Monocytes % 7.6, Eosinophils % 3.2, Basophils % 0.5, Absolute Granulocytes 4.3, Absolute Lymphocytes 1.9, Absolute Monocytes 0.5 , Absolute Eosinophils 0.2, Absolute Basophils 0, PUBS MCHC 33.7 Laboratory Tests 11/16/16 0601: TSH 7.860 H Assessment/Plan As Ranked By This Provider Problem List: 1. Depressive disorder 2. Methadone dependence Miscellaneous Miscellaneous Documentation Attending Case Discussed With: DONNA CUENCA,IRENE Primary Care Physician: UNKNOWN Patient sees these Specialists Psychiatrist Level of Patient Care: CARIDAD Soto Consults Needed: Consulting Specialty: Psychiatry Consulting Physician: Dr. Tobar Reason for Consult: depression, suicidal ideations
--- NOTE | 2016-11-16 18:35 | NUR ---
PT IS CALM, COOPERATIVE WITH STAFF AND PEERS, AND COMPLIANT WITH UNIT RULES. BOTH IN AND OUT OF MILIEU, STAYING MOSTLY IN THE PERIPHERY. PT IS LETHARGIC, SLEEPING BOTH IN AND OUT OF MILIEU. CAN BE IRRITABLE AT TIMES. MOOD IS STABLE, AFFECT APPEARS EUTHYMIC TO FULL RANGE, COMMUNICATION IS ORGANIZED AND APPEARS NORMAL IN ALL RESPECTS, AND APPETITE IS NORMAL. PT DENIES SI AT THIS TIME.
[2016-11-17] VITALS (8 sets, daily range): BP systolic 127–159; BP diastolic 87–94
--- NOTE | 2016-11-17 11:39 | SOCIAL WORKER PROG NOTE PSYCH ---
Social Work Progress Note Progress Note Junior, Dr. Tobar and I met together initially. Junior is complaining of knee and leg pain. Talked about how he really should see a primary care doctor who can then refer to an orthopedic. Dr. Tobar suggested he see Dr. Tony at [facility]. He apparently didn't know there was medical doctors through [facility]. I suggested we call his counselor and see what the referral process would be. Junior currently denies any depression, anxiety, AH/VH, SI/HI. He feels hopeless and helpless related to his pain. On a scale of 1-10 he scored his pain at a 7 today, 10 being worst. Talked about discharge for Monday. Asked where he would go? He said a friend, where his sister is staying, or a detention. Reported the date being 11/18/16. After Dr. Tobar left the office he proceeded to tell me that when he woke up there was someone telling him that he was supposed to go to a wedding today. Junior was mumbling and it was difficult for me to understand what he was saying, but it sounded like he was waking from sleep and had a strange experience, which may have been a dream. He continued to talk, but his eyes were closing and again difficult to understand. Looks over medicated. Asked if he felt confused? He said yes. He went to his room after.
--- NOTE | 2016-11-17 12:44 | NUR ---
PT HAS BEEN ISOLATIVE IN ROOM FOR MOST OF THE SHIFT, SLEEPING IN ROOM. PT WILL COME OUT IN THE COMMUNITY AND SIT IN LOUNGE BUT INTERACTS MINIMALY WITH OTHERS. PT IS NOT ATTENDING GROUPS. PT HAD AN IRRITABLE EDGE AT TIMES WHEN STAFF ENCOURGES PT TO GET OUT OF BED. PT DENIES SI THOUGHTS. PT IS NOT SCORING ON CIWA ASSESSMENT.
--- NOTE | 2016-11-17 16:03 | CP SOUTH PROGRESS NOTE PSYCH ---
Psych (Inpt) Progress Note Progress Note Include the following elements, when applicable: Involvement in the active treatment of the patient with behavioral observations of the patient and the patient's response to the treatment. Review of the ongoing treatment process in the context of the treatment plan. Indication of how multi-disciplinary staff members are carrying out the treatment plan. Plans for future interventions and recommendations for revision of the treatment plan. Liaison with other physicians/providers. Progress Note: Case and treatment plan discussed in team meeting. Staff reports that the patient can be disoriented. Always appears sleepy. Sleeps in the lounge. CIWAs are low. Patient seen with Jena Raman LCSW at 11:11 a.m. Patient is using rolling walker to ambulate. Reports right leg post-surgical pain. Reports hx 3 knee replacmenets. Has no PCP so we will recommend he receive primary care at [facility] and get an orthopedics referral through [facility]. Appears mildly sedated, withdrawn, depressed and having very little energy. Agrees to a discharge on Monday if Dr. Stack concurs. Reports mood is terrible. Rates sad mood and anxiety both 0/ 10. Rates pain 7/10. Feels hopeless and helpless. Denies feeling worthless or guilty. Denies active and passive SI, HI, AH, VH and PI. Gives the date as November,. Reports sleep is very good and appetite and energy are good. Tolerating medications well, without complaint. States he can live with a friend, his sister or in a senior care after discharge. IMPRESSION: Slow progress. Continue present treatment plan. Continue current medications as written. I am reluctant to add an antidepressant with sad mood score 0/10 and with past hx psychosis. Anticipate discharge on Monday if Dr. Stack concurs.
--- NOTE | 2016-11-17 18:39 | NUR ---
PT IS CALM, COOPERATIVE WITH STAFF AND PEERS, AND COMPLIANT WITH UNIT RULES. BOTH IN AND OUT OF MILIEU, APPEARING LETHARGIC, SLEEPING IN PT ROOM AT TIMES. MOOD IS STABLE, AFFECT APPEARS EUTHYMIC TO FULL RANGE, COMMUNICATION IS ORGANIZED AND APPEARS NORMAL IN ALL RESPECTS, AND APPETITE IS NORMAL. PT DENIES SI AT THIS TIME.
[2016-11-18] VITALS (8 sets, daily range): BP systolic 126–144; BP diastolic 79–96
--- NOTE | 2016-11-18 07:35 | NUR ---
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 PT INCREASINGLY DEPRESSED. PT HAS A HISTORY OF A TBI. PT ON THE PERIPHERY. PT WOULD LIKE PAIN MED PRNs.
--- NOTE | 2016-11-18 11:11 | SOCIAL WORKER PROG NOTE PSYCH ---
Social Work Progress Note Progress Note GONSALO ALCARAZ [id number] GONSALO ALCARAZ [id number] Pended Authorization # Client Authorization # Type of Request [id number] CONCURRENT Date of Admission/ Start of Services Requested From Submission Date 11/15/2016 11/18/2016 11/18/2016
--- NOTE | 2016-11-18 11:45 | SOCIAL WORKER PROG NOTE PSYCH ---
Social Work Progress Note Progress Note Pt is irritable, attended group this morning, but is concerned with leg pain. He is drowsy and difficult to understand. I encouraged pt to follow through with additional psychiatric services at [facility], i.e. Iop and medical follow up with Dr. Tony. I heard back from Tam from [facility] and he made an appointment for Dr. Tony November 25, 2016 at 9:30 am, Tam will also encourage pt to attend their IOp and see a psychiatrist as well.
--- NOTE | 2016-11-18 13:35 | NUR ---
PARTIAL ATTENDENCE IN GROUPS. MOOD IS STABLE, EUTHYMIC AFFECT. DENIED ANY THOUGHTS OF SELF HARM WHEN ASKED. HAS MANAGED TO GET A FEW NAPS SO FAR
--- NOTE | 2016-11-18 13:48 | CP SOUTH PROGRESS NOTE PSYCH ---
Psych (Inpt) Progress Note Progress Note Include the following elements, when applicable: Involvement in the active treatment of the patient with behavioral observations of the patient and the patient's response to the treatment. Review of the ongoing treatment process in the context of the treatment plan. Indication of how multi-disciplinary staff members are carrying out the treatment plan. Plans for future interventions and recommendations for revision of the treatment plan. Liaison with other physicians/providers. Progress Note: Case and treatment plan discussed in team meeting. Staff reports that the patient looks sedated. He reports that he is depressed. Denying suicidal ideation. Patient seen at 11:02 AM. I have observed him to be sleepy and sleeping in the milieu. Reports he feels a lot better than he did yesterday. He is apologizing to me but I am not sure why. I asked where he sourced his Klonopin, and he reported he was buying it on the street. Denies feeling sedated. Nonetheless, agrees to reduce methadone dose to 50 mg daily. Reports mood is about the same, stating that he has bad moments and he has good moments. Rates sad mood 4/10 and anxiety 5/10. Feels hopeless, helpless and worthless but not guilty. Denies active suicidal ideation. Initially denied passive suicidal ideation and then reported that there is no reason to be around and he feels life is not worth living. Seems anhedonic. Denies homicidal ideation. Denies auditory and visual hallucinations and paranoid ideation. Reports sleep and appetite are getting better. Reports energy has not gone either way; it is low. Tolerating current medications well. IMPRESSION: Slow progress. Continue present treatment plan. Consider addition of an antidepressant. He has been on Celexa here in the past. I have been reluctant to add an antidepressant because of past psychotic symptoms. Hopefully patient will show an improvement in mood on less methadone. Anticipate possible discharge on Monday, pending Dr. Stack's concurrence.
--- NOTE | 2016-11-18 20:26 | NUR ---
PT IS VISIBLE ON UNIT, MOSTLY STAYING TO HIMSELF AND WATCHING TV IN KITCHEN. COOPERATIVE AND COMPLIANT WITH STAFF. PT NOT SLEEPING IN THE COMMUNITY MUCH TODAY. NO SCORING ON CIWA. NO COMPLAINTS OR SI REPORTED. PT HAS A STABLE MOOD AND FULL RANGE AFFECT.
[2016-11-19] VITALS (9 sets, daily range): BP systolic 100–124; BP diastolic 64–74
--- NOTE | 2016-11-19 05:29 | NUR ---
PATIENT SLEPT ALL NIGHT.
--- NOTE | 2016-11-19 11:36 | CP SOUTH PROGRESS NOTE PSYCH ---
Psych (Inpt) Progress Note Progress Note Include the following elements, when applicable: Involvement in the active treatment of the patient with behavioral observations of the patient and the patient's response to the treatment. Review of the ongoing treatment process in the context of the treatment plan. Indication of how multi-disciplinary staff members are carrying out the treatment plan. Plans for future interventions and recommendations for revision of the treatment plan. Liaison with other physicians/providers. Progress Note: Pt irritable today around decrease in methadone. He notes continued AHs of disparging voice. Despite this, slept well. Notes passive 2/2 AHs. Current Medications Sig/Blank Start time Last Medication Dose Route Stop Time Status Admin Al Hydroxide/Mg 30 ML Q4-6 PRN PRN 11/15 1929 AC Hydroxide PO Aspirin Buffered 81 MG DAILY 11/16 1000 AC 11/19 PO 0808 Clonidine 0.1 MG ONCE ONE 11/19 1030 DC 11/19 PO 11/19 1031 1124 Gabapentin 300 MG 1200,11/15 AC 11/19 PO 112 Ibuprofen 400 MG Q6P PRN 11/15 193 AC 11/18 PO 1948 Loratadine 10 MG DAILY 11/16 1000 AC 11/19 PO 0808 Lorazepam 1 MG Q2P PRN 11/15 193 AC PO Lorazepam 2 MG Q2 HRS NEEDED PRN 11/15 193 AC PO Methadone HCl 50 MG 8AM 11/19 0800 AC 11/19 PO 0808 Multivitamins 1 TAB DAILY 11/16 1000 AC 11/19 Therapeutic PO 0808 Nicotine 7 MG DAILY 11/16 1000 AC 11/19 TOP 0808 Omeprazole 40 MG DAILY AC 11/16 07 AC 11/19 PO 0709 Prazosin HCl 5 MG AT BEDTIME 11/15 2199 AC 11/18 PO 2134 Risperidone 2 MG ONCE ONE 11/19 1030 DC 11/19 PO 11/19 1031 1127 Risperidone 5 MG 11/15 AC 11/18 PO 194 Laboratory Tests 11/18 0608 Chemistry Sodium (137 - 145 mmol/L) 145 Potassium (3.5 - 5.1 mmol/L) 4.2 Chloride (98 - 107 mmol/L) 107 Carbon Dioxide (22 - 30 mmol/L) 27 Anion Gap (5 - 16) 10 TSH &T3 &Free T4 Intrp (0.27 - 4.20 uIU/mL) 3.820 Vital Signs Date Time Temp Pulse Resp B/P B/P Pulse O2 O2 Flow FiO2 Mean Ox Delivery Rate 11/19 1124 97.0 124/74 11/19 0807 97.0 68 124/74 11/19 0756 97.0 68 124/74 11/18 2134 98.5 75 16 126/79 11/18 2002 98.5 75 126/79 11/18 1959 98.5 75 126/79 11/18 1554 95 136/81 11/18 1553 95 136/81 11/18 1200 87 128/87 11/18 1158 87 128 MSE Appears as stated age. Cooperative behavior, good, appropriate eye contact. Nl speech rate and prosody. No psychomotor retardation or agitation. Mood "bad Affect irritable, depressed, constricted, appropriate, non-liable. Linear and goal directed thought process. Denies SI or HI. Does not appear to be responding to internal stimuli. ++AVHs, paranoia, or delusions. I/J: limited A/P: Pt with MDD and PSD with continued passive SI and psychotic sx. - Pt given one time dose of clonidine 0.1mg and risperidone 2mg - Otherwise continue current medication regimen.
--- NOTE | 2016-11-19 13:16 | NUR ---
Junior went to groups but did not participate. During one he fell asleep. He missed one group because he said he had to do his hair. Seen on the unit dozing often. Kept to himself. Uses walker well and stable. He remains on CIWA, v/s/s. Denies SH/HI/SI.
--- NOTE | 2016-11-19 17:48 | NUR ---
PT IS CALM, COOPERATIVE WITH STAFF AND PEERS, AND COMPLIANT WITH UNIT RULES. OFTEN IN MILIEU, THOUGH SLEEPING AT TIMES. INTERACTING WITH OTHERS AT TIMES. MOOD IS STABLE, AFFECT APPEARS EUTHYMIC TO FULL RANGE, COMMUNICATION IS ORGANIZED AND APPEARS SLIGHTLY SLOW TO RESPOND. APPETITE IS NORMAL. PT DENIES SI AT THIS TIME.
--- NOTE | 2016-11-19 18:45 | NUR ---
Patient is A&O X 3, but appears very drowsy/sedeted slouching in the staff lounge for most period of the day. Patient continues to be medication focus, reporting chronic pain. patient ambulates with a walker due to unsteady gait, mood and affect are Euthymic/constricted and slow to respond with his communication process. Vital sign is stable and within the acceptable range, denies thought of self-harm and to someone else.
[2016-11-20] VITALS (7 sets, daily range): BP systolic 103–141; BP diastolic 62–87
--- NOTE | 2016-11-20 07:05 | NUR ---
PATIENT BRIEFLY UP TO BR X1, OTHERWISE SLEPT ALL NIGHT.
--- NOTE | 2016-11-20 12:29 | CP SOUTH PROGRESS NOTE PSYCH ---
Psych (Inpt) Progress Note Progress Note Include the following elements, when applicable: Involvement in the active treatment of the patient with behavioral observations of the patient and the patient's response to the treatment. Review of the ongoing treatment process in the context of the treatment plan. Indication of how multi-disciplinary staff members are carrying out the treatment plan. Plans for future interventions and recommendations for revision of the treatment plan. Liaison with other physicians/providers. Progress Note: Pt notes that no longer in wd but feels increase in AVHs and paranoia. Notes poor sleep with continued NMs. Denies SI or HI. Current Medications Sig/Blank Start time Last Medication Dose Route Stop Time Status Admin Al Hydroxide/Mg 30 ML Q4-6 PRN PRN 11/15 193 AC Hydroxide PO Aspirin Buffered 81 MG DAILY 11/16 999 AC 11/20 PO 0747 Gabapentin 300 MG 1200,0 11/15 2199 AC 11/19 PO 210 Ibuprofen 400 MG Q6P PRN 11/15 193 AC 11/20 PO 1116 Loratadine 10 MG DAILY 11/16 1000 AC 11/20 PO 0747 Lorazepam 1 MG Q2P PRN 11/15 193 AC PO Lorazepam 2 MG Q2 HRS NEEDED PRN 11/15 193 AC PO Melatonin 3 MG AT BEDTIME PRN 11/20 1215 AC PO Methadone HCl 50 MG 8AM 11/19 08 AC 11/20 PO 0747 Multivitamins 1 TAB DAILY 11/16 1000 AC 11/20 Therapeutic PO 0747 Nicotine 7 MG DAILY 11/16 1000 AC 11/20 TOP 0747 Omeprazole 40 MG DAILY AC 11/16 07 AC 11/20 PO 0708 Prazosin HCl 6 MG AT BEDTIME 11/20 2199 AC PO Prazosin HCl 5 MG AT BEDTIME 11/15 2200 DC 11/19 PO 210 Risperidone 2 MG ONCE ONE 11/20 1230 AC PO 11/20 1231 Risperidone 5 MG 11/15 AC 11/19 PO 210 Laboratory Tests 11/19 607 Chemistry Sodium (137 - 145 mmol/L) 145 Potassium (3.5 - 5.1 mmol/L) 4.2 Chloride (98 - 107 mmol/L) 107 Carbon Dioxide (22 - 30 mmol/L) 27 Anion Gap (5 - 16) 10 TSH &T3 &Free T4 Intrp (0.27 - 4.20 uIU/mL) 3.820 Vital Signs Date Time Temp Pulse Resp B/P B/P Pulse O2 O2 Flow FiO2 Mean Ox Delivery Rate 11/20 1209 94 141/87 11/20 1208 94 141/87 11/20 0743 97.2 86 103/62 11/20 0738 97.6 86 103/62 11/19 2106 67 100/66 11/19 1957 97.6 67 100/66 11/19 1953 97.6 67 100/66 11/19 1639 69 113/64 11/19 1608 69 113/64 11/19 1607 69 11364 11/19 1306 79 106/72 11/19 1245 66 MSE Appears as stated age. Cooperative behavior, good, appropriate eye contact. Nl speech rate and prosody. No psychomotor retardation or agitation. Mood "OK Affect irritable, depressed, constricted, appropriate, non-liable. Linear and goal directed thought process. Denies SI or HI. Does not appear to be responding to internal stimuli. ++AVHs, paranoia, or delusions. I/J: limited A/P: Pt with MDD and PSD with continued passive SI and psychotic sx. - Pt given one time dose risperidone 2mg - Melatonin 3mg PRN added - Increased prazosin to 6mg - Otherwise continue current medication regimen.
--- NOTE | 2016-11-20 14:47 | NUR ---
Patient is present in the community, A&O X 3, appear less sededated/drowsy for the most period of the day. Patient is compliant with medication and group therapies/activities, adjusting well with his walker for ambulation, report some level of physical pain and discomfort that is managed with medications. vital sign is stable and WNL, mood and affect are stable but constricted, denies thought of self-harm and to someone else.
--- NOTE | 2016-11-20 18:17 | NUR ---
PT IS CALM, COOPERATIVE WITH STAFF AND PEERS, AND COMPLIANT WITH UNIT RULES. OFTEN IN MILIEU, THOUGH APPEARUNG LETHRGIC, SLEEPING AT TIMES. PT WILL INTERACT WITH OTHERS WHEN ENGAGED. MOOD IS STABLE, AFFECT APPEARS FULL RANGE, COMMUNICATION IS ORGANIZED AND APPEARS NORMAL IN ALL RESPECTS, AND APPETITE IS NORMAL. PT DENIES SI AT THIS TIME.
[2016-11-21 08:00] VITALS: BP 153/91
[2016-11-21 08:04] VITALS: BP 153/91
[2016-11-21 12:04] VITALS: BP 118/76
[2016-11-21 12:40] VITALS: BP 118/76
--- NOTE | 2016-11-21 12:59 | NUR ---
PT ORIENTED TO SELF AND PLACE BUT NOT TO TIME; MOOD APPEARS TO BE STABLE WITH FLAT AFFECT; SEEN IN COMMUNITY INTERACTING WITH PEERS AND STAFF; MEDICATION AND RULE COMPLIANT; COMMUNICATION APPEARS TO BE ORGANIZED; AMBULATES WELL WITH WALKER WITHIN UNIT.
--- NOTE | 2016-11-21 13:24 | SOCIAL WORKER PROG NOTE PSYCH ---
See Addendum Social Work Progress Note Progress Note Junior and I talked about his weekend. He said it wasn't that good, due to the lowering of the methadone. He said he wants to eventually come off of it. Talked about discharge for today. Junior said he didn't have anywhere to go other than a long term. Denied being able to go to a friends or stay where his sister is. Junior reported that he was hearing voices over the weekend and he feels hopeless. Stated he should just end his life. Reported "if you release me I'm going to do something." "I have enough money to buy enough benzos." He feels he made a mistake over leaving the detention and should have just handed them over the money and stayed there. He talked about possibly wanting another detention referral. We called [facility] together. The staff member at [facility] said the only place he could go would be the long term in [place] [facility]. Junior refuses to go there, stating there are bugs. She was able to give him an assessment appt. tomorrow at [facility]. He needs to be there before 1pm. Junior seemed pleased with the response and said he would follow up with that appt. tomorrow.
[2016-11-21 16:26] VITALS: BP 145/77
--- NOTE | 2016-11-21 17:54 | NUR ---
PT IS CALM, COOPERATIVE WITH STAFF AND PEERS, AND COMPLIANT WITH UNIT RULES. OFTEN IN MILIEU, THOUGH SLIGHTLY WITHDRAWN, STAYING TO SELF MOSTLY. PT APPEARS LETHARGIC, SLEEPING IN MILIEU AT TIMES. MOOD IS STABLE, AFFECT APPEARS EUTHYMIC TO FULL RANGE, COMMUNICATION IS ORGANIZED AND APPEARS NORMAL IN ALL RESPECTS, AND APPETITE IS NORMAL. PT DENIES SI AT THIS TIME.
[2016-11-21 19:50] VITALS: BP 142/76
--- NOTE | 2016-11-21 20:27 | CP SOUTH PROGRESS NOTE PSYCH ---
Psych (Inpt) Progress Note Progress Note Include the following elements, when applicable: Involvement in the active treatment of the patient with behavioral observations of the patient and the patient's response to the treatment. Review of the ongoing treatment process in the context of the treatment plan. Indication of how multi-disciplinary staff members are carrying out the treatment plan. Plans for future interventions and recommendations for revision of the treatment plan. Liaison with other physicians/providers. Progress Note: PSYCHIATRIST NOTE, 11/21/2016: I discussed this patient's presentation and progress to date, current mental status, treatment and discharge planning with staff team today in the daily morning ITTM and also met with him myself in individual session; I had treated patient most recently during his [facility] admission in 10/2016; the plan had been for him to stay at [facility] until a bed opened for him at [facility] residential rehab ([facility]); however, patient claimed he was told by admissions at [facility] he had been there "too many times [five]" and they would not readmit him. He was readmitted to [facility] within less than a month. However, he told me today he is feeling much better, denied any suicidal feelings/intent and was positive about discharging tomorrow morning, 11/22/2016, directly to a placement interview arranged through "211" state assistance call number. He feels current medications are "good" and require no further adjustment; the only change made was to increase dose of Prazosin from 5mg to 6mg HS to help with sleep/nightmares. He feels comfortable on current dose of Risperdal (5mg/day). He is not currently on a primary anti-depressant medication. Patient told me he now feels he has adjusted to the reduction in methadone maintenance dose from 60mg to 50mg/day made over the weekend.
[2016-11-22 07:42] VITALS: BP 142/92
[2016-11-22 08:09] VITALS: BP 142/92
[2016-11-22] MEDS ORDERED: METHADONE HCL10 M1 PO (10:10)
[2016-11-22] MEDS ORDERED: PRAZOSIN HCL2 M1 PO (10:10)
--- NOTE | 2016-11-22 10:26 | Patient Discharge Instructions ---
Psych Discharge Inst General Discharge Information Reason for Admission: gravely disabled Psy Discharge Primary Diag+ Unspecified Mood Disorder with psychotic features R/ O Schizoaffective Psy Discharge Secondary Diag+ Cannabis Use Disorder Benzo. Use Disorder Opioid Use Disorder (on methadone maintenance) Summary Tests/Major Procedures see discharge summary Studies Pending at DC: none Patient Instructions Contact Information Your Psychiatrist on [facility] was REBEKAH CUENCA,ABDIRIZAK [place] * If you are experiencing an emergency related to this hospitalization, please call [phone] to contact the treating psychiatrist or the psychiatrist-on- call. * To Request a copy of your medical records, please contact the Medical Records Department at [phone]. * To request results of studies pending at the time of discharge, please call [phone]. * Continue your Medications until directed to stop by your Healthcare provider. General Medication Information Please continue to take your new medications and your continued home medications , unless otherwise indicated on your discharge medication list, or unless directed by your MD or CONCRETE TECHNICIAN to stop them. Special Instructions: avoid use of Marijuana, benzodiazepines or opioids (other than methadone) Advance Directives Does the Patient have Medical Advance Directives No/Refused further info Does Pt have Psychiatric Advance Directives? No/Refused further info Does Patient have a Designated Surrogate Decision Maker: No Information About Psychiatric Advance Directives Provided? Refused Discharge Plan Post Hospital Treatment Plan: resume outpatient treatment with
--- NOTE | 2016-11-22 10:33 | CP SOUTH PROGRESS NOTE PSYCH ---
Psych (Inpt) Progress Note Progress Note Include the following elements, when applicable: Involvement in the active treatment of the patient with behavioral observations of the patient and the patient's response to the treatment. Review of the ongoing treatment process in the context of the treatment plan. Indication of how multi-disciplinary staff members are carrying out the treatment plan. Plans for future interventions and recommendations for revision of the treatment plan. Liaison with other physicians/providers. Progress Note: PSYCHIATRIST NOTE (DISCHARGE), 11/22/2016: I discussed this patient's interval progress to date, current mental status , treatment and discharge plans with staff team today in the daily morning ITTM and also met with him again myself in individual session prior to discharging him directly to interview for temporary placement at [facility] on the [address] in [facility] and to resume his ongoing outpatient treatment with [facility] (for methadone maintenance, psychiatric and medical monitoring and treatment). Patient noted that one personal goal for the future is to gain admission to a nursing care facility; he had been offered placement in a [facility] in [facility], but at that time refused to "sign over [his ] check" to the facility; he now wishes he had done so and would be willing to take that action in future in order to gain residence in a nursing facility. Patient told me he will be attending A.A./N.A. meetings regularly and pledged to acquire a sponsor and then to communicate with him frequently; this is something which has been consistently missing from patient's aftercare in the past, and he plans to set this right. Patient is currently in good humor, smiling, euthymic, denying any depression, showing no evidence of suicidal or homicidal ideation, plans, intent or impulses and well aware of his own safety plan should he ever in future come to believe himself at acute risk of self-harm or harming others. I noted while I was with patient that he looked better/healthier and appeared to be ambulating better than I have noted him to be in some time and expressed my hope that he continues with the aftercare plan above. (for details of all medications at the time of discharge, doses, scheduling, amounts prescribed, indications, see "Discharge Medications" section of the discharge summary for this admission in the electronic medical record)
--- NOTE | 2016-11-22 10:41 | DISCHARGE SUMMARY REPORT-PSYCH ---
Visit Information Visit Dates/Diagnosis' Admission Date: 11/15/16 Discharge Date: 11/22/16 Reason for Admission: " Psy Discharge Primary Diag: Unspecified Mood Disorder with psychotic features R/ O Schizoaffective Psy Discharge Secondary Diag: Cannabis Use Disorder Benzo. Use Disorder Opioid Use Disorder (on methadone maintenance) Hospital Course Course Allergies: Coded Allergies: NO KNOWN ALLERGIES (03/14/16) Hospital Course/TX Response: I had treated patient most recently during his [facility] admission in 10/2016 ; the plan had been for him to stay at [facility] until a bed opened for him at [facility] residential rehab ([facility]); however, patient claimed he was told by admissions at [facility] he had been there "too many times [five]" and they would not readmit him. He was readmitted to [facility] within less than a month. However, he told me today he is feeling much better, denied any suicidal feelings/intent and was positive about discharging tomorrow morning, 11/22/2016, directly to a placement interview arranged through "211" state assistance call number. He feels current medications are "good" and require no further adjustment; the only change made was to increase dose of Prazosin from 5mg to 6mg HS to help with sleep/nightmares. He feels comfortable on current dose of Risperdal (5mg/day). He is not currently on a primary anti-depressant medication. Patient told me he now feels he has adjusted to the reduction in methadone maintenance dose from 60mg to 50mg/day made over the weekend. Patient was discharged directly to interview for temporary placement at [facility] on the [address] in [place], [place]. and to resume his ongoing outpatient treatment with [facility] (for methadone maintenance, psychiatric and medical monitoring and treatment). Patient noted that one personal goal for the future is to gain admission to a nursing care facility; he had been offered placement in a [facility] in [facility], but at that time refused to "sign over [his] check" to the facility; he now wishes he had done so and would be willing to take that action in future in order to gain residence in a nursing facility. Patient told me he will be attending A.A./N.A. meetings regularly and pledged to acquire a sponsor and then to communicate with him frequently; this is something which has been consistently missing from patient's aftercare in the past, and he plans to set this right. Patient is currently in good humor, smiling, euthymic, denying any depression, showing no evidence of suicidal or homicidal ideation, plans, intent or impulses and well aware of his own safety plan should he ever in future come to believe himself at acute risk of self-harm or harming others. I noted while I was with patient that he looked better/healthier and appeared to be ambulating better than I have noted him to be in some time and expressed my hope that he continues with the aftercare plan above. Discharge HBIPS - Tobacco Use Treatment Offered Post DC Medications Offered: Script Given-See Med List Post DC Tobacco Treatment Plan: Other Tobacco Tx Pgm ([facility], 11/23/2016) - EtOH/Drug Use D/O Treatment Offered Post DC Medications Offered: NA-No EtOH/Drug Use D/O Post DC EtOH/SubAbuse TX Plan: NA-No EtOH/Drug Use D/O Metabolic Screening - Screen if on a Neuroleptic Medication - Metabolic screening should include: - Blood Pressure, BMI, Glucose or Hgb A1c, & a - Lipid profile from within the past 365 days. Metabolic Screening () Not Applicable, patient not on a neuroleptic. OR ([x]) Patient on a neuroleptic(s) . Enter below results for Glucose or Hemoglobin A1C, and lipid panel if obtained during the last 365 days. BMI: Blood Pressure: 142/92 Laboratory Results (If applicable): [x] glucose = Discharge Instructions General Discharge Information Multiple Neuroleptics: ([x]) Not Applicable OR Document below three failed attempts at monotherapy, or a plan to taper to monotherapy, or augmentation of Clozapine. () Patient's Diet: heart healthy Patient's Activity: use walker to ambulate DC Disposition: to interview for admission to [facility], [place]. Recommendations: Following an interval of outpatient stabilization I would advise attempt be made to gradually taper current dose of Risperdal. Referred To: Patient will resume his ongoing outpatient treatment with [facility], [place]. (for methadone maintenance, psychiatric and medical treatment/ monitoring) Copies To: [facility]
--- NOTE | 2016-11-22 10:46 | NUR ---
PT SCHEDULED TO BE DISCHARGED TODAY AND VERBALIZES READINESS AND NO ISSUES OR COMPLAINTS REPORTED OR OBSERVED. WHEN ASKED DIRECTLY DENIES SI/HI/HALLUCINATIONS AND HAS + UNDERSTANDING OF FOLLOW-UP DISCHARGE INSTRUCTIONS AND MEDICATION MANAGEMENT AND MOTIVATED FOR SOBRIETY AND FUTURE ORIENTED. INFORMATION PACKETS: DEPRESSION, SI AND BENZO ABUSE GIVEN TO PT ALONG WITH PT RESOURCE GUIDE, AND INFORMATION ON MEDICATIONS AND HEALTH SUMMARY ETC. PT REPORTS OVERALL IMPROVEMENT IN MOOD, SLEEP, MENTAL STATUS AND BEHAVIOR, PRESENT WITHIN THE COMMUNITY AND SOCIAL/APPROPRIATE WITH PEERS AND STAFF.
--- NOTE | 2016-11-22 11:16 | SOCIAL WORKER PROG NOTE PSYCH ---
Social Work Progress Note Progress Note Junior reported he had a good night. Feeling good about discharge today and the plan to follow up at the [facility]. He appears to have a buttermaker continuous churn goal of going back to a nursing facility. He is hoping Dr. Tony can help him with that. Informed him of his appt. scheduled for Monday with her. Lyly is scheduled for a 10:30am pickling solution maker that will drop him off at [facility]. Faxed all discharge paperwork to APT.
== END 2016-11-22 12:00 | DRG 885 ==
LOC: ERH 12:04 → CP SOUTH 20:06 → ERHI 20:06 → ENTRNSPT 21:10 → CMPTRNSPT 21:19 → CP SOUTH 21:20
PROVIDERS: Physician Assistant; ADMIT Psychiatry & Neurology Psychiatry
DX: F39 Unspecified mood [affective] disorder (principal); F19.20 Other psychoactive substance dependence, uncomplicated; T14.91 Suicide attempt
CPT/HCPCS: 36415; 80307; 93005; 93010; G0480

== ENCOUNTER 2017-05-22 11:55 | Inpatient (IN) | payer OTHER, MEDICARE ==
[~2017-05-22] VITALS: Ht 167.6 cm; Wt 108.9 kg
[~2017-05-22 11:55] MED LIST changes: +ANALGESIC BALM28 GM TOP; +CLONIDINE HCL0.1 MG PO; +IBUPROFEN400 M1 PO; +LISINOPRIL-HCT1 EAC2 PO; +METHADONE HCL10 M1 PO; +METHADONE10 MG/1 M2 PO; +RISPERDAL3 M1 PO
--- NOTE | 2017-05-22 14:53 | ED PSYCHIATRIC COMPLAINT ---
History of Present Illness General Chief Complaint: Lower Extremity Problems Stated Complaint: BIBA R KNEE PAIN Source: patient, old records Exam Limitations: no limitations Vital Signs & Intake/Output Vital Signs & Intake/Output Vital Signs Date Time Temp Pulse Resp B/P B/P Pulse O2 O2 Flow FiO2 Mean Ox Delivery Rate 05/23 1635 99.2 80 18 116/61 96 Room Air 05/23 1408 98.0 78 18 133/85 98 Room Air 05/23 1210 97.9 76 18 123/73 98 Room Air 05/23 0931 98.0 74 18 145/94 05/23 0923 98.0 74 18 145/94 97 Room Air 05/23 0631 97.2 70 18 168/95 96 Room Air 05/22 2210 88 16 160/90 96 Room Air 05/22 1816 98.5 82 20 164/101 99 Room Air ED Intake and Output 05/23 0000 05/22 1200 Intake Total Output Total Balance Patient 240 lb Weight Weight Reported by Patient Measurement Method Allergies Coded Allergies: NO KNOWN ALLERGIES (NONE 03/07/17) Reconcile Medications Aspirin (Ecotrin*) 81 MG TABLET.DR 1 TAB PO DAILY HEART/BLOOD Clonidine HCl 0.1 MG TABLET 0.1 MG PO SEE ADMIN CRITERIA opiate withdrawal 1 po tid x 2 days then 1 po bid x 2 days then 1 po daily x 2 days then off Gabapentin 300 MG CAPSULE 300 MG PO 1200,2200 off-label for moods Ibuprofen 400 MG TABLET 400 MG PO TID PRN PAIN SCALE 4-6 (MODERATE) Lisinopril/Hydrochlorothiazide (Lisinopril-Hctz 10-12.5 MG Tab) 10 MG-12.5 MG TABLET 1 TAB PO DAILY HEART Loratadine 10 MG TABLET 10 MG PO DAILY allergies Methyl Salicylate (Analgesic [place]) 28 GM OINT...G. 1 HALEY TOP Q6-PRN PRN joint pain apply thin layer to affected area, may self apply Multivitamin (One Daily Multivitamin) 1 EACH TABLET 1 TAB PO DAILY vitamin supplement Nicotine (Nicorelief) 2 MG GUM 2 MG PO Q2P PRN nicotine craving Omeprazole 20 MG CAPSULE. 40 MG PO DAILY AC ACID REFLUX Prazosin HCl 5 MG CAPSULE 5 MG PO AT BEDTIME nightmares Risperidone (Risperdal) 1 MG TABLET 1 TAB PO DAILY@0800 voices Risperidone (Risperdal) 3 MG TABLET 2 TAB PO AT BEDTIME for voices Triage Note: PT BIBA TO ED FOR C/O CHRONIC RIGHT KNEE PAIN. DECLINING MEDS IN TRIAGE. Triage Nurses Notes Reviewed? yes Onset: Abrupt Duration: day(s): Timing: recent history Severity: moderate, severe HPI: 61-year-old male comes into emergency room with complaints of right knee pain. Patient reports that he is also feeling suicidal and depressed. He reports that he has plans to just jump in front of a train. Prior history of attempts. Denies any alcohol or drug use. He is homeless. Denies any other associated symptoms currently. (Musa Brumfield) Past History Travel History Traveled to [place] past 21 day No Medical History Any Pertinent Medical History? 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10 DT-like benzo withdrawal EENT: NONE Cardiovascular: hypertension Respiratory: NONE Gastrointestinal: constipation, GERD, umbilical hernia, edentulous Hepatic: hepatitis C Renal: congenital absence left kidney Musculoskeletal: osteoarthritis Psychiatric: chronic pain disorder, depression, opioid dependence, psychosis, substance abuse, DEPRESSION, ANXIETY, Endocrine: NONE Blood Disorders: NONE Cancer(s): NONE GANG WORKER/Reproductive: NONE Other Medical Hx: uses a rolling walker overweight History of MRSA: No History of VRE: No History of CDIFF: No Influenza Vaccine: 02/05/17 Surgical History Surgical History: knee replacement (BILAT TKR (REVISION X2 RT)) Psychosocial History Who do you live with Other (see notes) What is your primary language Wolof Tobacco Use: Current Daily Use Daily Tobacco Use Amount/Type: => 5 Cigarettes daily ETOH Use: denies use Illicit Drug Use: denies illicit drug use Family History Family History, If Any: FATHER (HTN). . MOTHER (HTN). . Relation not specified for: *No pertinent family history Hx Contributory? No (Musa Brumfield) Review of Systems Review of Systems Constitutional: Reports: no symptoms. EENTM: Reports: no symptoms. Respiratory: Reports: no symptoms. Cardiovascular: Reports: no symptoms. GI: Reports: no symptoms. Genitourinary: Reports: no symptoms. Musculoskeletal: Reports: see HPI. Skin: Reports: no symptoms. Neurological/Psychological: Reports: no symptoms. Hematologic/Endocrine: Reports: no symptoms. Immunologic/Allergic: Reports: no symptoms. All Other Systems: Reviewed and Negative (Musa Brumfield) Physical Exam Physical Exam General Appearance: well developed/nourished, mild distress Head: atraumatic Eyes: Bilateral: normal appearance. Ears, Nose, Throat: normal ENT inspection, hearing grossly normal Neck: normal inspection Respiratory: no respiratory distress Cardiovascular: regular rate/rhythm Extremities: limtied range of motion of right knee, no erythema, no warmth, Neurological/Psychiatric: awake, alert, depressed affect Appearance/Memory/Insight: impaired insight Behavoir/Eye Contact/Speech: cooperative Thoughts/Hallucinations: no apparent hallucination Skin: intact, normal color, warm/dry SAD PERSONS SAD PERSONS Response Value Male Sex? yes 1 Age <19 or >45 years? yes 1 Depression/Hopelessness? yes 2 Previous Attempts/Psych Care yes 1 Single//? yes 1 Social Support? has no support 1 Stated Future Intent? yes 2 Total 9 SAD PERSONS Done? yes (Musa Brumfield) Progress Differential Diagnosis: dementia, drug intoxication, drug overdose, drug withdrawal, depression, bipolar, anxiety Plan of Care: Orders Procedure Date/time Status Admit to inpatient 05/23 1730 Active Continuous Observation Monitor 05/23 0700 Active Current Medications Sig/Blank Start time Last Medication Dose Stop Time Status Admin Prazosin HCl 5 MG AT BEDTIME 05/23 2200 UNVr (Minipress 5 MG) Risperidone 6 MG AT BEDTIME 05/23 2200 UNVr (risperiDONE) Gabapentin 300 MG 1200,2200 05/23 1200 UNVr 05/23 (Neurontin) 1203 Aspirin Buffered 81 MG DAILY 05/23 1000 UNVr 05/23 (Ecotrin) 0931 Hydrochlorothiazide 12.5 MG DAILY 05/23 1000 UNVr 05/23 (Hydrodiuril) 0931 Lisinopril 10 MG DAILY 05/23 1000 UNVr 05/23 (Prinivil) 0931 Risperidone 1 MG DAILY@0800 05/23 0800 UNVr 05/23 (Risperidone) 0824 3:15 PM PATIENT SIGNED OUT TO ME BY DR RODRIGUEZ, PENDING CRISIS BED SEARCH. 5:30 PM PATIENT ADMITTED TO [facility]. (Ash CUENCA,Amy) Diagnostic Imaging: Viewed by Me: Radiology Read. Discussed w/RAD: Radiology Read. Radiology Impression: PATIENT: GONSALO ALCARAZ PRESENT AGE: 61 PATIENT ACCOUNT NO: [id number] : 55 LOCATION: [facility] ORDERING PHYSICIAN: Donnell PFEIFFER SERVICE DATE: 05/22/17 EXAM TYPE: RAD - XRY-KNEE COMPLETE RIGHT EXAMINATION: XR KNEE, RIGHT CLINICAL INFORMATION: Right knee pain. Presumptive diagnosis: Fracture. COMPARISON: Right knee 2016. TECHNIQUE: Four views of the right knee. FINDINGS: A right total knee arthroplasty is again noted. There is no definite acute fracture. There appears to be some increased irregular lucency at the medial and lateral bone cement interfaces of the distal femoral prosthesis measuring up to 5 mm on the right and 3-5 mm on the left. There is also slightly more rotation of the prosthesis such that the proximal anterior tip of the femoral prosthesis is approximately 1.3 cm from the anterior femoral cortex (previously 1.1 cm). There is no significant change in 1-2 mm of linear lucency adjacent to the proximal tibial prosthesis medially and laterally. There is a small joint effusion. IMPRESSION: Increased irregular lucency associated with the distal femoral prosthesis and slightly more rotation, suggesting loosening. Linear lucency adjacent to the tibial prosthesis is unchanged and within normal limits. Small joint effusion. No definite acute fracture is identified. DICTATED BY: Aramis Bhatti MD DATE/ TIME DICTATED:05/22/171447 AIR CONDITIONING SPECIALIST:AGATA DATE/TIME TRANSCRIBED: 05/22/171447 CONFIDENTIAL, DO NOT COPY WITHOUT APPROPRIATE AUTHORIZATION. < Electronically signed in Other Vendor System> SIGNED BY: Aramis Bhatti MD 05/22/17 1507 Hand-Off Endorsed To: Loyd Thomason MD Pending: other (bed search) (Musa Brumfield) Hand-Off Endorsed To: Davy Rodriguez MD Endorsed Time: 0700 Pending: other (Loyd Thomason MD) Comments: 05/23/2017 8:53:32 AM patient signed out to me by Dr. Thomason at shift place change roof bolter. Patient is resting comfortably at this time. (Davy Rodriguez MD) Departure Departure Disposition: STILL A PATIENT Condition: Stable Clinical Impression Primary Impression: Major depression Secondary Impressions: Knee pain Referrals: Patient Has No Primary Care Dr (PCP/Family) Departure Forms: Customer Survey General Discharge Information (Musa Brumfield) PA/SEAFOOD PACKER Co-Sign Statement Statement: ED Attending supervision documentation- [X] I saw and evaluated the patient. I have also reviewed all the pertinent lab results and diagnostic results. I agree with the findings and the plan of care as documented in the PA's/SEAFOOD PACKER's documentation. [X] I have reviewed the ED Record and agree with the PA's/SEAFOOD PACKER's documentation. [] Additions or exceptions (if any) to the PAs/SEAFOOD PACKER's note and plan are summarized below: [] (Katelin CUENCA,Loyd Cody) Departure Time of Disposition: 1729 Psych Admission Note Psychiatric Admission: I have seen and evaluated GONSALO ALCARAZ. I have also reviewed all the pertinent lab results and diagnostic results. GONSALO ALCARAZ will be admitted to our inpatient Psychiatric unit for treatment and care. (Ash CUENCA,Amy) (Katelin CUENCA,Loyd Cody)
--- NOTE | 2017-05-22 15:07 | RADIOLOGY REPORT ---
EXAMINATION: XR KNEE, RIGHT CLINICAL INFORMATION: Right knee pain. Presumptive diagnosis: Fracture. COMPARISON: Right knee 12/01/2016. TECHNIQUE: Four views of the right knee. FINDINGS: A right total knee arthroplasty is again noted. There is no definite acute fracture. There appears to be some increased irregular lucency at the medial and lateral bone cement interfaces of the distal femoral prosthesis measuring up to 5 mm on the right and 3-5 mm on the left. There is also slightly more rotation of the prosthesis such that the proximal anterior tip of the femoral prosthesis is approximately 1.3 cm from the anterior femoral cortex (previously 1.1 cm). There is no significant change in 1-2 mm of linear lucency adjacent to the proximal tibial prosthesis medially and laterally. There is a small joint effusion. IMPRESSION: Increased irregular lucency associated with the distal femoral prosthesis and slightly more rotation, suggesting loosening. Linear lucency adjacent to the tibial prosthesis is unchanged and within normal limits. Small joint effusion. No definite acute fracture is identified.
[2017-05-22 15:46] LABS: ABSOLUTE BASOPHIL COUNT 0 /CUMM (0.0-0.2); ABSOLUTE EOSINOPHIL COUNT 0.1 /CUMM (0.0-0.7); ABSOLUTE LYMPH COUNT 1.5 /CUMM (1.2-3.4); ABSOLUTE MONOCYTE COUNT 0.4 /CUMM (0.10-0.60); BASOPHIL % 0.2 % (0.0-2.0); EOSINOPHIL % 1.5 % (0-5); HEMATOCRIT 40.8 % (42-52); MEAN CORPUSCULAR HGB 29.5 PG (27.0-31.0); MEAN CORPUSCULAR VOLUME 89.6 FL (80.0-94.0); MEAN PLATELET VOLUME 9.1 FL (7.4-10.4); PLATELET COUNT 272 /CUMM (130-400); RBC DISTRIBUTION WIDTH 13.9 % (11.5-14.5); RED BLOOD CELL CT 4.55 /CUMM (4.70-6.10)
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
[2017-05-23 16:30] VITALS: BP 116/61
--- NOTE | 2017-05-23 17:17 | ED PSYCHIATRIST/APRN CONSULT ---
Psychiatrist/LACTATION CONSULTANT ED Consult Assessment and Plan: pt's electronic record reviewed pt. interviewed Background: Pt is a 61 yo male presented to [facility] ED initially for a complaint of knee pain. 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 Pt has a hx of inpatient psychiatric treatment at [facility] with last discharge March 2017. Pt reports not following discharge recommendations and hasn't taken his medications since discharge. Pt reports he is using 4 mg Klonopin and 40 mg of methadone off the street for the past two months. Pt reports actively hearing voices telling him to kill himself. Pt reports his primary stressor in related to homelessness. He [facility]. He reports most recently living in a hotel with his sister but they ran out of money. Pt reports active engagement with [facility] and they are trying to help him acquiring stable housing. Mental State: Pt. was awake, alert, and oriented x3 Pt. reported feeling depressed with thoughts of suicide Pt has poor judgement and poor insight related to to continued substance abuse and not following treatment recommendations. Pt reports feeling hopeless and helpless and states "I need inpatient or I'll kill myself". Pt reports a suicide attept 2 yrs ago of a pills overdose. Assessment: 61-year-old with depression and suicidal thinking and substance use. Agreeable to inpatient admission Recommendations: Inpatient psych admission resume home medications
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
[2017-05-23 20:00] VITALS: BP 125/85
[2017-05-23 20:10] VITALS: BP 125/85
[2017-05-23 21:19] VITALS: BP 125/85; BP 130/82
[2017-05-23 21:37] VITALS: BP 125/85
[2017-05-23 22:38] VITALS: BP 132/82
[2017-05-24] VITALS (13 sets, daily range): BP systolic 119–150; BP diastolic 59–89
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
--- NOTE | 2017-05-24 17:15 | SOCIAL WORKER PROG NOTE PSYCH ---
Social Work Progress Note Progress Note 3:40pm This blog writer met with patient. He stated that he came to the hospital due to increased depression and suicidality (thoughts to step in front of a train) related to homelessness. Patient expressed interest in returning to the assisted ([facility]) where he has been in the past. Patient stated that he had been staying in a motel with his sister until funds ran out. Patient stated that he has utilized [facility] services and is working with Alla, whom he saw in the ED prior to current admission. Patient stated that he is working with the psychiatrist to taper off Klonopin, which he would like to do. Patient stated that he feels safe on this unit and agreed to immediately inform staff if feeling unsafe.
--- NOTE | 2017-05-24 20:10 | History & Physical ---
General Information and HPI MD Statement: I have seen and personally examined GONSALO ALCARAZ and documented this H&P. The patient is a 61 year old M who presented with a patient stated chief complaint of right knee pain and also feels suicidal and depressed. Source of Information: patient, family, old records Exam Limitations: no limitations History of Present Illness: 61-year-old white male who is "homeless "at the present living with his sister in a hotel. They ran out of money. Skin feeling suicidal and depressed has had previous history of suicidal attempts his last inpatient admission was in March 2017 at not following as recommended not taking his medications, using of the street Klonopin and methadone states his hearing voices telling him to kill himself all those reasons is admitted Allergies/Medications Allergies: Coded Allergies: NO KNOWN ALLERGIES (NONE 03/07/17) Home Med list Aspirin (Ecotrin*) 81 MG TABLET.DR 1 TAB PO DAILY HEART/BLOOD Clonidine HCl 0.1 MG TABLET 0.1 MG PO SEE ADMIN CRITERIA opiate withdrawal 1 po tid x 2 days then 1 po bid x 2 days then 1 po daily x 2 days then off Gabapentin 300 MG CAPSULE 300 MG PO 1200,2200 off-label for moods Ibuprofen 400 MG TABLET 400 MG PO TID PRN PAIN SCALE 4-6 (MODERATE) Lisinopril/Hydrochlorothiazide (Lisinopril-Hctz 10-12.5 MG Tab) 10 MG-12.5 MG TABLET 1 TAB PO DAILY HEART Loratadine 10 MG TABLET 10 MG PO DAILY allergies Methyl Salicylate (Analgesic [place]) 28 GM OINT...G. 1 HALEY TOP Q6-PRN PRN joint pain apply thin layer to affected area, may self apply Multivitamin (One Daily Multivitamin) 1 EACH TABLET 1 TAB PO DAILY vitamin supplement Nicotine (Nicorelief) 2 MG GUM 2 MG PO Q2P PRN nicotine craving Omeprazole 20 MG CAPSULE. 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10 DT-like benzo withdrawal EENT: NONE Cardiovascular: hypertension Respiratory: NONE Gastrointestinal: constipation, GERD, umbilical hernia Hepatic: hepatitis C Renal: congenital absence left kidney Musculoskeletal: osteoarthritis Psychiatric: chronic pain disorder, depression, opioid dependence, psychosis, substance abuse, DEPRESSION, ANXIETY Endocrine: NONE Blood Disorders: NONE Cancer(s): NONE 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 . MOTHER (HTN). . Relation not specified for: *No pertinent family history Psychosocial History Where do you live? Other Who Do You Live With? sibling Primary Language: Tamazight ETOH Use: denies use Illicit Drug Use: denies illicit drug use Functional Ability Ambulation: cane (WALKER HERE, CANE AT HOME), walker Review of Systems Review of Systems Constitutional: Reports: see HPI. Exam & Diagnostic Data Last 24 Hrs of Vital Signs/I&O Vital Signs Date Time Temp Pulse Resp B/P B/P Pulse O2 O2 Flow FiO2 Mean Ox Delivery Rate 05/24 193 97.7 91 139/82 05/24 1928 97.7 91 139/82 05/24 1637 92 150/89 05/24 1552 92 150/59 05/24 1257 92 126/79 05/24 1211 92 126/79 05/24 0848 100 127/61 05/24 0744 97.3 100 127/61 05/24 0742 97.3 100 127/61 05/24 0548 79 142/76 05/24 0547 79 142/76 05/24 0316 97.0 75 119/84 05/24 0116 96.3 78 119/78 05/24 0108 96.3 78 119/78 05/238 97.6 104 132/82 05/235 84 130/82 05/23 2136 99.0 82 125/85 05/239 84 20 130/82 05/23 2009 99.0 82 20 125/85 Intake & Output 05/24 1600 05/24 0800 05/24 0000 Intake Total Output Total Balance Patient 240 lb Weight Physical Exam General Appearance Alert, Oriented X3, Cooperative, using a walker to ambulate Skin No Rashes HEENT PERRLA, EOMI Neck Supple, No JVD Lymphatic Axillary nl, Cervical nl Cardiovascular Regular Rate Lungs decreased breath sounds Abdomen Soft, No Tenderness, No Hepatospenomegaly Neurological Exam Findings: Normal Speech, Strength at 5/5 X4 Ext, Normal Tone, Sensation Intact, Cranial Nerves 3-12 NL Cranial Nerves II through XII: Intact Extremities No Edema Vascular decreased Last 24 Hrs of Labs/Obie: Laboratory Tests 05/22/17 1655: Urine Opiates Screen < 100.00, Methadone Screen > 735 H, Barbiturate Screen < 60, Ur Phencyclidine Scrn < 6.00, Amphetamines Screen 121, U Benzodiazepines Scrn > 800 H, Urine Cocaine Screen < 50, Urine Cannabis Screen 6.70 05/22/17 1500: Anion Gap 14, Estimated GFR > 60, BUN/Creatinine Ratio 21.3, Glucose 127 H, Calcium 9.5, Total Bilirubin 0.3, AST 27, ALT 42, Alkaline Phosphatase 98, Total Protein 6.4, Albumin 3.8, Globulin 2.6, Albumin/Globulin Ratio 1.5, CBC w Diff NO MAN DIFF REQ, RBC 4.55 L, MCV 89.6, MCH 29.5, RDW 13.9, MPV 9.1, Gran % 67.0 , Lymphocytes % 25.0, Monocytes % 6.3, Eosinophils % 1.5, Basophils % 0.2, Absolute Granulocytes 4.0, Absolute Lymphocytes 1.5, Absolute Monocytes 0.4, Absolute Eosinophils 0.1, Absolute Basophils 0, PUBS MCHC 33.0, Serum Alcohol < 10.0 Diagnostic Data EKG Results Borderline Assessment/Plan As Ranked By This Provider Problem List: 1. Knee pain 2. Major depression 3. Osteoarthritis of right knee 4. Depression with suicidal ideation Miscellaneous Miscellaneous Documentation Attending Case Discussed With: Hussain CUENCA,Dani Primary Care Physician: Patient Has No Primary Care Dr Patient sees these Specialists Psychiatry Level of Patient Care: [facility] Consults Needed: Consulting Specialty: Psychiatry Consulting Physician: Sofiya Cosme MD Reason for Consult: increased depression and suicidal ideations
[2017-05-25] VITALS (9 sets, daily range): BP systolic 127–145; BP diastolic 75–93
--- NOTE | 2017-05-25 15:34 | CP SOUTH PROGRESS NOTE PSYCH ---
Psych (Inpt) Progress Note Progress Note "major depression recurrent, severe, with psychotic features. Cannabis use disorder. Opioid use disorder. History of posttraumatic stress disorder. Right knee arthritis and pain. Hypertension. Hepatitis C. Congenital absence of left kidney. Osteoarthritis. History of PVCs Mental Status Examination The patient uses a walker for ambulation, he is overweight with gynecomastia, cooperative and calm, reduced psychomotor activity, no abnormal or bizarre behaviors, speech was reduced in amount and rate, constricted affect, mood is depressed, ongoing suicidal ideation, denied homicidal Ideation, reported auditory hallucinations (? verasity) no delusions, no difficulties with thought organization, partial insight, judgment depends on sobriety, alert and oriented to time place and person, No gross deficits in cognition, No gross deficits in short-term memory, Impression and Plan: 61-year-old single white male who presented to the emergency room yesterday with suicidal thoughts of suicide, including thoughts of walking in front of a train the patient has had multiple admissions to Inpatient Psychiatry since 2016 Diagnosis(es): Major depressive disorder recurrent severe with psychotic features Opioid use disorder Sedative hypnotic and anxiolytic use disorder Treatment Plan: Inpatient psychiatric care Detoxification from opiates detoxification from sedatives resume all previous medications nursing staff to do assessments and education once a shift Social work to start the process of discharge planning and obtain any needed collateral and third-democrat referrals Group therapy Milieu therapy and Psychiatrist to evaluate patient on a daily basis Klonopin taper because he reported that he was using between 4 and 6 mg a day for the past 2 months Zoloft 50 mg daily for depression and anxiety Continue the clonidine detox for opiates Treatment Plan: Inpatient psychiatric care Detoxification from opiates detoxification from sedatives resume all previous medications nursing staff to do assessments and education once a shift Social work to start the process of discharge planning and obtain any needed collateral and third-democrat referrals Group therapy Milieu therapy and Psychiatrist to evaluate patient on a daily basis The patient will be switched from Ativan taper to Klonopin taper because he reported that he was using between 4 and 6 mg a day for the past 2 months Start Zoloft 50 mg daily for depression and anxiety Continue the clonidine detox for opiates
--- NOTE | 2017-05-25 16:27 | SOCIAL WORKER PROG NOTE PSYCH ---
See Addendum Social Work Progress Note Progress Note 4:15pm This automobile and property underwriter met with patient. He reports ongoing suicidality with plan to step in front of a train. He stated that he feels safe on the unit and agreed to inform staff if feeling unsafe or has other concerns. Patient stated "I can't use anymore." He stated that he last used "benzos a couple days ago." He identified lack of funds as the trigger for his depression, anxiety and SI. Patient stated that he would like to go to "a rest home" upon discharge from this hospital. He hunter also like to meet with Alla from [facility]. 4:26pm This automobile and property underwriter left a vm for Alla from [facility] ([phone]) with a call back number.
[2017-05-26] VITALS (7 sets, daily range): BP systolic 104–139; BP diastolic 56–87
--- NOTE | 2017-05-26 12:25 | CP SOUTH PROGRESS NOTE PSYCH ---
Psych (Inpt) Progress Note Progress Note Background: A 61-year-old single White male who has been homelss. He was admitted for saying he was thinking of standing in front of an oncoming train> He was preciously in CPS and was diagnosed with "Major depression recurrent, severe, with psychotic features. Cannabis use disorder. Opioid use disorder. History of posttraumatic stress disorder. . Hypertension. Hepatitis C. Congenital absence of left kidney. Osteoarthritis of Right knee with pain. History of PVCs Mental Status Examination Junior was awake and alert. He uses a walker for ambulation, he is overweight with gynecomastia, cooperative and calm, reduced psychomotor activity, no abnormal or bizarre behaviors, speech was reduced in amount and rate. He showed constricted affect, his mood remains depressed, ongoing suicidal ideation, denied homicidal ideation, reported auditory hallucinations (? verasity) no delusions, no difficulties with thought organization, partial insight, questionable judgment No gross deficits in cognition, no gross deficits in short -term memory, Impression and Plan: 61-year-old single white male who presented to the emergency room with suicidal thoughts of thinking about walking in front of a train Major depressive disorder recurrent severe with psychotic features Opioid use disorder Sedative hypnotic and anxiolytic use disorder Treatment Plan Update: Continue Inpatient psychiatric care Continue Detoxification from opiates, reduce clonidine to 0.1 mg BID Continue slow detoxification from sedatives, reduce clonazepam to 0.5 mg + 2mg QHS for the weekend nursing staff to do assessments and education once a shift Social work to start the process of discharge planning and obtain any needed collateral and third-libertarian referrals Group therapy Milieu therapy and A psychiatrist to evaluate patient on a daily basis Increase Zoloft to 100 mg daily for depression and anxiety D/C gabapentin
--- NOTE | 2017-05-26 12:55 | IP INCIDENTAL NOTE PSYCH ---
Incidental Note Notation: Correction on Gabapentin plan: D/C Gabapentin altogether
--- NOTE | 2017-05-26 17:01 | SOCIAL WORKER PROG NOTE PSYCH ---
Social Work Progress Note Progress Note 2pm This headline writer met with the patient. He was lying in bed and reported knee pain. Patient stated that he has been struggling with showering, due to his physical pain, and stated that he showers about every other day. 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 Patient reported ongoing depression and SI. He stated that he feels safe on this unit and agreed to inform staff immediately if feeling unsafe and/or have other concerns.
[2017-05-27] VITALS (9 sets, daily range): BP systolic 98–143; BP diastolic 65–74
--- NOTE | 2017-05-27 08:58 | CP SOUTH PROGRESS NOTE PSYCH ---
Psych (Inpt) Progress Note Progress Note Include the following elements, when applicable: Involvement in the active treatment of the patient with behavioral observations of the patient and the patient's response to the treatment. Review of the ongoing treatment process in the context of the treatment plan. Indication of how multi-disciplinary staff members are carrying out the treatment plan. Plans for future interventions and recommendations for revision of the treatment plan. Liaison with other physicians/providers. Progress Note: SUBJECTIVE: Patient reports that he is continuing to feel depressed. Denies side effects to medications states he is eating well and falling asleep easily but not staying asleep through the night. Meds reviewed, no changes at this time, patient and agreement. Continued passive SI but feels he can talk to staff. History of SIB one year ago however feeling no current urges, also feels he can talk to staff that recurs. No SI/HI/AVH/SIB. No abnormal movements reported. Patient continues to have his typical right knee pain, managed adequately by medications. Denies any other physical complaints or illness. OBJECTIVE: Per nursing, pt slept well overnight without any acute events. Pt remained in behavioral control, adherent with staff instructions and medications. VSS. Current Medications Sig/Blank Start time Last Medication Dose Route Stop Time Status Admin Acetaminophen 500 MG Q6P PRN 05/23 2199 AC PO Acetaminophen 650 MG Q4P PRN 05/23 2199 AC 05/23 PO 2248 Aspirin Buffered 81 MG DAILY 05/23 1000 AC 05/27 PO 0846 Clonazepam 0.5 MG DAILY 05/27 1000 AC 05/27 PO 06/03 0959 0848 Clonazepam 1 MG DAILY 05/26 1000 DC 05/26 PO 06/02 0959 0856 Clonazepam 2 MG AT BEDTIME 05/25 2199 AC 05/26 PO 06/01 2159 2136 Clonazepam 1 MG Q4 HRS NEEDED PRN 05/24 0845 AC 05/25 PO 05/31 0844 0639 Clonidine 0.1 MG BID 05/26 2199 AC 05/27 PO 0846 Clonidine 0.1 MG TID 05/25 1600 DC 05/26 PO 0853 Diclofenac Sodium 75 MG BID 05/25 1538 AC 05/27 PO 0846 Fluphenazine HCl 1 MG AT BEDTIME 05/26 2199 AC 05/26 PO 2136 Gabapentin 1,200 MG AT BEDTIME 01/19 2200 CAN PO Gabapentin 300 MG 1200,2200 05/23 1200 DC 05/26 PO 1217 Hydrochlorothiazide 12.5 MG DAILY 05/23 1000 AC 05/27 PO 0846 Ibuprofen 600 MG Q6P PRN 05/25 1545 AC 05/25 PO 1603 Lisinopril 10 MG DAILY 05/23 1000 AC 05/27 PO 0847 Loratadine 10 MG DAILY 05/24 1000 AC 05/27 PO 0846 Methyl Salicylate 1 HALEY Q6-PRN PRN 05/23 2145 AC 05/24 TOP 1131 Multivitamins 1 TAB DAILY 05/24 1000 AC 05/27 Therapeutic PO 0847 Nicotine 21 MG DAILY 05/24 1000 AC 05/27 TOP 0847 Nicotine 2 MG Q2P PRN 05/23 214 AC PO Omeprazole 40 MG DAILY AC 05/24 0700 AC 05/27 PO 0802 Prazosin HCl 5 MG AT BEDTIME 05/23 2200 AC 05/26 PO 2136 Risperidone 4 MG AT BEDTIME 05/26 2200 AC 05/26 PO 2137 Risperidone 6 MG AT BEDTIME 05/23 2200 DC 05/25 PO 2136 Risperidone 1 MG DAILY@0800 05/23 0800 DC 05/26 PO 0853 Sertraline HCl 100 MG DAILY 05/27 1000 AC 05/27 PO 0847 Sertraline HCl 50 MG DAILY 05/24 1000 DC 05/26 PO 0854 Vital Signs Date Time Temp Pulse Resp B/P B/P Pulse O2 O2 Flow FiO2 Mean Ox Delivery Rate 05/27 0847 98 106/67 05/27 0846 98 106/67 05/27 0800 98 106/67 05/27 0800 97.9 98 106/67 05/266 78 125/69 05/26 2134 78 125/69 05/26 1957 98.2 78 125/69 05/26 1952 98.2 78 125/69 05/26 1624 91 104/56 05/26 1553 90 104/56 05/26 1321 91 135/87 05/26 1258 91 135/87 MSE: GENERAL: Alert and oriented x3, fair eye contact, poorly-groomed, no apparent distress SPEECH: Moderate rate and volume, normal prosody, fluent MOTOR: No tics, tremors, stereotypy, or abnormal movements but requiring walker and walking stiffly with knee pain MOOD: "Depressed" AFFECT: Low, mood congruent, constricted range, non-labile, fairly well related THOUGHT PROCESS: Logical, linear and goal-directed THOUGHT CONTENT: Passive SI, no SI/AVH/SIB, no apparent grandiosity, paranoia, delusions, obsessions, some ruminations but able to distract himself with television COGNITION: No apparent deficit in attention, memory or concentration JUDGMENT: fair INSIGHT: fair ASSESSMENT: 61-year-old single white male who presented to the emergency room with suicidal thoughts of thinking about walking in front of a train. Patient known to appeals writer from previous admissions. Patient feels to be about the same as yesterday, with passive SI but feels safe and can talk to staff with worsening. Tolerating medication regimen, continue plan. DSM-5 Dx: Major depressive disorder recurrent severe with psychotic features Opioid use disorder Sedative hypnotic and anxiolytic use disorder PLAN: -maintain safety, vs tid, q15min checks -continue meds and pain management -cont opiate and sedative detox, tolerating tapers -continue plan
[2017-05-28] VITALS (8 sets, daily range): BP systolic 119–141; BP diastolic 63–76
--- NOTE | 2017-05-28 02:10 | CP SOUTH PROGRESS NOTE PSYCH ---
Psych (Inpt) Progress Note Progress Note Include the following elements, when applicable: Involvement in the active treatment of the patient with behavioral observations of the patient and the patient's response to the treatment. Review of the ongoing treatment process in the context of the treatment plan. Indication of how multi-disciplinary staff members are carrying out the treatment plan. Plans for future interventions and recommendations for revision of the treatment plan. Liaison with other physicians/providers. Progress Note: SUBJECTIVE: Patient reports feeling "about the same" as yesterday with some low mood and continued passive SI, no HI/AVH/SIB. Patient reports that he is able to fall asleep but then wakes up penitentiary through the night unable to return to sleep. Patient requesting Benadryl 25 mg for breakthrough insomnia, ordered. Denies side effects to medications No abnormal movements reported. Patient continues to have right knee pain, managed adequately by medications. Denies any other physical complaints or illness. OBJECTIVE: Per nursing, pt slept well overnight without any acute events. Pt remained in behavioral control, adherent with staff instructions and medications. VSS. Current Medications Sig/Blank Start time Last Medication Dose Route Stop Time Status Admin Acetaminophen 500 MG Q6P PRN 05/23 2199 AC PO Acetaminophen 650 MG Q4P PRN 05/23 2200 AC 05/23 PO 2248 Aspirin Buffered 81 MG DAILY 05/23 1000 AC 05/28 PO 0849 Clonazepam 0.5 MG DAILY 05/27 1000 AC 05/28 PO 06/03 0959 0849 Clonazepam 2 MG AT BEDTIME 05/25 2199 AC 05/27 PO 06/01 2159 2125 Clonazepam 1 MG Q4 HRS NEEDED PRN 05/24 0845 AC 05/25 PO 05/31 0844 0639 Clonidine 0.1 MG BID 05/26 220 AC 05/28 PO 0849 Diclofenac Sodium 75 MG BID 05/25 1538 AC 05/28 PO 0849 Fluphenazine HCl 1 MG AT BEDTIME 05/26 2199 AC 05/27 PO 2127 Hydrochlorothiazide 12.5 MG DAILY 05/23 1000 AC 05/28 PO 0849 Ibuprofen 600 MG Q6P PRN 05/25 1545 AC 05/28 PO 1034 Lisinopril 10 MG DAILY 05/23 1000 AC 05/28 PO 0850 Loratadine 10 MG DAILY 05/24 1000 AC 05/28 PO 0849 Methyl Salicylate 1 HALEY Q6-PRN PRN 05/23 2145 AC 05/24 TOP 1131 Multivitamins 1 TAB DAILY 05/24 1000 AC 05/28 Therapeutic PO 0850 Nicotine 21 MG DAILY 05/24 1000 AC 05/28 TOP 0850 Nicotine 2 MG Q2P PRN 05/23 214 AC PO Omeprazole 40 MG DAILY AC 05/24 0700 AC 05/28 PO 0713 Prazosin HCl 5 MG AT BEDTIME 05/23 2199 AC 05/27 PO 2125 Risperidone 4 MG AT BEDTIME 05/26 2199 AC 05/27 PO 2126 Sertraline HCl 100 MG DAILY 05/27 1000 AC 05/28 PO 0850 Vital Signs Date Time Temp Pulse Resp B/P B/P Pulse O2 O2 Flow FiO2 Mean Ox Delivery Rate 05/28 1155 98 120/63 05/28 1146 98 120/63 05/28 0850 92 123/74 05/28 0849 92 123/74 05/28 0822 96.7 92 123/74 05/28 0816 96.7 92 123/74 05/27 2314 104 135/68 05/27 2127 104 135/68 05/27 2126 112 18 135/68 05/27 2124 98.5 112 18 135/68 05/27 1956 98.5 80 98/66 05/27 1954 80 98/66 05/27 1603 98 143/74 05/27 1555 98 143/74 MSE: GENERAL: Alert and oriented x3, fair eye contact, poorly-groomed, no apparent distress, malodorous. SPEECH: Moderate rate and volume, normal prosody, fluent MOTOR: No tics, tremors, stereotypy, or abnormal movements but requiring walker and walking stiffly with knee pain MOOD: "About the same" AFFECT: Low, mood congruent, constricted range, non-labile, fairly well related THOUGHT PROCESS: Logical, linear and goal-directed THOUGHT CONTENT: Passive SI, no SI/AVH/SIB, no apparent grandiosity, paranoia, delusions, obsessions, some ruminations but able to distract himself with football game on TV COGNITION: No apparent deficit in attention, memory or concentration JUDGMENT: fair INSIGHT: fair ASSESSMENT: 61-year-old single white male who presented to the emergency room with suicidal thoughts of thinking about walking in front of a train. Patient known to screenplay writer from previous admissions. Patient feels about the same over the weekend with continued passive SI, but feels safe on the unit . DSM-5 Dx: Major depressive disorder recurrent severe with psychotic features Opioid use disorder Sedative hypnotic and anxiolytic use disorder PLAN: -maintain safety, vs tid, q15min checks -continue meds and pain management -adding benadryl 25 mg for breakthrough insomnia -cont opiate and sedative detox, tolerating tapers -continue plan -cont opiate and sedative detox, tolerating tapers -continue plan
[2017-05-29] VITALS (8 sets, daily range): BP systolic 120–123; BP diastolic 74–79
--- NOTE | 2017-05-29 14:39 | CP SOUTH PROGRESS NOTE PSYCH ---
Psych (Inpt) Progress Note Progress Note I reviewed Dr. Coleman notes for Steven and Hillary, reviewed case with treatment team members, and later interviewed patient Junior was resting in his bed (awake and alert), cooperative, calm, reduced psychomotor activity, no abnormal or bizarre behaviors, speech was reduced in amount and rate, showed constricted affect, remains depressed, less suicidal ideation, denied homicidal ideation, less auditory hallucinations, no delusions, no difficulties with thought organization, no gross deficits in cognition, no gross deficits in short-term memory, Impression and Plan: 61-year-old single white male who presented to the emergency room with suicidal thoughts of thinking about walking in front of a train Major depressive disorder recurrent severe with psychotic features Opioid use disorder Sedative hypnotic and anxiolytic use disorder Treatment Plan Update: Continue Inpatient psychiatric care Continue Detoxification from opiates, reduce clonidine to 0.1 mg at bedtime Continue slow detoxification from sedatives, reduce clonazepam 2mg QHS nursing staff to do assessments and education once a shift Social work to start the process of discharge planning and obtain any needed collateral and third-libertarian referrals Group therapy Milieu therapy and A psychiatrist to evaluate patient on a daily basis Continue Zoloft to 100 mg daily for depression and anxiety Add gabapentin 600 mg at bedtime (pt. still saying he sleeps only 2 hours?)
--- NOTE | 2017-05-29 17:35 | SOCIAL WORKER PROG NOTE PSYCH ---
Social Work Progress Note Progress Note 1:15pm This science writer joined the patient and Alla from [facility] who were meeting in his room. Alla shared their discussion about the patient's interest in finding an apartment with his sister, who, per the patient, provides assistance with ADL 's. Patient is also interested in a referral to [facility] for their medical floor and requested that this science writer continue with efforts to place him in a custodial. Alla will look into Basic Needs and continue to work to find funds for a security deposit that might allow the patient and his sister to live together. Patient reported ongoing depression and SI due to his physical pain and homelessness. Patient stated that he feels safe on this unit and will inform staff if feeling unsafe and/or have other concerns. This science writer submitted the [facility] application.
[2017-05-30 07:50] VITALS: BP 121/77
[2017-05-30 07:53] VITALS: BP 121/77
[2017-05-30 12:11] VITALS: BP 127/68
--- NOTE | 2017-05-30 12:40 | CP SOUTH PROGRESS NOTE PSYCH ---
Psych (Inpt) Progress Note Progress Note Nursing Staff, Group Therapists, Social Work Staff, and Psychiatrist discussed Angela treatment and progress Junior was up and about, awake and alert, cooperative, and calm. He showed no abnormal or bizarre behaviors, his speech was reduced in amount and rate, and he showed constricted affect, He reported that he remains depressed, less frequent suicidal ideation, denied homicidal ideation, less auditory hallucinations, There were no delusions, no difficulties with thought organization, no gross deficits in cognition, no gross deficits in short-term memory, Assessment: A 61-year-old single White male who was admitted to [facility] with suicidal thoughts of thinking about walking in front of a train. Likely Diagnoses: Major Depressive disorder recurrent severe with psychotic features Opioid Use disorder Sedative-Hypnotic and anxiolytic use disorder Treatment Plan Update: Continue Inpatient psychiatric care D/C clonidine reduce clonazepam to 1.5 mg QHS Nursing staff: assessments and education once a shift Social work: to start the process of discharge planning and obtain any needed collateral and third-republican referrals Group Therapy Milieu therapy and A psychiatrist to evaluate patient on a daily basis Continue Zoloft to 100 mg daily for depression and anxiety Continue gabapentin 600 mg at bedtime
[2017-05-30 15:49] VITALS: BP 129/90
--- NOTE | 2017-05-30 16:25 | SOCIAL WORKER PROG NOTE PSYCH ---
Social Work Progress Note Progress Note This bond underwriter met with patient. He described his mood as "alright." He continues to report SI; he states that he feels safe on this unit and would immediately inform staff if feeling unsafe. Patient reports ongoing command AH "telling me to kill myself in front of a train." Patient inquired about any follow up on discharge plans. He was informed that the [facility] was submitted yesterday. He signed a release for [facility]. 4:23pm: This bond underwriter contacted [facility] ([phone]) and left a vm for the coordinator requesting a call back.
[2017-05-30 19:43] VITALS: BP 141/82
[2017-05-31 08:28] VITALS: BP 138/84
[2017-05-31 12:40] VITALS: BP 122/77
--- NOTE | 2017-05-31 12:43 | CP SOUTH PROGRESS NOTE PSYCH ---
Psych (Inpt) Progress Note Progress Note Nursing Staff, Group Therapists, Social Work Staff, and Psychiatrist discussed Angela treatment and progress The input from the treatment team indicated that Junior has been a little bit isolative. Otherwise, he is not a behavioral problem. He is usually calm and polite. He mobilizes using his walker on the unit. I interviewed him in my office. He was alert oriented to time place and person. He reported that he remains depressed. He denied thinking of suicide today. He did not show any abnormal behaviors or bizarre behaviors. He reported that he is looking forward to meeting with the staff from a nursing facility. His speech was normal there was no pressure, he wasnt slurred. He denied hallucinations in the past 24 hours. There were no delusions during the interview and no thought disorder. He denied violent thoughts or thoughts of homicide. He was coherent. There was no gross deficits in his memory or ability to attend and concentrate He reported return of insomnia last night he believes it may be the reductions in his benzodiazepines Assessment: A 61-year-old single White male who was admitted to [facility] with suicidal thoughts of thinking about walking in front of a train. The patient has shown minor improvement in his anxiety level he remains depressed with relative minor improvement. He is cooperative with the treatment on the unit and cooperative with meeting with outside providers to facilitate discharge to [facility] facility. Likely Diagnoses: Major Depressive disorder recurrent severe with psychotic features Opioid Use disorder Sedative-Hypnotic and anxiolytic use disorder Treatment Plan Update: Continue Inpatient psychiatric care Continue clonazepam 1.5 mg QHS Nursing staff: assessments and education once a shift Social work: to start the process of discharge planning and obtain any needed collateral and third-libertarian referrals Group Therapy Milieu therapy and A psychiatrist to evaluate patient on a daily basis Continue Zoloft to 100 mg daily for depression and anxiety Increase gabapentin to 900 mg at bedtime
--- NOTE | 2017-05-31 15:34 | SOCIAL WORKER PROG NOTE PSYCH ---
Social Work Progress Note Progress Note Faxed clinical and Attestation to Dr. Dheeraj Angel initial evaluation, recent notes from Dr. Esqueda, and Kathy Fitzgerald LCSW (notes from 05/30/17 only).
[2017-05-31 16:11] VITALS: BP 129/82
--- NOTE | 2017-05-31 17:23 | SOCIAL WORKER PROG NOTE PSYCH ---
Social Work Progress Note Progress Note 3:45pm This mortgage loan underwriter met with patient. He stated that his Klonopin taper has stopped, however, he would like for the dose to be increased to the original dose. Patient was encouraged to speak with Dr. Nixon about this. Patient inquired about the [facility] application and was informed that the application had been submitted and additional requested information had also been submitted. He also inquired about [facility] and was informed that this mortgage loan underwriter had not received a call back from the that had been left. Patient described his mood as "better," however, reports ongoing SI with AH to jump in front of a train. He identified taking a shower and shaving as helpful to his mood. He also identified acupuncture as helpful both with his mood as well as his physical pain. "I didn't have any [physical] pain after the acupuncture." When asked about VH, he reported that he consistently sees himself jumping in front of a train. He stated that, [place] a person committed suicide by jumping in front of a train and he wonders if this contributes to his constant thinking about himself doing so. Patient reported increased energy and, again, attributes it to the shower. He plans to continue with this on a daily basis. Patient denied HI. Patient was appropriately and spontaneously engaged in the conversation. He appeared brighter with improved mood.
[2017-05-31 19:56] VITALS: BP 133/85
[2017-06-01 08:12] VITALS: BP 138/90
[2017-06-01 12:06] VITALS: BP 135/83
--- NOTE | 2017-06-01 12:55 | CP SOUTH PROGRESS NOTE PSYCH ---
Psych (Inpt) Progress Note Progress Note Nursing Staff, Group Therapists, Social Work Staff, and Psychiatrist discussed Angela treatment and progress The input from the treatment team indicated that Junior has been calm, cooperative but somewhat isolative. Otherwise, he is not a behavioral problem. I interviewed the patient in my office He was calm, polite, alert, and oriented to time place and person. He reported that he remains depressed but not as depressed as when he came in. He denied thinking of suicide today, did not show any abnormal behaviors or bizarre behaviors, and reported that he is looking forward to meeting with the staff from a nursing facility (he thinks the facilitys name is [facility]). The patients speech was normal with no pressure, and he wasnt slurred. He denied hallucinations in the past 24 hours, and there were no delusions during the interview. He was coherent/no thought disorder, denied violent thoughts or thoughts of homicide, and there were no gross deficits in his memory or ability to focus and concentrate. He reported that he slept well last night (with medications, of course) Assessment: The patient is a 61-year-old single White male who was admitted to [facility] with suicidal thoughts of thinking about walking in front of a train. The patient has shown minor improvement in his anxiety level he remains depressed with relative minor improvement. He is cooperative with the treatment on the unit and showing slow improvement. Likely Diagnoses: Major Depressive disorder recurrent severe with psychotic features Opioid Use disorder Sedative-Hypnotic and anxiolytic use disorder Gynecomastia Treatment Plan Update: Continue Inpatient psychiatric care Continue clonazepam 1.5 mg QHS until Monday then re-evaluate Continue Zoloft to 100 mg daily for depression and anxiety Continue gabapentin to 900 mg at bedtime Nursing staff: assessments and education once a shift Social work: to start the process of discharge planning and obtain any needed collateral and third-constitution party referrals Group Therapy Milieu therapy and A psychiatrist to evaluate patient on a daily basis
[2017-06-01 15:40] VITALS: BP 134/89
--- NOTE | 2017-06-01 17:13 | SOCIAL WORKER PROG NOTE PSYCH ---
Social Work Progress Note Progress Note According to Lois: "As of the , he is still having suicidal thoughts with plan, auditory hallucinations, and withdrawn behaviors. He does not appear to be stable at this time for a L2, please submit documentation when he is." 3:20pm Patient was informed of this update from Lois. He maintains that he continues to feel suicidal and experience AH. He also inquired about [facility] as he would like to pursue housing there as well as work towards being more stable so he could continue to look into nursing facilities. Patient also expressed interest in continuing to work with Alla at [facility]. 5:00pm This teletypewriter operator spoke with Alla by phone ([phone]). She stated that she has contacted [employer] in interest of a security deposit and is waiting to hear back. She also stated that she is exploring Basic Need program. Alla was informed what this teletypewriter operator learned from Lois (see above). She stated that she would contact this teletypewriter operator upon obtaining more information from [employer] or the Basic Needs program.
[2017-06-01 19:54] VITALS: BP 122/84
[2017-06-02 08:00] VITALS: BP 139/97
[2017-06-02 12:10] VITALS: BP 121/65
--- NOTE | 2017-06-02 13:51 | CP SOUTH PROGRESS NOTE PSYCH ---
Psych (Inpt) Progress Note Progress Note Nursing Staff, Group Therapists, Social Work Staff, and Psychiatrist discussed Angela treatment and progress The input from the treatment team indicated that Junior has been calm, cooperative but somewhat isolative. Otherwise, he is not a behavioral problem. I interviewed the patient in my office, He was calm, polite, alert, and oriented to time place and person. He reported that he remains depressed but not as depressed as when he came in. He denied thinking of suicide today, did not show any abnormal behaviors or bizarre behaviors, and reported that he is looking forward to meeting with the staff from a nursing facility (he thinks the facilitys name is [facility]). The patients speech was normal with no pressure, and he wasnt slurred. He denied hallucinations in the past 24 hours, and there were no delusions during the interview, coherent/no thought disorder, denied violent thoughts or thoughts of homicide, and there were no gross deficits in his memory or ability to focus and concentrate. He reported that he slept well last night (with medications, of course) Assessment: The patient is a 61-year-old single White male who was admitted to [facility] with suicidal thoughts of thinking about walking in front of a train. The patient has shown minor improvement in his anxiety level he remains depressed with relative minor improvement. He is cooperative with the treatment on the unit and showing slow improvement. Likely Diagnoses: Major Depressive disorder recurrent severe with psychotic features Opioid Use disorder Sedative-Hypnotic and anxiolytic use disorder Gynecomastia Treatment Plan Update: Continue Risperidone 1 mg at bedtime Continue Inpatient psychiatric care Continue clonazepam 1.5 mg QHS until Monday then re-evaluate Continue Zoloft to 100 mg daily for depression and anxiety Continue gabapentin 900 mg at bedtime Nursing staff: assessments and education once a shift Social work: to start the process of discharge planning and obtain any needed collateral and third-democrat referrals Group Therapy Milieu therapy and A psychiatrist to evaluate patient on a daily basis
[2017-06-02 16:11] VITALS: BP 139/77
--- NOTE | 2017-06-02 16:30 | SOCIAL WORKER PROG NOTE PSYCH ---
Social Work Progress Note Progress Note 3:20pm This com writer met with patient. He was informed that this com writer spoke with Alla yesterday and she is working to explore the possibility of the patient obtaining a security deposit and/or Basic Needs. Patient reported his suicidal thoughts and AH as "not as bad." He attributed "changing my routine" and showering daily as well as feeling that the medications are beginning to help as the reason for his improved mood and decreased symptoms. Patient was informed that this com writer had not heard from [facility] and would make another attempt to reach them. Following this meeting, the patient encouraged another patient to attend a group with him. 4:23pm In patient's interest of the medical respite floor at [facility], this com writer called and spoke with Linda ([phone]) who stated that their particular program (medical respite) is only accepting referrals from [facility].
[2017-06-02 19:47] VITALS: BP 145/90
[2017-06-03 08:24] VITALS: BP 130/89
--- NOTE | 2017-06-03 11:01 | CP SOUTH PROGRESS NOTE PSYCH ---
Psych (Inpt) Progress Note Progress Note Include the following elements, when applicable: Involvement in the active treatment of the patient with behavioral observations of the patient and the patient's response to the treatment. Review of the ongoing treatment process in the context of the treatment plan. Indication of how multi-disciplinary staff members are carrying out the treatment plan. Plans for future interventions and recommendations for revision of the treatment plan. Liaison with other physicians/providers. Progress Note: Awake, alert and more coherent compared to previous evaluations. Stated that he continues to hear voices to jump in front of a train. Despite these concerning statements he does not appear to be worried about them or acting on them (appear chronic in most of his admissions, element of secondary gain to maintain snf here present as well). stated that if he is admitted to a skilled nursing this time it will work and stated that he will not walk out or request another placement. Asking for more Benadryl but I explained to him that the goal would be for him to be not sedated rather than sluggish and lethargic as he has been in the past. MSE: awake, alert, speech is normal volume and rate. Uses walker to ambulate. Jokes at times, mood is neutral to positive and affect is constricted and reactive. His speech is regular rate and rhythm. He is obese, with fair grooming , just out of shower. His thought process is linear and goal directed. Thought content is negative for thoughts to harm others, positive for intrusive hallucinations to jump in front of the train states he ignores them by praying and does not act on them. insight fair, judgment fair. No delusional thinking noted. Plan: 61 year old gentleman with chronic suicidal thoughts, opioid use disorder, sedative use disorder, admitted with recurrent suicidal thoughts of jumping in front of train in context of unstable housing situation. Continue current plan of care, encourage socialization, engagement in the milieu.
[2017-06-03 12:05] VITALS: BP 126/79
[2017-06-03 16:04] VITALS: BP 135/95
[2017-06-03 20:07] VITALS: BP 131/98
[2017-06-04 08:39] VITALS: BP 127/73
--- NOTE | 2017-06-04 11:23 | CP SOUTH PROGRESS NOTE PSYCH ---
Psych (Inpt) Progress Note Progress Note Include the following elements, when applicable: Involvement in the active treatment of the patient with behavioral observations of the patient and the patient's response to the treatment. Review of the ongoing treatment process in the context of the treatment plan. Indication of how multi-disciplinary staff members are carrying out the treatment plan. Plans for future interventions and recommendations for revision of the treatment plan. Liaison with other physicians/providers. Progress Note: Awake, but in room and stated that he wanted to go back to bed b/c of nightmares of people dying. Stated he continues to hear voices that say to kill himself, which he avoids doing by praying. Attempted to discuss sleep hygiene, use of coping skills but he was not very interested today. MSE: awake, alert, speech is normal volume and rate. Overweight, fair grooming, uses walker to ambulate. Marginally more irritable today, likely b/c he was just waking up. His affect is constricted but reactive. His mood is good to annoyed. His thought process is linear and goal directed. Thought content is negative for thoughts to harm others but positive for chronic hallucinations to kill self; no active plan but historically states the voices tell him to jump in front of a train. He continues to ignore them by praying. No delusions or evidence of thought disorder noted. Insight fair, judgment fair. A: 61 year old gentleman with chronic suicidal thoughts, opioid use disorder, sedative use disorder, admitted with recurrent suicidal thoughts of jumping in front of train in context of an unstable housing situation, likely in part at least sx are noted to help him with maintaining stable housing in the hospital at this time. Despite this, he does have a number of risk factors including drug use, recurrent command hallucinations which increase his chronic risk of self harm and require ongoing monitoring/stabilization. Plan: Continue current plan of care, encourage socialization, engagement in the milieu; encourage using his coping skills.
[2017-06-04 12:10] VITALS: BP 116/75
[2017-06-04 16:01] VITALS: BP 131/87
[2017-06-04 19:46] VITALS: BP 126/89
[2017-06-05 07:50] VITALS: BP 126/77
[2017-06-05 12:19] VITALS: BP 138/73
--- NOTE | 2017-06-05 13:33 | CP SOUTH PROGRESS NOTE PSYCH ---
Psych (Inpt) Progress Note Progress Note I reviewed the notes of Dr. Shauna Mccurdy MD (the covering psychiatrist for the weekend of Jun 03 & 2017). Nursing staff, group therapists, social work staff, and psychiatrist discussed the patients progress, and reviewed the patients treatment/care plan in the team meeting MSE: Junior was alert, and oriented to time, place, and person. He was focused on Klonopin. His speech is normal volume and rate. He reported nightmares of people dying. He is unreliable regarding certain symptoms, for example, today he reported visual hallucinations but not audio hallucinations. (However, he told Dr. Mccurdy over the weekend that he hears voices that tell him to kill himself). Overweight, uses walker to ambulate not irritable today, thought process is linear and goal directed. No delusions or evidence of thought disorder noted. Insight and judgment and veracity are very questionable. A: 61 year old with chronic suicidal thoughts, opioid use disorder, sedative use disorder, admitted with recurrent suicidal thoughts of jumping in front of train in context of an unstable housing situation, likely in part at least sx are noted to help him with maintaining stable housing in the hospital at this time. Despite this, he does have a number of risk factors including drug use. 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
[2017-06-05 16:06] VITALS: BP 141/80
--- NOTE | 2017-06-05 17:26 | SOCIAL WORKER PROG NOTE PSYCH ---
Social Work Progress Note Progress Note 3:50pm This literary writer met with patient. He reported that he is "feeling better" and believes that the medications began to work over the weekend. He reported that he is sleeping better as well and denied SI/HI/AH/VH. Patient is interested in continuing to work with Alla at [facility] regarding housing. He stated that he had nothing else to discuss today.
[2017-06-05 19:47] VITALS: BP 143/93
[2017-06-06 07:53] VITALS: BP 124/91
[2017-06-06 12:14] VITALS: BP 121/85
--- NOTE | 2017-06-06 12:27 | CP SOUTH PROGRESS NOTE PSYCH ---
Psych (Inpt) Progress Note Progress Note The treatment team (RN, group therapists, social work staff, and psychiatrist) discussed the patients progress, and reviewed the patients treatment/care plan in the team meeting Junior was alert and oriented to time, place, and person. He was focused on an interaction he had last night. He alleged that a staff member mentioned the expression skin flute. His speech is normal volume and rate. The input from the team is that he has been denying thoughts of suicide today and yesterday He denied thoughts of violence or homicide. He did not bring up visual or audio hallucinations, Junior was coherent. There was no significant thought disorder, and no delusions. Summary and Risk Assessment: Junior is a 61-year-old single White male who admitted to the inpatient psychiatric unit with chronic suicidal thoughts, opioid use disorder, sedative use disorder, admitted with recurrent suicidal thoughts of jumping in front of train in context of an unstable housing situation, likely in Risk factors for suicide and/or violence/homicide: 1) Single, White, Male, over 55 years of age; 2) Unstable housing and financially stressed, 3) History of TBI Protective/Risk-Mitigating Factors: 1) seems more hopeful and goal oriented, 2) no history of violence, 3) does not have a terminal illness, 4) no current legal problems Likely Diagnoses are: Major Depressive disorder recurrent severe with psychotic features, Opioid Use disorder, Sedative-Hypnotic and anxiolytic use disorder, Gynecomastia, Other specified personality disorder, malingering Treatment Plan Update: clonazepam 1 mg QHS Continue Zoloft 100 mg daily for depression and anxiety gabapentin 1200 mg at bedtime Continue Inpatient psychiatric care: Nursing staff assessments, vitals, and education; Social work to continue discharge planning and obtain any needed collateral and third-democrat referrals; Continue Group Therapy; Milieu therapy and psychiatrist to evaluate patient on a daily basis
[2017-06-06 15:47] VITALS: BP 116/78
--- NOTE | 2017-06-06 16:46 | SOCIAL WORKER PROG NOTE PSYCH ---
Social Work Progress Note Progress Note 3:10pm This scenario writer met with patient. He shared a verbal interaction that he had with a staff member last evening which he found to be uncomfortable. Patient stated that he spoke with Dr. Nixon as well as Angelic Mckay RN regarding this matter. Aside from this interaction, patient stated that he felt that the medications were helping and that his mood had improved. He was interested in looking into a fpc and following up with [facility] as well. Patient denied SI/HI/AH/VH. 4:43pm This scenario writer spoke with Alla regarding an progress. She stated that she continues to explore options for a security deposit.
[2017-06-06 20:08] VITALS: BP 143/93
[2017-06-07 07:52] VITALS: BP 126/79
[2017-06-07 12:13] VITALS: BP 137/83
--- NOTE | 2017-06-07 12:17 | CP SOUTH PROGRESS NOTE PSYCH ---
Psych (Inpt) Progress Note Progress Note The treatment team (RN, group therapists, social work staff, and psychiatrist) discussed the patients progress, and reviewed the patients treatment/care plan in the team meeting Junior was alert and oriented to time, place, and person. His speech is normal /not pressured, nor slurred, denied thoughts of suicide, denied thoughts of violence or homicide. He did not bring up visual or audio hallucinations, Junior was coherent. There was no significant thought disorder, and no delusions. Summary and Risk Assessment: Juniro is a 61-year-old single White male who admitted to the inpatient psychiatric unit with chronic suicidal thoughts, opioid use disorder, sedative use disorder, admitted with recurrent suicidal thoughts of jumping in front of train in context of an unstable housing situation, likely in RISK FACTORS FOR SUICIDE AND/OR VIOLENCE/HOMICIDE: 1) Single, White, Male, over 55 years of age; 2) Unstable housing and financially stressed, 3) History of TBI, 4) history of 1 , or maybe 2 suicide attempts: 1 he reportedly took an overdose of Klonopin and other according to previous records he fell on railroad tracks PROTECTIVE/RISK-MITIGATING FACTORS: 1) seems more hopeful and goal oriented, 2) no history of violence, 3) does not have a terminal illness, 4) no current legal problems, 5) no recent history of abusing alcohol Likely Diagnoses are: Major Depressive disorder recurrent severe with psychotic features, Opioid Use disorder, Sedative-Hypnotic and anxiolytic use disorder, Gynecomastia, Other specified personality disorder, malingering Treatment Plan Update: clonazepam 1 mg QHS Continue Zoloft 100 mg daily for depression and anxiety gabapentin 1200 mg at bedtime Continue Inpatient psychiatric care: Nursing staff assessments, vitals, and education; Social work to continue discharge planning and obtain any needed collateral and third-libertarian referrals; Continue Group Therapy; Milieu therapy and psychiatrist to evaluate patient on a daily basis
[2017-06-07 16:07] VITALS: BP 144/88
--- NOTE | 2017-06-07 17:17 | SOCIAL WORKER PROG NOTE PSYCH ---
Social Work Progress Note Progress Note 1:50pm This verse writer met with patient. He was informed of the information learned regarding [facility] and their medical floor in which they would not accept referrals outside of [facility]. He was also informed that this verse writer spoke with Alla yesterday who stated that she continues to explore funding options for an apartment. Patient expressed interest in re-visiting [facility] application as he reports improvement with symptoms. Patient stated that he has been struggling with managing thoughts and memories related to childhood trauma. He stated that he had been in [place] in 1978 and would also like to explore returning to a [facility] for longer term treatment. This will be presented during the team meeting tomorrow morning.
[2017-06-07 19:49] VITALS: BP 122/95
[2017-06-08 07:52] VITALS: BP 135/69
--- NOTE | 2017-06-08 08:06 | CP SOUTH PROGRESS NOTE PSYCH ---
Psych (Inpt) Progress Note Progress Note The treatment team (RN, group therapists, social work staff, and psychiatrist) discussed the patients progress, and reviewed the patients treatment/care plan in the team meeting Junior reported that he did not sleep well last night: I was tossing and turning, tossing and turning alert this morning, oriented to time, place, and person. His speech was normal: neither slurred nor pressured, denied thoughts of suicide, denied thoughts of violence or homicide. He did not bring up visual or audio hallucinations, Junior was coherent. There was no significant thought disorder, and no delusions. Summary and Risk Assessment: Junior is a 61-year-old single White male who admitted to the inpatient psychiatric unit on 05/23/2017 with chronic suicidal thoughts of jumping in front of train in context of an unstable housing situation/homelessness RISK FACTORS FOR SUICIDE AND/OR VIOLENCE/HOMICIDE: 1) Single White Male over 55 years of age; 2) Unstable housing and financially stressed, 3) History of TBI, 4 ) Pt. says he had maybe 10 suicide attempts (The record, however, referred to history of 1, or maybe 2 suicide attempts: 1 he reportedly took an overdose of Klonopin and other according to previous records he fell on railroad tracks), 5) The patient is not reliable with tendency for embellishment of symptoms and exaggeration of past history (to achieve desired goals/effects) PROTECTIVE and RISK-MITIGATING FACTORS FOR SUICIDE AND/OR VIOLENCE/HOMICIDE: 1) He seems more hopeful and goal oriented, 2) no history of violence, 3) does not have a terminal illness, 4) no current legal problems, 5) no recent history of abusing alcohol 6) I believe some of the risk factors above are embellished and exaggerated by patient because he thinks he needs to be committed for a long period of time 7 ) While his homelessness is a risk factor, it is also a possible reason for malingering/embellishing/exagerrating Likely Diagnoses are: Major Depressive disorder recurrent severe with psychotic features, Opioid Use disorder, Sedative-Hypnotic and anxiolytic use disorder, Gynecomastia, Other specified personality disorder, malingering Care Plan: Reduce gabapentin to 600 mg at bedtime (pt. claimed that 1200 mg caused his stomach pains) D/C PRN Benadryl (I am feeling tired all day) PRN Thorazine Increase Fluphenazine to 2 mg at bedtime Continue clonazepam 1 mg QHS Continue Zoloft 100 mg daily for depression and anxiety Continue Inpatient psychiatric care: assessments, education and vital signs monitoring by nursing staff, aftercare/discharge planning by PRODUCTION HONING MACHINE OPERATOR, Group Therapy ; Milieu therapy and psychiatrist to evaluate patient on a daily basis
[2017-06-08 12:10] VITALS: BP 122/82
--- NOTE | 2017-06-08 14:54 | SOCIAL WORKER PROG NOTE PSYCH ---
Social Work Progress Note Progress Note 11:18am This video game script writer spoke with Eric at [facility] ([phone], ext. [phone]). She requested the following information to be submitted by 06/12/17: - Psychiatrist progress notes - Functional limitations in the following areas as a result of his TBI at age 10 : mobility, self care, self direction, learning, understanding/use of language/ communication skills, capacity to live independently - Medical information needed for terminal operations manager care placement 11:42am This video game script writer met with patient and informed him of the above call with Eric. The information was also provided to Dr. Nixon. Patient stated that he did not sleep well due to thinking alot about memories that he has been experiencing. He expressed interest in therapy to address his childhood trauma. Patient denied SI/HI/AH/VH. He feels that he has been experiencing flashbacks, rather than VH. Patient also expressed need for assistance with physical issues, specifically stating, "I can't walk well anymore." Patient utilizes a walker on this unit and stated that he uses one when he is not in the hospital as well. Patient expressed interest in finding a Sober Home (if a half-way is not available) in the [facility], NOT [place]. He was informed that this video game script writer would contact Alla regarding this. This video game script writer contacted Alla regarding the patient's interest in a Sober Home. She stated that she would be able to assist him with this.
[2017-06-08 16:04] VITALS: BP 121/73
[2017-06-08 19:53] VITALS: BP 137/79
[2017-06-09 07:44] VITALS: BP 115/79
--- NOTE | 2017-06-09 08:29 | CP SOUTH PROGRESS NOTE PSYCH ---
Psych (Inpt) Progress Note Progress Note RN, group therapists, BUILDING SURVEYOR, and psychiatrist discussed Angela progress, and reviewed his treatment/care plan Junior reported that hes doing well and more optimistic about life in general and housing in particular His affect seems brighter, alert and oriented to time, place, and person. His speech was neither slurred nor pressured, Denied thoughts of suicide, denied thoughts of violence or homicide, and denied hallucinations, Junior was coherent; there was no significant thought disorder, and no delusions. Assessment: Junior is a 61-year-old single White male who admitted to the inpatient psychiatric unit on 05/23/2017 with chronic suicidal thoughts of jumping in front of train after he and his sister found themselves homeless. Junior continues to show slow but consistent improvement Likely Diagnoses are: Major Depressive disorder recurrent severe with psychotic features, Opioid Use disorder, Sedative-Hypnotic and anxiolytic use disorder, Gynecomastia , Other specified personality disorder, malingering Care Plan: D/C gabapentin at bedtime Continue PRN Thorazine Fluphenazine 2 mg at bedtime Reduce clonazepam to 0.5 mg QHS Continue Zoloft 100 mg daily for depression and anxiety Continue Inpatient psychiatric care: assessments, education and vital signs monitoring by nursing staff, aftercare/discharge planning by BUILDING SURVEYOR, Group Therapy ; Milieu therapy and psychiatrist to evaluate patient on a daily basis
[2017-06-09 12:09] VITALS: BP 108/81
[2017-06-09 16:26] VITALS: BP 121/63
--- NOTE | 2017-06-09 16:58 | SOCIAL WORKER PROG NOTE PSYCH ---
Social Work Progress Note Progress Note 1:35pm This television script writer met with patient. He described his mood as "ok." Patient stated that he attended group today, however, is feeling very tired as he was not able to sleep last night due to his roommate. Patient requested to sign an LIBRA for his sister, La, in the event that she would like to call.
[2017-06-09 19:55] VITALS: BP 120/68
[2017-06-10 07:52] VITALS: BP 100/55
--- NOTE | 2017-06-10 11:22 | CP SOUTH PROGRESS NOTE PSYCH ---
Psych (Inpt) Progress Note Progress Note Include the following elements, when applicable: Involvement in the active treatment of the patient with behavioral observations of the patient and the patient's response to the treatment. Review of the ongoing treatment process in the context of the treatment plan. Indication of how multi-disciplinary staff members are carrying out the treatment plan. Plans for future interventions and recommendations for revision of the treatment plan. Liaison with other physicians/providers. Progress Note: Pt very irritable this morning around taking thorazine. States that may refuse it from now on. Notes mood is "not good." He denies SI or HI. Feels not able to sleep well. No visitors. Current Medications Sig/Blank Start time Last Medication Dose Route Stop Time Status Admin Acetaminophen 500 MG Q6P PRN 05/23 220 AC PO Acetaminophen 650 MG Q4P PRN 05/23 2200 AC 05/23 PO 2248 Aspirin Buffered 81 MG DAILY 05/23 1000 AC 06/10 PO 0902 Chlorpromazine 100 MG AT BEDTIME 06/08 2200 AC 06/09 PO 2150 Chlorpromazine 75 MG Q4 HRS NEEDED PRN 06/08 1515 AC 06/10 PO 0641 Clonazepam 0.5 MG AT BEDTIME 06/09 2200 AC 06/09 PO 06/16 2159 2151 Diclofenac Sodium 100 MG BID 06/01 2200 AC 06/10 PO 0902 Fluphenazine HCl 2 MG AT BEDTIME 06/08 2200 AC 06/09 PO 2149 Hydrochlorothiazide 12.5 MG DAILY 05/23 1000 AC 06/10 PO 0902 Ibuprofen 600 MG Q6P PRN 05/25 1545 AC 06/05 PO 1356 Lisinopril 10 MG DAILY 05/23 1000 AC 06/10 PO 0902 Loratadine 10 MG DAILY 05/24 1000 AC 06/10 PO 0902 Methyl Salicylate 1 HALEY Q6-PRN PRN 05/23 2145 AC 05/24 TOP 1131 Multivitamins 1 TAB DAILY 05/24 1000 AC 06/10 Therapeutic PO 0902 Nicotine 21 MG DAILY 05/24 1000 AC 06/10 TOP 0902 Nicotine 2 MG Q2P PRN 05/23 2145 AC PO Omeprazole 40 MG DAILY AC 05/24 0700 AC 06/10 PO 0641 Prazosin HCl 5 MG AT BEDTIME 05/23 2200 AC 06/09 PO 2149 Sertraline HCl 100 MG DAILY 05/27 1000 AC 06/10 PO 0902 Trazodone HCl 50 MG AT BEDTIME NEED.. 06/10 1130 UNVr PO Vital Signs Date Time Temp Pulse Resp B/P B/P Pulse O2 O2 Flow FiO2 Mean Ox Delivery Rate 06/10 0902 100 125/89 06/10 0752 97.9 88 100/55 06/09 2149 97.2 104 18 120/68 06/09 1955 97.2 104 120/68 06/09 1626 98 121/63 06/09 1209 100 108/81 MSE General appearance: good hygiene and grooming; Attitude: cooperative; Eye contact: appropriate; Movement: no psychomotor agitation or slowing; Speech: nl fluency, nl rate/rhythm, nl volume, nl prosody; Mood: "not good" Affect: very irritable, flat, appropriate, constricted, non-labile, congruent; Thought process: linear and goal-directed; Thought content: denied SI or HI, no paranoid ideation; Perception: denied hallucinations- auditory, visual, does not appear to be responding to internal stimuli; I/J: limited A/P: Pt with depression and OUD with continued depression and irritability - start trazodone 50mg PRN - will leave thorazine on as but may take -Otherwise continue current medication regimen -Encourage integration into the milieu
[2017-06-10 12:01] VITALS: BP 108/73
[2017-06-10 16:16] VITALS: BP 135/85
[2017-06-10 19:08] VITALS: BP 129/83
[2017-06-11 08:04] VITALS: BP 114/82
[2017-06-11 11:59] VITALS: BP 135/93
--- NOTE | 2017-06-11 12:22 | CP SOUTH PROGRESS NOTE PSYCH ---
Psych (Inpt) Progress Note Progress Note Include the following elements, when applicable: Involvement in the active treatment of the patient with behavioral observations of the patient and the patient's response to the treatment. Review of the ongoing treatment process in the context of the treatment plan. Indication of how multi-disciplinary staff members are carrying out the treatment plan. Plans for future interventions and recommendations for revision of the treatment plan. Liaison with other physicians/providers. Progress Note: Pt remains quite adamant that does not want to take thorazine. He reports feeling better without it. Denies SI or HI. Requested benadryl PRN and sleep. Current Medications Sig/Blank Start time Last Medication Dose Route Stop Time Status Admin Acetaminophen 650 MG .STK-MED ONE 06/10 2138 DC PO 06/10 2139 Acetaminophen 650 MG .STK-MED ONE 06/10 1622 DC PO 06/10 1623 Acetaminophen 500 MG Q6P PRN 05/23 2200 AC PO Acetaminophen 650 MG Q4P PRN 05/23 2200 AC 06/10 PO 2139 Aspirin Buffered 81 MG DAILY 05/23 1000 AC 06/11 PO 1023 Chlorpromazine 100 MG AT BEDTIME 06/08 2200 AC 06/09 PO 2150 Chlorpromazine 75 MG Q4 HRS NEEDED PRN 06/08 1515 AC 06/10 PO 0641 Clonazepam 0.5 MG AT BEDTIME 06/09 2200 AC 06/10 PO 06/16 2159 2139 Diclofenac Sodium 100 MG BID 06/01 2200 AC 06/11 PO 1023 Diphenhydramine HCl 50 MG AT BEDTIME 06/11 2200 UNVr PO Diphenhydramine HCl 50 MG Q6 PRN 06/11 1230 UNVr PO Diphenhydramine HCl 50 MG ONCE ONE 06/11 0150 DC 06/11 PO 06/11 0151 0150 Fluphenazine HCl 2 MG AT BEDTIME 06/08 2200 AC 06/10 PO 2139 Hydrochlorothiazide 12.5 MG DAILY 05/23 1000 AC 06/11 PO 1023 Ibuprofen 600 MG Q6P PRN 05/25 1545 DC 06/10 PO 1136 Lisinopril 10 MG DAILY 05/23 1000 AC 06/11 PO 1023 Loratadine 10 MG DAILY 05/24 1000 AC 06/11 PO 1023 Methyl Salicylate 1 HALEY Q6-PRN PRN 05/23 2145 AC 05/24 TOP 1131 Multivitamins 1 TAB DAILY 05/24 1000 AC 06/11 Therapeutic PO 1023 Nicotine 21 MG DAILY 05/24 1000 AC 06/11 TOP 1023 Nicotine 2 MG Q2P PRN 05/23 2145 AC PO Omeprazole 40 MG DAILY AC 05/24 0700 AC 06/11 PO 0804 Prazosin HCl 5 MG AT BEDTIME 05/23 2200 AC 06/10 PO 2139 Sertraline HCl 100 MG DAILY 05/27 1000 AC 06/11 PO 1023 Trazodone HCl 50 MG AT BEDTIME NEED.. 06/10 1130 AC PO Vital Signs Date Time Temp Pulse Resp B/P B/P Pulse O2 O2 Flow FiO2 Mean Ox Delivery Rate 06/11 1159 100 135/93 06/11 1023 88 114/82 06/11 0804 97.5 88 114/82 06/10 2139 100 124/80 02/ 1908 98.0 108 129/83 06/10 1616 108 135/85 MSE General appearance: good hygiene and grooming; Attitude: cooperative; Eye contact: appropriate; Movement: no psychomotor agitation or slowing; Speech: nl fluency, nl rate/rhythm, nl volume, nl prosody; Mood: "I think better without the thorazine Affect: very irritable, flat, appropriate, constricted, non-labile, congruent; Thought process: linear and goal-directed; Thought content: denied SI or HI, no paranoid ideation; Perception: denied hallucinations- auditory, visual, does not appear to be responding to internal stimuli; I/J: limited A/P: Pt with depression and OUD with continued depression and irritability now refusing thorazine. - Added benadryl PRN and sleep - Will leave thorazine on as but may take - Otherwise continue current medication regimen - Encourage integration into the milieu
[2017-06-11 15:31] VITALS: BP 135/75
[2017-06-11 19:10] VITALS: BP 143/98
[2017-06-12 08:08] VITALS: BP 138/85
[2017-06-12 12:03] VITALS: BP 137/95
[2017-06-12 15:53] VITALS: BP 129/88
--- NOTE | 2017-06-12 17:34 | SOCIAL WORKER PROG NOTE PSYCH ---
Social Work Progress Note Progress Note This policy writer spoke with Eric at [facility] regarding the requested information. She was informed that a letter would be faxed to her as well as This policy writer met with patient. He described his mood as feeling "depressed" due to the side effects of medication. Patient stated that he had discussed this with Dr. Nixon who happened to walk by and encouraged him to be patient while waiting for the side effects to subside. Patient was informed that this policy writer sent updated clinical information and a letter from Dr. Nixon to [facility] (faxed at 3:28pm to [phone]). Patient was grateful for this. Patient denied SI/HI/AH/VH.
[2017-06-12 20:06] VITALS: BP 126/98
[2017-06-13 07:52] VITALS: BP 127/88
--- NOTE | 2017-06-13 09:14 | CP SOUTH PROGRESS NOTE PSYCH ---
Psych (Inpt) Progress Note Progress Note The patient exhibited significant Parkinsonian tremors involving his lips and jaw muscles, he also had some mild parkinsonian tremor of the upper extremities and had akathisia in the lower extremities He reported that this worsening started happening on Monday, so it is feasible that it was due to the increase in the fluphenazine on Monday from 1 mg to 2 mg at bedtime (in conjunction with the Thorazine Patient's mental status was unchanged from Monday except for the above He continues to deny hallucinations he was alert and oriented to time place and person and did not seem to have a thought disorder and there were no delusions. He denies thinking of suicide and denies violent thoughts or thoughts of homicide I discussed options with the Junior regarding the new onset of Parkinsonian side effects and akathisia, we agreed on the following: #1 reduce fluphenazine back to 1 mg at bedtime 2 discontinue when necessary's of Thorazine And increase Klonopin at bedtime back to 1 mg because that was the other changes that took place on Monday
[2017-06-13 12:11] VITALS: BP 122/86
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
--- NOTE | 2017-06-13 13:15 | CP SOUTH PROGRESS NOTE PSYCH ---
Psych (Inpt) Progress Note Progress Note RN, group therapists, E LEARNING SPECIALIST, and psychiatrist discussed Angela progress, and reviewed his treatment/care plan Junior is very bothered by the appearance of Parkinsonian tremors and akathisia Angela fluphenazine and Thorazine were discontinued yesterday There was no significant improvement today and he was given one dose of Cogentin and 1 dose of Ativan Otherwise his mood is less depressed than before and he is more optimistic Housing following discharge remains a problem His affect seems brighter, alert and oriented to time, place, and person. His speech was neither slurred nor pressured, Denied thoughts of suicide, denied thoughts of violence or homicide, and denied hallucinations, Junior was coherent; there was no significant thought disorder, and no delusions. Assessment: Junior is a 61-year-old single White male who admitted to the inpatient psychiatric unit on 05/23/2017 with chronic suicidal thoughts of jumping in front of train after he and his sister found themselves homeless. Junior continues to show slow but consistent improvement Likely Diagnoses are: Major Depressive disorder recurrent severe with psychotic features, Opioid Use disorder, Sedative-Hypnotic and anxiolytic use disorder, Gynecomastia , Other specified personality disorder, malingering Newly appeared parkinsonian Tremor and akathisia (neuroleptic discontinued) Care Plan: Cogentin 1 mg and Ativan 1 mg times once Increase clonazepam to 1.5 mg at bedtime Continue Zoloft 100 mg daily for depression and anxiety Continue Inpatient psychiatric care: assessments, education and vital signs monitoring by nursing staff, aftercare/discharge planning by E LEARNING SPECIALIST, Group Therapy ; Milieu therapy and psychiatrist to evaluate patient on a daily basis
[2017-06-13 15:43] VITALS: BP 116/84
--- NOTE | 2017-06-13 16:32 | SOCIAL WORKER PROG NOTE PSYCH ---
Social Work Progress Note Progress Note 11:04am This telegraphic typewriter repairer spoke with Chrystal at [facility] who stated that she did not feel that the patient was appropriate for Poultry Feed Supervisor Care. She stated that the patient does not have any significant disability and appears to need assistance with bathing and dressing. She stated that he would be referred to the short term care team for further assessment. She stated, if accepted, he may be able to stay in a short term care facility for about 120 days. She stated that a account service representative from [facility] would come to assess the patient in the next few days. 11:04am This telegraphic typewriter repairer met with patient. He was informed of the update regarding [facility] and was agreeable with the plan. He described his mood as "good" and discussed how he could prepare for an assessment by [facility] through taking a shower and shaving. He reported having a good appetite, however, is struggling with sleep due to a roommate. Patient stated that he continues to have nightmare associated with trauma and will discuss this with Dr. Nixon.
[2017-06-13 20:08] VITALS: BP 123/99
[2017-06-14 07:43] VITALS: BP 130/93
--- NOTE | 2017-06-14 11:50 | CP SOUTH PROGRESS NOTE PSYCH ---
Psych (Inpt) Progress Note Progress Note RN, Group therapists, MANAGEMENT PROFESSIONALS, and psychiatrist discussed Angela progress, and reviewed his treatment/care plan Junior's Parkinsonian tremors and akathisia are significantly better (almost resolved) mood is less depressed, more optimistic re: a place to stay following discharge Junior's affect seems brighter, alert and oriented to time, place, and person. His speech was neither slurred nor pressured, denied thoughts of suicide, denied thoughts of violence or homicide, and denied hallucinations, Junior was coherent; there was no significant thought disorder, and no delusions. Assessment: Junior is a 61-year-old single White male who admitted to the inpatient psychiatric unit on 05/23/2017 with chronic suicidal thoughts of jumping in front of train after he and his sister found themselves homeless. Junior continues to show slow but consistent improvement Likely Diagnoses are: Major Depressive disorder recurrent severe with psychotic features, Opioid Use disorder, Sedative-Hypnotic and anxiolytic use disorder, Gynecomastia , Other specified personality disorder, malingering Newly appeared parkinsonian Tremor and akathisia (neuroleptic discontinued) Care Plan: Continue clonazepam 1.5 mg at bedtime Continue Zoloft 100 mg daily for depression and anxiety Continue Inpatient psychiatric care: assessments, education and vital signs monitoring by nursing staff, aftercare/discharge planning by MANAGEMENT PROFESSIONALS, Group Therapy ; Milieu therapy and psychiatrist to evaluate patient on a daily basis
[2017-06-14 12:28] VITALS: BP 132/93
--- NOTE | 2017-06-14 14:59 | Cons- Cardiology ---
General Information and HPI Consulting Request Date of Consult: 06/14/17 Requested By: Dani Nixon MD Reason for Consult: Persistent tachycardia Source of Information: patient, old records Exam Limitations: no limitations History of Present Illness: The patient is a 61-year-old man who is in the inpatient psych unit for several weeks for depression. He is on multiple psych medications. He has been noted to be tachycardic. The patient has a history of hypertension and was on lisinopril as an outpatient. He is currently on lisinopril, hydrochlorothiazide , Prazosin from a cardiac standpoint. He tells me he gets short of breath with exertion but does not have chest pain on exertion. He has no history of myocardial infarction, angina, etc. He is not aware of his heart beating fast. His heart rate has varied between the 90s and low 100s over the past week or 2. His blood pressures have been relatively normal. Allergies/Medications Allergies: Coded Allergies: NO KNOWN ALLERGIES (NONE 03/07/17) Home Med List: Aspirin (Ecotrin*) 81 MG TABLET.DR 1 TAB PO DAILY HEART/BLOOD Clonidine HCl 0.1 MG TABLET 0.1 MG PO SEE ADMIN CRITERIA opiate withdrawal 1 po tid x 2 days then 1 po bid x 2 days then 1 po daily x 2 days then off Gabapentin 300 MG CAPSULE 300 MG PO 1200,2200 off-label for moods Ibuprofen 400 MG TABLET 400 MG PO TID PRN PAIN SCALE 4-6 (MODERATE) Lisinopril/Hydrochlorothiazide (Lisinopril-Hctz 10-12.5 MG Tab) 10 MG-12.5 MG TABLET 1 TAB PO DAILY HEART Loratadine 10 MG TABLET 10 MG PO DAILY allergies Methyl Salicylate (Analgesic [place]) 28 GM OINT...G. 1 HALEY TOP Q6-PRN PRN joint pain apply thin layer to affected area, may self apply Multivitamin (One Daily Multivitamin) 1 EACH TABLET 1 TAB PO DAILY vitamin supplement Nicotine (Nicorelief) 2 MG GUM 2 MG PO Q2P PRN nicotine craving Omeprazole 20 MG CAPSULE.DR 40 MG PO DAILY AC ACID REFLUX Prazosin HCl 5 MG CAPSULE 5 MG PO AT BEDTIME nightmares Risperidone (Risperdal) 1 MG TABLET 1 TAB PO DAILY@0800 voices Risperidone (Risperdal) 3 MG TABLET 2 TAB PO AT BEDTIME for voices Review of Systems Review of Systems: He has no cardiac complaints in the review of systems Past History Travel History Traveled to [place] past 21 day No Medical History Neurological: migraine, seizure, 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10 DT-like benzo withdrawal EENT: NONE Cardiovascular: hypertension Respiratory: NONE Gastrointestinal: constipation, GERD, umbilical hernia Hepatic: hepatitis C Renal: congenital absence left kidney Musculoskeletal: osteoarthritis Psychiatric: chronic pain disorder, depression, opioid dependence, psychosis, substance abuse, DEPRESSION, ANXIETY Endocrine: NONE Blood Disorders: NONE Cancer(s): NONE AUTOMOTIVE REPAIR TECHNICIAN/Reproductive: NONE Other Medical Hx: History of PVCs overweight Surgical History Surgical History: knee replacement (BILAT TKR (REVISION X2 RT)) Family History Relations & Conditions If Any: FATHER (HTN). . MOTHER (HTN). . Relation not specified for: *No pertinent family history Psychosocial History Where Do You Live? Other Who Do You Live With? sibling Primary Language: Bruneian ETOH Use: denies use Illicit Drug Use: denies illicit drug use Functional Ability Ambulation: cane (WALKER HERE, CANE AT HOME), walker Exam & Diagnostic Data Vital Signs and I&O Vital Signs Date Time Temp Pulse Resp B/P B/P Pulse O2 O2 Flow FiO2 Mean Ox Delivery Rate 06/14 1228 91 132/93 06/14 1153 Room Air 06/14 841 89 130/93 06/14 742 98.8 89 130/93 06/13 2153 99.2 100 18 123/99 06/13 2007 99.2 100 123/99 06/13 1543 104 116/84 Intake & Output 06/14 0000 06/13 1600 06/13 0000 Intake Total Output Total Balance Patient 240 lb Weight Physical Exam: Obese middle-aged man in no acute distress HEENT exam normal Chest clear Heart regular rhythm, no murmurs. Mildly tachycardic. Extremities no edema Labs/Obie Results: Laboratory Tests 06/13 1126 Chemistry TSH (0.270 - 4.200 uIU/mL) 2.910 Free T4 (0.78 - 2.44 ng/dL) 0.97 Total T3 (0.97 - 1.69 ng/mL) 1.45 Diagnostic Data EKG Results EKG on 05/24/2017 shows sinus rhythm at a rate of 78 with small inferior Q waves otherwise normal. EKG on June 13 shows sinus rhythm rate of 97 with small inferior Q waves. CXR Results Not done Other Results CONCLUSIONS Mild concentric left ventricular hypertrophy. Normal left ventricular ejection fraction visually estimated at >65 Abnormal relaxation filling pattern of the left ventricle for age (stage 1 diastolic dysfunction). No significant valve abnormalities. Physiologic valvular regurgitation. Unable to estimate the right ventricular systolic pressure. Willy Ribera M.D. (Electronically Signed) Final Date: 15 June 2017 13:17 Assessment/Plan Assessment/Plan This patient with a history of hypertension but no known heart disease is mildly tachycardic in the 90s to low 100s. He is not symptomatic from this. His EKG shows small inferior Q waves but there is no history of previous inferior myocardial infarction. I believe he is mildly tachycardic due to his medications , several of which can cause tachycardia, including Klonopin, Cogentin and nicotine. It appears that the nicotine has just been discontinued. I recommend an echocardiogram, which has been ordered, to look at LV function and to rule out any previous myocardial infarction etc. If he is still tachycardic I would add a low dose of beta yaima such as metoprolol 25 mg daily to see if this keeps his heart rate under a little bit better control. I will review the echocardiogram when it has been done. Consult Acknowledgment - Thank you for your consult request.
[2017-06-14 15:57] VITALS: BP 139/84
--- NOTE | 2017-06-14 17:48 | SOCIAL WORKER PROG NOTE PSYCH ---
Social Work Progress Note Progress Note 11:04am This speech writer spoke with Chrystal at [facility] who stated that she did not feel that the patient was appropriate for Paralegal Assistant Care. She stated that the patient does not have any significant disability and appears to need assistance with bathing and dressing. She stated that he would be referred to the short term care team for further assessment. She stated, if accepted, he may be able to stay in a short term care facility for about 120 days. She stated that a collections representative from [facility] would come to assess the patient in the next few days. 11:04am This speech writer met with patient. He was informed of the update regarding [facility] and was agreeable with the plan. He described his mood as "good" and discussed how he could prepare for an assessment by [facility] through taking a shower and shaving. He reported having a good appetite, however, is struggling with sleep due to a roommate. Patient stated that he continues to have nightmare associated with trauma and will discuss this with Dr. Nixon.
--- NOTE | 2017-06-14 18:20 | SOCIAL WORKER PROG NOTE PSYCH ---
Social Work Progress Note Progress Note This abstract writer received a call from Kenyatta at [facility] who stated that she would come to [facility] tomorrow around 9am to assess the patient. She requested RN notes from the past 5 days and stated that they could be faxed to [facility]. 1:35pm This abstract writer met with patient. Patient reports feeling anxious, in part due to "not knowing where I'm going to go." He was informed that Kenaytta from [facility] would visit him tomorrow morning at 9am for an assessment. He stated that he would be sure to shower and shave in preparation for her visit. He denied SI/HI /AH/VH. Patient was encouraged to attend groups.
[2017-06-14 19:46] VITALS: BP 123/80
[2017-06-15 07:38] VITALS: BP 124/93
--- NOTE | 2017-06-15 08:27 | CP SOUTH PROGRESS NOTE PSYCH ---
Psych (Inpt) Progress Note Progress Note Angela progress and treatment plan were reviewed by treatment team (RN, Group therapists, CURBSTONE SETTER, and psychiatrist) Junior did not show Parkinsonian tremors or akathisia today, however, mild to moderate orofacial dyskinesia is visible (probably a combination of unmasked TD after discontinuing neuroleptic as well as some withdrawal dyskinesia from stopping Risperidone). Junior seemed to be --and reported that he was --in a better mood because an agency is coming to interview him face to face at 9:00 AM. He was alert and oriented to time, place, and person. His speech was neither slurred, nor pressured. He denied thoughts of suicide, denied thoughts of violence or homicide, and denied hallucinations. Junior was coherent; there was no significant thought disorder, and no delusions. Assessment: Junior is a 61-year-old single White male who admitted to the inpatient psychiatric unit on 05/23/2017 with chronic suicidal thoughts. This was --I believe-- the direct result of Junior and his sister finding themselves homeless after they ran out of money for the hotel they were staying at. Junior continues to show slow but consistent improvement Likely Diagnoses are: (1) Major Depressive Disorder, recurrent, severe (2) Opioid Use disorder (3) Sedative-Hypnotic and anxiolytic use disorder, Gynecomastia, Other specified personality disorder Care Plan: Reduce Cogentin to 0.5 mg BID Continue clonazepam 1.5 mg at bedtime Continue Zoloft 100 mg daily for depression and anxiety Continue Prazosin 5 mg at bedtime Continue Inpatient psychiatric care: assessments, education and vital signs monitoring by nursing staff, aftercare/discharge planning by CURBSTONE SETTER, Group Therapy ; Milieu therapy and psychiatrist to evaluate patient on a daily basis
[2017-06-15 12:05] VITALS: BP 130/86
--- NOTE | 2017-06-15 13:18 | ECHOCARDIOGRAM REPORT ---
GONSALO ALCARAZ Age: 61 : 1955 Gender: M Exam Date: 06/15/2017 10:33 Exam Location: [facility] Ht (in): 66 Wt (lb): 240 BSA: 2.30 BP: 130 / 93 Ordering Physician: Willy Ribera MD Referring Physician: Willy Ribera MD Technologist: Nicanor Baer [facility] Room Number: B4 [id number] Indications: Arrhythmia Rhythm: Sinus Technical Quality: Fair FINDINGS Left Ventricle Normal size left ventricle. Mild concentric left ventricular hypertrophy. Normal left ventricular ejection fraction visually estimated at >65 %. No obvious regional wall motion abnormalities. Abnormal relaxation filling pattern of the left ventricle for age (stage 1 diastolic dysfunction). Right Ventricle The right ventricle is normal in size and function. Right Atrium The right atrium is normal in size. Left Atrium The left atrium is normal in size. The interatrial septum is intact. Mitral Valve The mitral valve is normal in structure and function. There is no mitral regurgitation. Aortic Valve Structurally normal aortic valve without significant sclerosis or stenosis. There is no aortic regurgitation. Tricuspid Valve Tricuspid valve is normal in structure and function. Trace tricuspid regurgitation. Unable to estimate the right ventricular systolic pressure. Pulmonic Valve Structurally normal pulmonic valve. There is pulmonic regurgitation. Pericardium Normal pericardium without effusion. No pleural effusion. Great Vessels Normal aortic root dimension. The aortic arch and great vessels are well seen and are normal. CONCLUSIONS Mild concentric left ventricular hypertrophy. Normal left ventricular ejection fraction visually estimated at >65 Abnormal relaxation filling pattern of the left ventricle for age (stage 1 diastolic dysfunction). No significant valve abnormalities. Physiologic valvular regurgitation. Unable to estimate the right ventricular systolic pressure. Willy Ribera M.D. (Electronically Signed) Final Date: 15 June 2017 13:17 MEASUREMENTS (Male / Female) Normal Values 2D ECHO LV Diastolic Diameter PLAX 4.3 cm 4.2 - 5.9 / 3.9 - 5.3 cm LV Systolic Diameter PLAX 2.7 cm 2.1 - 4.0 cm LV Fractional Shortening PLAX 37.2 % 25 - 46 % LV Ejection Fraction 2D Teich 67.5 % IVS Diastolic Thickness 1.2 cm LVPW Diastolic Thickness 1.3 cm LV Relative Wall Thickness 0.6 RV Internal Dim ED PLAX 3.6 cm 1.9 - 3.8 cm LVOT Diameter 1.9 cm Aortic Root Diameter 3.1 cm LA Systolic Diameter LX 2.7 cm 3.0 - 4.0 / 2.7 - 3.8 cm Ascending Aorta Diameter 3.5 cm DOPPLER AV Peak Velocity 124.0 cm/s AV Peak Gradient 6.2 mmHg AV Mean Velocity 89.4 cm/s AV Mean Gradient 4.0 mmHg AV Velocity Time Integral 18.0 cm LVOT Peak Velocity 109.0 cm/s LVOT Peak Gradient 4.8 mmHg LVOT Mean Velocity 69.2 cm/s LVOT Mean Gradient 2.0 mmHg LVOT Velocity Time Integral 21.3 cm LVOT Stroke Volume 60.4 cm AV Area Cont Eq vti 3.4 cm AV Area Cont Eq pk 2.5 cm MV Peak Velocity 99.3 cm/s MV Peak Gradient 3.9 mmHg MV Mean Velocity 43.2 cm/s MV Mean Gradient 1.0 mmHg Mitral E Point Velocity 42.9 cm/s Mitral A Point Velocity 83.4 cm/s Mitral E to A Ratio 0.5 MV PHT Velocity 54.3 cm/s MV Deceleration Dimmit 158.0 cm/s MV Pressure Half Time 103.1 ms MV Area PHT 2.1 cm MV Deceleration Time 366.0 ms PV Peak Velocity 96.5 cm/s PV Peak Gradient 3.7 mmHg PV Mean Velocity 71.7 cm/s PV Mean Gradient 2.0 mmHg PV Velocity Time Integral 17.9 cm LV E' Lateral Velocity 8.3 cm/s Mitral E to LV E' Lateral Ratio 5.2 LV E' Septal Velocity 7.0 cm/s Mitral E to LV E' Septal Ratio 6.1
--- NOTE | 2017-06-15 14:46 | SOCIAL WORKER PROG NOTE PSYCH ---
Social Work Progress Note Progress Note 11:05am This underwriter met with patient. He stated that he met with [facility] this morning and is hopeful that a short term facility will be authorized. Patient stated that while he is hopeful, he is also anxious about this as well as the echo- cardiogram this morning. This underwriter assisted patient in identifying coping skills to manage his anxiety. He identified prayer as the most helpful coping skill. Patient stated that he is not interested in meeting with a numerical control tool programmer and was informed that he could speak with nursing or this underwriter should he change his mind. Patient stated that he continues to experience flashbacks and nightmares, which he discussed with Dr. Nixon this morning. He denied SI/HI /AH/VH.
[2017-06-15 16:08] VITALS: BP 130/82
[2017-06-15 19:25] VITALS: BP 126/94
[2017-06-16 07:33] VITALS: BP 136/79
--- NOTE | 2017-06-16 11:57 | CP SOUTH PROGRESS NOTE PSYCH ---
Psych (Inpt) Progress Note Progress Note Vitals Blood Pressure 128/85 06/16/17 1218 Pulse Rate 92 06/16/17 1218 Respiratory Rate 18 06/16/17 0837 Temperature 98.1 06/16/17 0837 Angela progress and treatment plan were reviewed by treatment team (RN, Group therapists, DRAFTING SUPERVISOR, and psychiatrist) mild to moderate orofacial dyskinesia is visible (probably a combination of unmasked TD after discontinuing neuroleptic as well as some withdrawal dyskinesia from stopping Risperidone). Junior reported that he was in a better mood because an agency interviewed him face to face this morning alert and oriented to time, place, and person. His speech was neither slurred, nor pressured. He denied thoughts of suicide, denied thoughts of violence or homicide, and denied hallucinations. Junior was coherent; no significant thought disorder, and no delusions. Assessment: Junior is a 61-year-old single White male who admitted to the inpatient psychiatric unit on 05/23/2017 with chronic suicidal thoughts. This was --I believe-- the direct result of Junior and his sister finding themselves homeless after they ran out of money for the hotel they were staying at. Junior continues to show slow but consistent improvement Likely Diagnoses are: (1) Major Depressive Disorder, recurrent, severe (2) Opioid Use disorder (3) Sedative-Hypnotic and anxiolytic use disorder, Gynecomastia, Other specified personality disorder Care Plan: D/C Cogentin Continue clonazepam 1.5 mg at bedtime Continue Zoloft 100 mg daily for depression and anxiety Continue Prazosin 5 mg at bedtime Continue Inpatient psychiatric care: assessments, education and vital signs monitoring by nursing staff, aftercare/discharge planning by DRAFTING SUPERVISOR, Group Therapy ; Milieu therapy and psychiatrist to evaluate patient on a daily basis
[2017-06-16 12:18] VITALS: BP 128/85
[2017-06-16 16:01] VITALS: BP 136/82
--- NOTE | 2017-06-16 16:44 | SOCIAL WORKER PROG NOTE PSYCH ---
Social Work Progress Note Progress Note This mortgage underwriter received a fax from [employer] stating that he has been approved for 120 days for short term approval. The cover page on the fax indicated a date of determination of 06/15/17 with a date of action of OCTOBER 14, 2017. Due the the October date, this mortgage underwriter contacted [facility] and spoke with jack machine operator Francisco Chester ([phone], [phone]. [phone]) who stated that it was a clinical error and they would address it and provide the corrected documentation. He confirmed that the patient has been approved for 120 days. 2:35pm This mortgage underwriter met with patient. Patient was informed of the approval and was relieved to hear the news. He stated that he does not want to be placed in a facility in [place]. He would prefer [facility], but was not limiting the location other than [place]. Patient described his mood as "good" and denied SI/HI/AH/VH. Patient stated that he continues to experience flashbacks, however, feels that they have improved.
[2017-06-16 20:00] VITALS: BP 113/87
[2017-06-17 07:50] VITALS: BP 120/85
--- NOTE | 2017-06-17 09:13 | CP SOUTH PROGRESS NOTE PSYCH ---
Psych (Inpt) Progress Note Progress Note Include the following elements, when applicable: Involvement in the active treatment of the patient with behavioral observations of the patient and the patient's response to the treatment. Review of the ongoing treatment process in the context of the treatment plan. Indication of how multi-disciplinary staff members are carrying out the treatment plan. Plans for future interventions and recommendations for revision of the treatment plan. Liaison with other physicians/providers. Progress Note: SUBJECTIVE: Patient resting in bed with right knee pain, feeling that he needed to get off of it for while. Patient otherwise excited about the news that he has been approved for a correction. Patient reports sleeping and eating well. No SI/HI/AVH/SIB. No side effects to medications, abnormal movements, illness. OBJECTIVE: Per nursing, pt did well overnight without any acute events. Pt remained in behavioral control, adherent with staff instructions and medications. VSS. Current Medications Sig/Blank Start time Last Medication Dose Route Stop Time Status Admin Acetaminophen 500 MG Q6P PRN 05/23 2199 AC PO Acetaminophen 650 MG Q4P PRN 05/23 2200 AC 06/14 PO 1459 Aspirin Buffered 81 MG DAILY 05/23 1000 AC 06/17 PO 0836 Clonazepam 1.5 MG AT BEDTIME 06/13 2200 AC 06/16 PO 06/20 2159 2217 Diclofenac Sodium 100 MG BID 06/01 2200 AC 06/17 PO 0837 Diphenhydramine HCl 50 MG AT BEDTIME 06/11 2200 AC 06/16 PO 2217 Diphenhydramine HCl 50 MG Q6 PRN 06/11 1230 AC 06/17 PO 0839 Hydrochlorothiazide 12.5 MG DAILY 05/23 1000 AC 06/17 PO 0835 Ibuprofen 600 MG Q6P PRN 06/12 1030 AC 06/12 PO 1129 Lisinopril 10 MG DAILY 05/23 1000 AC 06/17 PO 0836 Loratadine 10 MG DAILY 05/24 1000 AC 06/17 PO 0835 Methyl Salicylate 1 HALEY Q6-PRN PRN 05/23 2145 AC 05/24 TOP 1131 Multivitamins 1 TAB DAILY 05/24 1000 AC 06/17 Therapeutic PO 0836 Nicotine 2 MG Q2P PRN 05/23 2145 AC PO Omeprazole 40 MG DAILY AC 05/24 0700 AC 06/17 PO 0612 Prazosin HCl 5 MG AT BEDTIME 05/23 2200 AC 06/16 PO 2215 Sertraline HCl 100 MG DAILY 05/27 1000 AC 06/17 PO 0836 Vital Signs Date Time Temp Pulse Resp B/P B/P Pulse O2 O2 Flow FiO2 Mean Ox Delivery Rate 06/17 0836 97.3 99 18 120/85 06/17 0750 97.3 99 120/85 06/16 2215 98.1 97 18 113/87 06/16 1999 98.1 97 113/87 06/16 1601 90 136/82 06/16 1218 92 128/85 MSE: GENERAL: Alert and oriented x3, good eye contact, well-groomed, resting in bed to take weight off knee. SPEECH: Moderate rate and volume, normal prosody, fluent MOTOR: No tics, tremors, stereotypy, or abnormal movements, uses walker MOOD: "good" AFFECT: brighter than this blog writer has ever seen him, mood congruent, good range, non-labile, well related THOUGHT PROCESS: Logical, linear and goal-directed THOUGHT CONTENT: No SI/HI/AVH/SIB, no apparent grandiosity, paranoia, delusions , obsessions, ruminations COGNITION: No apparent deficit in attention, memory or concentration JUDGMENT: good INSIGHT: fair ASSESSMENT: Junior is a 61-year-old single White male who admitted to the inpatient psychiatric unit on 05/23/2017 with chronic suicidal thoughts due to being homeless. Patient tolerating medication regimen. Patient happy and excited about news that he's been approved for a nursing facility. With continued leg pain. Likely Diagnoses are: (1) Major Depressive Disorder, recurrent, severe (2) Opioid Use disorder (3) Sedative-Hypnotic and anxiolytic use disorder, Gynecomastia, Other specified personality disorder PLAN: -maintain safety, vs tid, q15min checks -continue meds -pending SW decision on what SNF will be able to accept pt -continue plan PLAN: -maintain safety, vs tid, q15min checks -continue meds -continue plan
[2017-06-17 12:05] VITALS: BP 124/76
[2017-06-17 16:17] VITALS: BP 125/80
[2017-06-17 20:11] VITALS: BP 118/74
--- NOTE | 2017-06-18 00:10 | CP SOUTH PROGRESS NOTE PSYCH ---
Psych (Inpt) Progress Note Progress Note Progress Note: SUBJECTIVE: Patient seated in lounge, watching TV. Patient states he is feeling good today denies any SI/HI/AVH/SIB. Feels excited about going to a nursing facility once the distal plan is crystallized. Jasmyne in helping with his pain however feels that is giving him some dyspepsia, using Maalox. Sleeping and eating well. No side effects to medications, abnormal movements, illness. OBJECTIVE: Per nursing, pt did well overnight without any acute events. Pt remained in behavioral control, adherent with staff instructions and medications. VSS. Current Medications Sig/Blank Start time Last Medication Dose Route Stop Time Status Admin Acetaminophen 650 MG .STK-MED ONE 06/17 163 DC PO 06/17 163 Acetaminophen 500 MG Q6P PRN 05/23 220 AC PO Acetaminophen 650 MG Q4P PRN 05/23 2200 AC 06/17 PO 1631 Al Hydroxide/Mg 30 ML .STK-MED ONE 06/17 2013 DC Hydroxide PO 06/17 2014 Al Hydroxide/Mg 30 ML Q4-6 PRN PRN 06/17 1715 AC 06/17 Hydroxide PO 2013 Aspirin Buffered 81 MG DAILY 05/23 1000 AC 06/17 PO 0836 Clonazepam 1.5 MG .STK-MED ONE 06/17 2215 DC PO 06/17 221 Clonazepam 1.5 MG AT BEDTIME 06/13 2200 AC 06/17 PO 06/20 2159 2215 Diclofenac Sodium 100 MG BID 06/01 2200 AC 06/17 PO 2214 Diphenhydramine HCl 50 MG AT BEDTIME 06/11 2200 AC 06/17 PO 2214 Diphenhydramine HCl 50 MG Q6 PRN 06/11 1230 AC 06/17 PO 1632 Hydrochlorothiazide 12.5 MG DAILY 05/23 1000 AC 06/17 PO 0835 Ibuprofen 600 MG Q6P PRN 06/12 1030 AC 06/12 PO 1129 Lisinopril 10 MG DAILY 05/23 1000 AC 06/17 PO 0836 Loratadine 10 MG DAILY 05/24 1000 AC 06/17 PO 0835 Methyl Salicylate 1 HALEY Q6-PRN PRN 05/23 2145 AC 05/24 TOP 1131 Multivitamins 1 TAB DAILY 05/24 1000 AC 06/17 Therapeutic PO 0836 Nicotine 2 MG Q2P PRN 05/23 2145 AC PO Omeprazole 40 MG DAILY AC 05/24 0700 AC 06/18 PO 0700 Prazosin HCl 5 MG AT BEDTIME 05/23 2200 AC 06/17 PO 2214 Sertraline HCl 100 MG DAILY 05/27 1000 AC 06/17 PO 0836 Vital Signs Date Time Temp Pulse Resp B/P B/P Pulse O2 O2 Flow FiO2 Mean Ox Delivery Rate 06/186 97.3 94 130/82 06/17 2214 98.1 98 18 118/74 06/17 2010 98.1 98 118/74 06/17 1617 92 125/80 06/17 1205 92 124/76 06/17 0836 97.3 99 18 120/85 MSE: GENERAL: Alert and oriented x3, good eye contact, well-groomed, seated in lounge, using walker. Appears to shower today. SPEECH: Moderate rate and volume, normal prosody, fluent MOTOR: No tics, tremors, stereotypy, or abnormal movements, uses walker MOOD: "good today" AFFECT: calm, mood congruent, good range, non-labile, well related THOUGHT PROCESS: Logical, linear and goal-directed THOUGHT CONTENT: No SI/HI/AVH/SIB, no apparent grandiosity, paranoia, delusions , obsessions, ruminations COGNITION: No apparent deficit in attention, memory or concentration JUDGMENT: good INSIGHT: fair ASSESSMENT: Junior is a 61-year-old single White male who admitted to the inpatient psychiatric unit on 05/23/2017 with chronic suicidal thoughts due to being homeless. Patient tolerating medication regimen, except for dyspepsia attributable to Voltaren, taking maalox. Pt looking forward to working out dispo plan with primary team this week. Likely Diagnoses are: (1) Major Depressive Disorder, recurrent, severe (2) Opioid Use disorder (3) Sedative-Hypnotic and anxiolytic use disorder, Gynecomastia, Other specified personality disorder PLAN: -maintain safety, vs tid, q15min checks -continue meds -dispo to SNF after d/c -continue plan
[2017-06-18 07:56] VITALS: BP 130/82
[2017-06-18 12:27] VITALS: BP 137/89
[2017-06-18 15:53] VITALS: BP 132/86
[2017-06-18 20:09] VITALS: BP 131/82
[2017-06-19 07:42] VITALS: BP 120/80
--- NOTE | 2017-06-19 10:33 | CP SOUTH PROGRESS NOTE PSYCH ---
Psych (Inpt) Progress Note Progress Note Vitals Blood Pressure 120/80 06/19/17 0954 Pulse Rate 98 06/19/17 0954 Respiratory Rate 18 06/19/17 0954 Temperature 97.7 06/19/[address] Hays's notes for the weekend Junior's progress and treatment plan were reviewed by treatment team (RN, Group therapists, STAFF PHYSICIAN, and psychiatrist) MSE: Junior was alert and oriented to time, place, and person. Shows mild to moderate orofacial dyskinesia is visible. Junior reported that he was in a better mood because an agency interviewed him face to face this morning. His speech was neither slurred, nor pressured. He denied thoughts of suicide, denied thoughts of violence or homicide, and denied hallucinations. Juniro was coherent; no significant thought disorder, and no delusions. Assessment: Junior is a 61-year-old single White male who admitted to the inpatient psychiatric unit on 05/23/2017 with chronic suicidal thoughts. This was --I believe-- the direct result of Junior and his sister finding that they are homeless after they ran out of money for the hotel they were staying at. Junior continues to show slow but consistent improvement Likely Diagnoses are: (1) Major Depressive Disorder, recurrent, severe (2) Opioid Use disorder (3) Sedative-Hypnotic and anxiolytic use disorder, Gynecomastia, Other specified personality disorder Care Plan: Continue clonazepam 1.5 mg at bedtime Continue Zoloft 100 mg daily for depression and anxiety Continue Prazosin 5 mg at bedtime Continue Inpatient psychiatric care: assessments, education and vital signs monitoring by nursing staff, aftercare/discharge planning by STAFF PHYSICIAN, Group Therapy ; Milieu therapy and psychiatrist to evaluate patient on a daily basis
[2017-06-19 12:10] VITALS: BP 122/75
[2017-06-19 16:11] VITALS: BP 117/74
--- NOTE | 2017-06-19 16:27 | SOCIAL WORKER PROG NOTE PSYCH ---
Social Work Progress Note Progress Note 10am This newspaper writer met with patient. He described his mood as "good" and denied SI/HI/ AH/VH. He also reported that his flashbacks have improved. This newspaper writer spoke with patient regarding short term care facilities and he signed LIBRA's. Patient requested that this newspaper writer contact Alla with [facility] to update her regarding the [facility] approval. LIBRA's were signed for the following facilities, which were contacted inquiring about making referrals: - [facility]: only for patient's with a primary diagnosis of HIV/AIDS - [facility]: vm left for intake at 2:46pm with call back number - [facility]: vm left for intake at 2:47pm with call back number - [facility]: vm left for intake at 2:49pm with call back number - [facility]: vm left for Smita Russo, mental health social worker, at 2:54pm - [facility]: vm left for intake at 3:48pm - [facility]: this newspaper writer spoke with Sulema who stated that case management typically sends a form. This newspaper writer followed up with Alanna Norwood with Case management regarding the referral information. 1:08pm This newspaper writer left vm for Francisco Chester at [facility] ([phone], ext. [phone]) to follow up regarding the clarification requested regarding the date of action ( listed as 10/14/17). Francisco returned the call explaining that the date of action is the expiration date. 4:16pm This newspaper writer left vm for Alla Worthy with [facility]. Request made for a call back and a call back number was provided. 4:25pm Alla returned this newspaper writer's call and scheduled an appointment with this newspaper writer and the patient for 06/21/17 at 1:30pm
[2017-06-19 19:56] VITALS: BP 118/77
[2017-06-20 07:41] VITALS: BP 113/81
--- NOTE | 2017-06-20 11:03 | CP SOUTH PROGRESS NOTE PSYCH ---
Psych (Inpt) Progress Note Progress Note Vital Signs Date Time Temp Pulse Resp B/P B/P Pulse O2 O2 Flow FiO2 Mean Ox Delivery Rate 06/20 0838 96.0 86 18 06/20 0837 96.0 86 18 06/20 0741 96.0 86 11306/190 76 110/70 06/19 2128 76 110/70 06/196 98.1 86 118/77 The treatment team (RN, Group therapists, CERTIFIED TUMOR REGISTRAR, and psychiatrist) reviewed Angela progress and treatment plan MSE: Junior was alert. He was oriented to time, place, and person. He showed mild orofacial dyskinesia. He reported that his mood has been "good." Junior spoke at a nrmal pace and was neither slurred, nor pressured. He denied thoughts of suicide, denied thoughts of violence or homicide, and denied hallucinations. Junior was coherent; there was no significant thought disorder, and no delusions. Assessment: Junior is a 61-year-old single White male who was admitted to the inpatient psychiatric unit on 05/23/2017 with chronic suicidal thoughts. This was --I believe-- the direct result of Junior and his sister finding that they are homeless after they ran out of money for the hotel they were staying at. Junior continues to show slow but consistent improvement Likely Diagnoses are: (1) Major Depressive Disorder, recurrent, severe (2) Opioid Use disorder (3) Sedative-Hypnotic and anxiolytic use disorder, Gynecomastia, Other specified personality disorder Care Plan: Reduce Benadryl at bedtime to 25 mg QHS Continue clonazepam 1.5 mg at bedtime Continue Zoloft 100 mg daily for depression and anxiety Continue Prazosin 5 mg at bedtime Continue Inpatient psychiatric care: assessments, education and vital signs monitoring by nursing staff, aftercare/discharge planning by CERTIFIED TUMOR REGISTRAR, Group Therapy ; Milieu therapy and psychiatrist to evaluate patient on a daily basis ; Milieu therapy and psychiatrist to evaluate patient on a daily basis
[2017-06-20 11:57] VITALS: BP 105/74
[2017-06-20 15:42] VITALS: BP 124/77
--- NOTE | 2017-06-20 16:05 | SOCIAL WORKER PROG NOTE PSYCH ---
Social Work Progress Note Progress Note 2:15pm This ticket writer met with patient. He was informed that referrals had been faxed today (see below). He denied SI/HI/AH/VH and reported improvement with flashbacks. Patient appears to be hopeful about going to a short term care facility. The face sheet, nursing notes, history and physical and medication list were faxed to the following: - [facility], fax number [phone] - [facility], fax number [phone] - [facility], fax number [phone] - [facility], fax number [phone]
[2017-06-20 19:54] VITALS: BP 111/53
[2017-06-20 22:46] VITALS: BP 112/74
[2017-06-21 07:33] VITALS: BP 97/71
--- NOTE | 2017-06-21 08:07 | CP SOUTH PROGRESS NOTE PSYCH ---
Psych (Inpt) Progress Note Progress Note Vital Signs Date Time Temp Pulse Resp B/P 06/21 0733 96.6 76 97/71 06/20 2246 86 112/74 06/20 2153 98.2 90 18 06/20 98.2 90 18 06/20 98.2 90 06/20 1542 78 124/77 The treatment team (RN, Group therapists, DIRECTOR COMPENSATION, and psychiatrist) reviewed Angela progress and treatment plan Mental Status Examination: Junior reported that he did not sleep well last night. He was alert. He was oriented to time, place, and person. He showed mild orofacial dyskinesia. Junior reported that his mood has been "good." Junior spoke at a normal pace. He was neither slurred, nor pressured. He denied thoughts of suicide, denied thoughts of violence or homicide, and denied hallucinations. Junior was coherent. Junior did not exhibit thought disorder, and no delusions. Assessment: Junior is a 61-year-old single White male who was admitted to the inpatient psychiatric unit at [facility] on 05/23/2017 for suicidal thoughts. Junior and his sister found themselves homeless after they ran out of money for the hotel they were staying at. Since 05/23/2017, Junior showed slow but consistent improvement Likely Diagnoses are: (1) Major Depressive Disorder, recurrent, severe (2) Opioid Use disorder (3) Sedative-Hypnotic and anxiolytic use disorder, Gynecomastia, Other specified personality disorder Care Plan: Increase Benadryl at bedtime back to 50 mg QHS (he reported poor sleep with the reduction to 25 mg last night) Continue clonazepam 1.5 mg at bedtime Continue Zoloft 100 mg daily for depression and anxiety Continue Prazosin 5 mg at bedtime (he did not want a reduction despite low BP thin morning) Continue Inpatient psychiatric care with safety checks every 15 minutes Continue Nursing assessments, education and vital signs monitoring by nursing staff Continue aftercare/discharge planning by DIRECTOR COMPENSATION Continue Group Therapy; Milieu therapy by Group Therapists Continue evaluate patient on a daily basis by psychiatrist
--- NOTE | 2017-06-21 10:25 | SOCIAL WORKER PROG NOTE PSYCH ---
Social Work Progress Note Progress Note Phoned the followng rehabs regarding consideration of patient. INformed all listed below that clinical was faxed 06/20, patient is ready to d/c at anytime. Met with Junior and he did sign releases for [facility] in [facility], [facility] and [facility]. Faxed clinical to [facility] and [facility] at 11:15am, [facility] Fax completed. Kathy Fitzgerald LCSW spoke with [place] - Pharmacy Coordinator [facility] in [facility] and addressed some of their concerns about Junior which included disposition after he discharged from rehab. Kera will fax clinical to [facility] later in day per their discussion. [facility] -#[phone] spoke with Sulema in admissions - they feel Junior is not appropriate typical 21 days stay refused him. REFUSED PATIENT Zoe Rodriguez - - left voicemail for Leandra Haywood Electric Switch Tester to call back ramila. WAITING ON RESPONSE Lord Marks - - left voicemail for Ms. Treva Siegel Electric Switch Tester to call back ramila - also informed clinical was faxed 06/20. WAITING ON RESPONSE [facility] - - voicemail for Cindy Centeno Electric Switch Tester regarding status - asked for call back. WAITING ON RESPONSE Faxed Clinical 06/21/17 [facility] fx#[phone] - need to call [facility] fx#[phone] (ADMISSIONS STATED THEY HAVE MALE BEDS) - need to call [facility] fx#[phone] - need to call
[2017-06-21 12:00] VITALS: BP 98/72
--- NOTE | 2017-06-21 14:25 | DISCHARGE SUMMARY REPORT-PSYCH ---
Visit Information Visit Dates/Diagnosis' Admission Date: 05/23/2017 Discharge Date: 06/21/17 Reason for Admission: 61-year-old single white male who presented to [facility] Emergency department initially complaining of knee pain. He revealed during his evaluation that he was having thoughts of suicide, including thoughts of standing in front of a train." Psy Discharge Primary Diag: major depressive disorder severe, opioid use disorder Psy Discharge Secondary Diag: traumatic brain injury Hospital Course Significant Lab Findings: Lab Hct 40.8 % L 05/22/17 1500 Hgb 13.4 G/DL L 05/22/17 1500 Methadone Screen > 735 NG/ML H 05/22/17 1655 Serum Alcohol < 10.0 MG/DL 05/22/17 1500 U Benzodiazepines Scrn > 800 NG/ML H 05/22/17 1655 Urine Cannabis Screen 6.70 NG/ML 05/22/17 1655 Urine Cocaine Screen < 50 NG/ML 05/22/17 1655 Urine Opiates Screen < 100.00 NG/ML 05/22/17 1655 Course Complications: The patient did not have any complications while he was in Inpatient Psychiatry Consultations: The patient had a history and physical examination while he was in Inpatient Psychiatry. Please see the electronic medical record of the patient for a full history and physical Allergies: Coded Allergies: NO KNOWN ALLERGIES (NONE 03/07/17) Hospital Course/TX Response: The patient had a relatively long stay on the inpatient psychiatric unit. The reason for the patient's longest they primarily was the issue off not having and stable housing. The patient also was reporting thoughts of suicide for the first half of his stay in the hospital. The patient was compliant with medications while he was on the inpatient psychiatric unit and was attending the groups. He did not pose any behavioral problems. He showed he showed slow but gradual improvement. And for almost a week towards the end of his hospitalization he was a 3 or thoughts of suicide. Patient's condition upon discharge Progress Note Vital Signs Date Time Temp Pulse Resp B/P 06/21 0733 96.6 76 97/71 06/20 2246 86 112/74 06/20 215 98.2 90 18 11153 06/20 215 98.2 90 18 11153 06/20 1954 98.2 90 11153 06/20 1542 78 124/77 The treatment team (RN, Group therapists, GUIDEMAN, and psychiatrist) reviewed Angela progress and treatment plan Mental Status Examination: Junior reported that he did not sleep well last night. He was alert. He was oriented to time, place, and person. He showed mild orofacial dyskinesia. Junior reported that his mood has been "good." Junior spoke at a normal pace. He was neither slurred, nor pressured. He denied thoughts of suicide, denied thoughts of violence or homicide, and denied hallucinations. Junior was coherent. Junior did not exhibit thought disorder, and no delusions. Assessment: Junior is a 61-year-old single White male who was admitted to the inpatient psychiatric unit at [facility] on 05/23/2017 for suicidal thoughts. Junior and his sister found themselves homeless after they ran out of money for the hotel they were staying at. Since 05/23/2017, Junior showed slow but consistent improvement Likely Diagnoses are: (1) Major Depressive Disorder, recurrent, severe (2) Opioid Use disorder (3) Sedative-Hypnotic and anxiolytic use disorder, Gynecomastia, Other specified personality disorder Care Plan: Increase Benadryl at bedtime back to 50 mg QHS (he reported poor sleep with the reduction to 25 mg last night) Continue clonazepam 1.5 mg at bedtime Continue Zoloft 100 mg daily for depression and anxiety Continue Prazosin 5 mg at bedtime (he did not want a reduction despite low BP thin morning) D/C to a half-way facility Discharge HBIPS - Tobacco Use Treatment Offered Post DC Medications Offered: Script Given-See Med List Post DC Tobacco Treatment Plan: Refused Tobacco Tx Pgm - EtOH/Drug Use D/O Treatment Offered Post DC Medications Offered: Script Given-See Med List Post DC EtOH/SubAbuse TX Plan: Other SubAbuse/Dual Pgm Metabolic Screening - Screen if on a Neuroleptic Medication - Metabolic screening should include: - Blood Pressure, BMI, Glucose or Hgb A1c, & a - Lipid profile from within the past 365 days. Metabolic Screening ([X]) Not Applicable, patient not on a neuroleptic. Patient was taken off all neuroleptics during this hospitalization Discharge Instructions General Discharge Information Multiple Neuroleptics: ([X]) Not Applicable Discharge Diet Regular Discharge Activity As Tolerated DC Disposition: SNF Referrals Ordered Referrals Provider Referral 06/21/17 For Groups: [Denise] Denise [address] [place], [place] [phone] Provider Referral For Groups: [[facility]] [facility] Therapist [facility] [phone] Prescriptions Stop taking the following medications: Clonidine HCl (Clonidine HCl) 0.1 MG TABLET ORAL SEE INSTRUCTIONS Qty = 120 Risperidone (Risperdal) 1 MG TABLET ORAL DAILY Qty = 14 Gabapentin (Gabapentin) 300 MG CAPSULE ORAL 1200,2200 Qty = 28 Risperidone (Risperdal) 3 MG TABLET ORAL AT BEDTIME Qty = 28 Continue taking these medications: Nicotine (Nicorelief) 2 MG GUM 2 Milligram ORAL EVERY 2 HOURS NEEDED as needed for nicotine craving Qty = 100 Comments: Last Taken:NOT GIVEN IN THE HOSPITAL Time: Prazosin HCl (Prazosin HCl) 5 MG CAPSULE 5 Milligram ORAL AT BEDTIME Qty = 14 Comments: Last Taken:06/20/17 Time:10 PM Ibuprofen (Ibuprofen) 400 MG TABLET 400 Milligram ORAL THREE TIMES DAILY as needed for PAIN SCALE 4-6 (MODERATE) Qty = 21 Comments: Last Taken:06/12/17 Time:11AM Methyl Salicylate (Analgesic Randolph) 28 GM OINT...G. 1 Application On the skin EVERY 6 HOURS NEEDED as needed for joint pain Qty = 1 Instructions: apply thin layer to affected area, may self apply Comments: Last Taken:05/25/17 Time:11 AM Loratadine (Loratadine) 10 MG TABLET 10 Milligram ORAL DAILY Qty = 14 Comments: Last Taken:06/21/17 Time: 9 AM Aspirin (Ecotrin*) 81 MG TABLET.DR 1 Tablet ORAL DAILY Qty = 14 Comments: Last Taken:06/21/17 Time:8 AM Lisinopril/Hydrochlorothiazide (Lisinopril-Hctz 10-12.5 MG Tab) 10 MG-12.5 MG TABLET 1 Tablet ORAL DAILY Qty = 14 Comments: Last Taken:06/21/17 Time:8 AM Omeprazole (Omeprazole) 20 MG CAPSULE.DR 40 Milligram ORAL DAILY BEFORE BREAKFAST Qty = 14 Comments: Last Taken:06/21/17 Time:6 AM Multivitamin (One Daily Multivitamin) 1 EACH TABLET 1 Tablet ORAL DAILY Qty = 14 Comments: Last Taken:06/21/17 Time:8 AM Start taking the following new medications: Diphenhydramine HCl (Diphenhydramine HCl) 50 MG CAPSULE 50 Milligram ORAL AT BEDTIME Qty = 14 No Refills Comments: Last Taken:06/20/17 Time:10 PM Metoprolol Tartrate (Metoprolol Tartrate) 25 MG TABLET 12.5 Milligram ORAL TWICE DAILY Qty = 30 No Refills Comments: Last Taken:06/21/17 Time:8 AM Diclofenac Sodium (Diclofenac Sodium) 75 MG TABLET.DR 75 Milligram ORAL TWICE DAILY Qty = 30 No Refills Comments: Last Taken:06/21/17 Time:8 AM Clonazepam (Klonopin) 0.5 MG TABLET 1.5 Milligram ORAL AT BEDTIME Qty = 45 No Refills Comments: Last Taken:06/20/17 Time:10PM Sertraline HCl (Zoloft) 100 MG TABLET 100 Milligram ORAL DAILY Qty = 15 No Refills Comments: Last Taken:06/21/17 Time:8 AM Studies Pending at Discharge None Copies To: [facility]
--- NOTE | 2017-06-21 14:35 | Patient Discharge Instructions ---
Psych Discharge Inst General Discharge Information Reason for Admission: 61-year-old single white male who presented to [facility] Emergency department initially complaining of knee pain. He revealed during his evaluation that he was having thoughts of suicide, including thoughts of standing in front of a train." Psy Discharge Primary Diag+ major depressive disorder severe opioid use disorder Summary Tests/Major Procedures The patient had an echocardiogram while he was on the inpatient psychiatric unit and showed mild left ventricular hypertrophy and mild diastolic dysfunction Studies Pending at DC: No current studies pending Patient Instructions Contact Information Your Psychiatrist on [facility] was Dani Nixon MD * If you are experiencing an emergency related to this hospitalization, please call [phone] to contact the treating psychiatrist or the psychiatrist-on- call. * To Request a copy of your medical records, please contact the Medical Records Department at [phone]. * To request results of studies pending at the time of discharge, please call [phone]. * Continue your Medications until directed to stop by your Healthcare provider. General Medication Information Please continue to take your new medications and your continued home medications , unless otherwise indicated on your discharge medication list, or unless directed by your MD or GROUND HOST/HOSTESS to stop them. Special Instructions Diet Regular Activity As Tolerated - Tobacco Use Treatment Offered Post DC Medications Offered: Script Given-See Med List Post DC Tobacco Treatment Plan: Refused Tobacco Tx Pgm - EtOH/Drug Use D/O Treatment Offered Post DC Medications Offered: Script Given-See Med List Post DC EtOH/SubAbuse [place] Plan: Other SubAbuse/Dual Pgm Metabolic Screening Not Applicable, patient not on a neuroleptic. The patient was taken off all neuroleptics while he was in the inpatient psychiatric at this time around Advance Directives Does the Patient have Medical Advance Directives No/Refused further info Does Pt have Psychiatric Advance Directives? No/Refused further info Does Patient have a Designated Surrogate Decision Maker: No Information About Psychiatric Advance Directives Provided? Refused Discharge Plan Post Hospital Treatment Plan: [facility] facility
[2017-06-21] MEDS ORDERED: DICLOFENAC SODI75 M2 PO (15:42)
[2017-06-21] MEDS ORDERED: ZOLOFT100 M1 PO (15:42)
[2017-06-21] MEDS ORDERED: DIPHENHYDRAMINE50 M1 PO (15:42)
[2017-06-21] MEDS ORDERED: METOPROLOL TART25 M1 PO (15:42)
[2017-06-21] MEDS ORDERED: KLONOPIN0.5 M1 PO (15:42)
[2017-06-21 15:50] VITALS: BP 100/75
--- NOTE | 2017-06-21 17:31 | SOCIAL WORKER PROG NOTE PSYCH ---
Social Work Progress Note Progress Note 11:40am This telegraphic typewriter repairer met with patient. He reported improvement with flashbacks and denied SI/HI/AH/VH. He was informed that referrals are being made and followed up with regarding the nursing homes. Patient appeared eager and interested in going to a short term care facility. Patient identified a safety plan in which "I would tell my social services assistant." He was informed that he would be provided with crisis numbers and warm lines upon discharge. He was agreeable to utilizing these resources. 1:50pm This telegraphic typewriter repairer and patient met with Alla. She was informed of the [facility] acceptance and will continue to work with patient as needed while he is in the facility. At patient's request, she will inform his sister of his location. This telegraphic typewriter repairer spoke with Myah at [facility] who stated that they have an available bed for him tonight. Patient was informed and accepted the bed. This telegraphic typewriter repairer also spoke with Myah regarding treatment. She stated that his medications will be managed while he is at [facility]. Patient will continue to work with social workers at their facility for discharge planning, to include housing and treatment. Myah was informed of patient's engagement with [facility] ( Alla Worthy) and that, per Alla, she is available if needed. In effort to schedule a ride from to [facility], this telegraphic typewriter repairer learned that the patient's [facility] is no longer active and he cannot utilize [facility]. A ride was scheduled with [facility] with an ETA of 4:30pm. Patient will go by stretcher, as per Dr. Nixon, patient has severe osteoarthritis, hx of a TBI and is unsteady on his feet. Faxed Referral(s) Referred To: [facility] of Care Documents sent: Health Summary, W10 Faxed to: [facility] Walker Fax #: [phone] Faxed by: Marty Fitzgerald LCSW Date faxed: 06/21/17 Time Faxed: [phone]
== END 2017-06-21 18:43 | DRG 881 ==
LOC: ERH 11:55 → CP SOUTH 05-23 17:30 → ERHI 05-23 17:30 → ENRESERV 05-23 17:44 → EDBEDREQ 05-23 18:55 → CP SOUTH 05-23 19:54
PROVIDERS: Physician Assistant Medical
DX: F32.9 Major depressive disorder, single episode, unspecified (principal); F11.90 Opioid use, unspecified, uncomplicated
CPT/HCPCS: 36415; 73562-RT; 80307; 93005; 93010; 93306; G0463; G0480; J3230; J3490